=== PATIENT | male | born 1980 | race Caucasian/White ===

== ENCOUNTER → 2020-01-19 07:01 | Outpatient (CLI) | payer OTHER, SELFPAY ==
--- NOTE | 2020-01-19 | DI.MRI.S_ITS ---
PROCEDURE: MR HEAD/BRAIN WO CON INDICATIONS: Headache, unspecified TECHNIQUE: Noncontrast axial T1 spin echo, axial T2 fast spin echo, sagittal and axial FLAIR, coronal T2 fast spin echo, axial gradient echo, axial diffusion and ADC through the brain. COMPARISON: None. FINDINGS: Image quality: Excellent. CSF Spaces: Basal cisterns are patent. No extra-axial fluid collections. Ventricles are normal in size and shape. Brain: No intracranial masses or hemorrhage. Nazario/white matter interface is normal. Brainstem appears normal. Diffusion-weighted images demonstrate no acute ischemic insult. No chronic ischemic insults. Normal intravascular flow voids are present. Skull and face: Calvarium has normal marrow signal. Orbits appear normal. Sinuses: Sinuses and mastoids are clear. IMPRESSION: Normal for age, source of current persistent headaches symptoms is not seen. Dictated by: Robson Huynh M.D. on 01/19/2020 at 8:12 Approved by: Robson Huynh M.D. on 01/19/2020 at 8:13
== END ==
PROVIDERS: PCP Family Medicine; Referring Provider Family Medicine; Visit Provider Family Medicine
DX: R51.9 Headache, unspecified (principal)
CPT/HCPCS: 70551

== ENCOUNTER → 2020-03-08 14:59 | Outpatient (CLI) | payer OTHER, SELFPAY | PROVIDERS: PCP Family Medicine; Referring Provider Specialist; Visit Provider Specialist | DX: N39.0 Urinary tract infection, site not specified (principal) | CPT/HCPCS: 51728; 51741; 51797; 87086 ==

== ENCOUNTER 2020-07-14 13:00 | Outpatient (RCR) | payer OTHER, SELFPAY ==
--- NOTE | 2019-02-04 13:43 | PT.OIE ---
Current Diagnoses Cervicalgia (02/04/19) Headache (02/04/19) Personal history of traumatic brain injury (02/04/19) Visit Care Team Role Provider Type Elisha Mello DO Attending Provider Non-Staff Primary Care Provider Specialty: Medical Address: [address] [place] [address], [id number] Email: Physical Therapy Initial Evaluation PT-OP-A Visit Information Start: 02/04/19 07:28 Freq: Status: Active Protocol: Document 02/04/19 09:01 MB (Rec: 02/04/19 09:50 MB [id number]) Out-Patient Physical Therapy Visit Information Visit Information Visit Type Initial Evaluation Visit Note Miranda, active duty Visit Start Time 09:01 Visit Stop Time 09:41 Total Visit Minutes 40 Visit Number 1 PT-OP-B Current Condition Start: 02/04/19 07:28 Freq: Status: Active Protocol: Document 02/04/19 09:01 MB (Rec: 02/04/19 09:50 MB [id number]) Current Condition History of Current Condition Onset Date 1.5 years History of Current Condition Pt reports TBI 4 years ago when tripping and hitting head on counter. He had a severe concussion and he was out at least 30 minutes. He went to the hospital and was checked out. He had had post- concussion syndrome for 6 weeks. He would fall out unconsious when sitting at random times. He would not have memory of it. He went from having headaches 1-2 times a year to 4-6 a year. Seizures started 1.5 years ago . They are termed psychogenic seizures. There is no epilectic activity. He screens high for PTSD. Pt states that PTSD may be related to past relationships. They happen out of sleep. He wakes up shaking . He does not think he has headaches. , Joy, describes rocking side to side or pelvic thrusting, head back and eyes rolled upward. He occ has horizontal nystagmus and then his head drops down. Events last 30 sec . He is taking Topamax in the a.m. to help with mood and headaches. He has not gone more than 18 days without a seizure. He has been on Topamax for a week and has not had a seizure. 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 He had trigger point injections. He has to go through series of taking medications including corticosteroids. 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 He and are trying out supportive neck pillows. He sleeps on a wedge. 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 He drinks caffeine and water . occ reports of pt with anger and memory loss connected. These were unlike his normal personality. Pt reports headaches up to a 7 /10 and he has to talk Percicet. Headaches are over the right eye and down into his right face and back of head and feeling right eyeball being squeezed. He sees colors and has horizontal nystagmus. Overall discomfort left upper trap area, 3/10. He has 3-7/10 pain down left arm . Right hernia surgery and pain after right testicle removed. Multiple neural surgeries in the area and he now has a small left inguinal hernia. Pt reports occ tingling 4th and 5th left digit and burning down back of left arm through elbow. Prior Treatments and Tests PT in the past for left shoulder. It went okay. He had it for his right wrist as well. Right TMJ injections PT-OP-C Subjective Start: 02/04/19 07:28 Freq: Status: Active Protocol: Document 02/04/19 09:01 MB (Rec: 02/04/19 13:25 MB [id number]) OP-PT Subjective Patient Comments Patient Comments Pt would like to feel better. Patient Questionnaires Neck Disability Index Neck Disability Index Impairment 40 to 59% Impaired (Score 20- 29) Quick Dash- Upper Extremity Quick Dash UE Impairment 40 to 59% Impaired (Score 40- 59) PT-OP-J Posture/Palpation/Skin Start: 02/04/19 07:28 Freq: Status: Active Protocol: Document 02/04/19 09:01 MB (Rec: 02/04/19 13:33 MB [id number]) Posture Evaluation Comments Posture Comments Standing posture: forward head , rounded shoulders, Dowager's hump, decreased thoracic kyphosis, increased lumbar lordosis, changes around T6 vertebra that could be stiffness PT-OP-K Range of Motion Start: 02/04/19 07:28 Freq: Status: Active Protocol: Document 02/04/19 09:01 MB (Rec: 02/04/19 13:33 MB [id number]) Cervical Spine Range of Motion Cervical Spine Active Testing Position Standing Flexion 35 Extension 40 Rotation Left 40 Rotation Right 50 Comments Pt reports stretch in right jaw with cervical extension and left upper traps area discomfort 3/10 with flexion PT-OP-M Strength Start: 02/04/19 07:28 Freq: Status: Active Protocol: Document 02/04/19 09:01 MB (Rec: 02/04/19 13:33 MB [id number]) Shoulder Strength Shoulder Manual Muscle Testing Left Flexion 4 Good Abduction (C5) 4 Good External Rotation 5 Normal Internal Rotation 5 Normal Right Flexion 5 Normal Abduction (C5) 5 Normal External Rotation 4 Good Internal Rotation 4 Good Elbow/Forearm Strength Elbow and Forearm Manual Muscle Testing Left Flexion (C6) 5 Normal Extension (C7) 5 Normal Pronation 4 Good Supination 4 Good Right Flexion (C6) 5 Normal Extension (C7) 5 Normal Pronation 4 Good Supination 4 Good Wrist Strength Wrist Manual Muscle Testing Left Flexion (C7) 5 Normal Extension (C6) 5 Normal Right Flexion (C7) 5 Normal Extension (C6) 5 Normal PT-OP-T Assessment and Plan Start: 02/04/19 07:28 Freq: Status: Active Protocol: Document 02/04/19 09:01 MB (Rec: 02/04/19 13:33 MB [id number]) Physical Therapy Assessment Rehab Potential Rehabilitation Potential Fair Evaluation Complexity Number of Personal Factors/Comorbidities 3 or More Number of Body Systems Impaired 3 Clinical Presentation at Evaluation Evolving Impairments Other Impairments Pt presents with moderate complexity d/t personal factors of job requirements and psychosocial changes. Body systems affected include musculoskeletal, neurological and psychosocial. Other factors include polypharmacy and questionable sleep d/t awakening with seizures. His clinical presentation is evolving. Goals 5 Group Home Goal (LTG) Pt will present with B shoulder flexion, abduction, ER and IR to 5/5 with MMT by . LTG Duration 8 weeks 4 Group Home Goal (LTG) Pt will report a 25% improvement in headache and shoulder pain by 04/07/19. LTG Duration 8 weeks 3 Group Home Goal (LTG) Pt will perform progressive HEP with I including postural alignment, flexibility, strengthening and relaxation exercises by 04/07/19. LTG Duration 8 weeks 2 Group Home Goal (LTG) Pt will present with a QuickDASH score to reflect no more than 10% impairment by . LTG Duration 8 weeks 1 Group Home Goal (LTG) Pt will present with a NDI score to reflect no more than 20% impairment by 04/07/19. LTG Duration 8 weeks Assessment Summary Assessment Pt is a 38 y/o male presenting with long history of headaches that have worsened over the last year and a half when he started having seizures of psychological nature. He is awakening at night with seizures and does not remember having nightmares . He has memory lapses in the evenings and during seizure times and PT is concerned about this. He is followed by specialists and is receiving medications to address headaches and psychological components to presentation. He has a history of what sounds to be a brachial plexus injury to his left upper extremity when he caught his body weight when falling off a ladder. He has ongoing upper shoulder pain and arm paresthesias and burning. He also reports jaw clinching and use of mouth guard at night. He has had right TMJ injections. His headaches are right temporal to right sided and right eye pressure. He presents with B shoulder weakness, decreased cervical ROM and postural abnormalities on evaluation date. He will benefit from PT to address fascial, postural, strength, ROM changes. Barriers include multifactorial components to his presentation per report and medical history. Physical Therapy Plan Frequency and Duration Frequency of Treatment 2x/Week Duration of Treatment 8 weeks Plan of Care Start Date 02/04/19 Plan of Care End Date 04/07/19 Therapeutic Interventions Therapeutic Interventions Balance Training,Canalithic Repositioning,Home Exercise Program,Manual Therapy, Neuromuscular Re-education, Patient/Caregiver Education, Self-Care/Home Management,Soft Tissue Mobilization,Taping, Therapeutic Exercises, Vestibular Rehabilitation Modalities Cold Pack/Ice Massage,Electric Stimulation,Hot Packs, Ultrasound Next Visit Focus/Plan Next Note Type Treatment Note Next Visit Plan Initiate HEP and/or Counterstrain
--- NOTE | 2019-02-06 09:01 | PT.OTN ---
Current Diagnoses Cervicalgia (02/06/19) Headache (02/06/19) Personal history of traumatic brain injury (02/06/19) Physical Therapy Treatment Note PT-OP-A Visit Information Start: 02/04/19 07:28 Freq: Status: Active Protocol: Document 02/06/19 08:15 MB (Rec: 02/06/19 09:01 MB [id number]) Out-Patient Physical Therapy Visit Information Visit Information Visit Type Initial Evaluation Visit Note Miranda, active duty Visit Start Time 08:15 Visit Stop Time 08:55 Total Visit Minutes 40 Visit Number 2 PT-OP-B Current Condition Start: 02/04/19 07:28 Freq: Status: Active Protocol: Document 02/04/19 09:01 MB (Rec: 02/04/19 09:50 MB [id number]) Current Condition History of Current Condition Onset Date 1.5 years History of Current Condition Pt reports TBI 4 years ago when tripping and hitting head on counter. He had a severe concussion and he was out at least 30 minutes. He went to the hospital and was checked out. He had had post- concussion syndrome for 6 weeks. He would fall out unconsious when sitting at random times. He would not have memory of it. He went from having headaches 1-2 times a year to 4-6 a year. Seizures started 1.5 years ago . They are termed psychogenic seizures. There is no epilectic activity. He screens high for PTSD. Pt states that PTSD may be related to past relationships. They happen out of sleep. He wakes up shaking . He does not think he has headaches. , Joy, describes rocking side to side or pelvic thrusting, head back and eyes rolled upward. He occ has horizontal nystagmus and then his head drops down. Events last 30 sec . He is taking Topamax in the a.m. to help with mood and headaches. He has not gone more than 18 days without a seizure. He has been on Topamax for a week and has not had a seizure. 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 He had trigger point injections. He has to go through series of taking medications including corticosteroids. 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 He and are trying out supportive neck pillows. He sleeps on a wedge. 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 He drinks caffeine and water . occ reports of pt with anger and memory loss connected. These were unlike his normal personality. Pt reports headaches up to a 7 /10 and he has to talk Percicet. Headaches are over the right eye and down into his right face and back of head and feeling right eyeball being squeezed. He sees colors and has horizontal nystagmus. Overall discomfort left upper trap area, 3/10. He has 3-7/10 pain down left arm . Right hernia surgery and pain after right testicle removed. Multiple neural surgeries in the area and he now has a small left inguinal hernia. Pt reports occ tingling 4th and 5th left digit and burning down back of left arm through elbow. Prior Treatments and Tests PT in the past for left shoulder. It went okay. He had it for his right wrist as well. Right TMJ injections PT-OP-C Subjective Start: 02/04/19 07:28 Freq: Status: Active Protocol: Document 02/06/19 08:15 MB (Rec: 02/06/19 09:01 MB [id number]) OP-PT Subjective Patient Comments Patient Comments Pt had a seizure this morning per at 0330. He had writhing-type full body movement and then awoke with soreness and light-headedness and nausea. He has blood sugar checked by in the past and it was never low. He does not have DM. He does not lose his bladder. He had a sleep study in the past and every thing turned out fine. PT-OP-J Posture/Palpation/Skin Start: 02/04/19 07:28 Freq: Status: Active Protocol: Document 02/04/19 09:01 MB (Rec: 02/04/19 13:33 MB [id number]) Posture Evaluation Comments Posture Comments Standing posture: forward head , rounded shoulders, Dowager's hump, decreased thoracic kyphosis, increased lumbar lordosis, changes around T6 vertebra that could be stiffness PT-OP-K Range of Motion Start: 02/04/19 07:28 Freq: Status: Active Protocol: Document 02/04/19 09:01 MB (Rec: 02/04/19 13:33 MB [id number]) Cervical Spine Range of Motion Cervical Spine Active Testing Position Standing Flexion 35 Extension 40 Rotation Left 40 Rotation Right 50 Comments Pt reports stretch in right jaw with cervical extension and left upper traps area discomfort 3/10 with flexion PT-OP-M Strength Start: 02/04/19 07:28 Freq: Status: Active Protocol: Document 02/04/19 09:01 MB (Rec: 02/04/19 13:33 MB [id number]) Shoulder Strength Shoulder Manual Muscle Testing Left Flexion 4 Good Abduction (C5) 4 Good External Rotation 5 Normal Internal Rotation 5 Normal Right Flexion 5 Normal Abduction (C5) 5 Normal External Rotation 4 Good Internal Rotation 4 Good Elbow/Forearm Strength Elbow and Forearm Manual Muscle Testing Left Flexion (C6) 5 Normal Extension (C7) 5 Normal Pronation 4 Good Supination 4 Good Right Flexion (C6) 5 Normal Extension (C7) 5 Normal Pronation 4 Good Supination 4 Good Wrist Strength Wrist Manual Muscle Testing Left Flexion (C7) 5 Normal Extension (C6) 5 Normal Right Flexion (C7) 5 Normal Extension (C6) 5 Normal PT-OP-Q Treatments Start: 02/04/19 07:28 Freq: Status: Active Protocol: Document 02/06/19 08:15 MB (Rec: 02/06/19 09:01 MB [id number]) Therapeutic Exercises Supine Exercises Diaphragmatic breathing Comments Performed this date and added to HEP Manual Therapy Treatment Manual Techniques Counterstrain Comments Pt agrees to Counterstrain to assess and treat fascial tension: vagus, left sinuvetebral, left posterior inferior somatics, B spinomedullary. PT treats stacks facial and cervical standard lymphatic fascial and anterior LE somatics near pelvis. PT-OP-T Assessment and Plan Start: 02/04/19 07:28 Freq: Status: Active Protocol: Document 02/06/19 08:15 MB (Rec: 02/06/19 09:01 MB [id number]) Physical Therapy Assessment Rehab Potential Rehabilitation Potential Fair Evaluation Complexity Number of Personal Factors/Comorbidities 3 or More Number of Body Systems Impaired 3 Clinical Presentation at Evaluation Evolving Impairments Other Impairments Pt presents with moderate complexity d/t personal factors of job requirements and psychosocial changes. Body systems affected include musculoskeletal, neurological and psychosocial. Other factors include polypharmacy and questionable sleep d/t awakening with seizures. His clinical presentation is evolving. Goals 5 Detention Goal (LTG) Pt will present with B shoulder flexion, abduction, ER and IR to 5/5 with MMT by . LTG Duration 8 weeks 4 Detention Goal (LTG) Pt will report a 25% improvement in headache and shoulder pain by 04/07/19. LTG Duration 8 weeks 3 Detention Goal (LTG) Pt will perform progressive HEP with I including postural alignment, flexibility, strengthening and relaxation exercises by 04/07/19. LTG Duration 8 weeks 2 Detention Goal (LTG) Pt will present with a QuickDASH score to reflect no more than 10% impairment by . LTG Duration 8 weeks 1 Detention Goal (LTG) Pt will present with a NDI score to reflect no more than 20% impairment by 04/07/19. LTG Duration 8 weeks Assessment Summary Assessment Initiated Counterstrain and pt presents with globalized fascial tightness, greatest in neural and lymphatic systems. Consider assessing SCM. Pt tends not to breathe and he improves tension with diaphragmatic breathing. Physical Therapy Plan Frequency and Duration Frequency of Treatment 2x/Week Duration of Treatment 8 weeks Plan of Care Start Date 02/04/19 Plan of Care End Date 04/07/19 Therapeutic Interventions Therapeutic Interventions Balance Training,Canalithic Repositioning,Home Exercise Program,Manual Therapy, Neuromuscular Re-education, Patient/Caregiver Education, Self-Care/Home Management,Soft Tissue Mobilization,Taping, Therapeutic Exercises, Vestibular Rehabilitation Modalities Cold Pack/Ice Massage,Electric Stimulation,Hot Packs, Ultrasound Next Visit Focus/Plan Next Note Type Treatment Note Next Visit Plan Progress HEP and/or Counterstrain
--- NOTE | 2019-02-09 08:17 | PT.OTN ---
Current Diagnoses Cervicalgia (02/09/19) Headache (02/09/19) Personal history of traumatic brain injury (02/09/19) Physical Therapy Treatment Note PT-OP-A Visit Information Start: 02/04/19 07:28 Freq: Status: Active Protocol: Document 02/09/19 07:29 MB (Rec: 02/09/19 08:17 MB [id number]) Out-Patient Physical Therapy Visit Information Visit Information Visit Type Treatment Note Visit Note Miranda, active duty Visit Start Time 07:29 Visit Stop Time 08:09 Total Visit Minutes 40 Visit Number 3 PT-OP-B Current Condition Start: 02/04/19 07:28 Freq: Status: Active Protocol: Document 02/04/19 09:01 MB (Rec: 02/04/19 09:50 MB [id number]) Current Condition History of Current Condition Onset Date 1.5 years History of Current Condition Pt reports TBI 4 years ago when tripping and hitting head on counter. He had a severe concussion and he was out at least 30 minutes. He went to the hospital and was checked out. He had had post- concussion syndrome for 6 weeks. He would fall out unconsious when sitting at random times. He would not have memory of it. He went from having headaches 1-2 times a year to 4-6 a year. Seizures started 1.5 years ago . They are termed psychogenic seizures. There is no epilectic activity. He screens high for PTSD. Pt states that PTSD may be related to past relationships. They happen out of sleep. He wakes up shaking . He does not think he has headaches. , Joy, describes rocking side to side or pelvic thrusting, head back and eyes rolled upward. He occ has horizontal nystagmus and then his head drops down. Events last 30 sec . He is taking Topamax in the a.m. to help with mood and headaches. He has not gone more than 18 days without a seizure. He has been on Topamax for a week and has not had a seizure. 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 He had trigger point injections. He has to go through series of taking medications including corticosteroids. 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 He and are trying out supportive neck pillows. He sleeps on a wedge. 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 He drinks caffeine and water . occ reports of pt with anger and memory loss connected. These were unlike his normal personality. Pt reports headaches up to a 7 /10 and he has to talk Percicet. Headaches are over the right eye and down into his right face and back of head and feeling right eyeball being squeezed. He sees colors and has horizontal nystagmus. Overall discomfort left upper trap area, 3/10. He has 3-7/10 pain down left arm . Right hernia surgery and pain after right testicle removed. Multiple neural surgeries in the area and he now has a small left inguinal hernia. Pt reports occ tingling 4th and 5th left digit and burning down back of left arm through elbow. Prior Treatments and Tests PT in the past for left shoulder. It went okay. He had it for his right wrist as well. Right TMJ injections PT-OP-C Subjective Start: 02/04/19 07:28 Freq: Status: Active Protocol: Document 02/09/19 07:29 MB (Rec: 02/09/19 08:17 MB [id number]) OP-PT Subjective Patient Comments Patient Comments Pt is still having daily headaches. He has had no seizures since first PT treatment. Counterstrain was a little helpful. PT-OP-J Posture/Palpation/Skin Start: 02/04/19 07:28 Freq: Status: Active Protocol: Document 02/04/19 09:01 MB (Rec: 02/04/19 13:33 MB [id number]) Posture Evaluation Comments Posture Comments Standing posture: forward head , rounded shoulders, Dowager's hump, decreased thoracic kyphosis, increased lumbar lordosis, changes around T6 vertebra that could be stiffness PT-OP-K Range of Motion Start: 02/04/19 07:28 Freq: Status: Active Protocol: Document 02/04/19 09:01 MB (Rec: 02/04/19 13:33 MB [id number]) Cervical Spine Range of Motion Cervical Spine Active Testing Position Standing Flexion 35 Extension 40 Rotation Left 40 Rotation Right 50 Comments Pt reports stretch in right jaw with cervical extension and left upper traps area discomfort 3/10 with flexion PT-OP-M Strength Start: 02/04/19 07:28 Freq: Status: Active Protocol: Document 02/04/19 09:01 MB (Rec: 02/04/19 13:33 MB [id number]) Shoulder Strength Shoulder Manual Muscle Testing Left Flexion 4 Good Abduction (C5) 4 Good External Rotation 5 Normal Internal Rotation 5 Normal Right Flexion 5 Normal Abduction (C5) 5 Normal External Rotation 4 Good Internal Rotation 4 Good Elbow/Forearm Strength Elbow and Forearm Manual Muscle Testing Left Flexion (C6) 5 Normal Extension (C7) 5 Normal Pronation 4 Good Supination 4 Good Right Flexion (C6) 5 Normal Extension (C7) 5 Normal Pronation 4 Good Supination 4 Good Wrist Strength Wrist Manual Muscle Testing Left Flexion (C7) 5 Normal Extension (C6) 5 Normal Right Flexion (C7) 5 Normal Extension (C6) 5 Normal PT-OP-Q Treatments Start: 02/04/19 07:28 Freq: Status: Active Protocol: Document 02/09/19 07:29 MB (Rec: 02/09/19 08:17 MB [id number]) Manual Therapy Treatment Manual Techniques Counterstrain Comments Pt agrees to Counterstrain to assess and treat fascial tension: Left AINT, left arterial UE, left PINT. PT-OP-T Assessment and Plan Start: 02/04/19 07:28 Freq: Status: Active Protocol: Document 02/09/19 07:29 MB (Rec: 02/09/19 08:17 MB [id number]) Physical Therapy Assessment Rehab Potential Rehabilitation Potential Fair Evaluation Complexity Number of Personal Factors/Comorbidities 3 or More Number of Body Systems Impaired 3 Clinical Presentation at Evaluation Evolving Impairments Other Impairments Pt presents with moderate complexity d/t personal factors of job requirements and psychosocial changes. Body systems affected include musculoskeletal, neurological and psychosocial. Other factors include polypharmacy and questionable sleep d/t awakening with seizures. His clinical presentation is evolving. Goals 5 Maintenance Repairman Goal (LTG) Pt will present with B shoulder flexion, abduction, ER and IR to 5/5 with MMT by . LTG Duration 8 weeks 4 Custodial Goal (LTG) Pt will report a 25% improvement in headache and shoulder pain by 04/07/19. LTG Duration 8 weeks 3 Maintenance Repairman Goal (LTG) Pt will perform progressive HEP with I including postural alignment, flexibility, strengthening and relaxation exercises by 04/07/19. LTG Duration 8 weeks 2 Maintenance Repairman Goal (LTG) Pt will present with a QuickDASH score to reflect no more than 10% impairment by . LTG Duration 8 weeks 1 Maintenance Repairman Goal (LTG) Pt will present with a NDI score to reflect no more than 20% impairment by 04/07/19. LTG Duration 8 weeks Assessment Summary Assessment Con't with Counterstrain today . Pt scans heavy arterial fascia and brachial plexus neural fascia. Consider assessing SCM. Pt tends not to breathe and he requires cues and he improves tension with diaphragmatic breathing. Physical Therapy Plan Frequency and Duration Frequency of Treatment 2x/Week Duration of Treatment 8 weeks Plan of Care Start Date 02/04/19 Plan of Care End Date 04/07/19 Therapeutic Interventions Therapeutic Interventions Balance Training,Canalithic Repositioning,Home Exercise Program,Manual Therapy, Neuromuscular Re-education, Patient/Caregiver Education, Self-Care/Home Management,Soft Tissue Mobilization,Taping, Therapeutic Exercises, Vestibular Rehabilitation Modalities Cold Pack/Ice Massage,Electric Stimulation,Hot Packs, Ultrasound Next Visit Focus/Plan Next Note Type Treatment Note Next Visit Plan Progress HEP and/or Counterstrain
--- NOTE | 2019-02-19 16:47 | PT.OTN ---
Current Diagnoses Cervicalgia (02/19/19) Headache (02/19/19) Personal history of traumatic brain injury (02/19/19) Physical Therapy Treatment Note PT-OP-A Visit Information Start: 02/04/19 07:28 Freq: Status: Active Protocol: Document 02/19/19 16:05 MB (Rec: 02/19/19 16:47 MB [id number]) Out-Patient Physical Therapy Visit Information Visit Information Visit Type Treatment Note Visit Note Miranda, active duty Visit Start Time 16:05 Visit Stop Time 16:45 Total Visit Minutes 40 Visit Number 4 PT-OP-B Current Condition Start: 02/04/19 07:28 Freq: Status: Active Protocol: Document 02/04/19 09:01 MB (Rec: 02/04/19 09:50 MB [id number]) Current Condition History of Current Condition Onset Date 1.5 years History of Current Condition Pt reports TBI 4 years ago when tripping and hitting head on counter. He had a severe concussion and he was out at least 30 minutes. He went to the hospital and was checked out. He had had post- concussion syndrome for 6 weeks. He would fall out unconsious when sitting at random times. He would not have memory of it. He went from having headaches 1-2 times a year to 4-6 a year. Seizures started 1.5 years ago . They are termed psychogenic seizures. There is no epilectic activity. He screens high for PTSD. Pt states that PTSD may be related to past relationships. They happen out of sleep. He wakes up shaking . He does not think he has headaches. , Joy, describes rocking side to side or pelvic thrusting, head back and eyes rolled upward. He occ has horizontal nystagmus and then his head drops down. Events last 30 sec . He is taking Topamax in the a.m. to help with mood and headaches. He has not gone more than 18 days without a seizure. He has been on Topamax for a week and has not had a seizure. 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 He had trigger point injections. He has to go through series of taking medications including corticosteroids. 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 He and are trying out supportive neck pillows. He sleeps on a wedge. 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 He drinks caffeine and water . occ reports of pt with anger and memory loss connected. These were unlike his normal personality. Pt reports headaches up to a 7 /10 and he has to talk Percicet. Headaches are over the right eye and down into his right face and back of head and feeling right eyeball being squeezed. He sees colors and has horizontal nystagmus. Overall discomfort left upper trap area, 3/10. He has 3-7/10 pain down left arm . Right hernia surgery and pain after right testicle removed. Multiple neural surgeries in the area and he now has a small left inguinal hernia. Pt reports occ tingling 4th and 5th left digit and burning down back of left arm through elbow. Prior Treatments and Tests PT in the past for left shoulder. It went okay. He had it for his right wrist as well. Right TMJ injections PT-OP-C Subjective Start: 02/04/19 07:28 Freq: Status: Active Protocol: Document 02/19/19 16:05 MB (Rec: 02/19/19 16:47 MB [id number]) OP-PT Subjective Patient Comments Patient Comments Pt states that he is doing a little better. He has headaches every three days and seizures once a week. PT-OP-J Posture/Palpation/Skin Start: 02/04/19 07:28 Freq: Status: Active Protocol: Document 02/04/19 09:01 MB (Rec: 02/04/19 13:33 MB [id number]) Posture Evaluation Comments Posture Comments Standing posture: forward head , rounded shoulders, Dowager's hump, decreased thoracic kyphosis, increased lumbar lordosis, changes around T6 vertebra that could be stiffness PT-OP-K Range of Motion Start: 02/04/19 07:28 Freq: Status: Active Protocol: Document 02/04/19 09:01 MB (Rec: 02/04/19 13:33 MB [id number]) Cervical Spine Range of Motion Cervical Spine Active Testing Position Standing Flexion 35 Extension 40 Rotation Left 40 Rotation Right 50 Comments Pt reports stretch in right jaw with cervical extension and left upper traps area discomfort 3/10 with flexion PT-OP-M Strength Start: 02/04/19 07:28 Freq: Status: Active Protocol: Document 02/04/19 09:01 MB (Rec: 02/04/19 13:33 MB [id number]) Shoulder Strength Shoulder Manual Muscle Testing Left Flexion 4 Good Abduction (C5) 4 Good External Rotation 5 Normal Internal Rotation 5 Normal Right Flexion 5 Normal Abduction (C5) 5 Normal External Rotation 4 Good Internal Rotation 4 Good Elbow/Forearm Strength Elbow and Forearm Manual Muscle Testing Left Flexion (C6) 5 Normal Extension (C7) 5 Normal Pronation 4 Good Supination 4 Good Right Flexion (C6) 5 Normal Extension (C7) 5 Normal Pronation 4 Good Supination 4 Good Wrist Strength Wrist Manual Muscle Testing Left Flexion (C7) 5 Normal Extension (C6) 5 Normal Right Flexion (C7) 5 Normal Extension (C6) 5 Normal PT-OP-Q Treatments Start: 02/04/19 07:28 Freq: Status: Active Protocol: Document 02/19/19 16:05 MB (Rec: 02/19/19 16:47 MB [id number]) Manual Therapy Treatment Manual Techniques Suboccipital release Comments Performed this date and pt presents with decreased tension in cervical paraspinals MWM SCM Comments MWM SCM and upper traps with pt performing active rotation and PT providing trigger point pressure--B Counterstrain Comments Pt agrees to Counterstrain to assess and treat fascial tension. PT treats left trochlear nerve fascial tension Other Other Manual Treatments KT to inhibit left upper traps PT-OP-T Assessment and Plan Start: 02/04/19 07:28 Freq: Status: Active Protocol: Document 02/19/19 16:05 MB (Rec: 02/19/19 16:47 MB [id number]) Physical Therapy Assessment Rehab Potential Rehabilitation Potential Fair Evaluation Complexity Number of Personal Factors/Comorbidities 3 or More Number of Body Systems Impaired 3 Clinical Presentation at Evaluation Evolving Impairments Other Impairments Pt presents with moderate complexity d/t personal factors of job requirements and psychosocial changes. Body systems affected include musculoskeletal, neurological and psychosocial. Other factors include polypharmacy and questionable sleep d/t awakening with seizures. His clinical presentation is evolving. Goals 5 Newsagent Goal (LTG) Pt will present with B shoulder flexion, abduction, ER and IR to 5/5 with MMT by . LTG Duration 8 weeks 4 Skilled Nursing Goal (LTG) Pt will report a 25% improvement in headache and shoulder pain by 04/07/19. LTG Duration 8 weeks 3 Skilled Nursing Goal (LTG) Pt will perform progressive HEP with I including postural alignment, flexibility, strengthening and relaxation exercises by 04/07/19. LTG Duration 8 weeks 2 Newsagent Goal (LTG) Pt will present with a QuickDASH score to reflect no more than 10% impairment by . LTG Duration 8 weeks 1 Skilled Nursing Goal (LTG) Pt will present with a NDI score to reflect no more than 20% impairment by 04/07/19. LTG Duration 8 weeks Assessment Summary Assessment Con't Counterstrain and progress breathing and relaxation exercises. L upper traps spasms with MWM, may have been guarding left brachial plexus after injury. Pt responds well to MWM, consider self-treatment with hands, racquet ball, stretches . Physical Therapy Plan Frequency and Duration Frequency of Treatment 2x/Week Duration of Treatment 8 weeks Plan of Care Start Date 02/04/19 Plan of Care End Date 04/07/19 Therapeutic Interventions Therapeutic Interventions Balance Training,Canalithic Repositioning,Home Exercise Program,Manual Therapy, Neuromuscular Re-education, Patient/Caregiver Education, Self-Care/Home Management,Soft Tissue Mobilization,Taping, Therapeutic Exercises, Vestibular Rehabilitation Modalities Cold Pack/Ice Massage,Electric Stimulation,Hot Packs, Ultrasound Next Visit Focus/Plan Next Note Type Treatment Note Next Visit Plan Progress HEP and/or Counterstrain. Progress scapular strengthening/support of neck and upper traps
--- NOTE | 2019-02-23 08:17 | PT.OTN ---
Current Diagnoses Cervicalgia (02/23/19) Headache (02/23/19) Personal history of traumatic brain injury (02/23/19) Physical Therapy Treatment Note PT-OP-A Visit Information Start: 02/04/19 07:28 Freq: Status: Active Protocol: Document 02/23/19 07:45 MB (Rec: 02/23/19 08:17 MB [id number]) Out-Patient Physical Therapy Visit Information Visit Information Visit Type Treatment Note Visit Note Miranda, active duty. Pt running late today. Visit Start Time 07:45 Visit Stop Time 08:15 Total Visit Minutes 30 Visit Number 5 PT-OP-B Current Condition Start: 02/04/19 07:28 Freq: Status: Active Protocol: Document 02/04/19 09:01 MB (Rec: 02/04/19 09:50 MB [id number]) Current Condition History of Current Condition Onset Date 1.5 years History of Current Condition Pt reports TBI 4 years ago when tripping and hitting head on counter. He had a severe concussion and he was out at least 30 minutes. He went to the hospital and was checked out. He had had post- concussion syndrome for 6 weeks. He would fall out unconsious when sitting at random times. He would not have memory of it. He went from having headaches 1-2 times a year to 4-6 a year. Seizures started 1.5 years ago . They are termed psychogenic seizures. There is no epilectic activity. He screens high for PTSD. Pt states that PTSD may be related to past relationships. They happen out of sleep. He wakes up shaking . He does not think he has headaches. , Joy, describes rocking side to side or pelvic thrusting, head back and eyes rolled upward. He occ has horizontal nystagmus and then his head drops down. Events last 30 sec . He is taking Topamax in the a.m. to help with mood and headaches. He has not gone more than 18 days without a seizure. He has been on Topamax for a week and has not had a seizure. 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 He had trigger point injections. He has to go through series of taking medications including corticosteroids. 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 He and are trying out supportive neck pillows. He sleeps on a wedge. 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 He drinks caffeine and water . occ reports of pt with anger and memory loss connected. These were unlike his normal personality. Pt reports headaches up to a 7 /10 and he has to talk Percicet. Headaches are over the right eye and down into his right face and back of head and feeling right eyeball being squeezed. He sees colors and has horizontal nystagmus. Overall discomfort left upper trap area, 3/10. He has 3-7/10 pain down left arm . Right hernia surgery and pain after right testicle removed. Multiple neural surgeries in the area and he now has a small left inguinal hernia. Pt reports occ tingling 4th and 5th left digit and burning down back of left arm through elbow. Prior Treatments and Tests PT in the past for left shoulder. It went okay. He had it for his right wrist as well. Right TMJ injections PT-OP-C Subjective Start: 02/04/19 07:28 Freq: Status: Active Protocol: Document 02/23/19 07:45 MB (Rec: 02/23/19 08:17 MB [id number]) OP-PT Subjective Patient Comments Patient Comments Pt is late because he had trouble getting daughter off to school. Upper traps taping stayed on well and treatment was helpful. SCM treatment was helpful. PT-OP-J Posture/Palpation/Skin Start: 02/04/19 07:28 Freq: Status: Active Protocol: Document 02/04/19 09:01 MB (Rec: 02/04/19 13:33 MB [id number]) Posture Evaluation Comments Posture Comments Standing posture: forward head , rounded shoulders, Dowager's hump, decreased thoracic kyphosis, increased lumbar lordosis, changes around T6 vertebra that could be stiffness PT-OP-K Range of Motion Start: 02/04/19 07:28 Freq: Status: Active Protocol: Document 02/04/19 09:01 MB (Rec: 02/04/19 13:33 MB [id number]) Cervical Spine Range of Motion Cervical Spine Active Testing Position Standing Flexion 35 Extension 40 Rotation Left 40 Rotation Right 50 Comments Pt reports stretch in right jaw with cervical extension and left upper traps area discomfort 3/10 with flexion PT-OP-M Strength Start: 02/04/19 07:28 Freq: Status: Active Protocol: Document 02/04/19 09:01 MB (Rec: 02/04/19 13:33 MB [id number]) Shoulder Strength Shoulder Manual Muscle Testing Left Flexion 4 Good Abduction (C5) 4 Good External Rotation 5 Normal Internal Rotation 5 Normal Right Flexion 5 Normal Abduction (C5) 5 Normal External Rotation 4 Good Internal Rotation 4 Good Elbow/Forearm Strength Elbow and Forearm Manual Muscle Testing Left Flexion (C6) 5 Normal Extension (C7) 5 Normal Pronation 4 Good Supination 4 Good Right Flexion (C6) 5 Normal Extension (C7) 5 Normal Pronation 4 Good Supination 4 Good Wrist Strength Wrist Manual Muscle Testing Left Flexion (C7) 5 Normal Extension (C6) 5 Normal Right Flexion (C7) 5 Normal Extension (C6) 5 Normal PT-OP-Q Treatments Start: 02/04/19 07:28 Freq: Status: Active Protocol: Document 02/23/19 07:45 MB (Rec: 02/23/19 08:17 MB [id number]) Therapeutic Exercises Sitting Exercises Upper traps MWM with racquet ball Comments Added today, performed and to perform with HEP Standing Exercises Racquet ball massage, MWM with infraspinatus Comments Performed this date and added to HEP PT-OP-T Assessment and Plan Start: 02/04/19 07:28 Freq: Status: Active Protocol: Document 02/23/19 07:45 MB (Rec: 02/23/19 08:17 MB [id number]) Physical Therapy Assessment Rehab Potential Rehabilitation Potential Fair Evaluation Complexity Number of Personal Factors/Comorbidities 3 or More Number of Body Systems Impaired 3 Clinical Presentation at Evaluation Evolving Impairments Other Impairments Pt presents with moderate complexity d/t personal factors of job requirements and psychosocial changes. Body systems affected include musculoskeletal, neurological and psychosocial. Other factors include polypharmacy and questionable sleep d/t awakening with seizures. His clinical presentation is evolving. Goals 5 Fdc Goal (LTG) Pt will present with B shoulder flexion, abduction, ER and IR to 5/5 with MMT by . LTG Duration 8 weeks 4 Fdc Goal (LTG) Pt will report a 25% improvement in headache and shoulder pain by 04/07/19. LTG Duration 8 weeks 3 Fdc Goal (LTG) Pt will perform progressive HEP with I including postural alignment, flexibility, strengthening and relaxation exercises by 04/07/19. LTG Duration 8 weeks 2 Product Promoter Retail Pet Goal (LTG) Pt will present with a QuickDASH score to reflect no more than 10% impairment by . LTG Duration 8 weeks 1 Fdc Goal (LTG) Pt will present with a NDI score to reflect no more than 20% impairment by 04/07/19. LTG Duration 8 weeks Assessment Summary Assessment Initated self-massage and MWM this date. Consider teaching self-work on SCM in future treatment dates d/t good response to that. He does present with decreased left shoulder range in setting of old brachial plexus injury. Consider ongoing traps taping for inhibition. Physical Therapy Plan Frequency and Duration Frequency of Treatment 2x/Week Duration of Treatment 8 weeks Plan of Care Start Date 02/04/19 Plan of Care End Date 04/07/19 Therapeutic Interventions Therapeutic Interventions Balance Training,Canalithic Repositioning,Home Exercise Program,Manual Therapy, Neuromuscular Re-education, Patient/Caregiver Education, Self-Care/Home Management,Soft Tissue Mobilization,Taping, Therapeutic Exercises, Vestibular Rehabilitation Modalities Cold Pack/Ice Massage,Electric Stimulation,Hot Packs, Ultrasound Next Visit Focus/Plan Next Note Type Treatment Note Next Visit Plan Progress HEP and/or Counterstrain. Progress scapular strengthening/support of neck and upper traps, consider pect stretch and thoracic mobility
--- NOTE | 2019-02-26 16:00 | PT.OTN ---
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 Pt running late today. Visit Start Time 14:30 Visit Stop Time 15:30 Total Visit Minutes 60 Visit Number 6 PT-OP-B Current Condition Start: 02/04/19 07:28 Freq: Status: Active Protocol: Document 02/04/19 09:01 MB (Rec: 02/04/19 09:50 MB [id number]) Current Condition History of Current Condition Onset Date 1.5 years History of Current Condition Pt reports TBI 4 years ago when tripping and hitting head on counter. He had a severe concussion and he was out at least 30 minutes. He went to the hospital and was checked out. He had had post- concussion syndrome for 6 weeks. He would fall out unconsious when sitting at random times. He would not have memory of it. He went from having headaches 1-2 times a year to 4-6 a year. Seizures started 1.5 years ago . They are termed psychogenic seizures. There is no epilectic activity. He screens high for PTSD. Pt states that PTSD may be related to past relationships. They happen out of sleep. He wakes up shaking . He does not think he has headaches. , Joy, describes rocking side to side or pelvic thrusting, head back and eyes rolled upward. He occ has horizontal nystagmus and then his head drops down. Events last 30 sec . He is taking Topamax in the a.m. to help with mood and headaches. He has not gone more than 18 days without a seizure. He has been on Topamax for a week and has not had a seizure. 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 He had trigger point injections. He has to go through series of taking medications including corticosteroids. 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 He and are trying out supportive neck pillows. He sleeps on a wedge. 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 He drinks caffeine and water . occ reports of pt with anger and memory loss connected. These were unlike his normal personality. Pt reports headaches up to a 7 /10 and he has to talk Percicet. Headaches are over the right eye and down into his right face and back of head and feeling right eyeball being squeezed. He sees colors and has horizontal nystagmus. Overall discomfort left upper trap area, 3/10. He has 3-7/10 pain down left arm . Right hernia surgery and pain after right testicle removed. Multiple neural surgeries in the area and he now has a small left inguinal hernia. Pt reports occ tingling 4th and 5th left digit and burning down back of left arm through elbow. Prior Treatments and Tests PT in the past for left shoulder. It went okay. He had it for his right wrist as well. Right TMJ injections PT-OP-C Subjective Start: 02/04/19 07:28 Freq: Status: Active Protocol: Document 02/26/19 14:30 MB (Rec: 02/26/19 15:52 MB [id number]) OP-PT Subjective Patient Comments Patient Comments Pt states that he has has upper traps pain. He did a lot removing of [place] decorations yesterday. PT-OP-J Posture/Palpation/Skin Start: 02/04/19 07:28 Freq: Status: Active Protocol: Document 02/04/19 09:01 MB (Rec: 02/04/19 13:33 MB [id number]) Posture Evaluation Comments Posture Comments Standing posture: forward head , rounded shoulders, Dowager's hump, decreased thoracic kyphosis, increased lumbar lordosis, changes around T6 vertebra that could be stiffness PT-OP-K Range of Motion Start: 02/04/19 07:28 Freq: Status: Active Protocol: Document 02/04/19 09:01 MB (Rec: 02/04/19 13:33 MB [id number]) Cervical Spine Range of Motion Cervical Spine Active Testing Position Standing Flexion 35 Extension 40 Rotation Left 40 Rotation Right 50 Comments Pt reports stretch in right jaw with cervical extension and left upper traps area discomfort 3/10 with flexion PT-OP-M Strength Start: 02/04/19 07:28 Freq: Status: Active Protocol: Document 02/04/19 09:01 MB (Rec: 02/04/19 13:33 MB [id number]) Shoulder Strength Shoulder Manual Muscle Testing Left Flexion 4 Good Abduction (C5) 4 Good External Rotation 5 Normal Internal Rotation 5 Normal Right Flexion 5 Normal Abduction (C5) 5 Normal External Rotation 4 Good Internal Rotation 4 Good Elbow/Forearm Strength Elbow and Forearm Manual Muscle Testing Left Flexion (C6) 5 Normal Extension (C7) 5 Normal Pronation 4 Good Supination 4 Good Right Flexion (C6) 5 Normal Extension (C7) 5 Normal Pronation 4 Good Supination 4 Good Wrist Strength Wrist Manual Muscle Testing Left Flexion (C7) 5 Normal Extension (C6) 5 Normal Right Flexion (C7) 5 Normal Extension (C6) 5 Normal PT-OP-Q Treatments Start: 02/04/19 07:28 Freq: Status: Active Protocol: Document 02/26/19 14:30 MB (Rec: 02/26/19 15:52 MB [id number]) Manual Therapy Treatment Manual Techniques Counterstrain Comments Pt agrees to Counterstrain to assess and treat fascial tension. PT treats stacks B: right arterial cervical, left anterior cervical, left ligamentum flavum, left posterior LE somatic. Pt presents with spasming in UE muscles near the brachial plexus, greatest in subsapularis. Other Other Manual Treatments KT to inhibit left upper traps PT-OP-T Assessment and Plan Start: 02/04/19 07:28 Freq: Status: Active Protocol: Document 02/26/19 14:30 MB (Rec: 02/26/19 16:00 MB [id number]) Physical Therapy Assessment Rehab Potential Rehabilitation Potential Fair Evaluation Complexity Number of Personal Factors/Comorbidities 3 or More Number of Body Systems Impaired 3 Clinical Presentation at Evaluation Evolving Impairments Other Impairments Pt presents with moderate complexity d/t personal factors of job requirements and psychosocial changes. Body systems affected include musculoskeletal, neurological and psychosocial. Other factors include polypharmacy and questionable sleep d/t awakening with seizures. His clinical presentation is evolving. Goals 5 Log Handler Goal (LTG) Pt will present with B shoulder flexion, abduction, ER and IR to 5/5 with MMT by . LTG Duration 8 weeks 4 Log Handler Goal (LTG) Pt will report a 25% improvement in headache and shoulder pain by 04/07/19. LTG Duration 8 weeks 3 Care Home Goal (LTG) Pt will perform progressive HEP with I including postural alignment, flexibility, strengthening and relaxation exercises by 04/07/19. LTG Duration 8 weeks 2 Log Handler Goal (LTG) Pt will present with a QuickDASH score to reflect no more than 10% impairment by . LTG Duration 8 weeks 1 Log Handler Goal (LTG) Pt will present with a NDI score to reflect no more than 20% impairment by 04/07/19. LTG Duration 8 weeks Assessment Summary Assessment Counterstrain this date initiated brachial plexus nerve spasming (subscapularis) with treatment today and improved after. Consider teaching self-work on SCM in future treatment dates d/t good response to that. He does present with decreased left shoulder range in setting of old brachial plexus injury. Consider ongoing traps taping for inhibition. Physical Therapy Plan Frequency and Duration Frequency of Treatment 2x/Week Duration of Treatment 8 weeks Plan of Care Start Date 02/04/19 Plan of Care End Date 04/07/19 Therapeutic Interventions Therapeutic Interventions Balance Training,Canalithic Repositioning,Home Exercise Program,Manual Therapy, Neuromuscular Re-education, Patient/Caregiver Education, Self-Care/Home Management,Soft Tissue Mobilization,Taping, Therapeutic Exercises, Vestibular Rehabilitation Modalities Cold Pack/Ice Massage,Electric Stimulation,Hot Packs, Ultrasound Next Visit Focus/Plan Next Note Type Treatment Note Next Visit Plan Progress HEP and/or Counterstrain. Progress scapular strengthening/support of neck and upper traps, consider pect stretch and thoracic mobility
--- NOTE | 2019-03-03 09:45 | PT.OTN ---
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 Pt running late today. Visit Start Time 09:06 Visit Stop Time 09:46 Total Visit Minutes 40 Visit Number 7 PT-OP-B Current Condition Start: 02/04/19 07:28 Freq: Status: Active Protocol: Document 02/04/19 09:01 MB (Rec: 02/04/19 09:50 MB [id number]) Current Condition History of Current Condition Onset Date 1.5 years History of Current Condition Pt reports TBI 4 years ago when tripping and hitting head on counter. He had a severe concussion and he was out at least 30 minutes. He went to the hospital and was checked out. He had had post- concussion syndrome for 6 weeks. He would fall out unconsious when sitting at random times. He would not have memory of it. He went from having headaches 1-2 times a year to 4-6 a year. Seizures started 1.5 years ago . They are termed psychogenic seizures. There is no epilectic activity. He screens high for PTSD. Pt states that PTSD may be related to past relationships. They happen out of sleep. He wakes up shaking . He does not think he has headaches. , Joy, describes rocking side to side or pelvic thrusting, head back and eyes rolled upward. He occ has horizontal nystagmus and then his head drops down. Events last 30 sec . He is taking Topamax in the a.m. to help with mood and headaches. He has not gone more than 18 days without a seizure. He has been on Topamax for a week and has not had a seizure. 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 He had trigger point injections. He has to go through series of taking medications including corticosteroids. 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 He and are trying out supportive neck pillows. He sleeps on a wedge. 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 He drinks caffeine and water . occ reports of pt with anger and memory loss connected. These were unlike his normal personality. Pt reports headaches up to a 7 /10 and he has to talk Percicet. Headaches are over the right eye and down into his right face and back of head and feeling right eyeball being squeezed. He sees colors and has horizontal nystagmus. Overall discomfort left upper trap area, 3/10. He has 3-7/10 pain down left arm . Right hernia surgery and pain after right testicle removed. Multiple neural surgeries in the area and he now has a small left inguinal hernia. Pt reports occ tingling 4th and 5th left digit and burning down back of left arm through elbow. Prior Treatments and Tests PT in the past for left shoulder. It went okay. He had it for his right wrist as well. Right TMJ injections PT-OP-C Subjective Start: 02/04/19 07:28 Freq: Status: Active Protocol: Document 03/03/19 09:06 MB (Rec: 03/03/19 09:45 MB [id number]) OP-PT Subjective Patient Comments Patient Comments Pt's left upper traps area is still red from KT. Pt states that he had a seizure early Paulo morning. His neck has been cracking more. PT-OP-J Posture/Palpation/Skin Start: 02/04/19 07:28 Freq: Status: Active Protocol: Document 02/04/19 09:01 MB (Rec: 02/04/19 13:33 MB [id number]) Posture Evaluation Comments Posture Comments Standing posture: forward head , rounded shoulders, Dowager's hump, decreased thoracic kyphosis, increased lumbar lordosis, changes around T6 vertebra that could be stiffness PT-OP-K Range of Motion Start: 02/04/19 07:28 Freq: Status: Active Protocol: Document 02/04/19 09:01 MB (Rec: 02/04/19 13:33 MB [id number]) Cervical Spine Range of Motion Cervical Spine Active Testing Position Standing Flexion 35 Extension 40 Rotation Left 40 Rotation Right 50 Comments Pt reports stretch in right jaw with cervical extension and left upper traps area discomfort 3/10 with flexion PT-OP-M Strength Start: 02/04/19 07:28 Freq: Status: Active Protocol: Document 02/04/19 09:01 MB (Rec: 02/04/19 13:33 MB [id number]) Shoulder Strength Shoulder Manual Muscle Testing Left Flexion 4 Good Abduction (C5) 4 Good External Rotation 5 Normal Internal Rotation 5 Normal Right Flexion 5 Normal Abduction (C5) 5 Normal External Rotation 4 Good Internal Rotation 4 Good Elbow/Forearm Strength Elbow and Forearm Manual Muscle Testing Left Flexion (C6) 5 Normal Extension (C7) 5 Normal Pronation 4 Good Supination 4 Good Right Flexion (C6) 5 Normal Extension (C7) 5 Normal Pronation 4 Good Supination 4 Good Wrist Strength Wrist Manual Muscle Testing Left Flexion (C7) 5 Normal Extension (C6) 5 Normal Right Flexion (C7) 5 Normal Extension (C6) 5 Normal PT-OP-Q Treatments Start: 02/04/19 07:28 Freq: Status: Active Protocol: Document 03/03/19 09:06 MB (Rec: 03/03/19 09:45 MB [id number]) Therapeutic Exercises Supine Exercises Buteyko breathing Supine Exercise Name O2 and HR before ex: 98%, 66 BPM Reps/Minutes 5 reps after training Comments Ex 1: 1st rep 29 sec 99%, 63 BPM after; 2nd rep: 35 sec then HR 61. Diaphragmatic breathing Comments Performed today between Buteyko reps Manual Therapy Treatment Manual Techniques MWM with breathing Comments Pt supine: left 1st rib isometric mobilization, recoil left AC and SC joints with pt performing coordinated breaths PT-OP-T Assessment and Plan Start: 02/04/19 07:28 Freq: Status: Active Protocol: Document 03/03/19 09:06 MB (Rec: 03/03/19 09:45 MB [id number]) Physical Therapy Assessment Rehab Potential Rehabilitation Potential Fair Evaluation Complexity Number of Personal Factors/Comorbidities 3 or More Number of Body Systems Impaired 3 Clinical Presentation at Evaluation Evolving Impairments Other Impairments Pt presents with moderate complexity d/t personal factors of job requirements and psychosocial changes. Body systems affected include musculoskeletal, neurological and psychosocial. Other factors include polypharmacy and questionable sleep d/t awakening with seizures. His clinical presentation is evolving. Goals 5 Dietetic Assistant Goal (LTG) Pt will present with B shoulder flexion, abduction, ER and IR to 5/5 with MMT by . LTG Duration 8 weeks 4 Senior Living Goal (LTG) Pt will report a 25% improvement in headache and shoulder pain by 04/07/19. LTG Duration 8 weeks 3 Senior Living Goal (LTG) Pt will perform progressive HEP with I including postural alignment, flexibility, strengthening and relaxation exercises by 04/07/19. LTG Duration 8 weeks 2 Dietetic Assistant Goal (LTG) Pt will present with a QuickDASH score to reflect no more than 10% impairment by . LTG Duration 8 weeks 1 Dietetic Assistant Goal (LTG) Pt will present with a NDI score to reflect no more than 20% impairment by 04/07/19. LTG Duration 8 weeks Assessment Summary Assessment Initiated breathing exercises this date for relaxation. Will encourage to perform before sleeping to help engage parasympathetic system. Pt is able to hold controlled pause up to 63 sec and decrease HR 5 BPM with exercise repetition. First three recordings listed under exercise. Pt with tension in left brachial plexus, clavicle and first rib area. Consider teaching anterior neck stretch with breathing. Consider ongoing assessment from somatic neural scan left shoulder and cervical. Physical Therapy Plan Frequency and Duration Frequency of Treatment 2x/Week Duration of Treatment 8 weeks Plan of Care Start Date 02/04/19 Plan of Care End Date 04/07/19 Therapeutic Interventions Therapeutic Interventions Balance Training,Canalithic Repositioning,Home Exercise Program,Manual Therapy, Neuromuscular Re-education, Patient/Caregiver Education, Self-Care/Home Management,Soft Tissue Mobilization,Taping, Therapeutic Exercises, Vestibular Rehabilitation Modalities Cold Pack/Ice Massage,Electric Stimulation,Hot Packs, Ultrasound Next Visit Focus/Plan Next Note Type Treatment Note Next Visit Plan Consider teaching anterior neck stretch with breathing. Progress HEP and/or Counterstrain. Progress scapular strengthening/support of neck and upper traps, consider pect stretch and thoracic mobility
--- NOTE | 2019-03-06 10:32 | PT.OTN ---
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 Pt running late today. Visit Start Time 09:49 Visit Stop Time 09:29 Total Visit Minutes 40 Visit Number 8 PT-OP-B Current Condition Start: 02/04/19 07:28 Freq: Status: Active Protocol: Document 02/04/19 09:01 MB (Rec: 02/04/19 09:50 MB [id number]) Current Condition History of Current Condition Onset Date 1.5 years History of Current Condition Pt reports TBI 4 years ago when tripping and hitting head on counter. He had a severe concussion and he was out at least 30 minutes. He went to the hospital and was checked out. He had had post- concussion syndrome for 6 weeks. He would fall out unconsious when sitting at random times. He would not have memory of it. He went from having headaches 1-2 times a year to 4-6 a year. Seizures started 1.5 years ago . They are termed psychogenic seizures. There is no epilectic activity. He screens high for PTSD. Pt states that PTSD may be related to past relationships. They happen out of sleep. He wakes up shaking . He does not think he has headaches. , Joy, describes rocking side to side or pelvic thrusting, head back and eyes rolled upward. He occ has horizontal nystagmus and then his head drops down. Events last 30 sec . He is taking Topamax in the a.m. to help with mood and headaches. He has not gone more than 18 days without a seizure. He has been on Topamax for a week and has not had a seizure. 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 He had trigger point injections. He has to go through series of taking medications including corticosteroids. 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 He and are trying out supportive neck pillows. He sleeps on a wedge. 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 He drinks caffeine and water . occ reports of pt with anger and memory loss connected. These were unlike his normal personality. Pt reports headaches up to a 7 /10 and he has to talk Percicet. Headaches are over the right eye and down into his right face and back of head and feeling right eyeball being squeezed. He sees colors and has horizontal nystagmus. Overall discomfort left upper trap area, 3/10. He has 3-7/10 pain down left arm . Right hernia surgery and pain after right testicle removed. Multiple neural surgeries in the area and he now has a small left inguinal hernia. Pt reports occ tingling 4th and 5th left digit and burning down back of left arm through elbow. Prior Treatments and Tests PT in the past for left shoulder. It went okay. He had it for his right wrist as well. Right TMJ injections PT-OP-C Subjective Start: 02/04/19 07:28 Freq: Status: Active Protocol: Document 03/06/19 09:49 MB (Rec: 03/06/19 10:31 MB [id number]) OP-PT Subjective Patient Comments Patient Comments Pt states that he has not had a seizure this week and he thinks that the Buteyko breathing is helpful. He has done it in bed and when he is icing and heating. His headaches are much better. The one day he did not heat and ice, he had a migraine. PT-OP-J Posture/Palpation/Skin Start: 02/04/19 07:28 Freq: Status: Active Protocol: Document 02/04/19 09:01 MB (Rec: 02/04/19 13:33 MB [id number]) Posture Evaluation Comments Posture Comments Standing posture: forward head , rounded shoulders, Dowager's hump, decreased thoracic kyphosis, increased lumbar lordosis, changes around T6 vertebra that could be stiffness PT-OP-K Range of Motion Start: 02/04/19 07:28 Freq: Status: Active Protocol: Document 02/04/19 09:01 MB (Rec: 02/04/19 13:33 MB [id number]) Cervical Spine Range of Motion Cervical Spine Active Testing Position Standing Flexion 35 Extension 40 Rotation Left 40 Rotation Right 50 Comments Pt reports stretch in right jaw with cervical extension and left upper traps area discomfort 3/10 with flexion PT-OP-M Strength Start: 02/04/19 07:28 Freq: Status: Active Protocol: Document 02/04/19 09:01 MB (Rec: 02/04/19 13:33 MB [id number]) Shoulder Strength Shoulder Manual Muscle Testing Left Flexion 4 Good Abduction (C5) 4 Good External Rotation 5 Normal Internal Rotation 5 Normal Right Flexion 5 Normal Abduction (C5) 5 Normal External Rotation 4 Good Internal Rotation 4 Good Elbow/Forearm Strength Elbow and Forearm Manual Muscle Testing Left Flexion (C6) 5 Normal Extension (C7) 5 Normal Pronation 4 Good Supination 4 Good Right Flexion (C6) 5 Normal Extension (C7) 5 Normal Pronation 4 Good Supination 4 Good Wrist Strength Wrist Manual Muscle Testing Left Flexion (C7) 5 Normal Extension (C6) 5 Normal Right Flexion (C7) 5 Normal Extension (C6) 5 Normal PT-OP-Q Treatments Start: 02/04/19 07:28 Freq: Status: Active Protocol: Document 03/06/19 09:49 MB (Rec: 03/06/19 10:31 MB [id number]) Therapeutic Exercises Supine Exercises EFT tapping Comments Initiated today and added to HEP Manual Therapy Treatment Manual Techniques Counterstrain Comments Pt agrees to Counterstrain to assess and treat fascial tension. PT treats stacks B: viscera (abdominal area), periosteal cervical spine PT-OP-T Assessment and Plan Start: 02/04/19 07:28 Freq: Status: Active Protocol: Document 03/06/19 09:49 MB (Rec: 03/06/19 10:31 MB [id number]) Physical Therapy Assessment Rehab Potential Rehabilitation Potential Fair Evaluation Complexity Number of Personal Factors/Comorbidities 3 or More Number of Body Systems Impaired 3 Clinical Presentation at Evaluation Evolving Impairments Other Impairments Pt presents with moderate complexity d/t personal factors of job requirements and psychosocial changes. Body systems affected include musculoskeletal, neurological and psychosocial. Other factors include polypharmacy and questionable sleep d/t awakening with seizures. His clinical presentation is evolving. Goals 5 [facility] Goal (LTG) Pt will present with B shoulder flexion, abduction, ER and IR to 5/5 with MMT by . LTG Duration 8 weeks 4 [facility] Goal (LTG) Pt will report a 25% improvement in headache and shoulder pain by 04/07/19. LTG Duration 8 weeks 3 [facility] Goal (LTG) Pt will perform progressive HEP with I including postural alignment, flexibility, strengthening and relaxation exercises by 04/07/19. LTG Duration 8 weeks 2 [facility] Goal (LTG) Pt will present with a QuickDASH score to reflect no more than 10% impairment by . LTG Duration 8 weeks 1 [facility] Goal (LTG) Pt will present with a NDI score to reflect no more than 20% impairment by 04/07/19. LTG Duration 8 weeks Assessment Summary Assessment Counterstrain this date and pt presents with visceral and periosteal fascia tension today. Consider teaching anterior neck stretch with breathing. Physical Therapy Plan Frequency and Duration Frequency of Treatment 2x/Week Duration of Treatment 8 weeks Plan of Care Start Date 02/04/19 Plan of Care End Date 04/07/19 Therapeutic Interventions Therapeutic Interventions Balance Training,Canalithic Repositioning,Home Exercise Program,Manual Therapy, Neuromuscular Re-education, Patient/Caregiver Education, Self-Care/Home Management,Soft Tissue Mobilization,Taping, Therapeutic Exercises, Vestibular Rehabilitation Modalities Cold Pack/Ice Massage,Electric Stimulation,Hot Packs, Ultrasound Next Visit Focus/Plan Next Note Type Treatment Note Next Visit Plan Consider teaching anterior neck stretch with breathing. Progress HEP and/or Counterstrain. Progress scapular strengthening/support of neck and upper traps, consider pect stretch and thoracic mobility
--- NOTE | 2019-03-09 08:57 | PT.OTN ---
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 He had a severe concussion and he was out at least 30 minutes. He went to the hospital and was checked out. He had had post- concussion syndrome for 6 weeks. He would fall out unconsious when sitting at random times. He would not have memory of it. He went from having headaches 1-2 times a year to 4-6 a year. Seizures started 1.5 years ago . They are termed psychogenic seizures. There is no epilectic activity. He screens high for PTSD. Pt states that PTSD may be related to past relationships. They happen out of sleep. He wakes up shaking . He does not think he has headaches. , Joy, describes rocking side to side or pelvic thrusting, head back and eyes rolled upward. He occ has horizontal nystagmus and then his head drops down. Events last 30 sec . He is taking Topamax in the a.m. to help with mood and headaches. He has not gone more than 18 days without a seizure. He has been on Topamax for a week and has not had a seizure. 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 He had trigger point injections. He has to go through series of taking medications including corticosteroids. 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 He and are trying out supportive neck pillows. He sleeps on a wedge. 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 He drinks caffeine and water . occ reports of pt with anger and memory loss connected. These were unlike his normal personality. Pt reports headaches up to a 7 /10 and he has to talk Percicet. Headaches are over the right eye and down into his right face and back of head and feeling right eyeball being squeezed. He sees colors and has horizontal nystagmus. Overall discomfort left upper trap area, 3/10. He has 3-7/10 pain down left arm . Right hernia surgery and pain after right testicle removed. Multiple neural surgeries in the area and he now has a small left inguinal hernia. Pt reports occ tingling 4th and 5th left digit and burning down back of left arm through elbow. Prior Treatments and Tests PT in the past for left shoulder. It went okay. He had it for his right wrist as well. Right TMJ injections PT-OP-C Subjective Start: 02/04/19 07:28 Freq: Status: Active Protocol: Document 03/09/19 08:17 MB (Rec: 03/09/19 08:57 MB [id number]) OP-PT Subjective Patient Comments Patient Comments Pt had a little bit of a headache yesterday. No seizures for 10 days. Pt states that he is performing Buteyko and has not yet gotten the tapping memorized. He thinks that Buteyko and Counterstrain are helpful. He thinks that when he gets the muscles looser, he does better . PT-OP-J Posture/Palpation/Skin Start: 02/04/19 07:28 Freq: Status: Active Protocol: Document 02/04/19 09:01 MB (Rec: 02/04/19 13:33 MB [id number]) Posture Evaluation Comments Posture Comments Standing posture: forward head , rounded shoulders, Dowager's hump, decreased thoracic kyphosis, increased lumbar lordosis, changes around T6 vertebra that could be stiffness PT-OP-K Range of Motion Start: 02/04/19 07:28 Freq: Status: Active Protocol: Document 02/04/19 09:01 MB (Rec: 02/04/19 13:33 MB [id number]) Cervical Spine Range of Motion Cervical Spine Active Testing Position Standing Flexion 35 Extension 40 Rotation Left 40 Rotation Right 50 Comments Pt reports stretch in right jaw with cervical extension and left upper traps area discomfort 3/10 with flexion PT-OP-M Strength Start: 02/04/19 07:28 Freq: Status: Active Protocol: Document 02/04/19 09:01 MB (Rec: 02/04/19 13:33 MB [id number]) Shoulder Strength Shoulder Manual Muscle Testing Left Flexion 4 Good Abduction (C5) 4 Good External Rotation 5 Normal Internal Rotation 5 Normal Right Flexion 5 Normal Abduction (C5) 5 Normal External Rotation 4 Good Internal Rotation 4 Good Elbow/Forearm Strength Elbow and Forearm Manual Muscle Testing Left Flexion (C6) 5 Normal Extension (C7) 5 Normal Pronation 4 Good Supination 4 Good Right Flexion (C6) 5 Normal Extension (C7) 5 Normal Pronation 4 Good Supination 4 Good Wrist Strength Wrist Manual Muscle Testing Left Flexion (C7) 5 Normal Extension (C6) 5 Normal Right Flexion (C7) 5 Normal Extension (C6) 5 Normal PT-OP-Q Treatments Start: 02/04/19 07:28 Freq: Status: Active Protocol: Document 03/09/19 08:17 MB (Rec: 03/09/19 08:57 MB [id number]) Therapeutic Exercises Supine Exercises Pelvic realignment exercises Comments Performed this date and added to HEP Self-massage with MWM B SCM Comments Performed this date and added to HEP Manual Therapy Treatment Manual Techniques Prone PA and thoracic mobs with recoil Comments Performed this date and also scapular mobs in prone and gentle STM cervical paraspinals. MWM SCM Comments Performed today--pt supine with head and neck support and performing active cervical rotation as PT provides pressure to trigger point PT-OP-T Assessment and Plan Start: 02/04/19 07:28 Freq: Status: Active Protocol: Document 03/09/19 08:17 MB (Rec: 03/09/19 08:57 MB [id number]) Physical Therapy Assessment Rehab Potential Rehabilitation Potential Fair Evaluation Complexity Number of Personal Factors/Comorbidities 3 or More Number of Body Systems Impaired 3 Clinical Presentation at Evaluation Evolving Impairments Other Impairments Pt presents with moderate complexity d/t personal factors of job requirements and psychosocial changes. Body systems affected include musculoskeletal, neurological and psychosocial. Other factors include polypharmacy and questionable sleep d/t awakening with seizures. His clinical presentation is evolving. Goals 5 [facility] Goal (LTG) Pt will present with B shoulder flexion, abduction, ER and IR to 5/5 with MMT by . LTG Duration 8 weeks 4 [facility] Goal (LTG) Pt will report a 25% improvement in headache and shoulder pain by 04/07/19. LTG Duration 8 weeks 3 [facility] Goal (LTG) Pt will perform progressive HEP with I including postural alignment, flexibility, strengthening and relaxation exercises by 04/07/19. LTG Duration 8 weeks 2 [facility] Goal (LTG) Pt will present with a QuickDASH score to reflect no more than 10% impairment by . LTG Duration 8 weeks 1 [facility] Goal (LTG) Pt will present with a NDI score to reflect no more than 20% impairment by 04/07/19. LTG Duration 8 weeks Assessment Summary Assessment Pt is doing an excellent and consistent job in breathingt with all exercises. Initated self-massage and pelvic realignment exercises today. Consider teaching anterior neck stretch with breathing. Physical Therapy Plan Frequency and Duration Frequency of Treatment 2x/Week Duration of Treatment 8 weeks Plan of Care Start Date 02/04/19 Plan of Care End Date 04/07/19 Therapeutic Interventions Therapeutic Interventions Balance Training,Canalithic Repositioning,Home Exercise Program,Manual Therapy, Neuromuscular Re-education, Patient/Caregiver Education, Self-Care/Home Management,Soft Tissue Mobilization,Taping, Therapeutic Exercises, Vestibular Rehabilitation Modalities Cold Pack/Ice Massage,Electric Stimulation,Hot Packs, Ultrasound Next Visit Focus/Plan Next Note Type Treatment Note Next Visit Plan Consider teaching anterior neck stretch with breathing. Progress HEP and/or Counterstrain. Progress scapular strengthening/support of neck and upper traps, consider pect stretch and thoracic mobility
--- NOTE | 2019-03-11 09:42 | PT.OTN ---
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 He had a severe concussion and he was out at least 30 minutes. He went to the hospital and was checked out. He had had post- concussion syndrome for 6 weeks. He would fall out unconsious when sitting at random times. He would not have memory of it. He went from having headaches 1-2 times a year to 4-6 a year. Seizures started 1.5 years ago . They are termed psychogenic seizures. There is no epilectic activity. He screens high for PTSD. Pt states that PTSD may be related to past relationships. They happen out of sleep. He wakes up shaking . He does not think he has headaches. , Joy, describes rocking side to side or pelvic thrusting, head back and eyes rolled upward. He occ has horizontal nystagmus and then his head drops down. Events last 30 sec . He is taking Topamax in the a.m. to help with mood and headaches. He has not gone more than 18 days without a seizure. He has been on Topamax for a week and has not had a seizure. 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 He had trigger point injections. He has to go through series of taking medications including corticosteroids. 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 He and are trying out supportive neck pillows. He sleeps on a wedge. 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 He drinks caffeine and water . occ reports of pt with anger and memory loss connected. These were unlike his normal personality. Pt reports headaches up to a 7 /10 and he has to talk Percicet. Headaches are over the right eye and down into his right face and back of head and feeling right eyeball being squeezed. He sees colors and has horizontal nystagmus. Overall discomfort left upper trap area, 3/10. He has 3-7/10 pain down left arm . Right hernia surgery and pain after right testicle removed. Multiple neural surgeries in the area and he now has a small left inguinal hernia. Pt reports occ tingling 4th and 5th left digit and burning down back of left arm through elbow. Prior Treatments and Tests PT in the past for left shoulder. It went okay. He had it for his right wrist as well. Right TMJ injections PT-OP-C Subjective Start: 02/04/19 07:28 Freq: Status: Active Protocol: Document 03/11/19 09:01 MB (Rec: 03/11/19 09:42 MB [id number]) OP-PT Subjective Patient Comments Patient Comments Pt had a seizure yesterday morning. This was an 11 day gap compared to previous 7 day gap or 2x/wk frequency. He is doing better. His neck feels tight, especially on the left. His right sided pain is not there right now. His left shoulder range seems better. PT-OP-J Posture/Palpation/Skin Start: 02/04/19 07:28 Freq: Status: Active Protocol: Document 02/04/19 09:01 MB (Rec: 02/04/19 13:33 MB [id number]) Posture Evaluation Comments Posture Comments Standing posture: forward head , rounded shoulders, Dowager's hump, decreased thoracic kyphosis, increased lumbar lordosis, changes around T6 vertebra that could be stiffness PT-OP-K Range of Motion Start: 02/04/19 07:28 Freq: Status: Active Protocol: Document 02/04/19 09:01 MB (Rec: 02/04/19 13:33 MB [id number]) Cervical Spine Range of Motion Cervical Spine Active Testing Position Standing Flexion 35 Extension 40 Rotation Left 40 Rotation Right 50 Comments Pt reports stretch in right jaw with cervical extension and left upper traps area discomfort 3/10 with flexion PT-OP-M Strength Start: 02/04/19 07:28 Freq: Status: Active Protocol: Document 02/04/19 09:01 MB (Rec: 02/04/19 13:33 MB [id number]) Shoulder Strength Shoulder Manual Muscle Testing Left Flexion 4 Good Abduction (C5) 4 Good External Rotation 5 Normal Internal Rotation 5 Normal Right Flexion 5 Normal Abduction (C5) 5 Normal External Rotation 4 Good Internal Rotation 4 Good Elbow/Forearm Strength Elbow and Forearm Manual Muscle Testing Left Flexion (C6) 5 Normal Extension (C7) 5 Normal Pronation 4 Good Supination 4 Good Right Flexion (C6) 5 Normal Extension (C7) 5 Normal Pronation 4 Good Supination 4 Good Wrist Strength Wrist Manual Muscle Testing Left Flexion (C7) 5 Normal Extension (C6) 5 Normal Right Flexion (C7) 5 Normal Extension (C6) 5 Normal PT-OP-Q Treatments Start: 02/04/19 07:28 Freq: Status: Active Protocol: Document 03/11/19 09:01 MB (Rec: 03/11/19 09:42 MB [id number]) Therapeutic Exercises Supine Exercises Pelvic realignment exercises Comments Performed this date and added to HEP Diaphragmatic breathing Comments Performed this date with exercises Standing Exercises Racquet ball massage, MWM with infraspinatus Comments Performed this date for intrascapular, upper traps and infraspinatus today PT-OP-T Assessment and Plan Start: 02/04/19 07:28 Freq: Status: Active Protocol: Document 03/11/19 09:01 MB (Rec: 03/11/19 09:42 MB [id number]) Physical Therapy Assessment Rehab Potential Rehabilitation Potential Fair Evaluation Complexity Number of Personal Factors/Comorbidities 3 or More Number of Body Systems Impaired 3 Clinical Presentation at Evaluation Evolving Impairments Other Impairments Pt presents with moderate complexity d/t personal factors of job requirements and psychosocial changes. Body systems affected include musculoskeletal, neurological and psychosocial. Other factors include polypharmacy and questionable sleep d/t awakening with seizures. His clinical presentation is evolving. Goals 8 Half-Way Goal (LTG) Pt will present with equal active left shoulder abduction and flexion compared to the right to allow overhead work by 05/11/2019. 7 Network Mgr Goal (LTG) Pt will perform WiGolf for 15 minutes to prepare for return to golf by 05/11/2019. LTG Duration 8 weeks 6 Half-Way Goal (LTG) Pt will report no more than 1 seizure per month by 05/11/2019 . LTG Duration 8 weeks 5 Half-Way Goal (LTG) Pt will present with B shoulder flexion to 5/5 to help with overhead lifting by 05/11/2019. 03/11/2019: B shoulder ER/IR 5/ 5 (much improved), B shoulder flexion 4/5. LTG Duration 8 weeks 4 Half-Way Goal (LTG) Pt will report a 50% improvement in headache and shoulder pain by 05/11/2019. 03/11/2019: Pt reports 30% improvement in headaches since starting PT. He was having daily headaches and it was taking 5-6 hours to recover. He is recovering now within 2 hours. LTG Duration 8 weeks 3 Half-Way Goal (LTG) Pt will perform progressive HEP with I including postural alignment, flexibility, strengthening and relaxation exercises by 05/11/2019. 03/11/2019: Pt has been performing progressive HEP LTG Duration 8 weeks 2 Half-Way Goal (LTG) Pt will present with a QuickDASH score to reflect no more than 20% impairment by . 03/11/2019: QuickDASH score reflects 61.36% impairment. Scoring on initial assessment was scored incorrectly. LTG Duration 8 weeks 1 Half-Way Goal (LTG) Pt will present with a NDI score to reflect no more than 20% impairment by 05/11/2019. 03/11/2019: Score is 48% this date but pt reports better understanding and separation of shoulder and neck pain and states he is better overall functionally d/t neck pain improvements LTG Duration 8 weeks Progress Towards Goals Progress Towards Goals Progressing Toward Goals Assessment Summary Assessment Pt has met the following PT goals since starting PT: 25% improvement in headaches, B shoulder ER/IR strength to 5/5 . He has progressed towards all other goals including QuickDASH score, NDI score and performance of progressive HEP. PT updated and added goals this date. Consider teaching anterior neck stretch with breathing. Pt will benefit from ongoing PT for postural, strengthening and manual work to improve function, UE use with holding objects and doing tasks overhead. Pt s/p left brachial plexus injury as well as history of TBI, LEA, neck pain and seizure. Physical Therapy Plan Frequency and Duration Frequency of Treatment 2x/Week Duration of Treatment 8 weeks Plan of Care Start Date 03/11/19 Plan of Care End Date 05/11/19 Therapeutic Interventions Therapeutic Interventions Balance Training,Canalithic Repositioning,Home Exercise Program,Manual Therapy, Neuromuscular Re-education, Patient/Caregiver Education, Self-Care/Home Management,Soft Tissue Mobilization,Taping, Therapeutic Exercises, Vestibular Rehabilitation Modalities Cold Pack/Ice Massage,Electric Stimulation,Hot Packs, Ultrasound Next Visit Focus/Plan Next Note Type Treatment Note Next Visit Plan Consider teaching anterior neck stretch with breathing. Progress HEP and/or Counterstrain. Progress scapular strengthening/support of neck and upper traps, consider pect stretch and thoracic mobility
--- NOTE | 2019-03-11 09:43 | PT.OPPOC ---
Physical, Occupational & Speech Therapy At [facility] Current Diagnoses Cervicalgia (03/11/19) Headache (03/11/19) Personal history of traumatic brain injury (03/11/19) Visit Care Team Role Provider Type Elisha Mello DO Attending Provider Non-Staff Primary Care Provider Specialty: Medical Address: [address] [place] [address], [facility] Email: Plan Of Care PT-OP-T Assessment and Plan Start: 02/04/19 07:28 Freq: Status: Active Protocol: Document 03/11/19 09:01 MB (Rec: 03/11/19 09:42 MB [id number]) Physical Therapy Assessment Rehab Potential Rehabilitation Potential Fair Evaluation Complexity Number of Personal Factors/Comorbidities 3 or More Number of Body Systems Impaired 3 Clinical Presentation at Evaluation Evolving Impairments Other Impairments Pt presents with moderate complexity d/t personal factors of job requirements and psychosocial changes. Body systems affected include musculoskeletal, neurological and psychosocial. Other factors include polypharmacy and questionable sleep d/t awakening with seizures. His clinical presentation is evolving. Goals 8 Pc Tech Goal (LTG) Pt will present with equal active left shoulder abduction and flexion compared to the right to allow overhead work by 05/11/2019. 7 Pc Tech Goal (LTG) Pt will perform WiGolf for 15 minutes to prepare for return to golf by 05/11/2019. LTG Duration 8 weeks 6 Pc Tech Goal (LTG) Pt will report no more than 1 seizure per month by 05/11/2019 . LTG Duration 8 weeks 5 Pc Tech Goal (LTG) Pt will present with B shoulder flexion to 5/5 to help with overhead lifting by 05/11/2019. 03/11/2019: B shoulder ER/IR 5/ 5 (much improved), B shoulder flexion 4/5. LTG Duration 8 weeks 4 Long-Term Goal (LTG) Pt will report a 50% improvement in headache and shoulder pain by 05/11/2019. 03/11/2019: Pt reports 30% improvement in headaches since starting PT. He was having daily headaches and it was taking 5-6 hours to recover. He is recovering now within 2 hours. LTG Duration 8 weeks 3 Pc Tech Goal (LTG) Pt will perform progressive HEP with I including postural alignment, flexibility, strengthening and relaxation exercises by 05/11/2019. 03/11/2019: Pt has been performing progressive HEP LTG Duration 8 weeks 2 Long-Term Goal (LTG) Pt will present with a QuickDASH score to reflect no more than 20% impairment by . 03/11/2019: QuickDASH score reflects 61.36% impairment. Scoring on initial assessment was scored incorrectly. LTG Duration 8 weeks 1 Pc Tech Goal (LTG) Pt will present with a NDI score to reflect no more than 20% impairment by 05/11/2019. 03/11/2019: Score is 48% this date but pt reports better understanding and separation of shoulder and neck pain and states he is better overall functionally d/t neck pain improvements LTG Duration 8 weeks Progress Towards Goals Progress Towards Goals Progressing Toward Goals Assessment Summary Assessment Pt has met the following PT goals since starting PT: 25% improvement in headaches, B shoulder ER/IR strength to 5/5 . He has progressed towards all other goals including QuickDASH score, NDI score and performance of progressive HEP. PT updated and added goals this date. Consider teaching anterior neck stretch with breathing. Pt will benefit from ongoing PT for postural, strengthening and manual work to improve function, UE use with holding objects and doing tasks overhead. Pt s/p left brachial plexus injury as well as history of TBI, LEA, neck pain and seizure. Physical Therapy Plan Frequency and Duration Frequency of Treatment 2x/Week Duration of Treatment 8 weeks Plan of Care Start Date 03/11/19 Plan of Care End Date 05/11/19 Therapeutic Interventions Therapeutic Interventions Balance Training,Canalithic Repositioning,Home Exercise Program,Manual Therapy, Neuromuscular Re-education, Patient/Caregiver Education, Self-Care/Home Management,Soft Tissue Mobilization,Taping, Therapeutic Exercises, Vestibular Rehabilitation Modalities Cold Pack/Ice Massage,Electric Stimulation,Hot Packs, Ultrasound Next Visit Focus/Plan Next Note Type Treatment Note Next Visit Plan Consider teaching anterior neck stretch with breathing. Progress HEP and/or Counterstrain. Progress scapular strengthening/support of neck and upper traps, consider pect stretch and thoracic mobility Plan of Care Dates Plan of Care Start Date 03/11/19 Plan of Care End Date 05/11/19 Electronically Signed by: Lisandra Little, PT 03/11/19 0943 Please Sign and Return: I have reviewed this Plan of Care and certify that the skilled therapy services above are required to meet the patient?s needs. Physician Signature Date Printed Name and Credentials Clinical Instructor Signature Printed Name and Credentials
--- NOTE | 2019-03-18 08:18 | PT.OTN ---
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 He had a severe concussion and he was out at least 30 minutes. He went to the hospital and was checked out. He had had post- concussion syndrome for 6 weeks. He would fall out unconsious when sitting at random times. He would not have memory of it. He went from having headaches 1-2 times a year to 4-6 a year. Seizures started 1.5 years ago . They are termed psychogenic seizures. There is no epilectic activity. He screens high for PTSD. Pt states that PTSD may be related to past relationships. They happen out of sleep. He wakes up shaking . He does not think he has headaches. , Joy, describes rocking side to side or pelvic thrusting, head back and eyes rolled upward. He occ has horizontal nystagmus and then his head drops down. Events last 30 sec . He is taking Topamax in the a.m. to help with mood and headaches. He has not gone more than 18 days without a seizure. He has been on Topamax for a week and has not had a seizure. 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 He had trigger point injections. He has to go through series of taking medications including corticosteroids. 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 He and are trying out supportive neck pillows. He sleeps on a wedge. 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 He drinks caffeine and water . occ reports of pt with anger and memory loss connected. These were unlike his normal personality. Pt reports headaches up to a 7 /10 and he has to talk Percicet. Headaches are over the right eye and down into his right face and back of head and feeling right eyeball being squeezed. He sees colors and has horizontal nystagmus. Overall discomfort left upper trap area, 3/10. He has 3-7/10 pain down left arm . Right hernia surgery and pain after right testicle removed. Multiple neural surgeries in the area and he now has a small left inguinal hernia. Pt reports occ tingling 4th and 5th left digit and burning down back of left arm through elbow. Prior Treatments and Tests PT in the past for left shoulder. It went okay. He had it for his right wrist as well. Right TMJ injections PT-OP-C Subjective Start: 02/04/19 07:28 Freq: Status: Active Protocol: Document 03/18/19 07:33 MB (Rec: 03/18/19 08:18 MB [id number]) OP-PT Subjective Patient Comments Patient Comments Pt has been seizure-free for at least 9 days. He suffered an emotional crisis and will be receiving daily intensive rehab for mental health. He does not know when the program will start yet and will find out tomorrow. He anticipates 3 -5 weeks of treatment. Pt will start a muscle relaxer at night. PT-OP-J Posture/Palpation/Skin Start: 02/04/19 07:28 Freq: Status: Active Protocol: Document 02/04/19 09:01 MB (Rec: 02/04/19 13:33 MB [id number]) Posture Evaluation Comments Posture Comments Standing posture: forward head , rounded shoulders, Dowager's hump, decreased thoracic kyphosis, increased lumbar lordosis, changes around T6 vertebra that could be stiffness PT-OP-K Range of Motion Start: 02/04/19 07:28 Freq: Status: Active Protocol: Document 02/04/19 09:01 MB (Rec: 02/04/19 13:33 MB [id number]) Cervical Spine Range of Motion Cervical Spine Active Testing Position Standing Flexion 35 Extension 40 Rotation Left 40 Rotation Right 50 Comments Pt reports stretch in right jaw with cervical extension and left upper traps area discomfort 3/10 with flexion PT-OP-M Strength Start: 02/04/19 07:28 Freq: Status: Active Protocol: Document 02/04/19 09:01 MB (Rec: 02/04/19 13:33 MB [id number]) Shoulder Strength Shoulder Manual Muscle Testing Left Flexion 4 Good Abduction (C5) 4 Good External Rotation 5 Normal Internal Rotation 5 Normal Right Flexion 5 Normal Abduction (C5) 5 Normal External Rotation 4 Good Internal Rotation 4 Good Elbow/Forearm Strength Elbow and Forearm Manual Muscle Testing Left Flexion (C6) 5 Normal Extension (C7) 5 Normal Pronation 4 Good Supination 4 Good Right Flexion (C6) 5 Normal Extension (C7) 5 Normal Pronation 4 Good Supination 4 Good Wrist Strength Wrist Manual Muscle Testing Left Flexion (C7) 5 Normal Extension (C6) 5 Normal Right Flexion (C7) 5 Normal Extension (C6) 5 Normal PT-OP-Q Treatments Start: 02/04/19 07:28 Freq: Status: Active Protocol: Document 03/18/19 07:33 MB (Rec: 03/18/19 08:18 MB [id number]) Manual Therapy Treatment Manual Techniques Counterstrain Comments Pt agrees to Counterstrain to assess and treat fascial tension and PT treats stacks: standard lymphatics head, spinal flexion arterial cervical PT-OP-T Assessment and Plan Start: 02/04/19 07:28 Freq: Status: Active Protocol: Document 03/18/19 07:33 MB (Rec: 03/18/19 08:18 MB [id number]) Physical Therapy Assessment Rehab Potential Rehabilitation Potential Fair Evaluation Complexity Number of Personal Factors/Comorbidities 3 or More Number of Body Systems Impaired 3 Clinical Presentation at Evaluation Evolving Impairments Other Impairments Pt presents with moderate complexity d/t personal factors of job requirements and psychosocial changes. Body systems affected include musculoskeletal, neurological and psychosocial. Other factors include polypharmacy and questionable sleep d/t awakening with seizures. His clinical presentation is evolving. 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 7 Veneer Production Machine Operator Goal (LTG) Pt will perform WiGolf for 15 minutes to prepare for return to golf by 05/11/2019. LTG Duration 8 weeks 6 Veneer Production Machine Operator Goal (LTG) Pt will report no more than 1 seizure per month by 05/11/2019 . LTG Duration 8 weeks 5 Intermediate Goal (LTG) Pt will present with B shoulder flexion to 5/5 to help with overhead lifting by 05/11/2019. 03/11/2019: B shoulder ER/IR 5/ 5 (much improved), B shoulder flexion 4/5. LTG Duration 8 weeks 4 Veneer Production Machine Operator Goal (LTG) Pt will report a 50% improvement in headache and shoulder pain by 05/11/2019. 03/11/2019: Pt reports 30% improvement in headaches since starting PT. He was having daily headaches and it was taking 5-6 hours to recover. He is recovering now within 2 hours. LTG Duration 8 weeks 3 Intermediate Goal (LTG) Pt will perform progressive HEP with I including postural alignment, flexibility, strengthening and relaxation exercises by 05/11/2019. 03/11/2019: Pt has been performing progressive HEP LTG Duration 8 weeks 2 Intermediate Goal (LTG) Pt will present with a QuickDASH score to reflect no more than 20% impairment by . 03/11/2019: QuickDASH score reflects 61.36% impairment. Scoring on initial assessment was scored incorrectly. LTG Duration 8 weeks 1 Veneer Production Machine Operator Goal (LTG) Pt will present with a NDI score to reflect no more than 20% impairment by 05/11/2019. 03/11/2019: Score is 48% this date but pt reports better understanding and separation of shoulder and neck pain and states he is better overall functionally d/t neck pain improvements LTG Duration 8 weeks Progress Towards Goals Progress Towards Goals Progressing Toward Goals Assessment Summary Assessment Pt with improved cervical mobility after Counterstrain today. PT course may be disrupted by unavailability for several weeks. Consider teaching anterior neck stretch with breathing. Pt will benefit from ongoing PT for postural, strengthening and manual work to improve function, UE use with holding objects and doing tasks overhead. Pt s/p left brachial plexus injury as well as history of TBI, LEA, neck pain and seizure. Physical Therapy Plan Frequency and Duration Frequency of Treatment 2x/Week Duration of Treatment 8 weeks Plan of Care Start Date 03/11/19 Plan of Care End Date 05/11/19 Therapeutic Interventions Therapeutic Interventions Balance Training,Canalithic Repositioning,Home Exercise Program,Manual Therapy, Neuromuscular Re-education, Patient/Caregiver Education, Self-Care/Home Management,Soft Tissue Mobilization,Taping, Therapeutic Exercises, Vestibular Rehabilitation Modalities Cold Pack/Ice Massage,Electric Stimulation,Hot Packs, Ultrasound Next Visit Focus/Plan Next Note Type Treatment Note Next Visit Plan Consider teaching anterior neck stretch with breathing. Progress HEP and/or Counterstrain. Progress scapular strengthening/support of neck and upper traps, consider pect stretch and thoracic mobility
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
--- NOTE | 2019-05-06 11:24 | PT.OTN ---
Current Diagnoses Cervicalgia (05/06/19) Headache (05/06/19) Personal history of traumatic brain injury (05/06/19) Physical Therapy Treatment Note PT-OP-A Visit Information Start: 02/04/19 07:28 Freq: Status: Active Protocol: Document 05/06/19 10:34 MB (Rec: 05/06/19 11:23 MB [id number]) Out-Patient Physical Therapy Visit Information Visit Information Visit Type Treatment Note Visit Note Pt is retired from [employer] Visit Start Time 10:34 Visit Stop Time 11:23 Total Visit Minutes 49 Visit Number 15 PT-OP-B Current Condition Start: 02/04/19 07:28 Freq: Status: Active Protocol: Document 02/04/19 09:01 MB (Rec: 02/04/19 09:50 MB [id number]) Current Condition History of Current Condition Onset Date 1.5 years History of Current Condition Pt reports TBI 4 years ago when tripping and hitting head on counter. He had a severe concussion and he was out at least 30 minutes. He went to the hospital and was checked out. He had had post- concussion syndrome for 6 weeks. He would fall out unconsious when sitting at random times. He would not have memory of it. He went from having headaches 1-2 times a year to 4-6 a year. Seizures started 1.5 years ago . They are termed psychogenic seizures. There is no epilectic activity. He screens high for PTSD. Pt states that PTSD may be related to past relationships. They happen out of sleep. He wakes up shaking . He does not think he has headaches. , Joy, describes rocking side to side or pelvic thrusting, head back and eyes rolled upward. He occ has horizontal nystagmus and then his head drops down. Events last 30 sec . He is taking Topamax in the a.m. to help with mood and headaches. He has not gone more than 18 days without a seizure. He has been on Topamax for a week and has not had a seizure. 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 He had trigger point injections. He has to go through series of taking medications including corticosteroids. 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 He and are trying out supportive neck pillows. He sleeps on a wedge. 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 He drinks caffeine and water . occ reports of pt with anger and memory loss connected. These were unlike his normal personality. Pt reports headaches up to a 7 /10 and he has to talk Percicet. Headaches are over the right eye and down into his right face and back of head and feeling right eyeball being squeezed. He sees colors and has horizontal nystagmus. Overall discomfort left upper trap area, 3/10. He has 3-7/10 pain down left arm . Right hernia surgery and pain after right testicle removed. Multiple neural surgeries in the area and he now has a small left inguinal hernia. Pt reports occ tingling 4th and 5th left digit and burning down back of left arm through elbow. Prior Treatments and Tests PT in the past for left shoulder. It went okay. He had it for his right wrist as well. Right TMJ injections PT-OP-C Subjective Start: 02/04/19 07:28 Freq: Status: Active Protocol: Document 05/06/19 10:34 MB (Rec: 05/06/19 11:23 MB [id number]) OP-PT Subjective Patient Comments Patient Comments Pt states that he would like to con't with PT given recent break, needing to get back to where he was before the break, improvements in pain and seizures with PT treatment that includes a lot of manual work. He did have a seizure yesterday morning at 0400. This was a 17 day break from seizure. PT-OP-J Posture/Palpation/Skin Start: 02/04/19 07:28 Freq: Status: Active Protocol: Document 02/04/19 09:01 MB (Rec: 02/04/19 13:33 MB [id number]) Posture Evaluation Comments Posture Comments Standing posture: forward head , rounded shoulders, Dowager's hump, decreased thoracic kyphosis, increased lumbar lordosis, changes around T6 vertebra that could be stiffness PT-OP-K Range of Motion Start: 02/04/19 07:28 Freq: Status: Active Protocol: Document 02/04/19 09:01 MB (Rec: 02/04/19 13:33 MB [id number]) Cervical Spine Range of Motion Cervical Spine Active Testing Position Standing Flexion 35 Extension 40 Rotation Left 40 Rotation Right 50 Comments Pt reports stretch in right jaw with cervical extension and left upper traps area discomfort 3/10 with flexion PT-OP-M Strength Start: 02/04/19 07:28 Freq: Status: Active Protocol: Document 02/04/19 09:01 MB (Rec: 02/04/19 13:33 MB [id number]) Shoulder Strength Shoulder Manual Muscle Testing Left Flexion 4 Good Abduction (C5) 4 Good External Rotation 5 Normal Internal Rotation 5 Normal Right Flexion 5 Normal Abduction (C5) 5 Normal External Rotation 4 Good Internal Rotation 4 Good Elbow/Forearm Strength Elbow and Forearm Manual Muscle Testing Left Flexion (C6) 5 Normal Extension (C7) 5 Normal Pronation 4 Good Supination 4 Good Right Flexion (C6) 5 Normal Extension (C7) 5 Normal Pronation 4 Good Supination 4 Good Wrist Strength Wrist Manual Muscle Testing Left Flexion (C7) 5 Normal Extension (C6) 5 Normal Right Flexion (C7) 5 Normal Extension (C6) 5 Normal PT-OP-Q Treatments Start: 02/04/19 07:28 Freq: Status: Active Protocol: Document 05/06/19 10:34 MB (Rec: 05/06/19 11:23 MB [id number]) Manual Therapy Treatment Manual Techniques Counterstrain Comments Pt agrees to Counterstrain to assess and treat fascial tension and PT treats stacks: right facial and trigeminal nerve fascia, left anterior LE somatic, left thoracic ligamentum flavum. Berfore eye treatments, PT asks pt if he has eye pressure trouble and he denies. No adverse response to treatment. Other Other Manual Treatments MWM with pt performing active cervical rotation right and left and PT performing trigger point pressure left upper traps and B SCM, suboccipital release PT-OP-T Assessment and Plan Start: 02/04/19 07:28 Freq: Status: Active Protocol: Document 05/06/19 10:34 MB (Rec: 05/06/19 11:23 MB [id number]) Physical Therapy Assessment Rehab Potential Rehabilitation Potential Fair Evaluation Complexity Number of Personal Factors/Comorbidities 3 or More Number of Body Systems Impaired 3 Clinical Presentation at Evaluation Evolving Impairments Other Impairments Pt presents with moderate complexity d/t personal factors of job requirements and psychosocial changes. Body systems affected include musculoskeletal, neurological and psychosocial. Other factors include polypharmacy and questionable sleep d/t awakening with seizures. His clinical presentation is evolving. Goals 10 Residential Goal (LTG) Pt will present with improved left hospice team lead strength averaging 80 lbs over three trials to allow improved guitar playing by 06/30/2019. 9 Residential Goal (LTG) Pt will be able to hang up 5 pieces of clothing by 2019. LTG Duration 8 weeks 8 Residential Goal (LTG) Pt will present with equal active left shoulder abduction and flexion compared to the right to allow overhead work by 06/30/2019. 04/30/2019: Pt presents with right shoulder abduction and flexion to 160 deg and left shoulder abduction and flexion to 100 deg. 7 Tipple Repairer Goal (LTG) Pt will perform WiGolf for 15 minutes to prepare for return to golf by 06/30/2019. 04/30/2019: Pt has not yet had time to play but thinks he will have time LTG Duration 8 weeks 6 Tipple Repairer Goal (LTG) Pt will report no more than 1 seizure per month by 06/30/2019 . 04/30/2019: Pt is having seizures about every two weeks , this is an improvement since eval LTG Duration 8 weeks 5 Residential Goal (LTG) Pt will present with B shoulder flexion to 5/5 to help with overhead lifting by 06/30/2019. 06/30/2019: Shoulder flexion right 5/5 and left 4/5 LTG Duration 8 weeks 4 Residential Goal (LTG) Pt will report no more than 1- 2 headaches per month by 2019. 04/30/2019: Pt has an improvement in headaches and they do tend to come on with stress when his posture gets tense. He is currently having headaches 2-3/month, which is a big improvement. LTG Duration 8 weeks 3 Tipple Repairer Goal (LTG) Pt will perform progressive HEP with I including postural alignment, flexibility, strengthening and relaxation exercises by 06/30/2019. 04/30/2019: Pt is performing exercises as able LTG Duration 8 weeks 2 Residential Goal (LTG) Pt will present with a QuickDASH score to reflect no more than 20% impairment to allow return to guitar and improvement of ADLs by 2019. 04/30/2019: QuickDASH score reflects 34.09% dysfunction, improvement since last reassessment. Of note, last reassessment score was incorrect--should have been recorded as 36.36% LTG Duration 8 weeks 1 Residential Goal (LTG) Pt will present with a NDI score to reflect no more than 20% impairment by 06/30/2019. 06/30/2019: NDI score reflects 34% improvement LTG Duration 8 weeks Progress Towards Goals Progress Towards Goals Progressing Toward Goals Assessment Summary Assessment Pt has had less seizures, headaches and pain with therapy. There was a break in therapy and his symptoms did increase and he would like to con't with PT in order to con' t to progress. Pt treated in private treatment room with therapist and hospital entrance check performed and so plan to con't PT at this time. Pt with improved cervical rotation after treatment, especially to the right. Physical Therapy Plan Frequency and Duration Frequency of Treatment 2x/Week Duration of Treatment 8 weeks Plan of Care Start Date 04/30/19 Plan of Care End Date 06/30/19 Therapeutic Interventions Therapeutic Interventions Balance Training,Canalithic Repositioning,Home Exercise Program,Manual Therapy, Neuromuscular Re-education, Patient/Caregiver Education, Self-Care/Home Management,Soft Tissue Mobilization,Taping, Therapeutic Exercises, Vestibular Rehabilitation Modalities Cold Pack/Ice Massage,Electric Stimulation,Hot Packs, Ultrasound Next Visit Focus/Plan Next Note Type Treatment Note Next Visit Plan Progress HEP and/or Counterstrain. Progress scapular strengthening/support of neck and upper traps, consider pect stretch and thoracic mobility
--- NOTE | 2019-05-12 11:18 | PT.OTN ---
Current Diagnoses Cervicalgia (05/12/19) Headache (05/12/19) Personal history of traumatic brain injury (05/12/19) Physical Therapy Treatment Note PT-OP-A Visit Information Start: 02/04/19 07:28 Freq: Status: Active Protocol: Document 05/12/19 10:31 MB (Rec: 05/12/19 11:18 MB [id number]) Out-Patient Physical Therapy Visit Information Visit Information Visit Type Treatment Note Visit Note Pt is retired from [employer] Visit Start Time 10:31 Visit Stop Time 11:15 Total Visit Minutes 44 Visit Number 16 PT-OP-B Current Condition Start: 02/04/19 07:28 Freq: Status: Active Protocol: Document 02/04/19 09:01 MB (Rec: 02/04/19 09:50 MB [id number]) Current Condition History of Current Condition Onset Date 1.5 years History of Current Condition Pt reports TBI 4 years ago when tripping and hitting head on counter. He had a severe concussion and he was out at least 30 minutes. He went to the hospital and was checked out. He had had post- concussion syndrome for 6 weeks. He would fall out unconsious when sitting at random times. He would not have memory of it. He went from having headaches 1-2 times a year to 4-6 a year. Seizures started 1.5 years ago . They are termed psychogenic seizures. There is no epilectic activity. He screens high for PTSD. Pt states that PTSD may be related to past relationships. They happen out of sleep. He wakes up shaking . He does not think he has headaches. , Joy, describes rocking side to side or pelvic thrusting, head back and eyes rolled upward. He occ has horizontal nystagmus and then his head drops down. Events last 30 sec . He is taking Topamax in the a.m. to help with mood and headaches. He has not gone more than 18 days without a seizure. He has been on Topamax for a week and has not had a seizure. 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 He had trigger point injections. He has to go through series of taking medications including corticosteroids. 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 He and are trying out supportive neck pillows. He sleeps on a wedge. 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 He drinks caffeine and water . occ reports of pt with anger and memory loss connected. These were unlike his normal personality. Pt reports headaches up to a 7 /10 and he has to talk Percicet. Headaches are over the right eye and down into his right face and back of head and feeling right eyeball being squeezed. He sees colors and has horizontal nystagmus. Overall discomfort left upper trap area, 3/10. He has 3-7/10 pain down left arm . Right hernia surgery and pain after right testicle removed. Multiple neural surgeries in the area and he now has a small left inguinal hernia. Pt reports occ tingling 4th and 5th left digit and burning down back of left arm through elbow. Prior Treatments and Tests PT in the past for left shoulder. It went okay. He had it for his right wrist as well. Right TMJ injections PT-OP-C Subjective Start: 02/04/19 07:28 Freq: Status: Active Protocol: Document 05/12/19 10:31 MB (Rec: 05/12/19 11:18 MB [id number]) OP-PT Subjective Patient Comments Patient Comments Pt would like to con't with treatment today. PT explained that PT is wearing mask d/t found out today PT had patient exposure to COVID-19 12 days ago and PT has been symptom and fever free. PT has been cleared by [facility]. Pt states he would like to con't with PT. He is doing therapy exercises. He felt well after Counterstrain last treatment date. PT-OP-J Posture/Palpation/Skin Start: 02/04/19 07:28 Freq: Status: Active Protocol: Document 02/04/19 09:01 MB (Rec: 02/04/19 13:33 MB [id number]) Posture Evaluation Comments Posture Comments Standing posture: forward head , rounded shoulders, Dowager's hump, decreased thoracic kyphosis, increased lumbar lordosis, changes around T6 vertebra that could be stiffness PT-OP-K Range of Motion Start: 02/04/19 07:28 Freq: Status: Active Protocol: Document 02/04/19 09:01 MB (Rec: 02/04/19 13:33 MB [id number]) Cervical Spine Range of Motion Cervical Spine Active Testing Position Standing Flexion 35 Extension 40 Rotation Left 40 Rotation Right 50 Comments Pt reports stretch in right jaw with cervical extension and left upper traps area discomfort 3/10 with flexion PT-OP-M Strength Start: 02/04/19 07:28 Freq: Status: Active Protocol: Document 02/04/19 09:01 MB (Rec: 02/04/19 13:33 MB [id number]) Shoulder Strength Shoulder Manual Muscle Testing Left Flexion 4 Good Abduction (C5) 4 Good External Rotation 5 Normal Internal Rotation 5 Normal Right Flexion 5 Normal Abduction (C5) 5 Normal External Rotation 4 Good Internal Rotation 4 Good Elbow/Forearm Strength Elbow and Forearm Manual Muscle Testing Left Flexion (C6) 5 Normal Extension (C7) 5 Normal Pronation 4 Good Supination 4 Good Right Flexion (C6) 5 Normal Extension (C7) 5 Normal Pronation 4 Good Supination 4 Good Wrist Strength Wrist Manual Muscle Testing Left Flexion (C7) 5 Normal Extension (C6) 5 Normal Right Flexion (C7) 5 Normal Extension (C6) 5 Normal PT-OP-Q Treatments Start: 02/04/19 07:28 Freq: Status: Active Protocol: Document 05/12/19 10:31 MB (Rec: 05/12/19 11:18 MB [id number]) Manual Therapy Treatment Manual Techniques Counterstrain Comments Pt agrees to Counterstrain to assess and treat fascial tension and PT treats stacks: standard lymphatic row cervical and thoracic and thoracic spinal veins. Also performed suboccipital release after treatment. No adverse reaction to treatment PT-OP-T Assessment and Plan Start: 02/04/19 07:28 Freq: Status: Active Protocol: Document 05/12/19 10:31 MB (Rec: 05/12/19 11:18 MB [id number]) Physical Therapy Assessment Rehab Potential Rehabilitation Potential Fair Evaluation Complexity Number of Personal Factors/Comorbidities 3 or More Number of Body Systems Impaired 3 Clinical Presentation at Evaluation Evolving Impairments Other Impairments Pt presents with moderate complexity d/t personal factors of job requirements and psychosocial changes. Body systems affected include musculoskeletal, neurological and psychosocial. Other factors include polypharmacy and questionable sleep d/t awakening with seizures. His clinical presentation is evolving. Goals 10 Mud Cleaner Operator Goal (LTG) Pt will present with improved left boatswain's mate strength averaging 80 lbs over three trials to allow improved guitar playing by 06/30/2019. 9 Alf Goal (LTG) Pt will be able to hang up 5 pieces of clothing by 2019. LTG Duration 8 weeks 8 Mud Cleaner Operator Goal (LTG) Pt will present with equal active left shoulder abduction and flexion compared to the right to allow overhead work by 06/30/2019. 04/30/2019: Pt presents with right shoulder abduction and flexion to 160 deg and left shoulder abduction and flexion to 100 deg. 7 Mud Cleaner Operator Goal (LTG) Pt will perform WiGolf for 15 minutes to prepare for return to golf by 06/30/2019. 04/30/2019: Pt has not yet had time to play but thinks he will have time LTG Duration 8 weeks 6 Mud Cleaner Operator Goal (LTG) Pt will report no more than 1 seizure per month by 06/30/2019 . 04/30/2019: Pt is having seizures about every two weeks , this is an improvement since eval LTG Duration 8 weeks 5 Alf Goal (LTG) Pt will present with B shoulder flexion to 5/5 to help with overhead lifting by 06/30/2019. 06/30/2019: Shoulder flexion right 5/5 and left 4/5 LTG Duration 8 weeks 4 Alf Goal (LTG) Pt will report no more than 1- 2 headaches per month by 2019. 04/30/2019: Pt has an improvement in headaches and they do tend to come on with stress when his posture gets tense. He is currently having headaches 2-3/month, which is a big improvement. LTG Duration 8 weeks 3 Alf Goal (LTG) Pt will perform progressive HEP with I including postural alignment, flexibility, strengthening and relaxation exercises by 06/30/2019. 04/30/2019: Pt is performing exercises as able LTG Duration 8 weeks 2 Mud Cleaner Operator Goal (LTG) Pt will present with a QuickDASH score to reflect no more than 20% impairment to allow return to guitar and improvement of ADLs by 2019. 04/30/2019: QuickDASH score reflects 34.09% dysfunction, improvement since last reassessment. Of note, last reassessment score was incorrect--should have been recorded as 36.36% LTG Duration 8 weeks 1 Mud Cleaner Operator Goal (LTG) Pt will present with a NDI score to reflect no more than 20% impairment by 06/30/2019. 06/30/2019: NDI score reflects 34% improvement LTG Duration 8 weeks Progress Towards Goals Progress Towards Goals Progressing Toward Goals Assessment Summary Assessment Pt responds well to treatment and will con't with HEP until therapy starts again. Physical Therapy Plan Frequency and Duration Frequency of Treatment 2x/Week Duration of Treatment 8 weeks Plan of Care Start Date 04/30/19 Plan of Care End Date 06/30/19 Therapeutic Interventions Therapeutic Interventions Balance Training,Canalithic Repositioning,Home Exercise Program,Manual Therapy, Neuromuscular Re-education, Patient/Caregiver Education, Self-Care/Home Management,Soft Tissue Mobilization,Taping, Therapeutic Exercises, Vestibular Rehabilitation Modalities Cold Pack/Ice Massage,Electric Stimulation,Hot Packs, Ultrasound Next Visit Focus/Plan Next Note Type Treatment Note Next Visit Plan Progress HEP and/or Counterstrain. Progress scapular strengthening/support of neck and upper traps, consider pect stretch and thoracic mobility
--- NOTE | 2019-05-30 13:00 | PT-OP ANOTE ---
Pt states that he is doing pretty good. He has a little bit of tightness. He has only had three migraines in 3 weeks and 1 seizure over 19 days. This is much better. He will schedule appointments when clinic opens back up.
--- NOTE | 2019-06-13 15:39 | PT-OP ANOTE ---
PT calls pt. PT communicates that we do not know yet when clinic will reopen, that clinic hours will be limited to begin with, that therapists and patients will wear masks and that the gym situation will allow for 6 feet between patients. PT does communicate that PT has been providing manual care to patient and so pt and PT will be in nearer proximity. He would like to con't with care to con't to decrease migraine and seizures. His seizures have been much better with Counterstrain, with a 20 day lapse between.
--- NOTE | 2019-07-28 15:13 | PT.OTN ---
Current Diagnoses Cervicalgia (07/28/19) Headache (07/28/19) Personal history of traumatic brain injury (07/28/19) Physical Therapy Treatment Note PT-OP-A Visit Information Start: 02/04/19 07:28 Freq: Status: Active Protocol: Document 07/28/19 14:32 MB (Rec: 07/28/19 15:03 MB [id number]) Out-Patient Physical Therapy Visit Information Visit Information Visit Type Treatment Note Visit Note Pt is waiting for [employer] paperwork for doctor Visit Start Time 14:32 Visit Stop Time 15:13 Total Visit Minutes 41 Visit Number 06/29 PT-OP-B Current Condition Start: 02/04/19 07:28 Freq: Status: Active Protocol: Document 02/04/19 09:01 MB (Rec: 02/04/19 09:50 MB [id number]) Current Condition History of Current Condition Onset Date 1.5 years History of Current Condition Pt reports TBI 4 years ago when tripping and hitting head on counter. He had a severe concussion and he was out at least 30 minutes. He went to the hospital and was checked out. He had had post- concussion syndrome for 6 weeks. He would fall out unconsious when sitting at random times. He would not have memory of it. He went from having headaches 1-2 times a year to 4-6 a year. Seizures started 1.5 years ago . They are termed psychogenic seizures. There is no epilectic activity. He screens high for PTSD. Pt states that PTSD may be related to past relationships. They happen out of sleep. He wakes up shaking . He does not think he has headaches. , Joy, describes rocking side to side or pelvic thrusting, head back and eyes rolled upward. He occ has horizontal nystagmus and then his head drops down. Events last 30 sec . He is taking Topamax in the a.m. to help with mood and headaches. He has not gone more than 18 days without a seizure. He has been on Topamax for a week and has not had a seizure. 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 He had trigger point injections. He has to go through series of taking medications including corticosteroids. 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 He and are trying out supportive neck pillows. He sleeps on a wedge. 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 He drinks caffeine and water . occ reports of pt with anger and memory loss connected. These were unlike his normal personality. Pt reports headaches up to a 7 /10 and he has to talk Percicet. Headaches are over the right eye and down into his right face and back of head and feeling right eyeball being squeezed. He sees colors and has horizontal nystagmus. Overall discomfort left upper trap area, 3/10. He has 3-7/10 pain down left arm . Right hernia surgery and pain after right testicle removed. Multiple neural surgeries in the area and he now has a small left inguinal hernia. Pt reports occ tingling 4th and 5th left digit and burning down back of left arm through elbow. Prior Treatments and Tests PT in the past for left shoulder. It went okay. He had it for his right wrist as well. Right TMJ injections PT-OP-C Subjective Start: 02/04/19 07:28 Freq: Status: Active Protocol: Document 07/28/19 14:32 MB (Rec: 07/28/19 15:03 MB [id number]) OP-PT Subjective Patient Comments Patient Comments Pt states that overall, he is doing pretty good. He hasn't slipped backward that much. He is having headaches around every 2-3 weeks, seizures are every three weeks. His medication is being altered and this might affect things. PT-OP-J Posture/Palpation/Skin Start: 02/04/19 07:28 Freq: Status: Active Protocol: Document 02/04/19 09:01 MB (Rec: 02/04/19 13:33 MB [id number]) Posture Evaluation Comments Posture Comments Standing posture: forward head , rounded shoulders, Dowager's hump, decreased thoracic kyphosis, increased lumbar lordosis, changes around T6 vertebra that could be stiffness PT-OP-K Range of Motion Start: 02/04/19 07:28 Freq: Status: Active Protocol: Document 02/04/19 09:01 MB (Rec: 02/04/19 13:33 MB [id number]) Cervical Spine Range of Motion Cervical Spine Active Testing Position Standing Flexion 35 Extension 40 Rotation Left 40 Rotation Right 50 Comments Pt reports stretch in right jaw with cervical extension and left upper traps area discomfort 3/10 with flexion PT-OP-M Strength Start: 02/04/19 07:28 Freq: Status: Active Protocol: Document 02/04/19 09:01 MB (Rec: 02/04/19 13:33 MB [id number]) Shoulder Strength Shoulder Manual Muscle Testing Left Flexion 4 Good Abduction (C5) 4 Good External Rotation 5 Normal Internal Rotation 5 Normal Right Flexion 5 Normal Abduction (C5) 5 Normal External Rotation 4 Good Internal Rotation 4 Good Elbow/Forearm Strength Elbow and Forearm Manual Muscle Testing Left Flexion (C6) 5 Normal Extension (C7) 5 Normal Pronation 4 Good Supination 4 Good Right Flexion (C6) 5 Normal Extension (C7) 5 Normal Pronation 4 Good Supination 4 Good Wrist Strength Wrist Manual Muscle Testing Left Flexion (C7) 5 Normal Extension (C6) 5 Normal Right Flexion (C7) 5 Normal Extension (C6) 5 Normal PT-OP-Q Treatments Start: 02/04/19 07:28 Freq: Status: Active Protocol: Document 07/28/19 14:32 MB (Rec: 07/28/19 15:03 MB [id number]) Therapeutic Exercises Sitting Exercises Anterior neck stretch Comments 30 sec hold Upper traps and levator stretch Comments 30 sec hold, B Upper traps MWM with racquet ball Comments Performed today Standing Exercises Racquet ball massage, MWM with infraspinatus Comments Performed today Other Exercises Reviewed the following HEP exercises today Other Exercise Name Verbally reviewed and used handouts to discuss these today Comments Scap retraction/ER with band; SCM, pelvic realignment ex (I) , d/c EFT PT-OP-T Assessment and Plan Start: 02/04/19 07:28 Freq: Status: Active Protocol: Document 07/28/19 14:32 MB (Rec: 07/28/19 15:03 MB [id number]) Physical Therapy Assessment Rehab Potential Rehabilitation Potential Fair Evaluation Complexity Number of Personal Factors/Comorbidities 3 or More Number of Body Systems Impaired 3 Clinical Presentation at Evaluation Evolving Impairments Other Impairments Pt presents with moderate complexity d/t personal factors of job requirements and psychosocial changes. Body systems affected include musculoskeletal, neurological and psychosocial. Other factors include polypharmacy and questionable sleep d/t awakening with seizures. His clinical presentation is evolving. 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 07/28/2019: 82 lb, 82 lb, 75 lb left internet and e business project manager strength trials 9 Group Home Goal (LTG) Pt will be able to hang up 5 pieces of clothing by 09/27/2019 . 07/28/2019: Pt can hang up 3 pieces of clothing. LTG Duration 8 weeks 8 Director Of Analytics Goal (LTG) Pt will present with equal active left shoulder abduction and flexion compared to the right to allow overhead work by 09/27/2019. 07/28/2019: Pt presents with right shoulder abduction and flexion to 160 deg and left shoulder abduction 120 deg and flexion to 100 deg. 7 Director Of Analytics Goal (LTG) Pt will perform WiGolf for 15 minutes to prepare for return to golf by 09/27/2019. 07/28/2019: Pt can perform 5-8 minutes of WiGolf LTG Duration 8 weeks 6 Group Home Goal (LTG) Pt will report no more than 1 seizure per month by 09/27/2019. 07/28/2019: Pt is having 1 seizure every three weeks LTG Duration 8 weeks 5 Director Of Analytics Goal (LTG) Pt will present with B shoulder flexion to 5/5 to help with overhead lifting by 09/27/2019. 07/28/2019: deferred d/t left UE symptoms today LTG Duration 8 weeks 4 Group Home Goal (LTG) Pt will report no more than 1 headaches per month by 2019. 07/28/2019: Pt reports 2 headaches per month LTG Duration 8 weeks 3 Group Home Goal (LTG) Pt will perform progressive HEP with I including postural alignment, flexibility, strengthening and relaxation exercises by 09/27/2019. 07/28/2019: Pt has been performing some tapping and relaxation exercises LTG Duration 8 weeks 2 Group Home Goal (LTG) Pt will present with a QuickDASH score to reflect no more than 20% impairment to allow return to guitar and improvement of ADLs by 2019. 07/28/2019: QuickDASH score reflects 50% impairment, which is worse LTG Duration 8 weeks 1 Director Of Analytics Goal (LTG) Pt will present with a NDI score to reflect no more than 20% impairment by 09/27/2019. 07/28/2019: NDI score reflects 34% improvement LTG Duration 8 weeks Progress Towards Goals Progress Towards Goals Progressing Toward Goals Assessment Summary Assessment Pt has not been consistent with exercises over the COVID break. Pt's left shoulder abduction range is better. His left internet and e business project manager strength is better. His headaches and seizures are still improvement. His left arm pain and symptoms are worse. He has returned tingling in his left 4th and 5th digits that previously occurred with brachial plexus injury in 2003. His NDI score is the same. Pt will benefit from ongoing PT to progress strengthening, flexibility and posture. He will benefit from manual work to address ongoing myofascial changes. Physical Therapy Plan Frequency and Duration Frequency of Treatment 2x/Week Duration of Treatment 8 weeks Plan of Care Start Date 07/28/19 Plan of Care End Date 09/28/19 Therapeutic Interventions Therapeutic Interventions Balance Training,Canalithic Repositioning,Home Exercise Program,Manual Therapy, Neuromuscular Re-education, Patient/Caregiver Education, Self-Care/Home Management,Soft Tissue Mobilization,Taping, Therapeutic Exercises, Vestibular Rehabilitation Modalities Cold Pack/Ice Massage,Electric Stimulation,Hot Packs, Ultrasound Next Visit Focus/Plan Next Note Type Treatment Note Next Visit Plan Progress HEP and/or Counterstrain. Progress scapular strengthening/support of neck and upper traps, consider pect stretch and thoracic mobility over pool noodle. Progress Butekyo breathing
--- NOTE | 2019-07-30 08:58 | PT.OTN ---
Current Diagnoses Cervicalgia (07/30/19) Headache (07/30/19) Personal history of traumatic brain injury (07/30/19) Physical Therapy Treatment Note PT-OP-A Visit Information Start: 02/04/19 07:28 Freq: Status: Active Protocol: Document 07/30/19 08:12 MB (Rec: 07/30/19 08:32 MB [id number]) Out-Patient Physical Therapy Visit Information Visit Information Visit Type Treatment Note Visit Start Time 08:12 Visit Stop Time 08:57 Total Visit Minutes 45 Visit Number 07/30 PT-OP-B Current Condition Start: 02/04/19 07:28 Freq: Status: Active Protocol: Document 02/04/19 09:01 MB (Rec: 02/04/19 09:50 MB [id number]) Current Condition History of Current Condition Onset Date 1.5 years History of Current Condition Pt reports TBI 4 years ago when tripping and hitting head on counter. He had a severe concussion and he was out at least 30 minutes. He went to the hospital and was checked out. He had had post- concussion syndrome for 6 weeks. He would fall out unconsious when sitting at random times. He would not have memory of it. He went from having headaches 1-2 times a year to 4-6 a year. Seizures started 1.5 years ago . They are termed psychogenic seizures. There is no epilectic activity. He screens high for PTSD. Pt states that PTSD may be related to past relationships. They happen out of sleep. He wakes up shaking . He does not think he has headaches. , Joy, describes rocking side to side or pelvic thrusting, head back and eyes rolled upward. He occ has horizontal nystagmus and then his head drops down. Events last 30 sec . He is taking Topamax in the a.m. to help with mood and headaches. He has not gone more than 18 days without a seizure. He has been on Topamax for a week and has not had a seizure. 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 He had trigger point injections. He has to go through series of taking medications including corticosteroids. 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 He and are trying out supportive neck pillows. He sleeps on a wedge. 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 He drinks caffeine and water . occ reports of pt with anger and memory loss connected. These were unlike his normal personality. Pt reports headaches up to a 7 /10 and he has to talk Percicet. Headaches are over the right eye and down into his right face and back of head and feeling right eyeball being squeezed. He sees colors and has horizontal nystagmus. Overall discomfort left upper trap area, 3/10. He has 3-7/10 pain down left arm . Right hernia surgery and pain after right testicle removed. Multiple neural surgeries in the area and he now has a small left inguinal hernia. Pt reports occ tingling 4th and 5th left digit and burning down back of left arm through elbow. Prior Treatments and Tests PT in the past for left shoulder. It went okay. He had it for his right wrist as well. Right TMJ injections PT-OP-C Subjective Start: 02/04/19 07:28 Freq: Status: Active Protocol: Document 07/30/19 08:12 MB (Rec: 07/30/19 08:32 MB [id number]) OP-PT Subjective Patient Comments Patient Comments No changes over two days. PT-OP-J Posture/Palpation/Skin Start: 02/04/19 07:28 Freq: Status: Active Protocol: Document 02/04/19 09:01 MB (Rec: 02/04/19 13:33 MB [id number]) Posture Evaluation Comments Posture Comments Standing posture: forward head , rounded shoulders, Dowager's hump, decreased thoracic kyphosis, increased lumbar lordosis, changes around T6 vertebra that could be stiffness PT-OP-K Range of Motion Start: 02/04/19 07:28 Freq: Status: Active Protocol: Document 02/04/19 09:01 MB (Rec: 02/04/19 13:33 MB [id number]) Cervical Spine Range of Motion Cervical Spine Active Testing Position Standing Flexion 35 Extension 40 Rotation Left 40 Rotation Right 50 Comments Pt reports stretch in right jaw with cervical extension and left upper traps area discomfort 3/10 with flexion PT-OP-M Strength Start: 02/04/19 07:28 Freq: Status: Active Protocol: Document 02/04/19 09:01 MB (Rec: 02/04/19 13:33 MB [id number]) Shoulder Strength Shoulder Manual Muscle Testing Left Flexion 4 Good Abduction (C5) 4 Good External Rotation 5 Normal Internal Rotation 5 Normal Right Flexion 5 Normal Abduction (C5) 5 Normal External Rotation 4 Good Internal Rotation 4 Good Elbow/Forearm Strength Elbow and Forearm Manual Muscle Testing Left Flexion (C6) 5 Normal Extension (C7) 5 Normal Pronation 4 Good Supination 4 Good Right Flexion (C6) 5 Normal Extension (C7) 5 Normal Pronation 4 Good Supination 4 Good Wrist Strength Wrist Manual Muscle Testing Left Flexion (C7) 5 Normal Extension (C6) 5 Normal Right Flexion (C7) 5 Normal Extension (C6) 5 Normal PT-OP-Q Treatments Start: 02/04/19 07:28 Freq: Status: Active Protocol: Document 07/30/19 08:12 MB (Rec: 07/30/19 08:32 MB [id number]) Manual Therapy Treatment Manual Techniques Counterstrain Comments Pt agrees to Counterstrain to assess and treat fascial tension and PT treats stacks B standard lymphatic row: head to UEs PT-OP-T Assessment and Plan Start: 02/04/19 07:28 Freq: Status: Active Protocol: Document 07/30/19 08:12 MB (Rec: 07/30/19 08:32 MB [id number]) Physical Therapy Assessment Rehab Potential Rehabilitation Potential Fair Evaluation Complexity Number of Personal Factors/Comorbidities 3 or More Number of Body Systems Impaired 3 Clinical Presentation at Evaluation Evolving Impairments Other Impairments Pt presents with moderate complexity d/t personal factors of job requirements and psychosocial changes. Body systems affected include musculoskeletal, neurological and psychosocial. Other factors include polypharmacy and questionable sleep d/t awakening with seizures. His clinical presentation is evolving. Goals 10 Plater Hot Dip Goal (LTG) Pt will present with improved left vp marketing strength averaging 80 lbs over three trials to allow improved guitar playing by 09/27/2019. 07/28/2019: 82 lb, 82 lb, 75 lb left vp marketing strength trials 9 Halfway Goal (LTG) Pt will be able to hang up 5 pieces of clothing by 09/27/2019 . 07/28/2019: Pt can hang up 3 pieces of clothing. LTG Duration 8 weeks 8 Halfway Goal (LTG) Pt will present with equal active left shoulder abduction and flexion compared to the right to allow overhead work by 09/27/2019. 07/28/2019: Pt presents with right shoulder abduction and flexion to 160 deg and left shoulder abduction 120 deg and flexion to 100 deg. 7 Plater Hot Dip Goal (LTG) Pt will perform WiGolf for 15 minutes to prepare for return to golf by 09/27/2019. 07/28/2019: Pt can perform 5-8 minutes of WiGolf LTG Duration 8 weeks 6 Plater Hot Dip Goal (LTG) Pt will report no more than 1 seizure per month by 09/27/2019. 07/28/2019: Pt is having 1 seizure every three weeks LTG Duration 8 weeks 5 Halfway Goal (LTG) Pt will present with B shoulder flexion to 5/5 to help with overhead lifting by 09/27/2019. 07/28/2019: deferred d/t left UE symptoms today LTG Duration 8 weeks 4 Plater Hot Dip Goal (LTG) Pt will report no more than 1 headaches per month by 2019. 07/28/2019: Pt reports 2 headaches per month LTG Duration 8 weeks 3 Plater Hot Dip Goal (LTG) Pt will perform progressive HEP with I including postural alignment, flexibility, strengthening and relaxation exercises by 09/27/2019. 07/28/2019: Pt has been performing some tapping and relaxation exercises LTG Duration 8 weeks 2 Halfway Goal (LTG) Pt will present with a QuickDASH score to reflect no more than 20% impairment to allow return to itar and improvement of ADLs by 2019. 07/28/2019: QuickDASH score reflects 50% impairment, which is worse LTG Duration 8 weeks 1 Halfway Goal (LTG) Pt will present with a NDI score to reflect no more than 20% impairment by 09/27/2019. 07/28/2019: NDI score reflects 34% improvement LTG Duration 8 weeks Progress Towards Goals Progress Towards Goals Progressing Toward Goals Assessment Summary Assessment Counterstrain today to address global lymphatic fascial tension. Pt has increased fascial tension on the left. Con't manual and progressive exercises. Physical Therapy Plan Frequency and Duration Frequency of Treatment 2x/Week Duration of Treatment 8 weeks Plan of Care Start Date 07/28/19 Plan of Care End Date 09/28/19 Therapeutic Interventions Therapeutic Interventions Balance Training,Canalithic Repositioning,Home Exercise Program,Manual Therapy, Neuromuscular Re-education, Patient/Caregiver Education, Self-Care/Home Management,Soft Tissue Mobilization,Taping, Therapeutic Exercises, Vestibular Rehabilitation Modalities Cold Pack/Ice Massage,Electric Stimulation,Hot Packs, Ultrasound Next Visit Focus/Plan Next Note Type Treatment Note Next Visit Plan Progress HEP and/or Counterstrain. Progress scapular strengthening/support of neck and upper traps, consider pect stretch and thoracic mobility over pool noodle. Progress Butekyo breathing
--- NOTE | 2019-08-03 09:44 | PT.OTN ---
Current Diagnoses Cervicalgia (08/03/19) Headache (08/03/19) Personal history of traumatic brain injury (08/03/19) Physical Therapy Treatment Note PT-OP-A Visit Information Start: 02/04/19 07:28 Freq: Status: Active Protocol: Document 08/03/19 08:59 MB (Rec: 08/03/19 09:43 MB [id number]) Out-Patient Physical Therapy Visit Information Visit Information Visit Type Treatment Note Visit Start Time 08:59 Visit Stop Time 09:43 Total Visit Minutes 44 Visit Number 08/29 PT-OP-B Current Condition Start: 02/04/19 07:28 Freq: Status: Active Protocol: Document 02/04/19 09:01 MB (Rec: 02/04/19 09:50 MB [id number]) Current Condition History of Current Condition Onset Date 1.5 years History of Current Condition Pt reports TBI 4 years ago when tripping and hitting head on counter. He had a severe concussion and he was out at least 30 minutes. He went to the hospital and was checked out. He had had post- concussion syndrome for 6 weeks. He would fall out unconsious when sitting at random times. He would not have memory of it. He went from having headaches 1-2 times a year to 4-6 a year. Seizures started 1.5 years ago . They are termed psychogenic seizures. There is no epilectic activity. He screens high for PTSD. Pt states that PTSD may be related to past relationships. They happen out of sleep. He wakes up shaking . He does not think he has headaches. , Joy, describes rocking side to side or pelvic thrusting, head back and eyes rolled upward. He occ has horizontal nystagmus and then his head drops down. Events last 30 sec . He is taking Topamax in the a.m. to help with mood and headaches. He has not gone more than 18 days without a seizure. He has been on Topamax for a week and has not had a seizure. 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 He had trigger point injections. He has to go through series of taking medications including corticosteroids. He has a night filler. 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 He and are trying out supportive neck pillows. He sleeps on a wedge. 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 He drinks caffeine and water . occ reports of pt with anger and memory loss connected. These were unlike his normal personality. Pt reports headaches up to a 7 /10 and he has to talk Percicet. Headaches are over the right eye and down into his right face and back of head and feeling right eyeball being squeezed. He sees colors and has horizontal nystagmus. Overall discomfort left upper trap area, 3/10. He has 3-7/10 pain down left arm . Right hernia surgery and pain after right testicle removed. Multiple neural surgeries in the area and he now has a small left inguinal hernia. Pt reports occ tingling 4th and 5th left digit and burning down back of left arm through elbow. Prior Treatments and Tests PT in the past for left shoulder. It went okay. He had it for his right wrist as well. Right TMJ injections PT-OP-C Subjective Start: 02/04/19 07:28 Freq: Status: Active Protocol: Document 08/03/19 08:59 MB (Rec: 08/03/19 09:43 MB [id number]) OP-PT Subjective Patient Comments Patient Comments Pt states that he felt better after last appointment but feels like he could tell about other underlying residual issues, especially in his brachial plexus. PT-OP-J Posture/Palpation/Skin Start: 02/04/19 07:28 Freq: Status: Active Protocol: Document 02/04/19 09:01 MB (Rec: 02/04/19 13:33 MB [id number]) Posture Evaluation Comments Posture Comments Standing posture: forward head , rounded shoulders, Dowager's hump, decreased thoracic kyphosis, increased lumbar lordosis, changes around T6 vertebra that could be stiffness PT-OP-K Range of Motion Start: 02/04/19 07:28 Freq: Status: Active Protocol: Document 02/04/19 09:01 MB (Rec: 02/04/19 13:33 MB [id number]) Cervical Spine Range of Motion Cervical Spine Active Testing Position Standing Flexion 35 Extension 40 Rotation Left 40 Rotation Right 50 Comments Pt reports stretch in right jaw with cervical extension and left upper traps area discomfort 3/10 with flexion PT-OP-M Strength Start: 02/04/19 07:28 Freq: Status: Active Protocol: Document 02/04/19 09:01 MB (Rec: 02/04/19 13:33 MB [id number]) Shoulder Strength Shoulder Manual Muscle Testing Left Flexion 4 Good Abduction (C5) 4 Good External Rotation 5 Normal Internal Rotation 5 Normal Right Flexion 5 Normal Abduction (C5) 5 Normal External Rotation 4 Good Internal Rotation 4 Good Elbow/Forearm Strength Elbow and Forearm Manual Muscle Testing Left Flexion (C6) 5 Normal Extension (C7) 5 Normal Pronation 4 Good Supination 4 Good Right Flexion (C6) 5 Normal Extension (C7) 5 Normal Pronation 4 Good Supination 4 Good Wrist Strength Wrist Manual Muscle Testing Left Flexion (C7) 5 Normal Extension (C6) 5 Normal Right Flexion (C7) 5 Normal Extension (C6) 5 Normal PT-OP-Q Treatments Start: 02/04/19 07:28 Freq: Status: Active Protocol: Document 08/03/19 08:59 MB (Rec: 08/03/19 09:43 MB [id number]) Manual Therapy Treatment Manual Techniques Counterstrain Comments Pt agrees to Counterstrain to assess and treat fascial tension and PT treats stacks: cervical DPR, vagus nerve cervical and thoracic branches , sinuvertebral cervical and ribs, UE somatic nerves PT-OP-T Assessment and Plan Start: 02/04/19 07:28 Freq: Status: Active Protocol: Document 08/03/19 08:59 MB (Rec: 08/03/19 09:43 MB [id number]) Physical Therapy Assessment Rehab Potential Rehabilitation Potential Fair Evaluation Complexity Number of Personal Factors/Comorbidities 3 or More Number of Body Systems Impaired 3 Clinical Presentation at Evaluation Evolving Impairments Other Impairments Pt presents with moderate complexity d/t personal factors of job requirements and psychosocial changes. Body systems affected include musculoskeletal, neurological and psychosocial. Other factors include polypharmacy and questionable sleep d/t awakening with seizures. His clinical presentation is evolving. Goals 10 Half-Way Goal (LTG) Pt will present with improved left guide domestic tour strength averaging 80 lbs over three trials to allow improved guitar playing by 09/27/2019. 07/28/2019: 82 lb, 82 lb, 75 lb left guide domestic tour strength trials 9 Half-Way Goal (LTG) Pt will be able to hang up 5 pieces of clothing by 09/27/2019 . 07/28/2019: Pt can hang up 3 pieces of clothing. LTG Duration 8 weeks 8 Half-Way Goal (LTG) Pt will present with equal active left shoulder abduction and flexion compared to the right to allow overhead work by 09/27/2019. 07/28/2019: Pt presents with right shoulder abduction and flexion to 160 deg and left shoulder abduction 120 deg and flexion to 100 deg. 7 Half-Way Goal (LTG) Pt will perform WiGolf for 15 minutes to prepare for return to golf by 09/27/2019. 07/28/2019: Pt can perform 5-8 minutes of WiGolf LTG Duration 8 weeks 6 Mold Runner Goal (LTG) Pt will report no more than 1 seizure per month by 09/27/2019. 07/28/2019: Pt is having 1 seizure every three weeks LTG Duration 8 weeks 5 Half-Way Goal (LTG) Pt will present with B shoulder flexion to 5/5 to help with overhead lifting by 09/27/2019. 07/28/2019: deferred d/t left UE symptoms today LTG Duration 8 weeks 4 Mold Runner Goal (LTG) Pt will report no more than 1 headaches per month by 2019. 07/28/2019: Pt reports 2 headaches per month LTG Duration 8 weeks 3 Half-Way Goal (LTG) Pt will perform progressive HEP with I including postural alignment, flexibility, strengthening and relaxation exercises by 09/27/2019. 07/28/2019: Pt has been performing some tapping and relaxation exercises LTG Duration 8 weeks 2 Mold Runner Goal (LTG) Pt will present with a QuickDASH score to reflect no more than 20% impairment to allow return to [facility] and improvement of ADLs by 2019. 07/28/2019: QuickDASH score reflects 50% impairment, which is worse LTG Duration 8 weeks 1 Half-Way Goal (LTG) Pt will present with a NDI score to reflect no more than 20% impairment by 09/27/2019. 07/28/2019: NDI score reflects 34% improvement LTG Duration 8 weeks Progress Towards Goals Progress Towards Goals Progressing Toward Goals Assessment Summary Assessment Pt con't with some left brachial plexus symptoms, tightness to palpation in the upper ribs and sternocostal area. Improved mobility of sternocostal area after treatment. Con't manual and progressive exercises. Physical Therapy Plan Frequency and Duration Frequency of Treatment 2x/Week Duration of Treatment 8 weeks Plan of Care Start Date 07/28/19 Plan of Care End Date 09/28/19 Therapeutic Interventions Therapeutic Interventions Balance Training,Canalithic Repositioning,Home Exercise Program,Manual Therapy, Neuromuscular Re-education, Patient/Caregiver Education, Self-Care/Home Management,Soft Tissue Mobilization,Taping, Therapeutic Exercises, Vestibular Rehabilitation Modalities Cold Pack/Ice Massage,Electric Stimulation,Hot Packs, Ultrasound Next Visit Focus/Plan Next Note Type Treatment Note Next Visit Plan Progress HEP and/or Counterstrain. Progress scapular strengthening/support of neck and upper traps, consider pect stretch and thoracic mobility over pool noodle. Progress Butekyo breathing
--- NOTE | 2019-08-06 08:55 | PT.OTN ---
Current Diagnoses Cervicalgia (08/06/19) Headache (08/06/19) Personal history of traumatic brain injury (08/06/19) Physical Therapy Treatment Note PT-OP-A Visit Information Start: 02/04/19 07:28 Freq: Status: Active Protocol: Document 08/06/19 08:16 MB (Rec: 08/06/19 08:54 MB [id number]) Out-Patient Physical Therapy Visit Information Visit Information Visit Type Treatment Note Visit Start Time 08:16 Visit Stop Time 08:54 Total Visit Minutes 38 Visit Number 09/29 PT-OP-B Current Condition Start: 02/04/19 07:28 Freq: Status: Active Protocol: Document 02/04/19 09:01 MB (Rec: 02/04/19 09:50 MB [id number]) Current Condition History of Current Condition Onset Date 1.5 years History of Current Condition Pt reports TBI 4 years ago when tripping and hitting head on counter. He had a severe concussion and he was out at least 30 minutes. He went to the hospital and was checked out. He had had post- concussion syndrome for 6 weeks. He would fall out unconsious when sitting at random times. He would not have memory of it. He went from having headaches 1-2 times a year to 4-6 a year. Seizures started 1.5 years ago . They are termed psychogenic seizures. There is no epilectic activity. He screens high for PTSD. Pt states that PTSD may be related to past relationships. They happen out of sleep. He wakes up shaking . He does not think he has headaches. , Joy, describes rocking side to side or pelvic thrusting, head back and eyes rolled upward. He occ has horizontal nystagmus and then his head drops down. Events last 30 sec . He is taking Topamax in the a.m. to help with mood and headaches. He has not gone more than 18 days without a seizure. He has been on Topamax for a week and has not had a seizure. 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 He had trigger point injections. He has to go through series of taking medications including corticosteroids. 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 He and are trying out supportive neck pillows. He sleeps on a wedge. 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 He drinks caffeine and water . occ reports of pt with anger and memory loss connected. These were unlike his normal personality. Pt reports headaches up to a 7 /10 and he has to talk Percicet. Headaches are over the right eye and down into his right face and back of head and feeling right eyeball being squeezed. He sees colors and has horizontal nystagmus. Overall discomfort left upper trap area, 3/10. He has 3-7/10 pain down left arm . Right hernia surgery and pain after right testicle removed. Multiple neural surgeries in the area and he now has a small left inguinal hernia. Pt reports occ tingling 4th and 5th left digit and burning down back of left arm through elbow. Prior Treatments and Tests PT in the past for left shoulder. It went okay. He had it for his right wrist as well. Right TMJ injections PT-OP-C Subjective Start: 02/04/19 07:28 Freq: Status: Active Protocol: Document 08/06/19 08:16 MB (Rec: 08/06/19 08:54 MB [id number]) OP-PT Subjective Patient Comments Patient Comments Pt is feeling well. He had one episode of sharp pain in his left levator/middle scalene/ upper traps area. PT-OP-J Posture/Palpation/Skin Start: 02/04/19 07:28 Freq: Status: Active Protocol: Document 02/04/19 09:01 MB (Rec: 02/04/19 13:33 MB [id number]) Posture Evaluation Comments Posture Comments Standing posture: forward head , rounded shoulders, Dowager's hump, decreased thoracic kyphosis, increased lumbar lordosis, changes around T6 vertebra that could be stiffness PT-OP-K Range of Motion Start: 02/04/19 07:28 Freq: Status: Active Protocol: Document 02/04/19 09:01 MB (Rec: 02/04/19 13:33 MB [id number]) Cervical Spine Range of Motion Cervical Spine Active Testing Position Standing Flexion 35 Extension 40 Rotation Left 40 Rotation Right 50 Comments Pt reports stretch in right jaw with cervical extension and left upper traps area discomfort 3/10 with flexion PT-OP-M Strength Start: 02/04/19 07:28 Freq: Status: Active Protocol: Document 02/04/19 09:01 MB (Rec: 02/04/19 13:33 MB [id number]) Shoulder Strength Shoulder Manual Muscle Testing Left Flexion 4 Good Abduction (C5) 4 Good External Rotation 5 Normal Internal Rotation 5 Normal Right Flexion 5 Normal Abduction (C5) 5 Normal External Rotation 4 Good Internal Rotation 4 Good Elbow/Forearm Strength Elbow and Forearm Manual Muscle Testing Left Flexion (C6) 5 Normal Extension (C7) 5 Normal Pronation 4 Good Supination 4 Good Right Flexion (C6) 5 Normal Extension (C7) 5 Normal Pronation 4 Good Supination 4 Good Wrist Strength Wrist Manual Muscle Testing Left Flexion (C7) 5 Normal Extension (C6) 5 Normal Right Flexion (C7) 5 Normal Extension (C6) 5 Normal PT-OP-Q Treatments Start: 02/04/19 07:28 Freq: Status: Active Protocol: Document 08/06/19 08:16 MB (Rec: 08/06/19 08:54 MB [id number]) Therapeutic Exercises Sitting Exercises Upper traps MWM with racquet ball Comments Reviewed today to improve placement to ge middle traps Standing Exercises Pect stretch doorway Comments Pect stretch with scapular retraction Manual Therapy Treatment Other Other Manual Treatments Supine MWM left greater than right middle scalene, B upper traps and SCM to improve cervical mobility and decrease pain. Left first rib isometric mob PT-OP-T Assessment and Plan Start: 02/04/19 07:28 Freq: Status: Active Protocol: Document 08/06/19 08:16 MB (Rec: 08/06/19 08:54 MB [id number]) Physical Therapy Assessment Rehab Potential Rehabilitation Potential Fair Evaluation Complexity Number of Personal Factors/Comorbidities 3 or More Number of Body Systems Impaired 3 Clinical Presentation at Evaluation Evolving Impairments Other Impairments Pt presents with moderate complexity d/t personal factors of job requirements and psychosocial changes. Body systems affected include musculoskeletal, neurological and psychosocial. Other factors include polypharmacy and questionable sleep d/t awakening with seizures. His clinical presentation is evolving. Goals 10 Tire Recapping Machine Operator Goal (LTG) Pt will present with improved left tissue specialist strength averaging 80 lbs over three trials to allow improved guitar playing by 09/27/2019. 07/28/2019: 82 lb, 82 lb, 75 lb left tissue specialist strength trials 9 Tire Recapping Machine Operator Goal (LTG) Pt will be able to hang up 5 pieces of clothing by 09/27/2019 . 07/28/2019: Pt can hang up 3 pieces of clothing. LTG Duration 8 weeks 8 Tire Recapping Machine Operator Goal (LTG) Pt will present with equal active left shoulder abduction and flexion compared to the right to allow overhead work by 09/27/2019. 07/28/2019: Pt presents with right shoulder abduction and flexion to 160 deg and left shoulder abduction 120 deg and flexion to 100 deg. 7 Prison Goal (LTG) Pt will perform WiGolf for 15 minutes to prepare for return to golf by 09/27/2019. 07/28/2019: Pt can perform 5-8 minutes of WiGolf LTG Duration 8 weeks 6 Prison Goal (LTG) Pt will report no more than 1 seizure per month by 09/27/2019. 07/28/2019: Pt is having 1 seizure every three weeks LTG Duration 8 weeks 5 Tire Recapping Machine Operator Goal (LTG) Pt will present with B shoulder flexion to 5/5 to help with overhead lifting by 09/27/2019. 07/28/2019: deferred d/t left UE symptoms today LTG Duration 8 weeks 4 Prison Goal (LTG) Pt will report no more than 1 headaches per month by 2019. 07/28/2019: Pt reports 2 headaches per month LTG Duration 8 weeks 3 Tire Recapping Machine Operator Goal (LTG) Pt will perform progressive HEP with I including postural alignment, flexibility, strengthening and relaxation exercises by 09/27/2019. 07/28/2019: Pt has been performing some tapping and relaxation exercises LTG Duration 8 weeks 2 Prison Goal (LTG) Pt will present with a QuickDASH score to reflect no more than 20% impairment to [facility] and improvement of ADLs by 2019. 07/28/2019: QuickDASH score reflects 50% impairment, which is worse LTG Duration 8 weeks 1 Tire Recapping Machine Operator Goal (LTG) Pt will present with a NDI score to reflect no more than 20% impairment by 09/27/2019. 07/28/2019: NDI score reflects 34% improvement LTG Duration 8 weeks Progress Towards Goals Progress Towards Goals Progressing Toward Goals Assessment Summary Assessment Pt con't with left cervical tension, great in the left middle scalene today and treated with MWM. Con't progression of flexibility and strengthening exercises. Physical Therapy Plan Frequency and Duration Frequency of Treatment 2x/Week Duration of Treatment 8 weeks Plan of Care Start Date 07/28/19 Plan of Care End Date 09/28/19 Therapeutic Interventions Therapeutic Interventions Balance Training,Canalithic Repositioning,Home Exercise Program,Manual Therapy, Neuromuscular Re-education, Patient/Caregiver Education, Self-Care/Home Management,Soft Tissue Mobilization,Taping, Therapeutic Exercises, Vestibular Rehabilitation Modalities Cold Pack/Ice Massage,Electric Stimulation,Hot Packs, Ultrasound Next Visit Focus/Plan Next Note Type Treatment Note Next Visit Plan Progress HEP and/or Counterstrain. Progress scapular strengthening/support of neck and upper traps, consider pect stretch and thoracic mobility over pool noodle. Progress Butekyo breathing
--- NOTE | 2019-08-10 09:38 | PT.OTN ---
Current Diagnoses Cervicalgia (08/10/19) Headache (08/10/19) Personal history of traumatic brain injury (08/10/19) Physical Therapy Treatment Note PT-OP-A Visit Information Start: 02/04/19 07:28 Freq: Status: Active Protocol: Document 08/10/19 09:00 MB (Rec: 08/10/19 09:38 MB [id number]) Out-Patient Physical Therapy Visit Information Visit Information Visit Type Treatment Note Visit Start Time 08:58 Visit Stop Time 09:36 Total Visit Minutes 38 Visit Number 10/30 PT-OP-B Current Condition Start: 02/04/19 07:28 Freq: Status: Active Protocol: Document 02/04/19 09:01 MB (Rec: 02/04/19 09:50 MB [id number]) Current Condition History of Current Condition Onset Date 1.5 years History of Current Condition Pt reports TBI 4 years ago when tripping and hitting head on counter. He had a severe concussion and he was out at least 30 minutes. He went to the hospital and was checked out. He had had post- concussion syndrome for 6 weeks. He would fall out unconsious when sitting at random times. He would not have memory of it. He went from having headaches 1-2 times a year to 4-6 a year. Seizures started 1.5 years ago . They are termed psychogenic seizures. There is no epilectic activity. He screens high for PTSD. Pt states that PTSD may be related to past relationships. They happen out of sleep. He wakes up shaking . He does not think he has headaches. , Joy, describes rocking side to side or pelvic thrusting, head back and eyes rolled upward. He occ has horizontal nystagmus and then his head drops down. Events last 30 sec . He is taking Topamax in the a.m. to help with mood and headaches. He has not gone more than 18 days without a seizure. He has been on Topamax for a week and has not had a seizure. 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 He had trigger point injections. He has to go through series of taking medications including corticosteroids. 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 He and are trying out supportive neck pillows. He sleeps on a wedge. 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 He drinks caffeine and water . occ reports of pt with anger and memory loss connected. These were unlike his normal personality. Pt reports headaches up to a 7 /10 and he has to talk Percicet. Headaches are over the right eye and down into his right face and back of head and feeling right eyeball being squeezed. He sees colors and has horizontal nystagmus. Overall discomfort left upper trap area, 3/10. He has 3-7/10 pain down left arm . Right hernia surgery and pain after right testicle removed. Multiple neural surgeries in the area and he now has a small left inguinal hernia. Pt reports occ tingling 4th and 5th left digit and burning down back of left arm through elbow. Prior Treatments and Tests PT in the past for left shoulder. It went okay. He had it for his right wrist as well. Right TMJ injections PT-OP-C Subjective Start: 02/04/19 07:28 Freq: Status: Active Protocol: Document 08/10/19 09:00 MB (Rec: 08/10/19 09:38 MB [id number]) OP-PT Subjective Patient Comments Patient Comments Pt states that he is feeling pretty good. He has some neck tension but less symptoms in his arms. He is doing pelvic realignment exercises, racquet ball massage, band exercises and pect stretch. PT-OP-J Posture/Palpation/Skin Start: 02/04/19 07:28 Freq: Status: Active Protocol: Document 02/04/19 09:01 MB (Rec: 02/04/19 13:33 MB [id number]) Posture Evaluation Comments Posture Comments Standing posture: forward head , rounded shoulders, Dowager's hump, decreased thoracic kyphosis, increased lumbar lordosis, changes around T6 vertebra that could be stiffness PT-OP-K Range of Motion Start: 02/04/19 07:28 Freq: Status: Active Protocol: Document 02/04/19 09:01 MB (Rec: 02/04/19 13:33 MB [id number]) Cervical Spine Range of Motion Cervical Spine Active Testing Position Standing Flexion 35 Extension 40 Rotation Left 40 Rotation Right 50 Comments Pt reports stretch in right jaw with cervical extension and left upper traps area discomfort 3/10 with flexion PT-OP-M Strength Start: 02/04/19 07:28 Freq: Status: Active Protocol: Document 02/04/19 09:01 MB (Rec: 02/04/19 13:33 MB [id number]) Shoulder Strength Shoulder Manual Muscle Testing Left Flexion 4 Good Abduction (C5) 4 Good External Rotation 5 Normal Internal Rotation 5 Normal Right Flexion 5 Normal Abduction (C5) 5 Normal External Rotation 4 Good Internal Rotation 4 Good Elbow/Forearm Strength Elbow and Forearm Manual Muscle Testing Left Flexion (C6) 5 Normal Extension (C7) 5 Normal Pronation 4 Good Supination 4 Good Right Flexion (C6) 5 Normal Extension (C7) 5 Normal Pronation 4 Good Supination 4 Good Wrist Strength Wrist Manual Muscle Testing Left Flexion (C7) 5 Normal Extension (C6) 5 Normal Right Flexion (C7) 5 Normal Extension (C6) 5 Normal PT-OP-Q Treatments Start: 02/04/19 07:28 Freq: Status: Active Protocol: Document 08/10/19 09:00 MB (Rec: 08/10/19 09:38 MB [id number]) Therapeutic Exercises Supine Exercises Abdominal drawing in Comments Performed on floor today. Will progress over pool noodle Buteyko breathing Supine Exercise Name 23 sec hold; 34 sec; 41 sec Comments Progressed block nostril, R 26 sec; 33 sec; Sinus decongestion Diaphragmatic breathing Comments Performed with abdominal drawing in today PT-OP-T Assessment and Plan Start: 02/04/19 07:28 Freq: Status: Active Protocol: Document 08/10/19 09:00 MB (Rec: 08/10/19 09:38 MB [id number]) Physical Therapy Assessment Rehab Potential Rehabilitation Potential Fair Evaluation Complexity Number of Personal Factors/Comorbidities 3 or More Number of Body Systems Impaired 3 Clinical Presentation at Evaluation Evolving Impairments Other Impairments Pt presents with moderate complexity d/t personal factors of job requirements and psychosocial changes. Body systems affected include musculoskeletal, neurological and psychosocial. Other factors include polypharmacy and questionable sleep d/t awakening with seizures. His clinical presentation is evolving. 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 07/28/2019: 82 lb, 82 lb, 75 lb left keg inspector strength trials 9 Cost Estimating Manager Goal (LTG) Pt will be able to hang up 5 pieces of clothing by 09/27/2019 . 07/28/2019: Pt can hang up 3 pieces of clothing. LTG Duration 8 weeks 8 Longterm Goal (LTG) Pt will present with equal active left shoulder abduction and flexion compared to the right to allow overhead work by 09/27/2019. 07/28/2019: Pt presents with right shoulder abduction and flexion to 160 deg and left shoulder abduction 120 deg and flexion to 100 deg. 7 Longterm Goal (LTG) Pt will perform WiGolf for 15 minutes to prepare for return to golf by 09/27/2019. 07/28/2019: Pt can perform 5-8 minutes of WiGolf LTG Duration 8 weeks 6 Cost Estimating Manager Goal (LTG) Pt will report no more than 1 seizure per month by 09/27/2019. 07/28/2019: Pt is having 1 seizure every three weeks LTG Duration 8 weeks 5 Cost Estimating Manager Goal (LTG) Pt will present with B shoulder flexion to 5/5 to help with overhead lifting by 09/27/2019. 07/28/2019: deferred d/t left UE symptoms today LTG Duration 8 weeks 4 Longterm Goal (LTG) Pt will report no more than 1 headaches per month by 2019. 07/28/2019: Pt reports 2 headaches per month LTG Duration 8 weeks 3 Longterm Goal (LTG) Pt will perform progressive HEP with I including postural alignment, flexibility, strengthening and relaxation exercises by 09/27/2019. 07/28/2019: Pt has been performing some tapping and relaxation exercises LTG Duration 8 weeks 2 Cost Estimating Manager Goal (LTG) Pt will present with a QuickDASH score to reflect no more than 20% impairment to allow return to itar and improvement of ADLs by 2019. 07/28/2019: QuickDASH score reflects 50% impairment, which is worse LTG Duration 8 weeks 1 Cost Estimating Manager Goal (LTG) Pt will present with a NDI score to reflect no more than 20% impairment by 09/27/2019. 07/28/2019: NDI score reflects 34% improvement LTG Duration 8 weeks Progress Towards Goals Progress Towards Goals Progressing Toward Goals Assessment Summary Assessment Progressed Buteyko Breathing exercises today for ongoing parasympathetic control to help with HAs and seizures. 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 They require rest breaks. Con't progression of flexibility and strengthening exercises. Physical Therapy Plan Frequency and Duration Frequency of Treatment 2x/Week Duration of Treatment 8 weeks Plan of Care Start Date 07/28/19 Plan of Care End Date 09/28/19 Therapeutic Interventions Therapeutic Interventions Balance Training,Canalithic Repositioning,Home Exercise Program,Manual Therapy, Neuromuscular Re-education, Patient/Caregiver Education, Self-Care/Home Management,Soft Tissue Mobilization,Taping, Therapeutic Exercises, Vestibular Rehabilitation Modalities Cold Pack/Ice Massage,Electric Stimulation,Hot Packs, Ultrasound Next Visit Focus/Plan Next Note Type Treatment Note Next Visit Plan Progress HEP and/or Counterstrain. Consider pect stretch and thoracic mobility over pool noodle, strengthening.
--- NOTE | 2019-08-13 08:56 | PT.OTN ---
Current Diagnoses Cervicalgia (08/13/19) Headache (08/13/19) Personal history of traumatic brain injury (08/13/19) Physical Therapy Treatment Note PT-OP-A Visit Information Start: 02/04/19 07:28 Freq: Status: Active Protocol: Document 08/13/19 08:16 MB (Rec: 08/13/19 08:56 MB [id number]) Out-Patient Physical Therapy Visit Information Visit Information Visit Type Treatment Note Visit Start Time 08:16 Visit Stop Time 08:56 Total Visit Minutes 40 Visit Number 11/29 PT-OP-B Current Condition Start: 02/04/19 07:28 Freq: Status: Active Protocol: Document 02/04/19 09:01 MB (Rec: 02/04/19 09:50 MB [id number]) Current Condition History of Current Condition Onset Date 1.5 years History of Current Condition Pt reports TBI 4 years ago when tripping and hitting head on counter. He had a severe concussion and he was out at least 30 minutes. He went to the hospital and was checked out. He had had post- concussion syndrome for 6 weeks. He would fall out unconsious when sitting at random times. He would not have memory of it. He went from having headaches 1-2 times a year to 4-6 a year. Seizures started 1.5 years ago . They are termed psychogenic seizures. There is no epilectic activity. He screens high for PTSD. Pt states that PTSD may be related to past relationships. They happen out of sleep. He wakes up shaking . He does not think he has headaches. , Joy, describes rocking side to side or pelvic thrusting, head back and eyes rolled upward. He occ has horizontal nystagmus and then his head drops down. Events last 30 sec . He is taking Topamax in the a.m. to help with mood and headaches. He has not gone more than 18 days without a seizure. He has been on Topamax for a week and has not had a seizure. 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 He had trigger point injections. He has to go through series of taking medications including corticosteroids. 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 He and are trying out supportive neck pillows. He sleeps on a wedge. 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 He drinks caffeine and water . occ reports of pt with anger and memory loss connected. These were unlike his normal personality. Pt reports headaches up to a 7 /10 and he has to talk Percicet. Headaches are over the right eye and down into his right face and back of head and feeling right eyeball being squeezed. He sees colors and has horizontal nystagmus. Overall discomfort left upper trap area, 3/10. He has 3-7/10 pain down left arm . Right hernia surgery and pain after right testicle removed. Multiple neural surgeries in the area and he now has a small left inguinal hernia. Pt reports occ tingling 4th and 5th left digit and burning down back of left arm through elbow. Prior Treatments and Tests PT in the past for left shoulder. It went okay. He had it for his right wrist as well. Right TMJ injections PT-OP-C Subjective Start: 02/04/19 07:28 Freq: Status: Active Protocol: Document 08/13/19 08:16 MB (Rec: 08/13/19 08:56 MB [id number]) OP-PT Subjective Patient Comments Patient Comments Pt has not had a seizure for 2 .5 weeks. He has had a medication change. Breathing exercises are going well. PT-OP-J Posture/Palpation/Skin Start: 02/04/19 07:28 Freq: Status: Active Protocol: Document 02/04/19 09:01 MB (Rec: 02/04/19 13:33 MB [id number]) Posture Evaluation Comments Posture Comments Standing posture: forward head , rounded shoulders, Dowager's hump, decreased thoracic kyphosis, increased lumbar lordosis, changes around T6 vertebra that could be stiffness PT-OP-K Range of Motion Start: 02/04/19 07:28 Freq: Status: Active Protocol: Document 02/04/19 09:01 MB (Rec: 02/04/19 13:33 MB [id number]) Cervical Spine Range of Motion Cervical Spine Active Testing Position Standing Flexion 35 Extension 40 Rotation Left 40 Rotation Right 50 Comments Pt reports stretch in right jaw with cervical extension and left upper traps area discomfort 3/10 with flexion PT-OP-M Strength Start: 02/04/19 07:28 Freq: Status: Active Protocol: Document 02/04/19 09:01 MB (Rec: 02/04/19 13:33 MB [id number]) Shoulder Strength Shoulder Manual Muscle Testing Left Flexion 4 Good Abduction (C5) 4 Good External Rotation 5 Normal Internal Rotation 5 Normal Right Flexion 5 Normal Abduction (C5) 5 Normal External Rotation 4 Good Internal Rotation 4 Good Elbow/Forearm Strength Elbow and Forearm Manual Muscle Testing Left Flexion (C6) 5 Normal Extension (C7) 5 Normal Pronation 4 Good Supination 4 Good Right Flexion (C6) 5 Normal Extension (C7) 5 Normal Pronation 4 Good Supination 4 Good Wrist Strength Wrist Manual Muscle Testing Left Flexion (C7) 5 Normal Extension (C6) 5 Normal Right Flexion (C7) 5 Normal Extension (C6) 5 Normal PT-OP-Q Treatments Start: 02/04/19 07:28 Freq: Status: Active Protocol: Document 08/13/19 08:16 MB (Rec: 08/13/19 08:56 MB [id number]) Manual Therapy Treatment Manual Techniques Counterstrain Comments Pt agrees to Counterstrain to assess and treat fascial tension. PT assesses and treats stacks: left anterior thoracic arterial, right trigeminal, left cervical periosteal, left visceral, left sinuvertebral: treated thoracic arterial stacks, left somatic LE Other Other Manual Treatments Left first rib isometric mob, pubic symphysis isometric PT-OP-T Assessment and Plan Start: 02/04/19 07:28 Freq: Status: Active Protocol: Document 08/13/19 08:16 MB (Rec: 08/13/19 08:56 MB [id number]) Physical Therapy Assessment Rehab Potential Rehabilitation Potential Fair Evaluation Complexity Number of Personal Factors/Comorbidities 3 or More Number of Body Systems Impaired 3 Clinical Presentation at Evaluation Evolving Impairments Other Impairments Pt presents with moderate complexity d/t personal factors of job requirements and psychosocial changes. Body systems affected include musculoskeletal, neurological and psychosocial. Other factors include polypharmacy and questionable sleep d/t awakening with seizures. His clinical presentation is evolving. 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 07/28/2019: 82 lb, 82 lb, 75 lb left electronic coils supervisor strength trials 9 Residential Goal (LTG) Pt will be able to hang up 5 pieces of clothing by 09/27/2019 . 07/28/2019: Pt can hang up 3 pieces of clothing. LTG Duration 8 weeks 8 Residential Goal (LTG) Pt will present with equal active left shoulder abduction and flexion compared to the right to allow overhead work by 09/27/2019. 07/28/2019: Pt presents with right shoulder abduction and flexion to 160 deg and left shoulder abduction 120 deg and flexion to 100 deg. 7 Technical Program Manager Goal (LTG) Pt will perform WiGolf for 15 minutes to prepare for return to golf by 09/27/2019. 07/28/2019: Pt can perform 5-8 minutes of WiGolf LTG Duration 8 weeks 6 Residential Goal (LTG) Pt will report no more than 1 seizure per month by 09/27/2019. 07/28/2019: Pt is having 1 seizure every three weeks LTG Duration 8 weeks 5 Residential Goal (LTG) Pt will present with B shoulder flexion to 5/5 to help with overhead lifting by 09/27/2019. 07/28/2019: deferred d/t left UE symptoms today LTG Duration 8 weeks 4 Residential Goal (LTG) Pt will report no more than 1 headaches per month by 2019. 07/28/2019: Pt reports 2 headaches per month LTG Duration 8 weeks 3 Technical Program Manager Goal (LTG) Pt will perform progressive HEP with I including postural alignment, flexibility, strengthening and relaxation exercises by 09/27/2019. 07/28/2019: Pt has been performing some tapping and relaxation exercises LTG Duration 8 weeks 2 Residential Goal (LTG) Pt will present with a QuickDASH score to reflect no more than 20% impairment to allow return to itar and improvement of ADLs by 2019. 07/28/2019: QuickDASH score reflects 50% impairment, which is worse LTG Duration 8 weeks 1 Technical Program Manager Goal (LTG) Pt will present with a NDI score to reflect no more than 20% impairment by 09/27/2019. 07/28/2019: NDI score reflects 34% improvement LTG Duration 8 weeks Progress Towards Goals Progress Towards Goals Progressing Toward Goals Assessment Summary Assessment Con't Counterstrain today to improve cervical fascial changes. Con't progression of flexibility and strengthening exercises. Physical Therapy Plan Frequency and Duration Frequency of Treatment 2x/Week Duration of Treatment 8 weeks Plan of Care Start Date 07/28/19 Plan of Care End Date 09/28/19 Therapeutic Interventions Therapeutic Interventions Balance Training,Canalithic Repositioning,Home Exercise Program,Manual Therapy, Neuromuscular Re-education, Patient/Caregiver Education, Self-Care/Home Management,Soft Tissue Mobilization,Taping, Therapeutic Exercises, Vestibular Rehabilitation Modalities Cold Pack/Ice Massage,Electric Stimulation,Hot Packs, Ultrasound Next Visit Focus/Plan Next Note Type Treatment Note Next Visit Plan Progress HEP and/or Counterstrain. Consider pect stretch and thoracic mobility over pool noodle, strengthening.
--- NOTE | 2019-08-17 09:44 | PT.OTN ---
Current Diagnoses Cervicalgia (08/17/19) Headache (08/17/19) Personal history of traumatic brain injury (08/17/19) Physical Therapy Treatment Note PT-OP-A Visit Information Start: 02/04/19 07:28 Freq: Status: Active Protocol: Document 08/17/19 09:00 MB (Rec: 08/17/19 09:44 MB [id number]) Out-Patient Physical Therapy Visit Information Visit Information Visit Type Treatment Note Visit Start Time 09:00 Visit Stop Time 09:43 Total Visit Minutes 43 Visit Number 12/30 PT-OP-B Current Condition Start: 02/04/19 07:28 Freq: Status: Active Protocol: Document 02/04/19 09:01 MB (Rec: 02/04/19 09:50 MB [id number]) Current Condition History of Current Condition Onset Date 1.5 years History of Current Condition Pt reports TBI 4 years ago when tripping and hitting head on counter. He had a severe concussion and he was out at least 30 minutes. He went to the hospital and was checked out. He had had post- concussion syndrome for 6 weeks. He would fall out unconsious when sitting at random times. He would not have memory of it. He went from having headaches 1-2 times a year to 4-6 a year. Seizures started 1.5 years ago . They are termed psychogenic seizures. There is no epilectic activity. He screens high for PTSD. Pt states that PTSD may be related to past relationships. They happen out of sleep. He wakes up shaking . He does not think he has headaches. , Joy, describes rocking side to side or pelvic thrusting, head back and eyes rolled upward. He occ has horizontal nystagmus and then his head drops down. Events last 30 sec . He is taking Topamax in the a.m. to help with mood and headaches. He has not gone more than 18 days without a seizure. He has been on Topamax for a week and has not had a seizure. 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 He had trigger point injections. He has to go through series of taking medications including corticosteroids. He has a watchguard. 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 He and are trying out supportive neck pillows. He sleeps on a wedge. 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 He drinks caffeine and water . occ reports of pt with anger and memory loss connected. These were unlike his normal personality. Pt reports headaches up to a 7 /10 and he has to talk Percicet. Headaches are over the right eye and down into his right face and back of head and feeling right eyeball being squeezed. He sees colors and has horizontal nystagmus. Overall discomfort left upper trap area, 3/10. He has 3-7/10 pain down left arm . Right hernia surgery and pain after right testicle removed. Multiple neural surgeries in the area and he now has a small left inguinal hernia. Pt reports occ tingling 4th and 5th left digit and burning down back of left arm through elbow. Prior Treatments and Tests PT in the past for left shoulder. It went okay. He had it for his right wrist as well. Right TMJ injections PT-OP-C Subjective Start: 02/04/19 07:28 Freq: Status: Active Protocol: Document 08/17/19 09:00 MB (Rec: 08/17/19 09:44 MB [id number]) OP-PT Subjective Patient Comments Patient Comments Pt states that he is a little sore. They have been doing a lot of work around the house. He states that he is checking on authorization to con't PT. PT-OP-J Posture/Palpation/Skin Start: 02/04/19 07:28 Freq: Status: Active Protocol: Document 02/04/19 09:01 MB (Rec: 02/04/19 13:33 MB [id number]) Posture Evaluation Comments Posture Comments Standing posture: forward head , rounded shoulders, Dowager's hump, decreased thoracic kyphosis, increased lumbar lordosis, changes around T6 vertebra that could be stiffness PT-OP-K Range of Motion Start: 02/04/19 07:28 Freq: Status: Active Protocol: Document 02/04/19 09:01 MB (Rec: 02/04/19 13:33 MB [id number]) Cervical Spine Range of Motion Cervical Spine Active Testing Position Standing Flexion 35 Extension 40 Rotation Left 40 Rotation Right 50 Comments Pt reports stretch in right jaw with cervical extension and left upper traps area discomfort 3/10 with flexion PT-OP-M Strength Start: 02/04/19 07:28 Freq: Status: Active Protocol: Document 02/04/19 09:01 MB (Rec: 02/04/19 13:33 MB [id number]) Shoulder Strength Shoulder Manual Muscle Testing Left Flexion 4 Good Abduction (C5) 4 Good External Rotation 5 Normal Internal Rotation 5 Normal Right Flexion 5 Normal Abduction (C5) 5 Normal External Rotation 4 Good Internal Rotation 4 Good Elbow/Forearm Strength Elbow and Forearm Manual Muscle Testing Left Flexion (C6) 5 Normal Extension (C7) 5 Normal Pronation 4 Good Supination 4 Good Right Flexion (C6) 5 Normal Extension (C7) 5 Normal Pronation 4 Good Supination 4 Good Wrist Strength Wrist Manual Muscle Testing Left Flexion (C7) 5 Normal Extension (C6) 5 Normal Right Flexion (C7) 5 Normal Extension (C6) 5 Normal PT-OP-Q Treatments Start: 02/04/19 07:28 Freq: Status: Active Protocol: Document 08/17/19 09:00 MB (Rec: 08/17/19 09:44 MB [id number]) Therapeutic Exercises Supine Exercises Core progression on mat and then on pool noodle Comments Abd drawing in, lumbar rotation, HS, knee fall out, march Pool exercises for thoracic spine and shoulders Comments 10 reps all AROM ex and 2 reps stretch hold 20-30 sec Manual Therapy Treatment Other Other Manual Treatments KT black B I strips for scapular retraction promotion PT-OP-T Assessment and Plan Start: 02/04/19 07:28 Freq: Status: Active Protocol: Document 08/17/19 09:00 MB (Rec: 08/17/19 09:44 MB [id number]) Physical Therapy Assessment Rehab Potential Rehabilitation Potential Fair Evaluation Complexity Number of Personal Factors/Comorbidities 3 or More Number of Body Systems Impaired 3 Clinical Presentation at Evaluation Evolving Impairments Other Impairments Pt presents with moderate complexity d/t personal factors of job requirements and psychosocial changes. Body systems affected include musculoskeletal, neurological and psychosocial. Other factors include polypharmacy and questionable sleep d/t awakening with seizures. His clinical presentation is evolving. 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 07/28/2019: 82 lb, 82 lb, 75 lb left primary health organisation manager strength trials 9 Residential Goal (LTG) Pt will be able to hang up 5 pieces of clothing by 09/27/2019 . 07/28/2019: Pt can hang up 3 pieces of clothing. LTG Duration 8 weeks 8 Hog Cooler Goal (LTG) Pt will present with equal active left shoulder abduction and flexion compared to the right to allow overhead work by 09/27/2019. 07/28/2019: Pt presents with right shoulder abduction and flexion to 160 deg and left shoulder abduction 120 deg and flexion to 100 deg. 7 Residential Goal (LTG) Pt will perform WiGolf for 15 minutes to prepare for return to golf by 09/27/2019. 07/28/2019: Pt can perform 5-8 minutes of WiGolf LTG Duration 8 weeks 6 Hog Cooler Goal (LTG) Pt will report no more than 1 seizure per month by 09/27/2019. 07/28/2019: Pt is having 1 seizure every three weeks LTG Duration 8 weeks 5 Residential Goal (LTG) Pt will present with B shoulder flexion to 5/5 to help with overhead lifting by 09/27/2019. 07/28/2019: deferred d/t left UE symptoms today LTG Duration 8 weeks 4 Hog Cooler Goal (LTG) Pt will report no more than 1 headaches per month by 2019. 07/28/2019: Pt reports 2 headaches per month LTG Duration 8 weeks 3 Hog Cooler Goal (LTG) Pt will perform progressive HEP with I including postural alignment, flexibility, strengthening and relaxation exercises by 09/27/2019. 07/28/2019: Pt has been performing some tapping and relaxation exercises LTG Duration 8 weeks 2 Residential Goal (LTG) Pt will present with a QuickDASH score to reflect no more than 20% impairment to allow return to guitar and improvement of ADLs by 2019. 07/28/2019: QuickDASH score reflects 50% impairment, which is worse LTG Duration 8 weeks 1 Hog Cooler Goal (LTG) Pt will present with a NDI score to reflect no more than 20% impairment by 09/27/2019. 07/28/2019: NDI score reflects 34% improvement LTG Duration 8 weeks Progress Towards Goals Progress Towards Goals Progressing Toward Goals Assessment Summary Assessment Initiated shoulder and thoracic mobility over pool noodle today. Core exercises on mat and will progress over pool noodle. Con't progression of flexibility and strengthening exercises. Physical Therapy Plan Frequency and Duration Frequency of Treatment 2x/Week Duration of Treatment 8 weeks Plan of Care Start Date 07/28/19 Plan of Care End Date 09/28/19 Therapeutic Interventions Therapeutic Interventions Balance Training,Canalithic Repositioning,Home Exercise Program,Manual Therapy, Neuromuscular Re-education, Patient/Caregiver Education, Self-Care/Home Management,Soft Tissue Mobilization,Taping, Therapeutic Exercises, Vestibular Rehabilitation Modalities Cold Pack/Ice Massage,Electric Stimulation,Hot Packs, Ultrasound Next Visit Focus/Plan Next Note Type Treatment Note Next Visit Plan Progress HEP and/or Counterstrain.
--- NOTE | 2019-08-24 09:46 | PT.OTN ---
Current Diagnoses Cervicalgia (08/24/19) Headache (08/24/19) Personal history of traumatic brain injury (08/24/19) Physical Therapy Treatment Note PT-OP-A Visit Information Start: 02/04/19 07:28 Freq: Status: Active Protocol: Document 08/24/19 09:01 MB (Rec: 08/24/19 09:46 MB [id number]) Out-Patient Physical Therapy Visit Information Visit Information Visit Type Treatment Note Visit Note Pt recieved 12 more visits, will be next visit Visit Start Time 09:01 Visit Stop Time 09:45 Total Visit Minutes 44 Visit Number 09/27 before reassess PT-OP-B Current Condition Start: 02/04/19 07:28 Freq: Status: Active Protocol: Document 02/04/19 09:01 MB (Rec: 02/04/19 09:50 MB [id number]) Current Condition History of Current Condition Onset Date 1.5 years History of Current Condition Pt reports TBI 4 years ago when tripping and hitting head on counter. He had a severe concussion and he was out at least 30 minutes. He went to the hospital and was checked out. He had had post- concussion syndrome for 6 weeks. He would fall out unconsious when sitting at random times. He would not have memory of it. He went from having headaches 1-2 times a year to 4-6 a year. Seizures started 1.5 years ago . They are termed psychogenic seizures. There is no epilectic activity. He screens high for PTSD. Pt states that PTSD may be related to past relationships. They happen out of sleep. He wakes up shaking . He does not think he has headaches. , Joy, describes rocking side to side or pelvic thrusting, head back and eyes rolled upward. He occ has horizontal nystagmus and then his head drops down. Events last 30 sec . He is taking Topamax in the a.m. to help with mood and headaches. He has not gone more than 18 days without a seizure. He has been on Topamax for a week and has not had a seizure. 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 He had trigger point injections. He has to go through series of taking medications including corticosteroids. 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 He and are trying out supportive neck pillows. He sleeps on a wedge. 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 He drinks caffeine and water . occ reports of pt with anger and memory loss connected. These were unlike his normal personality. Pt reports headaches up to a 7 /10 and he has to talk Percicet. Headaches are over the right eye and down into his right face and back of head and feeling right eyeball being squeezed. He sees colors and has horizontal nystagmus. Overall discomfort left upper trap area, 3/10. He has 3-7/10 pain down left arm . Right hernia surgery and pain after right testicle removed. Multiple neural surgeries in the area and he now has a small left inguinal hernia. Pt reports occ tingling 4th and 5th left digit and burning down back of left arm through elbow. Prior Treatments and Tests PT in the past for left shoulder. It went okay. He had it for his right wrist as well. Right TMJ injections PT-OP-C Subjective Start: 02/04/19 07:28 Freq: Status: Active Protocol: Document 08/24/19 09:01 MB (Rec: 08/24/19 09:46 MB [id number]) OP-PT Subjective Patient Comments Patient Comments Pt had seizure on Saturday morning. This was 22 days since the last one. PT-OP-J Posture/Palpation/Skin Start: 02/04/19 07:28 Freq: Status: Active Protocol: Document 02/04/19 09:01 MB (Rec: 02/04/19 13:33 MB [id number]) Posture Evaluation Comments Posture Comments Standing posture: forward head , rounded shoulders, Dowager's hump, decreased thoracic kyphosis, increased lumbar lordosis, changes around T6 vertebra that could be stiffness PT-OP-K Range of Motion Start: 02/04/19 07:28 Freq: Status: Active Protocol: Document 02/04/19 09:01 MB (Rec: 02/04/19 13:33 MB [id number]) Cervical Spine Range of Motion Cervical Spine Active Testing Position Standing Flexion 35 Extension 40 Rotation Left 40 Rotation Right 50 Comments Pt reports stretch in right jaw with cervical extension and left upper traps area discomfort 3/10 with flexion PT-OP-M Strength Start: 02/04/19 07:28 Freq: Status: Active Protocol: Document 02/04/19 09:01 MB (Rec: 02/04/19 13:33 MB [id number]) Shoulder Strength Shoulder Manual Muscle Testing Left Flexion 4 Good Abduction (C5) 4 Good External Rotation 5 Normal Internal Rotation 5 Normal Right Flexion 5 Normal Abduction (C5) 5 Normal External Rotation 4 Good Internal Rotation 4 Good Elbow/Forearm Strength Elbow and Forearm Manual Muscle Testing Left Flexion (C6) 5 Normal Extension (C7) 5 Normal Pronation 4 Good Supination 4 Good Right Flexion (C6) 5 Normal Extension (C7) 5 Normal Pronation 4 Good Supination 4 Good Wrist Strength Wrist Manual Muscle Testing Left Flexion (C7) 5 Normal Extension (C6) 5 Normal Right Flexion (C7) 5 Normal Extension (C6) 5 Normal PT-OP-Q Treatments Start: 02/04/19 07:28 Freq: Status: Active Protocol: Document 08/24/19 09:01 MB (Rec: 08/24/19 09:46 MB [id number]) Therapeutic Exercises Supine Exercises Core progression on mat and then on pool noodle Comments Performed 2-5 reps all on pool noodle today, for HEP Pool exercises for thoracic spine and shoulders Comments Performed w,x,t and flexion over pool noodle Buteyko breathing Reps/Minutes 2, 30 sec hold Comments Progressed diaphragmatic breathing with Buteyko Standing Exercises Racquet ball massage, MWM with infraspinatus Comments Performed today Manual Therapy Treatment Manual Techniques MWM SCM Comments MWM L anterior and middle scalenes, pt performing active rotation and PT performing trigger point pressure Other Other Manual Treatments Deferred today d/t some residual redness from taping last week. PT-OP-T Assessment and Plan Start: 02/04/19 07:28 Freq: Status: Active Protocol: Document 08/24/19 09:01 MB (Rec: 08/24/19 09:46 MB [id number]) Physical Therapy Assessment Rehab Potential Rehabilitation Potential Fair Evaluation Complexity Number of Personal Factors/Comorbidities 3 or More Number of Body Systems Impaired 3 Clinical Presentation at Evaluation Evolving Impairments Other Impairments Pt presents with moderate complexity d/t personal factors of job requirements and psychosocial changes. Body systems affected include musculoskeletal, neurological and psychosocial. Other factors include polypharmacy and questionable sleep d/t awakening with seizures. His clinical presentation is evolving. Goals 10 Carpenter Prototype Goal (LTG) Pt will present with improved left manager drug strength averaging 80 lbs over three trials to allow improved guitar playing by 09/27/2019. 07/28/2019: 82 lb, 82 lb, 75 lb left manager drug strength trials 9 Group Home Goal (LTG) Pt will be able to hang up 5 pieces of clothing by 09/27/2019 . 07/28/2019: Pt can hang up 3 pieces of clothing. LTG Duration 8 weeks 8 Group Home Goal (LTG) Pt will present with equal active left shoulder abduction and flexion compared to the right to allow overhead work by 09/27/2019. 07/28/2019: Pt presents with right shoulder abduction and flexion to 160 deg and left shoulder abduction 120 deg and flexion to 100 deg. 7 Carpenter Prototype Goal (LTG) Pt will perform WiGolf for 15 minutes to prepare for return to golf by 09/27/2019. 07/28/2019: Pt can perform 5-8 minutes of WiGolf LTG Duration 8 weeks 6 Carpenter Prototype Goal (LTG) Pt will report no more than 1 seizure per month by 09/27/2019. 07/28/2019: Pt is having 1 seizure every three weeks LTG Duration 8 weeks 5 Carpenter Prototype Goal (LTG) Pt will present with B shoulder flexion to 5/5 to help with overhead lifting by 09/27/2019. 07/28/2019: deferred d/t left UE symptoms today LTG Duration 8 weeks 4 Carpenter Prototype Goal (LTG) Pt will report no more than 1 headaches per month by 2019. 07/28/2019: Pt reports 2 headaches per month LTG Duration 8 weeks 3 Group Home Goal (LTG) Pt will perform progressive HEP with I including postural alignment, flexibility, strengthening and relaxation exercises by 09/27/2019. 07/28/2019: Pt has been performing some tapping and relaxation exercises LTG Duration 8 weeks 2 Group Home Goal (LTG) Pt will present with a QuickDASH score to reflect no more than 20% impairment to allow return to guitar and improvement of ADLs by 2019. 07/28/2019: QuickDASH score reflects 50% impairment, which is worse LTG Duration 8 weeks 1 Group Home Goal (LTG) Pt will present with a NDI score to reflect no more than 20% impairment by 09/27/2019. 07/28/2019: NDI score reflects 34% improvement LTG Duration 8 weeks Progress Towards Goals Progress Towards Goals Progressing Toward Goals Assessment Summary Assessment Progressed core exercises on the pool noodle today and Buteyko breathing. Physical Therapy Plan Frequency and Duration Frequency of Treatment 2x/Week Duration of Treatment 8 weeks Plan of Care Start Date 07/28/19 Plan of Care End Date 09/28/19 Therapeutic Interventions Therapeutic Interventions Balance Training,Canalithic Repositioning,Home Exercise Program,Manual Therapy, Neuromuscular Re-education, Patient/Caregiver Education, Self-Care/Home Management,Soft Tissue Mobilization,Taping, Therapeutic Exercises, Vestibular Rehabilitation Modalities Cold Pack/Ice Massage,Electric Stimulation,Hot Packs, Ultrasound Next Visit Focus/Plan Next Note Type Treatment Note Next Visit Plan Progress HEP and/or Counterstrain.
--- NOTE | 2019-08-27 08:55 | PT.OTN ---
Current Diagnoses Cervicalgia (08/27/19) Headache (08/27/19) Personal history of traumatic brain injury (08/27/19) Physical Therapy Treatment Note PT-OP-A Visit Information Start: 02/04/19 07:28 Freq: Status: Active Protocol: Document 08/27/19 08:15 MB (Rec: 08/27/19 08:23 MB [id number]) Out-Patient Physical Therapy Visit Information Visit Information Visit Type Treatment Note Visit Note 03/01 today Visit Start Time 08:15 Visit Stop Time 08:53 Total Visit Minutes 38 Visit Number 10/28 before reassess PT-OP-B Current Condition Start: 02/04/19 07:28 Freq: Status: Active Protocol: Document 02/04/19 09:01 MB (Rec: 02/04/19 09:50 MB [id number]) Current Condition History of Current Condition Onset Date 1.5 years History of Current Condition Pt reports TBI 4 years ago when tripping and hitting head on counter. He had a severe concussion and he was out at least 30 minutes. He went to the hospital and was checked out. He had had post- concussion syndrome for 6 weeks. He would fall out unconsious when sitting at random times. He would not have memory of it. He went from having headaches 1-2 times a year to 4-6 a year. Seizures started 1.5 years ago . They are termed psychogenic seizures. There is no epilectic activity. He screens high for PTSD. Pt states that PTSD may be related to past relationships. They happen out of sleep. He wakes up shaking . He does not think he has headaches. , Joy, describes rocking side to side or pelvic thrusting, head back and eyes rolled upward. He occ has horizontal nystagmus and then his head drops down. Events last 30 sec . He is taking Topamax in the a.m. to help with mood and headaches. He has not gone more than 18 days without a seizure. He has been on Topamax for a week and has not had a seizure. 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 He had trigger point injections. He has to go through series of taking medications including corticosteroids. 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 He and are trying out supportive neck pillows. He sleeps on a wedge. 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 He drinks caffeine and water . occ reports of pt with anger and memory loss connected. These were unlike his normal personality. Pt reports headaches up to a 7 /10 and he has to talk Percicet. Headaches are over the right eye and down into his right face and back of head and feeling right eyeball being squeezed. He sees colors and has horizontal nystagmus. Overall discomfort left upper trap area, 3/10. He has 3-7/10 pain down left arm . Right hernia surgery and pain after right testicle removed. Multiple neural surgeries in the area and he now has a small left inguinal hernia. Pt reports occ tingling 4th and 5th left digit and burning down back of left arm through elbow. Prior Treatments and Tests PT in the past for left shoulder. It went okay. He had it for his right wrist as well. Right TMJ injections PT-OP-C Subjective Start: 02/04/19 07:28 Freq: Status: Active Protocol: Document 08/27/19 08:15 MB (Rec: 08/27/19 08:23 MB [id number]) OP-PT Subjective Patient Comments Patient Comments Pt got a small and large pool noodle is is doing well. He is ready to work on diaphragm. PT-OP-J Posture/Palpation/Skin Start: 02/04/19 07:28 Freq: Status: Active Protocol: Document 02/04/19 09:01 MB (Rec: 02/04/19 13:33 MB [id number]) Posture Evaluation Comments Posture Comments Standing posture: forward head , rounded shoulders, Dowager's hump, decreased thoracic kyphosis, increased lumbar lordosis, changes around T6 vertebra that could be stiffness PT-OP-K Range of Motion Start: 02/04/19 07:28 Freq: Status: Active Protocol: Document 02/04/19 09:01 MB (Rec: 02/04/19 13:33 MB [id number]) Cervical Spine Range of Motion Cervical Spine Active Testing Position Standing Flexion 35 Extension 40 Rotation Left 40 Rotation Right 50 Comments Pt reports stretch in right jaw with cervical extension and left upper traps area discomfort 3/10 with flexion PT-OP-M Strength Start: 02/04/19 07:28 Freq: Status: Active Protocol: Document 02/04/19 09:01 MB (Rec: 02/04/19 13:33 MB [id number]) Shoulder Strength Shoulder Manual Muscle Testing Left Flexion 4 Good Abduction (C5) 4 Good External Rotation 5 Normal Internal Rotation 5 Normal Right Flexion 5 Normal Abduction (C5) 5 Normal External Rotation 4 Good Internal Rotation 4 Good Elbow/Forearm Strength Elbow and Forearm Manual Muscle Testing Left Flexion (C6) 5 Normal Extension (C7) 5 Normal Pronation 4 Good Supination 4 Good Right Flexion (C6) 5 Normal Extension (C7) 5 Normal Pronation 4 Good Supination 4 Good Wrist Strength Wrist Manual Muscle Testing Left Flexion (C7) 5 Normal Extension (C6) 5 Normal Right Flexion (C7) 5 Normal Extension (C6) 5 Normal PT-OP-Q Treatments Start: 02/04/19 07:28 Freq: Status: Active Protocol: Document 08/27/19 08:15 MB (Rec: 08/27/19 08:23 MB [id number]) Therapeutic Exercises Supine Exercises Jose stretch Side bilateral Comments B, abdominal drawing and breathing Diaphragmatic breathing Comments Throughout positional release of diaphragm Manual Therapy Treatment Manual Techniques MWM with breathing Body Position Hooklying Comments MWM B hip flexors this date with PT providing pressure on B iliacus and pt performing heel slide Grade II B rib recoil with pt performing diaphragmatic breathing Counterstrain Body Position Hooklying Comments Release of diaphragm, rectus abdominus and hip flexors B with pt performing breathing, left rib tightness greatest distally and contributing to QL tightness PT-OP-T Assessment and Plan Start: 02/04/19 07:28 Freq: Status: Active Protocol: Document 08/27/19 08:15 MB (Rec: 08/27/19 08:23 MB [id number]) Physical Therapy Assessment Rehab Potential Rehabilitation Potential Fair Evaluation Complexity Number of Personal Factors/Comorbidities 3 or More Number of Body Systems Impaired 3 Clinical Presentation at Evaluation Evolving Impairments Other Impairments Pt presents with moderate complexity d/t personal factors of job requirements and psychosocial changes. Body systems affected include musculoskeletal, neurological and psychosocial. Other factors include polypharmacy and questionable sleep d/t awakening with seizures. His clinical presentation is evolving. Goals 10 Acidizer Water Well Goal (LTG) Pt will present with improved left economics instructor strength averaging 80 lbs over three trials to allow improved guitar playing by 09/27/2019. 07/28/2019: 82 lb, 82 lb, 75 lb left economics instructor strength trials 9 Senior Care Goal (LTG) Pt will be able to hang up 5 pieces of clothing by 09/27/2019 . 07/28/2019: Pt can hang up 3 pieces of clothing. LTG Duration 8 weeks 8 Senior Care Goal (LTG) Pt will present with equal active left shoulder abduction and flexion compared to the right to allow overhead work by 09/27/2019. 07/28/2019: Pt presents with right shoulder abduction and flexion to 160 deg and left shoulder abduction 120 deg and flexion to 100 deg. 7 Senior Care Goal (LTG) Pt will perform WiGolf for 15 minutes to prepare for return to golf by 09/27/2019. 07/28/2019: Pt can perform 5-8 minutes of WiGolf LTG Duration 8 weeks 6 Senior Care Goal (LTG) Pt will report no more than 1 seizure per month by 09/27/2019. 07/28/2019: Pt is having 1 seizure every three weeks LTG Duration 8 weeks 5 Senior Care Goal (LTG) Pt will present with B shoulder flexion to 5/5 to help with overhead lifting by 09/27/2019. 07/28/2019: deferred d/t left UE symptoms today LTG Duration 8 weeks 4 Senior Care Goal (LTG) Pt will report no more than 1 headaches per month by 2019. 07/28/2019: Pt reports 2 headaches per month LTG Duration 8 weeks 3 Acidizer Water Well Goal (LTG) Pt will perform progressive HEP with I including postural alignment, flexibility, strengthening and relaxation exercises by 09/27/2019. 07/28/2019: Pt has been performing some tapping and relaxation exercises LTG Duration 8 weeks 2 Senior Care Goal (LTG) Pt will present with a QuickDASH score to reflect no more than 20% impairment to allow return to guitar and improvement of ADLs by 2019. 07/28/2019: QuickDASH score reflects 50% impairment, which is worse LTG Duration 8 weeks 1 Acidizer Water Well Goal (LTG) Pt will present with a NDI score to reflect no more than 20% impairment by 09/27/2019. 07/28/2019: NDI score reflects 34% improvement LTG Duration 8 weeks Progress Towards Goals Progress Towards Goals Progressing Toward Goals Assessment Summary Assessment Manual work today to help diaphragm. Progress note next treatment date. Progress strengthening with band over pool noodle. Physical Therapy Plan Frequency and Duration Frequency of Treatment 2x/Week Duration of Treatment 8 weeks Plan of Care Start Date 07/28/19 Plan of Care End Date 09/28/19 Therapeutic Interventions Therapeutic Interventions Balance Training,Canalithic Repositioning,Home Exercise Program,Manual Therapy, Neuromuscular Re-education, Patient/Caregiver Education, Self-Care/Home Management,Soft Tissue Mobilization,Taping, Therapeutic Exercises, Vestibular Rehabilitation Modalities Cold Pack/Ice Massage,Electric Stimulation,Hot Packs, Ultrasound Next Visit Focus/Plan Next Note Type Progress Note Next Visit Plan Progress strengthening with theraband over pool noodle, side lying, standing QL stretch with rib mobility and/ or QL massage with stretch position against the wall, Counterstrain and other manual work as needed.
--- NOTE | 2019-08-31 10:27 | PT.OTN ---
Current Diagnoses Cervicalgia (08/31/19) Headache (08/31/19) Personal history of traumatic brain injury (08/31/19) Physical Therapy Treatment Note PT-OP-A Visit Information Start: 02/04/19 07:28 Freq: Status: Active Protocol: Document 08/31/19 09:46 MB (Rec: 08/31/19 10:17 MB [id number]) Out-Patient Physical Therapy Visit Information Visit Information Visit Type Progress Note Visit Note 04/01 Visit Start Time 09:46 Visit Stop Time 10:26 Total Visit Minutes 40 Visit Number 11/27 progress note today PT-OP-B Current Condition Start: 02/04/19 07:28 Freq: Status: Active Protocol: Document 02/04/19 09:01 MB (Rec: 02/04/19 09:50 MB [id number]) Current Condition History of Current Condition Onset Date 1.5 years History of Current Condition Pt reports TBI 4 years ago when tripping and hitting head on counter. He had a severe concussion and he was out at least 30 minutes. He went to the hospital and was checked out. He had had post- concussion syndrome for 6 weeks. He would fall out unconsious when sitting at random times. He would not have memory of it. He went from having headaches 1-2 times a year to 4-6 a year. Seizures started 1.5 years ago . They are termed psychogenic seizures. There is no epilectic activity. He screens high for PTSD. Pt states that PTSD may be related to past relationships. They happen out of sleep. He wakes up shaking . He does not think he has headaches. , Joy, describes rocking side to side or pelvic thrusting, head back and eyes rolled upward. He occ has horizontal nystagmus and then his head drops down. Events last 30 sec . He is taking Topamax in the a.m. to help with mood and headaches. He has not gone more than 18 days without a seizure. He has been on Topamax for a week and has not had a seizure. 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 He had trigger point injections. He has to go through series of taking medications including corticosteroids. 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 He and are trying out supportive neck pillows. He sleeps on a wedge. 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 He drinks caffeine and water . occ reports of pt with anger and memory loss connected. These were unlike his normal personality. Pt reports headaches up to a 7 /10 and he has to talk Percicet. Headaches are over the right eye and down into his right face and back of head and feeling right eyeball being squeezed. He sees colors and has horizontal nystagmus. Overall discomfort left upper trap area, 3/10. He has 3-7/10 pain down left arm . Right hernia surgery and pain after right testicle removed. Multiple neural surgeries in the area and he now has a small left inguinal hernia. Pt reports occ tingling 4th and 5th left digit and burning down back of left arm through elbow. Prior Treatments and Tests PT in the past for left shoulder. It went okay. He had it for his right wrist as well. Right TMJ injections PT-OP-C Subjective Start: 02/04/19 07:28 Freq: Status: Active Protocol: Document 08/31/19 09:46 MB (Rec: 08/31/19 10:17 MB [id number]) OP-PT Subjective Patient Comments Patient Comments Pt staes that overall, he is doing well. His shoulder is doing better pain-gonzalez. It gets tired easily. 22 days since last seizure. The core exercises are hard. PT-OP-J Posture/Palpation/Skin Start: 02/04/19 07:28 Freq: Status: Active Protocol: Document 02/04/19 09:01 MB (Rec: 02/04/19 13:33 MB [id number]) Posture Evaluation Comments Posture Comments Standing posture: forward head , rounded shoulders, Dowager's hump, decreased thoracic kyphosis, increased lumbar lordosis, changes around T6 vertebra that could be stiffness PT-OP-K Range of Motion Start: 02/04/19 07:28 Freq: Status: Active Protocol: Document 02/04/19 09:01 MB (Rec: 02/04/19 13:33 MB [id number]) Cervical Spine Range of Motion Cervical Spine Active Testing Position Standing Flexion 35 Extension 40 Rotation Left 40 Rotation Right 50 Comments Pt reports stretch in right jaw with cervical extension and left upper traps area discomfort 3/10 with flexion PT-OP-M Strength Start: 02/04/19 07:28 Freq: Status: Active Protocol: Document 02/04/19 09:01 MB (Rec: 02/04/19 13:33 MB [id number]) Shoulder Strength Shoulder Manual Muscle Testing Left Flexion 4 Good Abduction (C5) 4 Good External Rotation 5 Normal Internal Rotation 5 Normal Right Flexion 5 Normal Abduction (C5) 5 Normal External Rotation 4 Good Internal Rotation 4 Good Elbow/Forearm Strength Elbow and Forearm Manual Muscle Testing Left Flexion (C6) 5 Normal Extension (C7) 5 Normal Pronation 4 Good Supination 4 Good Right Flexion (C6) 5 Normal Extension (C7) 5 Normal Pronation 4 Good Supination 4 Good Wrist Strength Wrist Manual Muscle Testing Left Flexion (C7) 5 Normal Extension (C6) 5 Normal Right Flexion (C7) 5 Normal Extension (C6) 5 Normal PT-OP-Q Treatments Start: 02/04/19 07:28 Freq: Status: Active Protocol: Document 08/31/19 09:46 MB (Rec: 08/31/19 10:17 MB [id number]) Therapeutic Exercises Sitting Exercises Upper traps MWM with racquet ball Comments Performed during progress note questioning Standing Exercises Pillow case slide Side bilateral Comments Arms in pillow case, AAROM using right arm, scapular retraction Racquet ball massage, MWM with infraspinatus Comments I performed during progress questions Other Exercises Finger crawls for flexion and abduction Comments 6 reps into flexion and abduction PT-OP-T Assessment and Plan Start: 02/04/19 07:28 Freq: Status: Active Protocol: Document 08/31/19 09:46 MB (Rec: 08/31/19 10:17 MB [id number]) Physical Therapy Assessment Rehab Potential Rehabilitation Potential Fair Evaluation Complexity Number of Personal Factors/Comorbidities 3 or More Number of Body Systems Impaired 3 Clinical Presentation at Evaluation Evolving Goals 10 [facility] Goal (LTG) Pt will present with improved left mounter flutes and piccolos strength averaging 80 lbs over three trials to allow improved guitar playing by 09/27/2019. 08/31/2019: Left mounter flutes and piccolos strength 88 lb, 81 lb, 89 lb. Goal met. 9 Roller Inspector Goal (LTG) Pt will be able to hang up 5 pieces of clothing by 2019. 08/31/2019: Pt can hang up 3 pieces of clothing. LTG Duration 8 weeks 8 Roller Inspector Goal (LTG) Pt will present with equal active left shoulder abduction and flexion compared to the right to allow overhead work by 10/19/2019. 08/31/2019: Pt presents with right shoulder abduction and flexion to 180 deg and left shoulder abduction 120 deg and flexion to 100 deg. 6 [facility] Goal (LTG) Pt will report no more than 1 seizure per month by 10/19/2019 . 08/31/2019: Pt had 1 seizure in 22 days LTG Duration 8 weeks 5 Roller Inspector Goal (LTG) Pt will present with B shoulder flexion to 5/5 to help with overhead lifting by 10/19/2019. 08/31/2019: Right shoulder flexion 5/5; left shoulder flexion 4/5 in available range LTG Duration 8 weeks 4 [facility] Goal (LTG) Pt will report no more than 1 headache per month by 2019. 08/31/2019: Pt reports 1 headache every 2.5 weeks, slightly better than progress note that was 2 per month LTG Duration 8 weeks 3 Roller Inspector Goal (LTG) Pt will perform progressive HEP with I including postural alignment, flexibility, strengthening and relaxation exercises by 10/19/2019. 08/31/2019: Pt has been performing progressive HEP LTG Duration 8 weeks 2 Roller Inspector Goal (LTG) Pt will present with a QuickDASH score to reflect no more than 20% impairment to allow return to itar and improvement of ADLs by 2019. 08/31/2019: QuickDASH score reflects 25% impairment, 25% improvement from last progress note LTG Duration 8 weeks 1 Roller Inspector Goal (LTG) Pt will present with a NDI score to reflect no more than 20% impairment by 10/19/2019. 08/31/2019: NDI score reflects 24% improvement LTG Duration 8 weeks Progress Towards Goals Progress Towards Goals Progressing Toward Goals Assessment Summary Assessment Pt has progressed towards the following goals since last progress note: NDI, QuickDASH score, slight improvement in headaches and seizures, HEP. Hanging up clothes is still troublesome and will provide some exercises for this. Pt is not really performing WiGolf and so d/c this goal. His left shoulder flexion strength with shoulder in 90 deg is 4/5 . Right shoulder flexion strength is 5/5. Left shoulder AROM abduction and flexion are similar to last progress note. He has met left mounter flutes and piccolos strength goal. Pt will benefit from ongoing PT to improve thoracic mobility, strength, posture, left shoulder range and strength. Physical Therapy Plan Frequency and Duration Frequency of Treatment 2x/Week Duration of Treatment 6 weeks Plan of Care Start Date 08/31/19 Plan of Care End Date 10/19/19 Therapeutic Interventions Therapeutic Interventions Balance Training,Canalithic Repositioning,Home Exercise Program,Manual Therapy, Neuromuscular Re-education, Patient/Caregiver Education, Self-Care/Home Management,Soft Tissue Mobilization,Taping, Therapeutic Exercises, Vestibular Rehabilitation Modalities Cold Pack/Ice Massage,Electric Stimulation,Hot Packs, Ultrasound Next Visit Focus/Plan Next Note Type Treatment Note Next Visit Plan QL stretch, body mechanics, lifting training, consider mini wall slide, consider Body Blade, progressive shoulder strengthening, consider over pool noodle
--- NOTE | 2019-08-31 10:27 | PT.OPPOC ---
Physical, Occupational & Speech Therapy At [facility] Current Diagnoses Cervicalgia (08/31/19) Headache (08/31/19) Personal history of traumatic brain injury (08/31/19) Visit Care Team Role Provider Type Elisha Mello DO Attending Provider Non-Staff Primary Care Provider Specialty: Medical Address: [address] [place] [address], [id number] Email: Plan Of Care PT-OP-T Assessment and Plan Start: 02/04/19 07:28 Freq: Status: Active Protocol: Document 08/31/19 09:46 MB (Rec: 08/31/19 10:17 MB [id number]) Physical Therapy Assessment Rehab Potential Rehabilitation Potential Fair Evaluation Complexity Number of Personal Factors/Comorbidities 3 or More Number of Body Systems Impaired 3 Clinical Presentation at Evaluation Evolving Goals 10 Jail Goal (LTG) Pt will present with improved left filters assembler strength averaging 80 lbs over three trials to allow improved guitar playing by 09/27/2019. 08/31/2019: Left filters assembler strength 88 lb, 81 lb, 89 lb. Goal met. 9 Jail Goal (LTG) Pt will be able to hang up 5 pieces of clothing by 2019. 08/31/2019: Pt can hang up 3 pieces of clothing. LTG Duration 8 weeks 8 Softball Umpire Goal (LTG) Pt will present with equal active left shoulder abduction and flexion compared to the right to allow overhead work by 10/19/2019. 08/31/2019: Pt presents with right shoulder abduction and flexion to 180 deg and left shoulder abduction 120 deg and flexion to 100 deg. 6 Jail Goal (LTG) Pt will report no more than 1 seizure per month by 10/19/2019 . 08/31/2019: Pt had 1 seizure in 22 days LTG Duration 8 weeks 5 Jail Goal (LTG) Pt will present with B shoulder flexion to 5/5 to help with overhead lifting by 10/19/2019. 08/31/2019: Right shoulder flexion 5/5; left shoulder flexion 4/5 in available range LTG Duration 8 weeks 4 Jail Goal (LTG) Pt will report no more than 1 headache per month by 2019. 08/31/2019: Pt reports 1 headache every 2.5 weeks, slightly better than progress note that was 2 per month LTG Duration 8 weeks 3 Jail Goal (LTG) Pt will perform progressive HEP with I including postural alignment, flexibility, strengthening and relaxation exercises by 10/19/2019. 08/31/2019: Pt has been performing progressive HEP LTG Duration 8 weeks 2 Softball Umpire Goal (LTG) Pt will present with a QuickDASH score to reflect no more than 20% impairment to allow return to itar and improvement of ADLs by 2019. 08/31/2019: QuickDASH score reflects 25% impairment, 25% improvement from last progress note LTG Duration 8 weeks 1 Softball Umpire Goal (LTG) Pt will present with a NDI score to reflect no more than 20% impairment by 10/19/2019. 08/31/2019: NDI score reflects 24% improvement LTG Duration 8 weeks Progress Towards Goals Progress Towards Goals Progressing Toward Goals Assessment Summary Assessment Pt has progressed towards the following goals since last progress note: NDI, QuickDASH score, slight improvement in headaches and seizures, HEP. Hanging up clothes is still troublesome and will provide some exercises for this. Pt is not really performing WiGolf and so d/c this goal. His left shoulder flexion strength with shoulder in 90 deg is 4/5 . Right shoulder flexion strength is 5/5. Left shoulder AROM abduction and flexion are similar to last progress note. He has met left filters assembler strength goal. Pt will benefit from ongoing PT to improve thoracic mobility, strength, posture, left shoulder range and strength. Physical Therapy Plan Frequency and Duration Frequency of Treatment 2x/Week Duration of Treatment 6 weeks Plan of Care Start Date 08/31/19 Plan of Care End Date 10/19/19 Therapeutic Interventions Therapeutic Interventions Balance Training,Canalithic Repositioning,Home Exercise Program,Manual Therapy, Neuromuscular Re-education, Patient/Caregiver Education, Self-Care/Home Management,Soft Tissue Mobilization,Taping, Therapeutic Exercises, Vestibular Rehabilitation Modalities Cold Pack/Ice Massage,Electric Stimulation,Hot Packs, Ultrasound Next Visit Focus/Plan Next Note Type Treatment Note Next Visit Plan QL stretch, body mechanics, lifting training, consider mini wall slide, consider Body Blade, progressive shoulder strengthening, consider over pool noodle Plan of Care Dates Plan of Care Start Date 08/31/19 Plan of Care End Date 10/19/19 Electronically Signed by: Lisandra Little, PT 08/31/19 1027 Please Sign and Return: I have reviewed this Plan of Care and certify that the skilled therapy services above are required to meet the patient?s needs. Physician Signature Date Printed Name and Credentials Clinical Instructor Signature Printed Name and Credentials
--- NOTE | 2019-09-03 08:55 | PT.OTN ---
Current Diagnoses Cervicalgia (09/03/19) Headache (09/03/19) Personal history of traumatic brain injury (09/03/19) Physical Therapy Treatment Note PT-OP-A Visit Information Start: 02/04/19 07:28 Freq: Status: Active Protocol: Document 09/03/19 08:11 MB (Rec: 09/03/19 08:25 MB [id number]) Out-Patient Physical Therapy Visit Information Visit Information Visit Type Treatment Note Visit Note 04/29 Visit Start Time 08:11 Visit Stop Time 08:56 Total Visit Minutes 45 Visit Number 02/27 before reassess PT-OP-B Current Condition Start: 02/04/19 07:28 Freq: Status: Active Protocol: Document 02/04/19 09:01 MB (Rec: 02/04/19 09:50 MB [id number]) Current Condition History of Current Condition Onset Date 1.5 years History of Current Condition Pt reports TBI 4 years ago when tripping and hitting head on counter. He had a severe concussion and he was out at least 30 minutes. He went to the hospital and was checked out. He had had post- concussion syndrome for 6 weeks. He would fall out unconsious when sitting at random times. He would not have memory of it. He went from having headaches 1-2 times a year to 4-6 a year. Seizures started 1.5 years ago . They are termed psychogenic seizures. There is no epilectic activity. He screens high for PTSD. Pt states that PTSD may be related to past relationships. They happen out of sleep. He wakes up shaking . He does not think he has headaches. , Joy, describes rocking side to side or pelvic thrusting, head back and eyes rolled upward. He occ has horizontal nystagmus and then his head drops down. Events last 30 sec . He is taking Topamax in the a.m. to help with mood and headaches. He has not gone more than 18 days without a seizure. He has been on Topamax for a week and has not had a seizure. 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 He had trigger point injections. He has to go through series of taking medications including corticosteroids. 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 He and are trying out supportive neck pillows. He sleeps on a wedge. 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 He drinks caffeine and water . occ reports of pt with anger and memory loss connected. These were unlike his normal personality. Pt reports headaches up to a 7 /10 and he has to talk Percicet. Headaches are over the right eye and down into his right face and back of head and feeling right eyeball being squeezed. He sees colors and has horizontal nystagmus. Overall discomfort left upper trap area, 3/10. He has 3-7/10 pain down left arm . Right hernia surgery and pain after right testicle removed. Multiple neural surgeries in the area and he now has a small left inguinal hernia. Pt reports occ tingling 4th and 5th left digit and burning down back of left arm through elbow. Prior Treatments and Tests PT in the past for left shoulder. It went okay. He had it for his right wrist as well. Right TMJ injections PT-OP-C Subjective Start: 02/04/19 07:28 Freq: Status: Active Protocol: Document 09/03/19 08:11 MB (Rec: 09/03/19 08:25 MB [id number]) OP-PT Subjective Patient Comments Patient Comments Pt states that he has a little bit of a pill in his left lateral ribs. He is tight in his upper traps. PT-OP-J Posture/Palpation/Skin Start: 02/04/19 07:28 Freq: Status: Active Protocol: Document 02/04/19 09:01 MB (Rec: 02/04/19 13:33 MB [id number]) Posture Evaluation Comments Posture Comments Standing posture: forward head , rounded shoulders, Dowager's hump, decreased thoracic kyphosis, increased lumbar lordosis, changes around T6 vertebra that could be stiffness PT-OP-K Range of Motion Start: 02/04/19 07:28 Freq: Status: Active Protocol: Document 02/04/19 09:01 MB (Rec: 02/04/19 13:33 MB [id number]) Cervical Spine Range of Motion Cervical Spine Active Testing Position Standing Flexion 35 Extension 40 Rotation Left 40 Rotation Right 50 Comments Pt reports stretch in right jaw with cervical extension and left upper traps area discomfort 3/10 with flexion PT-OP-M Strength Start: 02/04/19 07:28 Freq: Status: Active Protocol: Document 02/04/19 09:01 MB (Rec: 02/04/19 13:33 MB [id number]) Shoulder Strength Shoulder Manual Muscle Testing Left Flexion 4 Good Abduction (C5) 4 Good External Rotation 5 Normal Internal Rotation 5 Normal Right Flexion 5 Normal Abduction (C5) 5 Normal External Rotation 4 Good Internal Rotation 4 Good Elbow/Forearm Strength Elbow and Forearm Manual Muscle Testing Left Flexion (C6) 5 Normal Extension (C7) 5 Normal Pronation 4 Good Supination 4 Good Right Flexion (C6) 5 Normal Extension (C7) 5 Normal Pronation 4 Good Supination 4 Good Wrist Strength Wrist Manual Muscle Testing Left Flexion (C7) 5 Normal Extension (C6) 5 Normal Right Flexion (C7) 5 Normal Extension (C6) 5 Normal PT-OP-Q Treatments Start: 02/04/19 07:28 Freq: Status: Active Protocol: Document 09/03/19 08:11 MB (Rec: 09/03/19 08:25 MB [id number]) Therapeutic Exercises Sidelying Exercises Side lying lat, ribs and QL stretch Side bilateral Comments Added this to HEP, ed in coughing, d/c standing QL stretch Manual Therapy Treatment Manual Techniques Counterstrain Comments B rib recoil to improve intercostal and QL mobility, prone rib recoil to improve thoracic mobility Supine: MWM B SCM with PT providing trigger point pressure and pt performing active cervical rotation Other Other Manual Treatments KT black tape I strips: 1 to inhibit left upper traps and 2 to promote scapular retraction B PT-OP-T Assessment and Plan Start: 02/04/19 07:28 Freq: Status: Active Protocol: Document 09/03/19 08:11 MB (Rec: 09/03/19 08:25 MB [id number]) Physical Therapy Assessment Rehab Potential Rehabilitation Potential Fair Evaluation Complexity Number of Personal Factors/Comorbidities 3 or More Number of Body Systems Impaired 3 Clinical Presentation at Evaluation Evolving Goals 9 Shelter Goal (LTG) Pt will be able to hang up 5 pieces of clothing by 2019. 08/31/2019: Pt can hang up 3 pieces of clothing. LTG Duration 8 weeks 8 Shelter Goal (LTG) Pt will present with equal active left shoulder abduction and flexion compared to the right to allow overhead work by 10/19/2019. 08/31/2019: Pt presents with right shoulder abduction and flexion to 180 deg and left shoulder abduction 120 deg and flexion to 100 deg. 6 Shelter Goal (LTG) Pt will report no more than 1 seizure per month by 10/19/2019 . 08/31/2019: Pt had 1 seizure in 22 days LTG Duration 8 weeks 5 Shelter Goal (LTG) Pt will present with B shoulder flexion to 5/5 to help with overhead lifting by 10/19/2019. 08/31/2019: Right shoulder flexion 5/5; left shoulder flexion 4/5 in available range LTG Duration 8 weeks 4 Shelter Goal (LTG) Pt will report no more than 1 headache per month by 2019. 08/31/2019: Pt reports 1 headache every 2.5 weeks, slightly better than progress note that was 2 per month LTG Duration 8 weeks 3 Nursery Attendant Goal (LTG) Pt will perform progressive HEP with I including postural alignment, flexibility, strengthening and relaxation exercises by 10/19/2019. 08/31/2019: Pt has been performing progressive HEP LTG Duration 8 weeks 2 Shelter Goal (LTG) Pt will present with a QuickDASH score to reflect no more than 20% impairment to allow return to guitar and improvement of ADLs by 2019. 08/31/2019: QuickDASH score reflects 25% impairment, 25% improvement from last progress note LTG Duration 8 weeks 1 Nursery Attendant Goal (LTG) Pt will present with a NDI score to reflect no more than 20% impairment by 10/19/2019. 08/31/2019: NDI score reflects 24% improvement LTG Duration 8 weeks Progress Towards Goals Progress Towards Goals Progressing Toward Goals Assessment Summary Assessment Manual work today. Pt presents with right rib tension. Pt will benefit from ongoing PT to improve thoracic mobility, strength, posture, left shoulder range and strength. Physical Therapy Plan Frequency and Duration Frequency of Treatment 2x/Week Duration of Treatment 6 weeks Plan of Care Start Date 08/31/19 Plan of Care End Date 10/19/19 Therapeutic Interventions Therapeutic Interventions Balance Training,Canalithic Repositioning,Home Exercise Program,Manual Therapy, Neuromuscular Re-education, Patient/Caregiver Education, Self-Care/Home Management,Soft Tissue Mobilization,Taping, Therapeutic Exercises, Vestibular Rehabilitation Modalities Cold Pack/Ice Massage,Electric Stimulation,Hot Packs, Ultrasound Next Visit Focus/Plan Next Note Type Treatment Note Next Visit Plan QL stretch, body mechanics, lifting training, consider mini wall slide, consider Body Blade, progressive shoulder strengthening, consider over pool noodle
--- NOTE | 2019-09-07 09:46 | PT.OTN ---
Current Diagnoses Cervicalgia (09/07/19) Headache (09/07/19) Personal history of traumatic brain injury (09/07/19) Physical Therapy Treatment Note PT-OP-A Visit Information Start: 02/04/19 07:28 Freq: Status: Active Protocol: Document 09/07/19 08:58 MB (Rec: 09/07/19 09:08 MB [id number]) Out-Patient Physical Therapy Visit Information Visit Information Visit Type Treatment Note Visit Note 05/30 Visit Start Time 08:58 Visit Stop Time 09:43 Total Visit Minutes 45 Visit Number 03/30 before reassess PT-OP-B Current Condition Start: 02/04/19 07:28 Freq: Status: Active Protocol: Document 02/04/19 09:01 MB (Rec: 02/04/19 09:50 MB [id number]) Current Condition History of Current Condition Onset Date 1.5 years History of Current Condition Pt reports TBI 4 years ago when tripping and hitting head on counter. He had a severe concussion and he was out at least 30 minutes. He went to the hospital and was checked out. He had had post- concussion syndrome for 6 weeks. He would fall out unconsious when sitting at random times. He would not have memory of it. He went from having headaches 1-2 times a year to 4-6 a year. Seizures started 1.5 years ago . They are termed psychogenic seizures. There is no epilectic activity. He screens high for PTSD. Pt states that PTSD may be related to past relationships. They happen out of sleep. He wakes up shaking . He does not think he has headaches. , Joy, describes rocking side to side or pelvic thrusting, head back and eyes rolled upward. He occ has horizontal nystagmus and then his head drops down. Events last 30 sec . He is taking Topamax in the a.m. to help with mood and headaches. He has not gone more than 18 days without a seizure. He has been on Topamax for a week and has not had a seizure. 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 He had trigger point injections. He has to go through series of taking medications including corticosteroids. 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 He and are trying out supportive neck pillows. He sleeps on a wedge. 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 He drinks caffeine and water . occ reports of pt with anger and memory loss connected. These were unlike his normal personality. Pt reports headaches up to a 7 /10 and he has to talk Percicet. Headaches are over the right eye and down into his right face and back of head and feeling right eyeball being squeezed. He sees colors and has horizontal nystagmus. Overall discomfort left upper trap area, 3/10. He has 3-7/10 pain down left arm . Right hernia surgery and pain after right testicle removed. Multiple neural surgeries in the area and he now has a small left inguinal hernia. Pt reports occ tingling 4th and 5th left digit and burning down back of left arm through elbow. Prior Treatments and Tests PT in the past for left shoulder. It went okay. He had it for his right wrist as well. Right TMJ injections PT-OP-C Subjective Start: 02/04/19 07:28 Freq: Status: Active Protocol: Document 09/07/19 08:58 MB (Rec: 09/07/19 09:08 MB [id number]) OP-PT Subjective Patient Comments Patient Comments Pt states that he is doing good. His left shoulder is tight. The treatment last time was helpful. Pt reports that he took the KT off two days after treatment and has redness on left side. PT-OP-J Posture/Palpation/Skin Start: 02/04/19 07:28 Freq: Status: Active Protocol: Document 02/04/19 09:01 MB (Rec: 02/04/19 13:33 MB [id number]) Posture Evaluation Comments Posture Comments Standing posture: forward head , rounded shoulders, Dowager's hump, decreased thoracic kyphosis, increased lumbar lordosis, changes around T6 vertebra that could be stiffness PT-OP-K Range of Motion Start: 02/04/19 07:28 Freq: Status: Active Protocol: Document 02/04/19 09:01 MB (Rec: 02/04/19 13:33 MB [id number]) Cervical Spine Range of Motion Cervical Spine Active Testing Position Standing Flexion 35 Extension 40 Rotation Left 40 Rotation Right 50 Comments Pt reports stretch in right jaw with cervical extension and left upper traps area discomfort 3/10 with flexion PT-OP-M Strength Start: 02/04/19 07:28 Freq: Status: Active Protocol: Document 02/04/19 09:01 MB (Rec: 02/04/19 13:33 MB [id number]) Shoulder Strength Shoulder Manual Muscle Testing Left Flexion 4 Good Abduction (C5) 4 Good External Rotation 5 Normal Internal Rotation 5 Normal Right Flexion 5 Normal Abduction (C5) 5 Normal External Rotation 4 Good Internal Rotation 4 Good Elbow/Forearm Strength Elbow and Forearm Manual Muscle Testing Left Flexion (C6) 5 Normal Extension (C7) 5 Normal Pronation 4 Good Supination 4 Good Right Flexion (C6) 5 Normal Extension (C7) 5 Normal Pronation 4 Good Supination 4 Good Wrist Strength Wrist Manual Muscle Testing Left Flexion (C7) 5 Normal Extension (C6) 5 Normal Right Flexion (C7) 5 Normal Extension (C6) 5 Normal PT-OP-Q Treatments Start: 02/04/19 07:28 Freq: Status: Active Protocol: Document 09/07/19 08:58 MB (Rec: 09/07/19 09:08 MB [id number]) Therapeutic Exercises Standing Exercises Racquet ball massage, MWM with infraspinatus Comments Performed racquet ball today Other Exercises 3 position doorways stetch B Other Exercise Name Pect, hip flexor, lats and ribs/ Manual Therapy Treatment Other Other Manual Treatments SC and sternocostal joint recoil B, improves rib mobility, left 1st rib isometric mob, positional release middle scalenes B and MWM with trigger point pressure B SCM and anterior scalenes distally with pt performing active cervical rotation Prone grade I-II PA mobs C3-5 PT-OP-T Assessment and Plan Start: 02/04/19 07:28 Freq: Status: Active Protocol: Document 09/07/19 08:58 MB (Rec: 09/07/19 09:08 MB [id number]) Physical Therapy Assessment Rehab Potential Rehabilitation Potential Fair Evaluation Complexity Number of Personal Factors/Comorbidities 3 or More Number of Body Systems Impaired 3 Clinical Presentation at Evaluation Evolving Goals 9 Synchronous Motor Assembler Goal (LTG) Pt will be able to hang up 5 pieces of clothing by 2019. 08/31/2019: Pt can hang up 3 pieces of clothing. LTG Duration 8 weeks 8 Fdc Goal (LTG) Pt will present with equal active left shoulder abduction and flexion compared to the right to allow overhead work by 10/19/2019. 08/31/2019: Pt presents with right shoulder abduction and flexion to 180 deg and left shoulder abduction 120 deg and flexion to 100 deg. 6 Synchronous Motor Assembler Goal (LTG) Pt will report no more than 1 seizure per month by 10/19/2019 . 08/31/2019: Pt had 1 seizure in 22 days LTG Duration 8 weeks 5 Synchronous Motor Assembler Goal (LTG) Pt will present with B shoulder flexion to 5/5 to help with overhead lifting by 10/19/2019. 08/31/2019: Right shoulder flexion 5/5; left shoulder flexion 4/5 in available range LTG Duration 8 weeks 4 Synchronous Motor Assembler Goal (LTG) Pt will report no more than 1 headache per month by 2019. 08/31/2019: Pt reports 1 headache every 2.5 weeks, slightly better than progress note that was 2 per month LTG Duration 8 weeks 3 Fdc Goal (LTG) Pt will perform progressive HEP with I including postural alignment, flexibility, strengthening and relaxation exercises by 10/19/2019. 08/31/2019: Pt has been performing progressive HEP LTG Duration 8 weeks 2 Synchronous Motor Assembler Goal (LTG) Pt will present with a QuickDASH score to reflect no more than 20% impairment to allow return to guitar and improvement of ADLs by 2019. 08/31/2019: QuickDASH score reflects 25% impairment, 25% improvement from last progress note LTG Duration 8 weeks 1 Synchronous Motor Assembler Goal (LTG) Pt will present with a NDI score to reflect no more than 20% impairment by 10/19/2019. 08/31/2019: NDI score reflects 24% improvement LTG Duration 8 weeks Progress Towards Goals Progress Towards Goals Progressing Toward Goals Assessment Summary Assessment Progressed thoracic mobility and overall trunk flexiblity today in the doorway. Pt with ongoing left sided tension left first rib, scalenes, upper traps, levator, c-spine. Physical Therapy Plan Frequency and Duration Frequency of Treatment 2x/Week Duration of Treatment 6 weeks Plan of Care Start Date 08/31/19 Plan of Care End Date 10/19/19 Therapeutic Interventions Therapeutic Interventions Balance Training,Canalithic Repositioning,Home Exercise Program,Manual Therapy, Neuromuscular Re-education, Patient/Caregiver Education, Self-Care/Home Management,Soft Tissue Mobilization,Taping, Therapeutic Exercises, Vestibular Rehabilitation Modalities Cold Pack/Ice Massage,Electric Stimulation,Hot Packs, Ultrasound Next Visit Focus/Plan Next Note Type Treatment Note Next Visit Plan Cervical extension and cervical isometric end-range, body mechanics, lifting training, consider mini wall slide, consider Body Blade, progressive shoulder strengthening, consider over pool noodle
--- NOTE | 2019-09-10 09:00 | PT.OTN ---
Current Diagnoses Cervicalgia (09/10/19) Headache (09/10/19) Personal history of traumatic brain injury (09/10/19) Physical Therapy Treatment Note PT-OP-A Visit Information Start: 02/04/19 07:28 Freq: Status: Active Protocol: Document 09/10/19 08:16 MB (Rec: 09/10/19 08:52 MB [id number]) Out-Patient Physical Therapy Visit Information Visit Information Visit Type Treatment Note Visit Note 06/29 Visit Start Time 08:16 Visit Stop Time 09:00 Total Visit Minutes 44 Visit Number 04/27 before reassessment PT-OP-B Current Condition Start: 02/04/19 07:28 Freq: Status: Active Protocol: Document 02/04/19 09:01 MB (Rec: 02/04/19 09:50 MB [id number]) Current Condition History of Current Condition Onset Date 1.5 years History of Current Condition Pt reports TBI 4 years ago when tripping and hitting head on counter. He had a severe concussion and he was out at least 30 minutes. He went to the hospital and was checked out. He had had post- concussion syndrome for 6 weeks. He would fall out unconsious when sitting at random times. He would not have memory of it. He went from having headaches 1-2 times a year to 4-6 a year. Seizures started 1.5 years ago . They are termed psychogenic seizures. There is no epilectic activity. He screens high for PTSD. Pt states that PTSD may be related to past relationships. They happen out of sleep. He wakes up shaking . He does not think he has headaches. , Joy, describes rocking side to side or pelvic thrusting, head back and eyes rolled upward. He occ has horizontal nystagmus and then his head drops down. Events last 30 sec . He is taking Topamax in the a.m. to help with mood and headaches. He has not gone more than 18 days without a seizure. He has been on Topamax for a week and has not had a seizure. 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 He had trigger point injections. He has to go through series of taking medications including corticosteroids. 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 He and are trying out supportive neck pillows. He sleeps on a wedge. 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 He drinks caffeine and water . occ reports of pt with anger and memory loss connected. These were unlike his normal personality. Pt reports headaches up to a 7 /10 and he has to talk Percicet. Headaches are over the right eye and down into his right face and back of head and feeling right eyeball being squeezed. He sees colors and has horizontal nystagmus. Overall discomfort left upper trap area, 3/10. He has 3-7/10 pain down left arm . Right hernia surgery and pain after right testicle removed. Multiple neural surgeries in the area and he now has a small left inguinal hernia. Pt reports occ tingling 4th and 5th left digit and burning down back of left arm through elbow. Prior Treatments and Tests PT in the past for left shoulder. It went okay. He had it for his right wrist as well. Right TMJ injections PT-OP-C Subjective Start: 02/04/19 07:28 Freq: Status: Active Protocol: Document 09/10/19 08:16 MB (Rec: 09/10/19 08:52 MB [id number]) OP-PT Subjective Patient Comments Patient Comments Pt is doing well. He still has tension in left upper traps and leavator area. PT-OP-J Posture/Palpation/Skin Start: 02/04/19 07:28 Freq: Status: Active Protocol: Document 02/04/19 09:01 MB (Rec: 02/04/19 13:33 MB [id number]) Posture Evaluation Comments Posture Comments Standing posture: forward head , rounded shoulders, Dowager's hump, decreased thoracic kyphosis, increased lumbar lordosis, changes around T6 vertebra that could be stiffness PT-OP-K Range of Motion Start: 02/04/19 07:28 Freq: Status: Active Protocol: Document 02/04/19 09:01 MB (Rec: 02/04/19 13:33 MB [id number]) Cervical Spine Range of Motion Cervical Spine Active Testing Position Standing Flexion 35 Extension 40 Rotation Left 40 Rotation Right 50 Comments Pt reports stretch in right jaw with cervical extension and left upper traps area discomfort 3/10 with flexion PT-OP-M Strength Start: 02/04/19 07:28 Freq: Status: Active Protocol: Document 02/04/19 09:01 MB (Rec: 02/04/19 13:33 MB [id number]) Shoulder Strength Shoulder Manual Muscle Testing Left Flexion 4 Good Abduction (C5) 4 Good External Rotation 5 Normal Internal Rotation 5 Normal Right Flexion 5 Normal Abduction (C5) 5 Normal External Rotation 4 Good Internal Rotation 4 Good Elbow/Forearm Strength Elbow and Forearm Manual Muscle Testing Left Flexion (C6) 5 Normal Extension (C7) 5 Normal Pronation 4 Good Supination 4 Good Right Flexion (C6) 5 Normal Extension (C7) 5 Normal Pronation 4 Good Supination 4 Good Wrist Strength Wrist Manual Muscle Testing Left Flexion (C7) 5 Normal Extension (C6) 5 Normal Right Flexion (C7) 5 Normal Extension (C6) 5 Normal PT-OP-Q Treatments Start: 02/04/19 07:28 Freq: Status: Active Protocol: Document 09/10/19 08:16 MB (Rec: 09/10/19 08:52 MB [id number]) Therapeutic Exercises Supine Exercises 1/2 foam roll shoulder ER Equipment Used Level 2 band Comments B 10 reps, increased from level 1 to level 2 band 1/2 foam roll PNF D2 and D1 Resistance Level 1 band Comments B 10 reps, slowly, both D2 and D1 Sitting Exercises Levator scap stretch Comments Left side sitting, hold 30 sec Upper traps MWM with racquet ball Comments Performed before new ex to improve cervical range, levator Manual Therapy Treatment Other Other Manual Treatments Supine gentle rib recoil B and diaphragm STM, rectus abdominus STM and positional release with pt performing diaphragmatic breathing PT-OP-T Assessment and Plan Start: 02/04/19 07:28 Freq: Status: Active Protocol: Document 09/10/19 08:16 MB (Rec: 09/10/19 08:52 MB [id number]) Physical Therapy Assessment Rehab Potential Rehabilitation Potential Fair Evaluation Complexity Number of Personal Factors/Comorbidities 3 or More Number of Body Systems Impaired 3 Clinical Presentation at Evaluation Evolving Goals 9 Utility Mechanic Supervisor Goal (LTG) Pt will be able to hang up 5 pieces of clothing by 2019. 08/31/2019: Pt can hang up 3 pieces of clothing. LTG Duration 8 weeks 8 Utility Mechanic Supervisor Goal (LTG) Pt will present with equal active left shoulder abduction and flexion compared to the right to allow overhead work by 10/19/2019. 08/31/2019: Pt presents with right shoulder abduction and flexion to 180 deg and left shoulder abduction 120 deg and flexion to 100 deg. 6 Assisted Goal (LTG) Pt will report no more than 1 seizure per month by 10/19/2019 . 08/31/2019: Pt had 1 seizure in 22 days LTG Duration 8 weeks 5 Assisted Goal (LTG) Pt will present with B shoulder flexion to 5/5 to help with overhead lifting by 10/19/2019. 08/31/2019: Right shoulder flexion 5/5; left shoulder flexion 4/5 in available range LTG Duration 8 weeks 4 Assisted Goal (LTG) Pt will report no more than 1 headache per month by 2019. 08/31/2019: Pt reports 1 headache every 2.5 weeks, slightly better than progress note that was 2 per month LTG Duration 8 weeks 3 Assisted Goal (LTG) Pt will perform progressive HEP with I including postural alignment, flexibility, strengthening and relaxation exercises by 10/19/2019. 08/31/2019: Pt has been performing progressive HEP LTG Duration 8 weeks 2 Assisted Goal (LTG) Pt will present with a QuickDASH score to reflect no more than 20% impairment to allow return to guitar and improvement of ADLs by 2019. 08/31/2019: QuickDASH score reflects 25% impairment, 25% improvement from last progress note LTG Duration 8 weeks 1 Utility Mechanic Supervisor Goal (LTG) Pt will present with a NDI score to reflect no more than 20% impairment by 10/19/2019. 08/31/2019: NDI score reflects 24% improvement LTG Duration 8 weeks Progress Towards Goals Progress Towards Goals Progressing Toward Goals Assessment Summary Assessment Progressed shoulder strengthening today. Consider body mechanics training soon. Physical Therapy Plan Frequency and Duration Frequency of Treatment 2x/Week Duration of Treatment 6 weeks Plan of Care Start Date 08/31/19 Plan of Care End Date 10/19/19 Therapeutic Interventions Therapeutic Interventions Balance Training,Canalithic Repositioning,Home Exercise Program,Manual Therapy, Neuromuscular Re-education, Patient/Caregiver Education, Self-Care/Home Management,Soft Tissue Mobilization,Taping, Therapeutic Exercises, Vestibular Rehabilitation Modalities Cold Pack/Ice Massage,Electric Stimulation,Hot Packs, Ultrasound Next Visit Focus/Plan Next Note Type Treatment Note Next Visit Plan Cervical extension and cervical isometric end-range, body mechanics, lifting training, consider mini wall slide, consider Body Blade
--- NOTE | 2019-09-14 09:42 | PT.OTN ---
Current Diagnoses Cervicalgia (09/14/19) Headache (09/14/19) Personal history of traumatic brain injury (09/14/19) Physical Therapy Treatment Note PT-OP-A Visit Information Start: 02/04/19 07:28 Freq: Status: Active Protocol: Document 09/14/19 09:00 MB (Rec: 09/14/19 09:11 MB [id number]) Out-Patient Physical Therapy Visit Information Visit Information Visit Type Treatment Note Visit Note 07/30 Visit Start Time 09:00 Visit Stop Time 09:41 Total Visit Minutes 41 Visit Number 05/28 before reassessment PT-OP-B Current Condition Start: 02/04/19 07:28 Freq: Status: Active Protocol: Document 02/04/19 09:01 MB (Rec: 02/04/19 09:50 MB [id number]) Current Condition History of Current Condition Onset Date 1.5 years History of Current Condition Pt reports TBI 4 years ago when tripping and hitting head on counter. He had a severe concussion and he was out at least 30 minutes. He went to the hospital and was checked out. He had had post- concussion syndrome for 6 weeks. He would fall out unconsious when sitting at random times. He would not have memory of it. He went from having headaches 1-2 times a year to 4-6 a year. Seizures started 1.5 years ago . They are termed psychogenic seizures. There is no epilectic activity. He screens high for PTSD. Pt states that PTSD may be related to past relationships. They happen out of sleep. He wakes up shaking . He does not think he has headaches. , Joy, describes rocking side to side or pelvic thrusting, head back and eyes rolled upward. He occ has horizontal nystagmus and then his head drops down. Events last 30 sec . He is taking Topamax in the a.m. to help with mood and headaches. He has not gone more than 18 days without a seizure. He has been on Topamax for a week and has not had a seizure. 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 He had trigger point injections. He has to go through series of taking medications including corticosteroids. 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 He and are trying out supportive neck pillows. He sleeps on a wedge. 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 He drinks caffeine and water . occ reports of pt with anger and memory loss connected. These were unlike his normal personality. Pt reports headaches up to a 7 /10 and he has to talk Percicet. Headaches are over the right eye and down into his right face and back of head and feeling right eyeball being squeezed. He sees colors and has horizontal nystagmus. Overall discomfort left upper trap area, 3/10. He has 3-7/10 pain down left arm . Right hernia surgery and pain after right testicle removed. Multiple neural surgeries in the area and he now has a small left inguinal hernia. Pt reports occ tingling 4th and 5th left digit and burning down back of left arm through elbow. Prior Treatments and Tests PT in the past for left shoulder. It went okay. He had it for his right wrist as well. Right TMJ injections PT-OP-C Subjective Start: 02/04/19 07:28 Freq: Status: Active Protocol: Document 09/14/19 09:00 MB (Rec: 09/14/19 09:11 MB [id number]) OP-PT Subjective Patient Comments Patient Comments Pt states that he is doing pretty well. He has some tingling on dorsal aspect of 4th and 5th fingers and sharpness in left elbow as well as pain in inferior left shoulder blade. PT-OP-J Posture/Palpation/Skin Start: 02/04/19 07:28 Freq: Status: Active Protocol: Document 02/04/19 09:01 MB (Rec: 02/04/19 13:33 MB [id number]) Posture Evaluation Comments Posture Comments Standing posture: forward head , rounded shoulders, Dowager's hump, decreased thoracic kyphosis, increased lumbar lordosis, changes around T6 vertebra that could be stiffness PT-OP-K Range of Motion Start: 02/04/19 07:28 Freq: Status: Active Protocol: Document 02/04/19 09:01 MB (Rec: 02/04/19 13:33 MB [id number]) Cervical Spine Range of Motion Cervical Spine Active Testing Position Standing Flexion 35 Extension 40 Rotation Left 40 Rotation Right 50 Comments Pt reports stretch in right jaw with cervical extension and left upper traps area discomfort 3/10 with flexion PT-OP-M Strength Start: 02/04/19 07:28 Freq: Status: Active Protocol: Document 02/04/19 09:01 MB (Rec: 02/04/19 13:33 MB [id number]) Shoulder Strength Shoulder Manual Muscle Testing Left Flexion 4 Good Abduction (C5) 4 Good External Rotation 5 Normal Internal Rotation 5 Normal Right Flexion 5 Normal Abduction (C5) 5 Normal External Rotation 4 Good Internal Rotation 4 Good Elbow/Forearm Strength Elbow and Forearm Manual Muscle Testing Left Flexion (C6) 5 Normal Extension (C7) 5 Normal Pronation 4 Good Supination 4 Good Right Flexion (C6) 5 Normal Extension (C7) 5 Normal Pronation 4 Good Supination 4 Good Wrist Strength Wrist Manual Muscle Testing Left Flexion (C7) 5 Normal Extension (C6) 5 Normal Right Flexion (C7) 5 Normal Extension (C6) 5 Normal PT-OP-Q Treatments Start: 02/04/19 07:28 Freq: Status: Active Protocol: Document 09/14/19 09:00 MB (Rec: 09/14/19 09:11 MB [id number]) Therapeutic Exercises Supine Exercises Foam roller thoracic mobility Comments Thoracic mobility on 6 foam roller both vertical (over noodle) and horizon Manual Therapy Treatment Other Other Manual Treatments Side lying MWM: rib recoil B to improve thoracic mobility and QL mobility, STM and MWM B latissimus dorsi and rhomboids, tighter on the left , left scapular mobility-- elevation with passive arm abudction with pt in right side lying Prone: thoracic mobility with rib recoil, PA thoracic mobs grade III-IV PT-OP-T Assessment and Plan Start: 02/04/19 07:28 Freq: Status: Active Protocol: Document 09/14/19 09:00 MB (Rec: 09/14/19 09:11 MB [id number]) Physical Therapy Assessment Rehab Potential Rehabilitation Potential Fair Evaluation Complexity Number of Personal Factors/Comorbidities 3 or More Number of Body Systems Impaired 3 Clinical Presentation at Evaluation Evolving Goals 9 Halfway Goal (LTG) Pt will be able to hang up 5 pieces of clothing by 2019. 08/31/2019: Pt can hang up 3 pieces of clothing. LTG Duration 8 weeks 8 Marine Cargo Inspector Goal (LTG) Pt will present with equal active left shoulder abduction and flexion compared to the right to allow overhead work by 10/19/2019. 08/31/2019: Pt presents with right shoulder abduction and flexion to 180 deg and left shoulder abduction 120 deg and flexion to 100 deg. 6 Marine Cargo Inspector Goal (LTG) Pt will report no more than 1 seizure per month by 10/19/2019 . 08/31/2019: Pt had 1 seizure in 22 days LTG Duration 8 weeks 5 Halfway Goal (LTG) Pt will present with B shoulder flexion to 5/5 to help with overhead lifting by 10/19/2019. 08/31/2019: Right shoulder flexion 5/5; left shoulder flexion 4/5 in available range LTG Duration 8 weeks 4 Marine Cargo Inspector Goal (LTG) Pt will report no more than 1 headache per month by 2019. 08/31/2019: Pt reports 1 headache every 2.5 weeks, slightly better than progress note that was 2 per month LTG Duration 8 weeks 3 Marine Cargo Inspector Goal (LTG) Pt will perform progressive HEP with I including postural alignment, flexibility, strengthening and relaxation exercises by 10/19/2019. 08/31/2019: Pt has been performing progressive HEP LTG Duration 8 weeks 2 Marine Cargo Inspector Goal (LTG) Pt will present with a QuickDASH score to reflect no more than 20% impairment to allow return to guitar and improvement of ADLs by 2019. 08/31/2019: QuickDASH score reflects 25% impairment, 25% improvement from last progress note LTG Duration 8 weeks 1 Halfway Goal (LTG) Pt will present with a NDI score to reflect no more than 20% impairment by 10/19/2019. 08/31/2019: NDI score reflects 24% improvement LTG Duration 8 weeks Progress Towards Goals Progress Towards Goals Progressing Toward Goals Assessment Summary Assessment Manual work today d/t referral pattern of symptoms down left arm directly related to tension found in left lattissimus and rhomboids. Thoracic mobility with manual work today as well. Consider body mechanics training soon. Physical Therapy Plan Frequency and Duration Frequency of Treatment 2x/Week Duration of Treatment 6 weeks Plan of Care Start Date 08/31/19 Plan of Care End Date 10/19/19 Therapeutic Interventions Therapeutic Interventions Balance Training,Canalithic Repositioning,Home Exercise Program,Manual Therapy, Neuromuscular Re-education, Patient/Caregiver Education, Self-Care/Home Management,Soft Tissue Mobilization,Taping, Therapeutic Exercises, Vestibular Rehabilitation Modalities Cold Pack/Ice Massage,Electric Stimulation,Hot Packs, Ultrasound Next Visit Focus/Plan Next Note Type Treatment Note Next Visit Plan Cervical extension and cervical isometric end-range, body mechanics, lifting training, consider mini wall slide, consider Body Blade
--- NOTE | 2019-09-17 08:54 | PT.OTN ---
Current Diagnoses Cervicalgia (09/17/19) Headache (09/17/19) Personal history of traumatic brain injury (09/17/19) Physical Therapy Treatment Note PT-OP-A Visit Information Start: 02/04/19 07:28 Freq: Status: Active Protocol: Document 09/17/19 08:13 MB (Rec: 09/17/19 08:39 MB [id number]) Out-Patient Physical Therapy Visit Information Visit Information Visit Type Treatment Note Visit Note 08/29 Visit Start Time 08:13 Visit Stop Time 08:53 Total Visit Minutes 40 Visit Number 06/27 before reassessment PT-OP-B Current Condition Start: 02/04/19 07:28 Freq: Status: Active Protocol: Document 02/04/19 09:01 MB (Rec: 02/04/19 09:50 MB [id number]) Current Condition History of Current Condition Onset Date 1.5 years History of Current Condition Pt reports TBI 4 years ago when tripping and hitting head on counter. He had a severe concussion and he was out at least 30 minutes. He went to the hospital and was checked out. He had had post- concussion syndrome for 6 weeks. He would fall out unconsious when sitting at random times. He would not have memory of it. He went from having headaches 1-2 times a year to 4-6 a year. Seizures started 1.5 years ago . They are termed psychogenic seizures. There is no epilectic activity. He screens high for PTSD. Pt states that PTSD may be related to past relationships. They happen out of sleep. He wakes up shaking . He does not think he has headaches. , Joy, describes rocking side to side or pelvic thrusting, head back and eyes rolled upward. He occ has horizontal nystagmus and then his head drops down. Events last 30 sec . He is taking Topamax in the a.m. to help with mood and headaches. He has not gone more than 18 days without a seizure. He has been on Topamax for a week and has not had a seizure. 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 He had trigger point injections. He has to go through series of taking medications including corticosteroids. 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 He and are trying out supportive neck pillows. He sleeps on a wedge. 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 He drinks caffeine and water . occ reports of pt with anger and memory loss connected. These were unlike his normal personality. Pt reports headaches up to a 7 /10 and he has to talk Percicet. Headaches are over the right eye and down into his right face and back of head and feeling right eyeball being squeezed. He sees colors and has horizontal nystagmus. Overall discomfort left upper trap area, 3/10. He has 3-7/10 pain down left arm . Right hernia surgery and pain after right testicle removed. Multiple neural surgeries in the area and he now has a small left inguinal hernia. Pt reports occ tingling 4th and 5th left digit and burning down back of left arm through elbow. Prior Treatments and Tests PT in the past for left shoulder. It went okay. He had it for his right wrist as well. Right TMJ injections PT-OP-C Subjective Start: 02/04/19 07:28 Freq: Status: Active Protocol: Document 09/17/19 08:13 MB (Rec: 09/17/19 08:39 MB [id number]) OP-PT Subjective Patient Comments Patient Comments Pt is feeling fine today. PT-OP-J Posture/Palpation/Skin Start: 02/04/19 07:28 Freq: Status: Active Protocol: Document 02/04/19 09:01 MB (Rec: 02/04/19 13:33 MB [id number]) Posture Evaluation Comments Posture Comments Standing posture: forward head , rounded shoulders, Dowager's hump, decreased thoracic kyphosis, increased lumbar lordosis, changes around T6 vertebra that could be stiffness PT-OP-K Range of Motion Start: 02/04/19 07:28 Freq: Status: Active Protocol: Document 02/04/19 09:01 MB (Rec: 02/04/19 13:33 MB [id number]) Cervical Spine Range of Motion Cervical Spine Active Testing Position Standing Flexion 35 Extension 40 Rotation Left 40 Rotation Right 50 Comments Pt reports stretch in right jaw with cervical extension and left upper traps area discomfort 3/10 with flexion PT-OP-M Strength Start: 02/04/19 07:28 Freq: Status: Active Protocol: Document 02/04/19 09:01 MB (Rec: 02/04/19 13:33 MB [id number]) Shoulder Strength Shoulder Manual Muscle Testing Left Flexion 4 Good Abduction (C5) 4 Good External Rotation 5 Normal Internal Rotation 5 Normal Right Flexion 5 Normal Abduction (C5) 5 Normal External Rotation 4 Good Internal Rotation 4 Good Elbow/Forearm Strength Elbow and Forearm Manual Muscle Testing Left Flexion (C6) 5 Normal Extension (C7) 5 Normal Pronation 4 Good Supination 4 Good Right Flexion (C6) 5 Normal Extension (C7) 5 Normal Pronation 4 Good Supination 4 Good Wrist Strength Wrist Manual Muscle Testing Left Flexion (C7) 5 Normal Extension (C6) 5 Normal Right Flexion (C7) 5 Normal Extension (C6) 5 Normal PT-OP-Q Treatments Start: 02/04/19 07:28 Freq: Status: Active Protocol: Document 09/17/19 08:13 MB (Rec: 09/17/19 08:39 MB [id number]) Therapeutic Exercises Supine Exercises Chicken pose stretch over 6 roller Side bilateral Comments For shoulder and thoracic ROM pect stretch, performs 10 reps slowly 1/2 foam roll PNF D2 and D1 Comments 3x/wk Jose stretch Comments As needed Core progression on mat and then on pool noodle Comments 3x/wk Abdominal drawing in Comments To be performed with all postural and core exercises Progressive muscle relaxation exercises Comments D/cd today Pelvic realignment exercises Comments 3x/wk Self-massage with MWM B SCM Comments Reviewed today, as needed EFT tapping Comments D/c today Buteyko breathing Comments Exercises number 1, diaphragm breathing and closed nostril everyday Sidelying Exercises Side lying lat, ribs and QL stretch Comments D/cd today Sitting Exercises Levator scap stretch Comments Pt performs today, to perform everyday with traps stretch Anterior neck stretch Comments Performs today, re-ed for HEP everyday Upper traps and levator stretch Comments Everyday Upper traps MWM with racquet ball Comments Performed today Standing Exercises Pillow case slide Comments 3x/wk Pect stretch doorway Comments D/cd in preference of the three stretches below Scapular and shoulder extension strengthening with level 2 band Comments As needed Racquet ball massage, MWM with infraspinatus Comments Performed today, 3x/wk Other Exercises 3 position doorways stetch B Comments Everyday and pt performs today during treatment Finger crawls for flexion and abduction Comments In shower everyday Reviewed all other exercises, reviewed handouts today Comments Revised entire program today PT-OP-T Assessment and Plan Start: 02/04/19 07:28 Freq: Status: Active Protocol: Document 09/17/19 08:13 MB (Rec: 09/17/19 08:52 MB [id number]) Physical Therapy Assessment Rehab Potential Rehabilitation Potential Fair Evaluation Complexity Number of Personal Factors/Comorbidities 3 or More Number of Body Systems Impaired 3 Clinical Presentation at Evaluation Evolving Goals 9 Partner Management Consultant Goal (LTG) Pt will be able to hang up 5 pieces of clothing by 2019. 08/31/2019: Pt can hang up 3 pieces of clothing. LTG Duration 8 weeks 8 Partner Management Consultant Goal (LTG) Pt will present with equal active left shoulder abduction and flexion compared to the right to allow overhead work by 10/19/2019. 08/31/2019: Pt presents with right shoulder abduction and flexion to 180 deg and left shoulder abduction 120 deg and flexion to 100 deg. 6 Group Home Goal (LTG) Pt will report no more than 1 seizure per month by 10/19/2019 . 08/31/2019: Pt had 1 seizure in 22 days LTG Duration 8 weeks 5 Group Home Goal (LTG) Pt will present with B shoulder flexion to 5/5 to help with overhead lifting by 10/19/2019. 08/31/2019: Right shoulder flexion 5/5; left shoulder flexion 4/5 in available range LTG Duration 8 weeks 4 Partner Management Consultant Goal (LTG) Pt will report no more than 1 headache per month by 2019. 08/31/2019: Pt reports 1 headache every 2.5 weeks, slightly better than progress note that was 2 per month LTG Duration 8 weeks 3 Partner Management Consultant Goal (LTG) Pt will perform progressive HEP with I including postural alignment, flexibility, strengthening and relaxation exercises by 10/19/2019. 08/31/2019: Pt has been performing progressive HEP LTG Duration 8 weeks 2 Group Home Goal (LTG) Pt will present with a QuickDASH score to reflect no more than 20% impairment to allow return to guitar and improvement of ADLs by 2019. 08/31/2019: QuickDASH score reflects 25% impairment, 25% improvement from last progress note LTG Duration 8 weeks 1 Partner Management Consultant Goal (LTG) Pt will present with a NDI score to reflect no more than 20% impairment by 10/19/2019. 08/31/2019: NDI score reflects 24% improvement LTG Duration 8 weeks Progress Towards Goals Progress Towards Goals Progressing Toward Goals Assessment Summary Assessment Revised HEP: Everyday: intrascapular massage, Buteyko breathing, anterior neck stretch, traps and levator stretches, pect, hip flexor and QL doorway stretches, finger crawl in shoulder. 3x/ wk: coco cat and upper traps massage, pillow case flexion, QL and latissimus massage, Jose stretch and pool noodle flexibility, shoulder and core strengtheing, as needed: pelvic realignment, SCM massage, shoulder ER and rows. Consider body mechanics training soon. Physical Therapy Plan Frequency and Duration Frequency of Treatment 2x/Week Duration of Treatment 6 weeks Plan of Care Start Date 08/31/19 Plan of Care End Date 10/19/19 Therapeutic Interventions Therapeutic Interventions Balance Training,Canalithic Repositioning,Home Exercise Program,Manual Therapy, Neuromuscular Re-education, Patient/Caregiver Education, Self-Care/Home Management,Soft Tissue Mobilization,Taping, Therapeutic Exercises, Vestibular Rehabilitation Modalities Cold Pack/Ice Massage,Electric Stimulation,Hot Packs, Ultrasound Next Visit Focus/Plan Next Note Type Treatment Note Next Visit Plan Cervical extension and cervical isometric end-range, body mechanics, lifting training, consider mini wall slide, consider Body Blade
--- NOTE | 2019-09-25 09:45 | PT.OTN ---
Current Diagnoses Cervicalgia (09/25/19) Headache (09/25/19) Personal history of traumatic brain injury (09/25/19) Physical Therapy Treatment Note PT-OP-A Visit Information Start: 02/04/19 07:28 Freq: Status: Active Protocol: Document 09/25/19 09:01 MB (Rec: 09/25/19 09:20 MB [id number]) Out-Patient Physical Therapy Visit Information Visit Information Visit Type Treatment Note Visit Note 09/29 Visit Start Time 09:01 Visit Stop Time 09:45 Total Visit Minutes 44 Visit Number 07/28 until progress note PT-OP-B Current Condition Start: 02/04/19 07:28 Freq: Status: Active Protocol: Document 02/04/19 09:01 MB (Rec: 02/04/19 09:50 MB [id number]) Current Condition History of Current Condition Onset Date 1.5 years History of Current Condition Pt reports TBI 4 years ago when tripping and hitting head on counter. He had a severe concussion and he was out at least 30 minutes. He went to the hospital and was checked out. He had had post- concussion syndrome for 6 weeks. He would fall out unconsious when sitting at random times. He would not have memory of it. He went from having headaches 1-2 times a year to 4-6 a year. Seizures started 1.5 years ago . They are termed psychogenic seizures. There is no epilectic activity. He screens high for PTSD. Pt states that PTSD may be related to past relationships. They happen out of sleep. He wakes up shaking . He does not think he has headaches. , Joy, describes rocking side to side or pelvic thrusting, head back and eyes rolled upward. He occ has horizontal nystagmus and then his head drops down. Events last 30 sec . He is taking Topamax in the a.m. to help with mood and headaches. He has not gone more than 18 days without a seizure. He has been on Topamax for a week and has not had a seizure. 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 He had trigger point injections. He has to go through series of taking medications including corticosteroids. 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 He and are trying out supportive neck pillows. He sleeps on a wedge. 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 He drinks caffeine and water . occ reports of pt with anger and memory loss connected. These were unlike his normal personality. Pt reports headaches up to a 7 /10 and he has to talk Percicet. Headaches are over the right eye and down into his right face and back of head and feeling right eyeball being squeezed. He sees colors and has horizontal nystagmus. Overall discomfort left upper trap area, 3/10. He has 3-7/10 pain down left arm . Right hernia surgery and pain after right testicle removed. Multiple neural surgeries in the area and he now has a small left inguinal hernia. Pt reports occ tingling 4th and 5th left digit and burning down back of left arm through elbow. Prior Treatments and Tests PT in the past for left shoulder. It went okay. He had it for his right wrist as well. Right TMJ injections PT-OP-C Subjective Start: 02/04/19 07:28 Freq: Status: Active Protocol: Document 09/25/19 09:01 MB (Rec: 09/25/19 09:20 MB [id number]) OP-PT Subjective Patient Comments Patient Comments at treatment today to discuss concerns about pt's posture and twitching muscles when sleeping. PT-OP-J Posture/Palpation/Skin Start: 02/04/19 07:28 Freq: Status: Active Protocol: Document 02/04/19 09:01 MB (Rec: 02/04/19 13:33 MB [id number]) Posture Evaluation Comments Posture Comments Standing posture: forward head , rounded shoulders, Dowager's hump, decreased thoracic kyphosis, increased lumbar lordosis, changes around T6 vertebra that could be stiffness PT-OP-K Range of Motion Start: 02/04/19 07:28 Freq: Status: Active Protocol: Document 02/04/19 09:01 MB (Rec: 02/04/19 13:33 MB [id number]) Cervical Spine Range of Motion Cervical Spine Active Testing Position Standing Flexion 35 Extension 40 Rotation Left 40 Rotation Right 50 Comments Pt reports stretch in right jaw with cervical extension and left upper traps area discomfort 3/10 with flexion PT-OP-M Strength Start: 02/04/19 07:28 Freq: Status: Active Protocol: Document 02/04/19 09:01 MB (Rec: 02/04/19 13:33 MB [id number]) Shoulder Strength Shoulder Manual Muscle Testing Left Flexion 4 Good Abduction (C5) 4 Good External Rotation 5 Normal Internal Rotation 5 Normal Right Flexion 5 Normal Abduction (C5) 5 Normal External Rotation 4 Good Internal Rotation 4 Good Elbow/Forearm Strength Elbow and Forearm Manual Muscle Testing Left Flexion (C6) 5 Normal Extension (C7) 5 Normal Pronation 4 Good Supination 4 Good Right Flexion (C6) 5 Normal Extension (C7) 5 Normal Pronation 4 Good Supination 4 Good Wrist Strength Wrist Manual Muscle Testing Left Flexion (C7) 5 Normal Extension (C6) 5 Normal Right Flexion (C7) 5 Normal Extension (C6) 5 Normal PT-OP-Q Treatments Start: 02/04/19 07:28 Freq: Status: Active Protocol: Document 09/25/19 09:01 MB (Rec: 09/25/19 09:20 MB [id number]) Manual Therapy Treatment Other Other Manual Treatments Pt is agreeable to Counterstrain to assess and treat fascial tension. PT assesses and treats the following systems: anterior neuro LEs and AINTs, standard lymphatic row with greatest tension in lymphatic row. PT-OP-T Assessment and Plan Start: 02/04/19 07:28 Freq: Status: Active Protocol: Document 09/25/19 09:01 MB (Rec: 09/25/19 09:20 MB [id number]) Physical Therapy Assessment Rehab Potential Rehabilitation Potential Fair Evaluation Complexity Number of Personal Factors/Comorbidities 3 or More Number of Body Systems Impaired 3 Clinical Presentation at Evaluation Evolving Goals 9 Snf Goal (LTG) Pt will be able to hang up 5 pieces of clothing by 2019. 08/31/2019: Pt can hang up 3 pieces of clothing. LTG Duration 8 weeks 8 Director Of Hemophilia Goal (LTG) Pt will present with equal active left shoulder abduction and flexion compared to the right to allow overhead work by 10/19/2019. 08/31/2019: Pt presents with right shoulder abduction and flexion to 180 deg and left shoulder abduction 120 deg and flexion to 100 deg. 6 Director Of Hemophilia Goal (LTG) Pt will report no more than 1 seizure per month by 10/19/2019 . 08/31/2019: Pt had 1 seizure in 22 days LTG Duration 8 weeks 5 Snf Goal (LTG) Pt will present with B shoulder flexion to 5/5 to help with overhead lifting by 10/19/2019. 08/31/2019: Right shoulder flexion 5/5; left shoulder flexion 4/5 in available range LTG Duration 8 weeks 4 Snf Goal (LTG) Pt will report no more than 1 headache per month by 2019. 08/31/2019: Pt reports 1 headache every 2.5 weeks, slightly better than progress note that was 2 per month LTG Duration 8 weeks 3 Snf Goal (LTG) Pt will perform progressive HEP with I including postural alignment, flexibility, strengthening and relaxation exercises by 10/19/2019. 08/31/2019: Pt has been performing progressive HEP LTG Duration 8 weeks 2 Snf Goal (LTG) Pt will present with a QuickDASH score to reflect no more than 20% impairment to allow return to itar and improvement of ADLs by 2019. 08/31/2019: QuickDASH score reflects 25% impairment, 25% improvement from last progress note LTG Duration 8 weeks 1 Snf Goal (LTG) Pt will present with a NDI score to reflect no more than 20% impairment by 10/19/2019. 08/31/2019: NDI score reflects 24% improvement LTG Duration 8 weeks Progress Towards Goals Progress Towards Goals Progressing Toward Goals Assessment Summary Assessment Ed pt and on ergonomics for computer use at home now that pt is taking classes at home. Con't postural ed and progression as needed. Physical Therapy Plan Frequency and Duration Frequency of Treatment 2x/Week Duration of Treatment 6 weeks Plan of Care Start Date 08/31/19 Plan of Care End Date 10/19/19 Therapeutic Interventions Therapeutic Interventions Balance Training,Canalithic Repositioning,Home Exercise Program,Manual Therapy, Neuromuscular Re-education, Patient/Caregiver Education, Self-Care/Home Management,Soft Tissue Mobilization,Taping, Therapeutic Exercises, Vestibular Rehabilitation Modalities Cold Pack/Ice Massage,Electric Stimulation,Hot Packs, Ultrasound Next Visit Focus/Plan Next Note Type Treatment Note Next Visit Plan Cervical extension and cervical isometric end-range, body mechanics, lifting training, consider mini wall slide, consider Body Blade
--- NOTE | 2019-10-02 09:47 | PT.OTN ---
Current Diagnoses Cervicalgia (10/02/19) Headache (10/02/19) Personal history of traumatic brain injury (10/02/19) Physical Therapy Treatment Note PT-OP-A Visit Information Start: 02/04/19 07:28 Freq: Status: Active Protocol: Document 10/02/19 09:01 MB (Rec: 10/02/19 09:46 MB [id number]) Out-Patient Physical Therapy Visit Information Visit Information Visit Type Treatment Note Visit Start Time 09:01 Visit Stop Time 09:45 Total Visit Minutes 44 Visit Number 08/27 until progress note PT-OP-B Current Condition Start: 02/04/19 07:28 Freq: Status: Active Protocol: Document 02/04/19 09:01 MB (Rec: 02/04/19 09:50 MB [id number]) Current Condition History of Current Condition Onset Date 1.5 years History of Current Condition Pt reports TBI 4 years ago when tripping and hitting head on counter. He had a severe concussion and he was out at least 30 minutes. He went to the hospital and was checked out. He had had post- concussion syndrome for 6 weeks. He would fall out unconsious when sitting at random times. He would not have memory of it. He went from having headaches 1-2 times a year to 4-6 a year. Seizures started 1.5 years ago . They are termed psychogenic seizures. There is no epilectic activity. He screens high for PTSD. Pt states that PTSD may be related to past relationships. They happen out of sleep. He wakes up shaking . He does not think he has headaches. , Joy, describes rocking side to side or pelvic thrusting, head back and eyes rolled upward. He occ has horizontal nystagmus and then his head drops down. Events last 30 sec . He is taking Topamax in the a.m. to help with mood and headaches. He has not gone more than 18 days without a seizure. He has been on Topamax for a week and has not had a seizure. 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 He had trigger point injections. He has to go through series of taking medications including corticosteroids. 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 He and are trying out supportive neck pillows. He sleeps on a wedge. 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 He drinks caffeine and water . occ reports of pt with anger and memory loss connected. These were unlike his normal personality. Pt reports headaches up to a 7 /10 and he has to talk Percicet. Headaches are over the right eye and down into his right face and back of head and feeling right eyeball being squeezed. He sees colors and has horizontal nystagmus. Overall discomfort left upper trap area, 3/10. He has 3-7/10 pain down left arm . Right hernia surgery and pain after right testicle removed. Multiple neural surgeries in the area and he now has a small left inguinal hernia. Pt reports occ tingling 4th and 5th left digit and burning down back of left arm through elbow. Prior Treatments and Tests PT in the past for left shoulder. It went okay. He had it for his right wrist as well. Right TMJ injections PT-OP-C Subjective Start: 02/04/19 07:28 Freq: Status: Active Protocol: Document 10/02/19 09:01 MB (Rec: 10/02/19 09:46 MB [id number]) OP-PT Subjective Patient Comments Patient Comments Pt states that his ribs feel better and he has his usual left upper traps and shoulder tension. PT-OP-J Posture/Palpation/Skin Start: 02/04/19 07:28 Freq: Status: Active Protocol: Document 02/04/19 09:01 MB (Rec: 02/04/19 13:33 MB [id number]) Posture Evaluation Comments Posture Comments Standing posture: forward head , rounded shoulders, Dowager's hump, decreased thoracic kyphosis, increased lumbar lordosis, changes around T6 vertebra that could be stiffness PT-OP-K Range of Motion Start: 02/04/19 07:28 Freq: Status: Active Protocol: Document 02/04/19 09:01 MB (Rec: 02/04/19 13:33 MB [id number]) Cervical Spine Range of Motion Cervical Spine Active Testing Position Standing Flexion 35 Extension 40 Rotation Left 40 Rotation Right 50 Comments Pt reports stretch in right jaw with cervical extension and left upper traps area discomfort 3/10 with flexion PT-OP-M Strength Start: 02/04/19 07:28 Freq: Status: Active Protocol: Document 02/04/19 09:01 MB (Rec: 02/04/19 13:33 MB [id number]) Shoulder Strength Shoulder Manual Muscle Testing Left Flexion 4 Good Abduction (C5) 4 Good External Rotation 5 Normal Internal Rotation 5 Normal Right Flexion 5 Normal Abduction (C5) 5 Normal External Rotation 4 Good Internal Rotation 4 Good Elbow/Forearm Strength Elbow and Forearm Manual Muscle Testing Left Flexion (C6) 5 Normal Extension (C7) 5 Normal Pronation 4 Good Supination 4 Good Right Flexion (C6) 5 Normal Extension (C7) 5 Normal Pronation 4 Good Supination 4 Good Wrist Strength Wrist Manual Muscle Testing Left Flexion (C7) 5 Normal Extension (C6) 5 Normal Right Flexion (C7) 5 Normal Extension (C6) 5 Normal PT-OP-Q Treatments Start: 02/04/19 07:28 Freq: Status: Active Protocol: Document 10/02/19 09:01 MB (Rec: 10/02/19 09:46 MB [id number]) Manual Therapy Treatment Other Other Manual Treatments Pt is agreeable to Counterstrain to assess and treat fascial tension. PT assesses and treats the following systems: Left DPR, left anterior neuro, right ligamentum flavum proximal and left periosteal proximal, musculoskeletal 1 thorax PT-OP-T Assessment and Plan Start: 02/04/19 07:28 Freq: Status: Active Protocol: Document 10/02/19 09:01 MB (Rec: 10/02/19 09:46 MB [id number]) Physical Therapy Assessment Rehab Potential Rehabilitation Potential Fair Evaluation Complexity Number of Personal Factors/Comorbidities 3 or More Number of Body Systems Impaired 3 Clinical Presentation at Evaluation Evolving Goals 9 Podiatric Medicine Doctor Goal (LTG) Pt will be able to hang up 5 pieces of clothing by 2019. 08/31/2019: Pt can hang up 3 pieces of clothing. LTG Duration 8 weeks 8 Snf Goal (LTG) Pt will present with equal active left shoulder abduction and flexion compared to the right to allow overhead work by 10/19/2019. 08/31/2019: Pt presents with right shoulder abduction and flexion to 180 deg and left shoulder abduction 120 deg and flexion to 100 deg. 6 Podiatric Medicine Doctor Goal (LTG) Pt will report no more than 1 seizure per month by 10/19/2019 . 08/31/2019: Pt had 1 seizure in 22 days LTG Duration 8 weeks 5 Snf Goal (LTG) Pt will present with B shoulder flexion to 5/5 to help with overhead lifting by 10/19/2019. 08/31/2019: Right shoulder flexion 5/5; left shoulder flexion 4/5 in available range LTG Duration 8 weeks 4 Podiatric Medicine Doctor Goal (LTG) Pt will report no more than 1 headache per month by 2019. 08/31/2019: Pt reports 1 headache every 2.5 weeks, slightly better than progress note that was 2 per month LTG Duration 8 weeks 3 Podiatric Medicine Doctor Goal (LTG) Pt will perform progressive HEP with I including postural alignment, flexibility, strengthening and relaxation exercises by 10/19/2019. 08/31/2019: Pt has been performing progressive HEP LTG Duration 8 weeks 2 Podiatric Medicine Doctor Goal (LTG) Pt will present with a QuickDASH score to reflect no more than 20% impairment to allow return to [facility] and improvement of ADLs by 2019. 08/31/2019: QuickDASH score reflects 25% impairment, 25% improvement from last progress note LTG Duration 8 weeks 1 Snf Goal (LTG) Pt will present with a NDI score to reflect no more than 20% impairment by 10/19/2019. 08/31/2019: NDI score reflects 24% improvement LTG Duration 8 weeks Progress Towards Goals Progress Towards Goals Progressing Toward Goals Assessment Summary Assessment Counterstrain to assess and treat thoracic and UE tension. Con't postural ed and progression as needed. Physical Therapy Plan Frequency and Duration Frequency of Treatment 2x/Week Duration of Treatment 6 weeks Plan of Care Start Date 08/31/19 Plan of Care End Date 10/19/19 Therapeutic Interventions Therapeutic Interventions Balance Training,Canalithic Repositioning,Home Exercise Program,Manual Therapy, Neuromuscular Re-education, Patient/Caregiver Education, Self-Care/Home Management,Soft Tissue Mobilization,Taping, Therapeutic Exercises, Vestibular Rehabilitation Modalities Cold Pack/Ice Massage,Electric Stimulation,Hot Packs, Ultrasound Next Visit Focus/Plan Next Note Type Treatment Note Next Visit Plan Cervical extension and cervical isometric end-range, body mechanics, lifting training, consider mini wall slide, consider Body Blade
--- NOTE | 2019-10-09 09:49 | PT.OTN ---
Current Diagnoses Cervicalgia (10/09/19) Headache (10/09/19) Personal history of traumatic brain injury (10/09/19) Physical Therapy Treatment Note PT-OP-A Visit Information Start: 02/04/19 07:28 Freq: Status: Active Protocol: Document 10/09/19 09:03 MB (Rec: 10/09/19 09:49 MB [id number]) Out-Patient Physical Therapy Visit Information Visit Information Visit Type Treatment Note Visit Start Time 09:03 Visit Stop Time 09:45 Total Visit Minutes 42 Visit Number 09/27 until progress note PT-OP-B Current Condition Start: 02/04/19 07:28 Freq: Status: Active Protocol: Document 02/04/19 09:01 MB (Rec: 02/04/19 09:50 MB [id number]) Current Condition History of Current Condition Onset Date 1.5 years History of Current Condition Pt reports TBI 4 years ago when tripping and hitting head on counter. He had a severe concussion and he was out at least 30 minutes. He went to the hospital and was checked out. He had had post- concussion syndrome for 6 weeks. He would fall out unconsious when sitting at random times. He would not have memory of it. He went from having headaches 1-2 times a year to 4-6 a year. Seizures started 1.5 years ago . They are termed psychogenic seizures. There is no epilectic activity. He screens high for PTSD. Pt states that PTSD may be related to past relationships. They happen out of sleep. He wakes up shaking . He does not think he has headaches. , Joy, describes rocking side to side or pelvic thrusting, head back and eyes rolled upward. He occ has horizontal nystagmus and then his head drops down. Events last 30 sec . He is taking Topamax in the a.m. to help with mood and headaches. He has not gone more than 18 days without a seizure. He has been on Topamax for a week and has not had a seizure. 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 He had trigger point injections. He has to go through series of taking medications including corticosteroids. He has a overnight caregiver. 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 He and are trying out supportive neck pillows. He sleeps on a wedge. 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 He drinks caffeine and water . occ reports of pt with anger and memory loss connected. These were unlike his normal personality. Pt reports headaches up to a 7 /10 and he has to talk Percicet. Headaches are over the right eye and down into his right face and back of head and feeling right eyeball being squeezed. He sees colors and has horizontal nystagmus. Overall discomfort left upper trap area, 3/10. He has 3-7/10 pain down left arm . Right hernia surgery and pain after right testicle removed. Multiple neural surgeries in the area and he now has a small left inguinal hernia. Pt reports occ tingling 4th and 5th left digit and burning down back of left arm through elbow. Prior Treatments and Tests PT in the past for left shoulder. It went okay. He had it for his right wrist as well. Right TMJ injections PT-OP-C Subjective Start: 02/04/19 07:28 Freq: Status: Active Protocol: Document 10/09/19 09:03 MB (Rec: 10/09/19 09:49 MB [id number]) OP-PT Subjective Patient Comments Patient Comments states that pt had a seizure after 20 minutes of sleeping during nap after last treatment. He has had these in the past. PT-OP-J Posture/Palpation/Skin Start: 02/04/19 07:28 Freq: Status: Active Protocol: Document 02/04/19 09:01 MB (Rec: 02/04/19 13:33 MB [id number]) Posture Evaluation Comments Posture Comments Standing posture: forward head , rounded shoulders, Dowager's hump, decreased thoracic kyphosis, increased lumbar lordosis, changes around T6 vertebra that could be stiffness PT-OP-K Range of Motion Start: 02/04/19 07:28 Freq: Status: Active Protocol: Document 02/04/19 09:01 MB (Rec: 02/04/19 13:33 MB [id number]) Cervical Spine Range of Motion Cervical Spine Active Testing Position Standing Flexion 35 Extension 40 Rotation Left 40 Rotation Right 50 Comments Pt reports stretch in right jaw with cervical extension and left upper traps area discomfort 3/10 with flexion PT-OP-M Strength Start: 02/04/19 07:28 Freq: Status: Active Protocol: Document 02/04/19 09:01 MB (Rec: 02/04/19 13:33 MB [id number]) Shoulder Strength Shoulder Manual Muscle Testing Left Flexion 4 Good Abduction (C5) 4 Good External Rotation 5 Normal Internal Rotation 5 Normal Right Flexion 5 Normal Abduction (C5) 5 Normal External Rotation 4 Good Internal Rotation 4 Good Elbow/Forearm Strength Elbow and Forearm Manual Muscle Testing Left Flexion (C6) 5 Normal Extension (C7) 5 Normal Pronation 4 Good Supination 4 Good Right Flexion (C6) 5 Normal Extension (C7) 5 Normal Pronation 4 Good Supination 4 Good Wrist Strength Wrist Manual Muscle Testing Left Flexion (C7) 5 Normal Extension (C6) 5 Normal Right Flexion (C7) 5 Normal Extension (C6) 5 Normal PT-OP-Q Treatments Start: 02/04/19 07:28 Freq: Status: Active Protocol: Document 10/09/19 09:03 MB (Rec: 10/09/19 09:49 MB [id number]) Manual Therapy Treatment Other Other Manual Treatments Pt is agreeable to Counterstrain to assess and treat fascial tension. PT assesses and treats the following systems: Left DPR, Left sinuvertebral, right dura , right sinuvertebral cervical and thoracic (similar to the left). Positional release right masseter. MWM left anterior scalene with PT providing trigger point pressure and pt performing active cervical rotation. PT-OP-T Assessment and Plan Start: 02/04/19 07:28 Freq: Status: Active Protocol: Document 10/09/19 09:03 MB (Rec: 10/09/19 09:49 MB [id number]) Physical Therapy Assessment Rehab Potential Rehabilitation Potential Fair Evaluation Complexity Number of Personal Factors/Comorbidities 3 or More Number of Body Systems Impaired 3 Clinical Presentation at Evaluation Evolving Goals 9 Long-Term Goal (LTG) Pt will be able to hang up 5 pieces of clothing by 2019. 08/31/2019: Pt can hang up 3 pieces of clothing. LTG Duration 8 weeks 8 Customer Support Associate Goal (LTG) Pt will present with equal active left shoulder abduction and flexion compared to the right to allow overhead work by 10/19/2019. 08/31/2019: Pt presents with right shoulder abduction and flexion to 180 deg and left shoulder abduction 120 deg and flexion to 100 deg. 6 Long-Term Goal (LTG) Pt will report no more than 1 seizure per month by 10/19/2019 . 08/31/2019: Pt had 1 seizure in 22 days LTG Duration 8 weeks 5 Long-Term Goal (LTG) Pt will present with B shoulder flexion to 5/5 to help with overhead lifting by 10/19/2019. 08/31/2019: Right shoulder flexion 5/5; left shoulder flexion 4/5 in available range LTG Duration 8 weeks 4 Long-Term Goal (LTG) Pt will report no more than 1 headache per month by 2019. 08/31/2019: Pt reports 1 headache every 2.5 weeks, slightly better than progress note that was 2 per month LTG Duration 8 weeks 3 Customer Support Associate Goal (LTG) Pt will perform progressive HEP with I including postural alignment, flexibility, strengthening and relaxation exercises by 10/19/2019. 08/31/2019: Pt has been performing progressive HEP LTG Duration 8 weeks 2 Long-Term Goal (LTG) Pt will present with a QuickDASH score to reflect no more than 20% impairment to allow return to [facility] and improvement of ADLs by 2019. 08/31/2019: QuickDASH score reflects 25% impairment, 25% improvement from last progress note LTG Duration 8 weeks 1 Long-Term Goal (LTG) Pt will present with a NDI score to reflect no more than 20% impairment by 10/19/2019. 08/31/2019: NDI score reflects 24% improvement LTG Duration 8 weeks Progress Towards Goals Progress Towards Goals Progressing Toward Goals Assessment Summary Assessment Manual work today d/t ongoing tension. Will con't exercise progression as pt tolerates. Physical Therapy Plan Frequency and Duration Frequency of Treatment 2x/Week Duration of Treatment 6 weeks Plan of Care Start Date 08/31/19 Plan of Care End Date 10/19/19 Therapeutic Interventions Therapeutic Interventions Balance Training,Canalithic Repositioning,Home Exercise Program,Manual Therapy, Neuromuscular Re-education, Patient/Caregiver Education, Self-Care/Home Management,Soft Tissue Mobilization,Taping, Therapeutic Exercises, Vestibular Rehabilitation Modalities Cold Pack/Ice Massage,Electric Stimulation,Hot Packs, Ultrasound Next Visit Focus/Plan Next Note Type Treatment Note Next Visit Plan Cervical extension and cervical isometric end-range, body mechanics, lifting training, consider mini wall slide, consider Body Blade
--- NOTE | 2019-10-12 12:56 | PT.OTN ---
Current Diagnoses Cervicalgia (10/12/19) Headache (10/12/19) Personal history of traumatic brain injury (10/12/19) Physical Therapy Treatment Note PT-OP-A Visit Information Start: 02/04/19 07:28 Freq: Status: Active Protocol: Document 10/12/19 12:14 MB (Rec: 10/12/19 12:55 MB [id number]) Out-Patient Physical Therapy Visit Information Visit Information Visit Type Progress Note Visit Start Time 12:14 Visit Stop Time 12:54 Total Visit Minutes 40 Visit Number 1 more on auth PT-OP-B Current Condition Start: 02/04/19 07:28 Freq: Status: Active Protocol: Document 02/04/19 09:01 MB (Rec: 02/04/19 09:50 MB [id number]) Current Condition History of Current Condition Onset Date 1.5 years History of Current Condition Pt reports TBI 4 years ago when tripping and hitting head on counter. He had a severe concussion and he was out at least 30 minutes. He went to the hospital and was checked out. He had had post- concussion syndrome for 6 weeks. He would fall out unconsious when sitting at random times. He would not have memory of it. He went from having headaches 1-2 times a year to 4-6 a year. Seizures started 1.5 years ago . They are termed psychogenic seizures. There is no epilectic activity. He screens high for PTSD. Pt states that PTSD may be related to past relationships. They happen out of sleep. He wakes up shaking . He does not think he has headaches. , Joy, describes rocking side to side or pelvic thrusting, head back and eyes rolled upward. He occ has horizontal nystagmus and then his head drops down. Events last 30 sec . He is taking Topamax in the a.m. to help with mood and headaches. He has not gone more than 18 days without a seizure. He has been on Topamax for a week and has not had a seizure. 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 He had trigger point injections. He has to go through series of taking medications including corticosteroids. 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 He and are trying out supportive neck pillows. He sleeps on a wedge. 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 He drinks caffeine and water . occ reports of pt with anger and memory loss connected. These were unlike his normal personality. Pt reports headaches up to a 7 /10 and he has to talk Percicet. Headaches are over the right eye and down into his right face and back of head and feeling right eyeball being squeezed. He sees colors and has horizontal nystagmus. Overall discomfort left upper trap area, 3/10. He has 3-7/10 pain down left arm . Right hernia surgery and pain after right testicle removed. Multiple neural surgeries in the area and he now has a small left inguinal hernia. Pt reports occ tingling 4th and 5th left digit and burning down back of left arm through elbow. Prior Treatments and Tests PT in the past for left shoulder. It went okay. He had it for his right wrist as well. 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 He thinks he is working through some things in REM sleep. Pt states that his left arm is doing a lot better. He thinks that he has more strength. It is not getting tired as fast. He is getting more control with it. PT-OP-J Posture/Palpation/Skin Start: 02/04/19 07:28 Freq: Status: Active Protocol: Document 02/04/19 09:01 MB (Rec: 02/04/19 13:33 MB [id number]) Posture Evaluation Comments Posture Comments Standing posture: forward head , rounded shoulders, Dowager's hump, decreased thoracic kyphosis, increased lumbar lordosis, changes around T6 vertebra that could be stiffness PT-OP-K Range of Motion Start: 02/04/19 07:28 Freq: Status: Active Protocol: Document 02/04/19 09:01 MB (Rec: 02/04/19 13:33 MB [id number]) Cervical Spine Range of Motion Cervical Spine Active Testing Position Standing Flexion 35 Extension 40 Rotation Left 40 Rotation Right 50 Comments Pt reports stretch in right jaw with cervical extension and left upper traps area discomfort 3/10 with flexion PT-OP-M Strength Start: 02/04/19 07:28 Freq: Status: Active Protocol: Document 02/04/19 09:01 MB (Rec: 02/04/19 13:33 MB [id number]) Shoulder Strength Shoulder Manual Muscle Testing Left Flexion 4 Good Abduction (C5) 4 Good External Rotation 5 Normal Internal Rotation 5 Normal Right Flexion 5 Normal Abduction (C5) 5 Normal External Rotation 4 Good Internal Rotation 4 Good Elbow/Forearm Strength Elbow and Forearm Manual Muscle Testing Left Flexion (C6) 5 Normal Extension (C7) 5 Normal Pronation 4 Good Supination 4 Good Right Flexion (C6) 5 Normal Extension (C7) 5 Normal Pronation 4 Good Supination 4 Good Wrist Strength Wrist Manual Muscle Testing Left Flexion (C7) 5 Normal Extension (C6) 5 Normal Right Flexion (C7) 5 Normal Extension (C6) 5 Normal PT-OP-Q Treatments Start: 02/04/19 07:28 Freq: Status: Active Protocol: Document 10/12/19 12:14 MB (Rec: 10/12/19 12:55 MB [id number]) Therapeutic Exercises Other Exercises 4 foam roller Comments Performed pelvic tilt, abd drawing in, PNF2, pect and chicken stretch Reviewed the following HEP exercises today Comments Performed this today during progress note, keep current ex PT-OP-T Assessment and Plan Start: 02/04/19 07:28 Freq: Status: Active Protocol: Document 10/12/19 12:14 MB (Rec: 10/12/19 12:55 MB [id number]) Physical Therapy Assessment Rehab Potential Rehabilitation Potential Fair Evaluation Complexity Number of Personal Factors/Comorbidities 3 or More Number of Body Systems Impaired 3 Clinical Presentation at Evaluation Evolving Goals 9 Jail Goal (LTG) Pt will be able to hang up 5 pieces of clothing by 2019. 10/12/2019: Pt reports he is able to hang up 5 pieces of clothing. He is tired after it but he can do it. LTG Duration 8 weeks 8 Jail Goal (LTG) Pt will present with equal active left shoulder abduction and flexion compared to the right to allow overhead work by 12/12/2019. 10/12/2019: Pt presents with right shoulder abduction and flexion to 180 deg and left shoulder abduction 120 deg and flexion to 126 deg. 6 Jail Goal (LTG) Pt will report no more than 1 seizure per month by 2019. 10/12/2019: Pt had 2 seizures in 8 days. LTG Duration 8 weeks 5 Jail Goal (LTG) Pt will present with B shoulder flexion to 5/5 to help with overhead lifting by 12/12/2019. 10/12/2019: Right shoulder flexion 5/5; left shoulder flexion 5/5 in available range LTG Duration 8 weeks 4 Resolution Rep Goal (LTG) Pt will report no more than 1 headache per month by 2019. 10/12/2019: Pt has only had 1 headache in the last month: goal met LTG Duration 8 weeks 3 Resolution Rep Goal (LTG) Pt will perform progressive HEP with I including postural alignment, flexibility, strengthening and relaxation exercises by 12/12/2019. 10/12/2019: Pt has been performing progressive HEP LTG Duration 8 weeks 2 Jail Goal (LTG) Pt will present with a QuickDASH score to reflect no more than 20% impairment to allow [facility] and improvement of ADLs by 2019. 10/12/2019: QuickDASH score reflects 25% impairment, similar to reassessment 2019 LTG Duration 8 weeks 1 Jail Goal (LTG) Pt will present with a NDI score to reflect no more than 15% impairment by 12/12/2019. 10/12/2019: NDI score reflects 20% impairment, a 4% improvement since 08/31/2019 LTG Duration 8 weeks Progress Towards Goals Progress Towards Goals Progressing Toward Goals Assessment Summary Assessment Pt has progressed towards the following goals since starting PT: NDI score, left shoulder ROM and strength, reports of less headches, ability to hang up clothes and performance of progressive HEP. He con't with seizures that are becoming more frequent recently and he and and therapist feel may be related related to working through things in REM sleep. His QuickDASH score is similar to Dolores but much better than at assessment. Pt's left shoulder in setting of old brachial plexus, AC joint separation and rotator cuff injury are his biggest issues. He is very compliant with PT recommendations and HEP. He will benefit from ongoing PT to make further improvement towards goals. Will decrease to 1x/wk next week. Consider [place] Protocol next treatment. Physical Therapy Plan Frequency and Duration Frequency of Treatment 2x/Week Duration of Treatment 8 weeks Plan of Care Start Date 10/12/19 Plan of Care End Date 12/14/19 Therapeutic Interventions Therapeutic Interventions Balance Training,Canalithic Repositioning,Home Exercise Program,Manual Therapy, Neuromuscular Re-education, Patient/Caregiver Education, Self-Care/Home Management,Soft Tissue Mobilization,Taping, Therapeutic Exercises, Vestibular Rehabilitation Modalities Cold Pack/Ice Massage,Electric Stimulation,Hot Packs, Ultrasound Other Therapeutic Interventions 2x/wk x1 week and then decrease to 1x/wk 7 weeks, may consider ending therapy duration sooner than 7 weeks if indicated Next Visit Focus/Plan Next Note Type Treatment Note Next Visit Plan Cervical extension and cervical isometric end-range, body mechanics, lifting training, consider mini wall slide, consider Body Blade
--- NOTE | 2019-10-12 12:57 | PT.OPPOC ---
Physical, Occupational & Speech Therapy At [facility] Current Diagnoses Cervicalgia (10/12/19) Headache (10/12/19) Personal history of traumatic brain injury (10/12/19) Visit Care Team Role Provider Type Elisha Mello DO Attending Provider Non-Staff Primary Care Provider Specialty: Medical Address: [address] [place] [address], [phone] Email: Plan Of Care PT-OP-T Assessment and Plan Start: 02/04/19 07:28 Freq: Status: Active Protocol: Document 10/12/19 12:14 MB (Rec: 10/12/19 12:55 MB [id number]) Physical Therapy Assessment Rehab Potential Rehabilitation Potential Fair Evaluation Complexity Number of Personal Factors/Comorbidities 3 or More Number of Body Systems Impaired 3 Clinical Presentation at Evaluation Evolving Goals 9 Polisher And Buffer Goal (LTG) Pt will be able to hang up 5 pieces of clothing by 2019. 10/12/2019: Pt reports he is able to hang up 5 pieces of clothing. He is tired after it but he can do it. LTG Duration 8 weeks 8 Skilled Nursing Goal (LTG) Pt will present with equal active left shoulder abduction and flexion compared to the right to allow overhead work by 12/12/2019. 10/12/2019: Pt presents with right shoulder abduction and flexion to 180 deg and left shoulder abduction 120 deg and flexion to 126 deg. 6 Polisher And Buffer Goal (LTG) Pt will report no more than 1 seizure per month by 2019. 10/12/2019: Pt had 2 seizures in 8 days. LTG Duration 8 weeks 5 Skilled Nursing Goal (LTG) Pt will present with B shoulder flexion to 5/5 to help with overhead lifting by 12/12/2019. 10/12/2019: Right shoulder flexion 5/5; left shoulder flexion 5/5 in available range LTG Duration 8 weeks 4 Skilled Nursing Goal (LTG) Pt will report no more than 1 headache per month by 2019. 10/12/2019: Pt has only had 1 headache in the last month: goal met LTG Duration 8 weeks 3 Skilled Nursing Goal (LTG) Pt will perform progressive HEP with I including postural alignment, flexibility, strengthening and relaxation exercises by 12/12/2019. 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 10/12/2019: QuickDASH score reflects 25% impairment, similar to reassessment 2019 LTG Duration 8 weeks 1 Skilled Nursing Goal (LTG) Pt will present with a NDI score to reflect no more than 15% impairment by 12/12/2019. 10/12/2019: NDI score reflects 20% impairment, a 4% improvement since 08/31/2019 LTG Duration 8 weeks Progress Towards Goals Progress Towards Goals Progressing Toward Goals Assessment Summary Assessment Pt has progressed towards the following goals since starting PT: NDI score, left shoulder ROM and strength, reports of less headches, ability to hang up clothes and performance of progressive HEP. He con't with seizures that are becoming more frequent recently and he and and therapist feel may be related related to working through things in REM sleep. His QuickDASH score is similar to Dolores but much better than at assessment. Pt's left shoulder in setting of old brachial plexus, AC joint separation and rotator cuff injury are his biggest issues. He is very compliant with PT recommendations and HEP. He will benefit from ongoing PT to make further improvement towards goals. Will decrease to 1x/wk next week. Consider [place] Protocol next treatment. Physical Therapy Plan Frequency and Duration Frequency of Treatment 2x/Week Duration of Treatment 8 weeks Plan of Care Start Date 10/12/19 Plan of Care End Date 12/14/19 Therapeutic Interventions Therapeutic Interventions Balance Training,Canalithic Repositioning,Home Exercise Program,Manual Therapy, Neuromuscular Re-education, Patient/Caregiver Education, Self-Care/Home Management,Soft Tissue Mobilization,Taping, Therapeutic Exercises, Vestibular Rehabilitation Modalities Cold Pack/Ice Massage,Electric Stimulation,Hot Packs, Ultrasound Other Therapeutic Interventions 2x/wk x1 week and then decrease to 1x/wk 7 weeks, may consider ending therapy duration sooner than 7 weeks if indicated Next Visit Focus/Plan Next Note Type Treatment Note Next Visit Plan Cervical extension and cervical isometric end-range, body mechanics, lifting training, consider mini wall slide, consider Body Blade Plan of Care Dates Plan of Care Start Date 10/12/19 Plan of Care End Date 12/14/19 Electronically Signed by: Lisandra Little PT 10/12/19 1257 Please Sign and Return: I have reviewed this Plan of Care and certify that the skilled therapy services above are required to meet the patient?s needs. Physician Signature Date Printed Name and Credentials Clinical Instructor Signature Printed Name and Credentials
--- NOTE | 2019-10-16 09:47 | PT.OTN ---
Current Diagnoses Cervicalgia (10/16/19) Headache (10/16/19) Personal history of traumatic brain injury (10/16/19) Physical Therapy Treatment Note PT-OP-A Visit Information Start: 02/04/19 07:28 Freq: Status: Active Protocol: Document 10/16/19 09:02 MB (Rec: 10/16/19 09:46 MB [id number]) Out-Patient Physical Therapy Visit Information Visit Information Visit Type Treatment Note Visit Start Time 09:02 Visit Stop Time 09:42 Total Visit Minutes 40 Visit Number Last on auth PT-OP-B Current Condition Start: 02/04/19 07:28 Freq: Status: Active Protocol: Document 02/04/19 09:01 MB (Rec: 02/04/19 09:50 MB [id number]) Current Condition History of Current Condition Onset Date 1.5 years History of Current Condition Pt reports TBI 4 years ago when tripping and hitting head on counter. He had a severe concussion and he was out at least 30 minutes. He went to the hospital and was checked out. He had had post- concussion syndrome for 6 weeks. He would fall out unconsious when sitting at random times. He would not have memory of it. He went from having headaches 1-2 times a year to 4-6 a year. Seizures started 1.5 years ago . They are termed psychogenic seizures. There is no epilectic activity. He screens high for PTSD. Pt states that PTSD may be related to past relationships. They happen out of sleep. He wakes up shaking . He does not think he has headaches. , Joy, describes rocking side to side or pelvic thrusting, head back and eyes rolled upward. He occ has horizontal nystagmus and then his head drops down. Events last 30 sec . He is taking Topamax in the a.m. to help with mood and headaches. He has not gone more than 18 days without a seizure. He has been on Topamax for a week and has not had a seizure. 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 He had trigger point injections. He has to go through series of taking medications including corticosteroids. 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 He and are trying out supportive neck pillows. He sleeps on a wedge. 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 He drinks caffeine and water . occ reports of pt with anger and memory loss connected. These were unlike his normal personality. Pt reports headaches up to a 7 /10 and he has to talk Percicet. Headaches are over the right eye and down into his right face and back of head and feeling right eyeball being squeezed. He sees colors and has horizontal nystagmus. Overall discomfort left upper trap area, 3/10. He has 3-7/10 pain down left arm . Right hernia surgery and pain after right testicle removed. Multiple neural surgeries in the area and he now has a small left inguinal hernia. Pt reports occ tingling 4th and 5th left digit and burning down back of left arm through elbow. Prior Treatments and Tests PT in the past for left shoulder. It went okay. He had it for his right wrist as well. Right TMJ injections PT-OP-C Subjective Start: 02/04/19 07:28 Freq: Status: Active Protocol: Document 10/16/19 09:02 MB (Rec: 10/16/19 09:46 MB [id number]) OP-PT Subjective Patient Comments Patient Comments Pt denies more seizures. I am feeling alright today. PT-OP-J Posture/Palpation/Skin Start: 02/04/19 07:28 Freq: Status: Active Protocol: Document 02/04/19 09:01 MB (Rec: 02/04/19 13:33 MB [id number]) Posture Evaluation Comments Posture Comments Standing posture: forward head , rounded shoulders, Dowager's hump, decreased thoracic kyphosis, increased lumbar lordosis, changes around T6 vertebra that could be stiffness PT-OP-K Range of Motion Start: 02/04/19 07:28 Freq: Status: Active Protocol: Document 02/04/19 09:01 MB (Rec: 02/04/19 13:33 MB [id number]) Cervical Spine Range of Motion Cervical Spine Active Testing Position Standing Flexion 35 Extension 40 Rotation Left 40 Rotation Right 50 Comments Pt reports stretch in right jaw with cervical extension and left upper traps area discomfort 3/10 with flexion PT-OP-M Strength Start: 02/04/19 07:28 Freq: Status: Active Protocol: Document 02/04/19 09:01 MB (Rec: 02/04/19 13:33 MB [id number]) Shoulder Strength Shoulder Manual Muscle Testing Left Flexion 4 Good Abduction (C5) 4 Good External Rotation 5 Normal Internal Rotation 5 Normal Right Flexion 5 Normal Abduction (C5) 5 Normal External Rotation 4 Good Internal Rotation 4 Good Elbow/Forearm Strength Elbow and Forearm Manual Muscle Testing Left Flexion (C6) 5 Normal Extension (C7) 5 Normal Pronation 4 Good Supination 4 Good Right Flexion (C6) 5 Normal Extension (C7) 5 Normal Pronation 4 Good Supination 4 Good Wrist Strength Wrist Manual Muscle Testing Left Flexion (C7) 5 Normal Extension (C6) 5 Normal Right Flexion (C7) 5 Normal Extension (C6) 5 Normal PT-OP-Q Treatments Start: 02/04/19 07:28 Freq: Status: Active Protocol: Document 10/16/19 09:02 MB (Rec: 10/16/19 09:46 MB [id number]) Manual Therapy Treatment Manual Techniques [place] Protocol Comments See active range before treatment. Left shoulder treatment with most tension with windmill and passive abduction. 1st rib isometric mob on the left and MWM with breathing recoil B SC and sternocostal joints, MWM left pect with PT putting pressure on trigger point and pt performing active left shoulder ER and IR PT-OP-T Assessment and Plan Start: 02/04/19 07:28 Freq: Status: Active Protocol: Document 10/16/19 09:02 MB (Rec: 10/16/19 09:46 MB [id number]) Physical Therapy Assessment Rehab Potential Rehabilitation Potential Fair Evaluation Complexity Number of Personal Factors/Comorbidities 3 or More Number of Body Systems Impaired 3 Clinical Presentation at Evaluation Evolving Goals 9 [facility] Goal (LTG) Pt will be able to hang up 5 pieces of clothing by 2019. 10/12/2019: Pt reports he is able to hang up 5 pieces of clothing. He is tired after it but he can do it. LTG Duration 8 weeks 8 [facility] Goal (LTG) Pt will present with equal active left shoulder abduction and flexion compared to the right to allow overhead work by 12/12/2019. 10/12/2019: Pt presents with right shoulder abduction and flexion to 180 deg and left shoulder abduction 120 deg and flexion to 126 deg. 6 [facility] Goal (LTG) Pt will report no more than 1 seizure per month by 2019. 10/12/2019: Pt had 2 seizures in 8 days. LTG Duration 8 weeks 5 [facility] Goal (LTG) Pt will present with B shoulder flexion to 5/5 to help with overhead lifting by 12/12/2019. 10/12/2019: Right shoulder flexion 5/5; left shoulder flexion 5/5 in available range LTG Duration 8 weeks 4 [facility] Goal (LTG) Pt will report no more than 1 headache per month by 2019. 10/12/2019: Pt has only had 1 headache in the last month: goal met LTG Duration 8 weeks 3 [facility] Goal (LTG) Pt will perform progressive HEP with I including postural alignment, flexibility, strengthening and relaxation exercises by 12/12/2019. 10/12/2019: Pt has been performing progressive HEP LTG Duration 8 weeks 2 Large Sheetfed Press Operator Goal (LTG) Pt will present with a QuickDASH score to reflect no more than 20% impairment to allow return to [facility] and improvement of ADLs by 2019. 10/12/2019: QuickDASH score reflects 25% impairment, similar to reassessment 2019 LTG Duration 8 weeks 1 Large Sheetfed Press Operator Goal (LTG) Pt will present with a NDI score to reflect no more than 15% impairment by 12/12/2019. 10/12/2019: NDI score reflects 20% impairment, a 4% improvement since 08/31/2019 LTG Duration 8 weeks Progress Towards Goals Progress Towards Goals Progressing Toward Goals Assessment Summary Assessment Before treatment: AROM left shoulder flexion 120 deg, abduction 100 deg, ER standing similar to the right, IR to T10. After treatment active shoulder abduction left 135 deg, flexion 137 deg and IR to T8. Pt presents with left pect minor tightness, supraspinatus tightness Physical Therapy Plan Frequency and Duration Frequency of Treatment 2x/Week Duration of Treatment 8 weeks Plan of Care Start Date 10/12/19 Plan of Care End Date 12/14/19 Therapeutic Interventions Therapeutic Interventions Balance Training,Canalithic Repositioning,Home Exercise Program,Manual Therapy, Neuromuscular Re-education, Patient/Caregiver Education, Self-Care/Home Management,Soft Tissue Mobilization,Taping, Therapeutic Exercises, Vestibular Rehabilitation Modalities Cold Pack/Ice Massage,Electric Stimulation,Hot Packs, Ultrasound Other Therapeutic Interventions 2x/wk x1 week and then decrease to 1x/wk 7 weeks, may consider ending therapy duration sooner than 7 weeks if indicated Next Visit Focus/Plan Next Note Type Treatment Note Next Visit Plan Cervical extension and cervical isometric end-range, body mechanics, lifting training, consider mini wall slide, consider Body Blade
--- NOTE | 2019-10-23 10:30 | PT.OTN ---
Current Diagnoses Cervicalgia (10/23/19) Headache (10/23/19) Personal history of traumatic brain injury (10/23/19) Physical Therapy Treatment Note PT-OP-A Visit Information Start: 02/04/19 07:28 Freq: Status: Active Protocol: Document 10/23/19 09:48 MB (Rec: 10/23/19 09:56 MB [id number]) Out-Patient Physical Therapy Visit Information Visit Information Visit Type Treatment Note Visit Start Time 09:48 Visit Stop Time 10:30 Total Visit Minutes 42 Visit Number 03/01 PT-OP-B Current Condition Start: 02/04/19 07:28 Freq: Status: Active Protocol: Document 02/04/19 09:01 MB (Rec: 02/04/19 09:50 MB [id number]) Current Condition History of Current Condition Onset Date 1.5 years History of Current Condition Pt reports TBI 4 years ago when tripping and hitting head on counter. He had a severe concussion and he was out at least 30 minutes. He went to the hospital and was checked out. He had had post- concussion syndrome for 6 weeks. He would fall out unconsious when sitting at random times. He would not have memory of it. He went from having headaches 1-2 times a year to 4-6 a year. Seizures started 1.5 years ago . They are termed psychogenic seizures. There is no epilectic activity. He screens high for PTSD. Pt states that PTSD may be related to past relationships. They happen out of sleep. He wakes up shaking . He does not think he has headaches. , Joy, describes rocking side to side or pelvic thrusting, head back and eyes rolled upward. He occ has horizontal nystagmus and then his head drops down. Events last 30 sec . He is taking Topamax in the a.m. to help with mood and headaches. He has not gone more than 18 days without a seizure. He has been on Topamax for a week and has not had a seizure. 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 He had trigger point injections. He has to go through series of taking medications including corticosteroids. 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 He and are trying out supportive neck pillows. He sleeps on a wedge. 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 He drinks caffeine and water . occ reports of pt with anger and memory loss connected. These were unlike his normal personality. Pt reports headaches up to a 7 /10 and he has to talk Percicet. Headaches are over the right eye and down into his right face and back of head and feeling right eyeball being squeezed. He sees colors and has horizontal nystagmus. Overall discomfort left upper trap area, 3/10. He has 3-7/10 pain down left arm . Right hernia surgery and pain after right testicle removed. Multiple neural surgeries in the area and he now has a small left inguinal hernia. Pt reports occ tingling 4th and 5th left digit and burning down back of left arm through elbow. Prior Treatments and Tests PT in the past for left shoulder. It went okay. He had it for his right wrist as well. Right TMJ injections PT-OP-C Subjective Start: 02/04/19 07:28 Freq: Status: Active Protocol: Document 10/23/19 09:48 MB (Rec: 10/23/19 09:56 MB [id number]) OP-PT Subjective Patient Comments Patient Comments My arm is moving a lot better . My upper traps and pect are still tight. PT-OP-J Posture/Palpation/Skin Start: 02/04/19 07:28 Freq: Status: Active Protocol: Document 02/04/19 09:01 MB (Rec: 02/04/19 13:33 MB [id number]) Posture Evaluation Comments Posture Comments Standing posture: forward head , rounded shoulders, Dowager's hump, decreased thoracic kyphosis, increased lumbar lordosis, changes around T6 vertebra that could be stiffness PT-OP-K Range of Motion Start: 02/04/19 07:28 Freq: Status: Active Protocol: Document 02/04/19 09:01 MB (Rec: 02/04/19 13:33 MB [id number]) Cervical Spine Range of Motion Cervical Spine Active Testing Position Standing Flexion 35 Extension 40 Rotation Left 40 Rotation Right 50 Comments Pt reports stretch in right jaw with cervical extension and left upper traps area discomfort 3/10 with flexion PT-OP-M Strength Start: 02/04/19 07:28 Freq: Status: Active Protocol: Document 02/04/19 09:01 MB (Rec: 02/04/19 13:33 MB [id number]) Shoulder Strength Shoulder Manual Muscle Testing Left Flexion 4 Good Abduction (C5) 4 Good External Rotation 5 Normal Internal Rotation 5 Normal Right Flexion 5 Normal Abduction (C5) 5 Normal External Rotation 4 Good Internal Rotation 4 Good Elbow/Forearm Strength Elbow and Forearm Manual Muscle Testing Left Flexion (C6) 5 Normal Extension (C7) 5 Normal Pronation 4 Good Supination 4 Good Right Flexion (C6) 5 Normal Extension (C7) 5 Normal Pronation 4 Good Supination 4 Good Wrist Strength Wrist Manual Muscle Testing Left Flexion (C7) 5 Normal Extension (C6) 5 Normal Right Flexion (C7) 5 Normal Extension (C6) 5 Normal PT-OP-Q Treatments Start: 02/04/19 07:28 Freq: Status: Active Protocol: Document 10/23/19 09:48 MB (Rec: 10/23/19 09:56 MB [id number]) Manual Therapy Treatment Manual Techniques [place] Protocol Comments [place] protocol left shoulder as well as MWM for left pect with pt in hook lying, resisted IR and ER for retraining as well as fascial mobility PT-OP-T Assessment and Plan Start: 02/04/19 07:28 Freq: Status: Active Protocol: Document 10/23/19 09:48 MB (Rec: 10/23/19 09:56 MB [id number]) Physical Therapy Assessment Rehab Potential Rehabilitation Potential Fair Evaluation Complexity Number of Personal Factors/Comorbidities 3 or More Number of Body Systems Impaired 3 Clinical Presentation at Evaluation Evolving Goals 9 Care Home Goal (LTG) Pt will be able to hang up 5 pieces of clothing by 2019. 10/12/2019: Pt reports he is able to hang up 5 pieces of clothing. He is tired after it but he can do it. LTG Duration 8 weeks 8 Coremaker Pipe Goal (LTG) Pt will present with equal active left shoulder abduction and flexion compared to the right to allow overhead work by 12/12/2019. 10/12/2019: Pt presents with right shoulder abduction and flexion to 180 deg and left shoulder abduction 120 deg and flexion to 126 deg. 6 Care Home Goal (LTG) Pt will report no more than 1 seizure per month by 2019. 10/12/2019: Pt had 2 seizures in 8 days. LTG Duration 8 weeks 5 Care Home Goal (LTG) Pt will present with B shoulder flexion to 5/5 to help with overhead lifting by 12/12/2019. 10/12/2019: Right shoulder flexion 5/5; left shoulder flexion 5/5 in available range LTG Duration 8 weeks 4 Care Home Goal (LTG) Pt will report no more than 1 headache per month by 2019. 10/12/2019: Pt has only had 1 headache in the last month: goal met LTG Duration 8 weeks 3 Coremaker Pipe Goal (LTG) Pt will perform progressive HEP with I including postural alignment, flexibility, strengthening and relaxation exercises by 12/12/2019. 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 10/12/2019: QuickDASH score reflects 25% impairment, similar to reassessment 2019 LTG Duration 8 weeks 1 Care Home Goal (LTG) Pt will present with a NDI score to reflect no more than 15% impairment by 12/12/2019. 10/12/2019: NDI score reflects 20% impairment, a 4% improvement since 08/31/2019 LTG Duration 8 weeks Progress Towards Goals Progress Towards Goals Progressing Toward Goals Assessment Summary Assessment Ongoing improved left shoulder range and fascial improvement with mobs and MWM. AROM left shoulder flexion to 130 deg after treatment and abduction 125 deg. Suprasinatus and pect tension slightly improved. Con't progression. Physical Therapy Plan Frequency and Duration Frequency of Treatment 2x/Week Duration of Treatment 8 weeks Plan of Care Start Date 10/12/19 Plan of Care End Date 12/14/19 Therapeutic Interventions Therapeutic Interventions Balance Training,Canalithic Repositioning,Home Exercise Program,Manual Therapy, Neuromuscular Re-education, Patient/Caregiver Education, Self-Care/Home Management,Soft Tissue Mobilization,Taping, Therapeutic Exercises, Vestibular Rehabilitation Modalities Cold Pack/Ice Massage,Electric Stimulation,Hot Packs, Ultrasound Other Therapeutic Interventions 2x/wk x1 week and then decrease to 1x/wk 7 weeks, may consider ending therapy duration sooner than 7 weeks if indicated Next Visit Focus/Plan Next Note Type Treatment Note Next Visit Plan Cervical extension and cervical isometric end-range, body mechanics, lifting training, consider mini wall slide, consider Body Blade
--- NOTE | 2019-10-28 15:22 | PT.OTN ---
Current Diagnoses Cervicalgia (10/28/19) Headache (10/28/19) Personal history of traumatic brain injury (10/28/19) Physical Therapy Treatment Note PT-OP-A Visit Information Start: 02/04/19 07:28 Freq: Status: Active Protocol: Document 10/28/19 14:35 MB (Rec: 10/28/19 15:22 MB [id number]) Out-Patient Physical Therapy Visit Information Visit Information Visit Type Treatment Note Visit Start Time 14:35 Visit Stop Time 15:20 Total Visit Minutes 45 Visit Number 04/01 PT-OP-B Current Condition Start: 02/04/19 07:28 Freq: Status: Active Protocol: Document 02/04/19 09:01 MB (Rec: 02/04/19 09:50 MB [id number]) Current Condition History of Current Condition Onset Date 1.5 years History of Current Condition Pt reports TBI 4 years ago when tripping and hitting head on counter. He had a severe concussion and he was out at least 30 minutes. He went to the hospital and was checked out. He had had post- concussion syndrome for 6 weeks. He would fall out unconsious when sitting at random times. He would not have memory of it. He went from having headaches 1-2 times a year to 4-6 a year. Seizures started 1.5 years ago . They are termed psychogenic seizures. There is no epilectic activity. He screens high for PTSD. Pt states that PTSD may be related to past relationships. They happen out of sleep. He wakes up shaking . He does not think he has headaches. , Joy, describes rocking side to side or pelvic thrusting, head back and eyes rolled upward. He occ has horizontal nystagmus and then his head drops down. Events last 30 sec . He is taking Topamax in the a.m. to help with mood and headaches. He has not gone more than 18 days without a seizure. He has been on Topamax for a week and has not had a seizure. 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 He had trigger point injections. He has to go through series of taking medications including corticosteroids. 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 He and are trying out supportive neck pillows. He sleeps on a wedge. 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 He drinks caffeine and water . occ reports of pt with anger and memory loss connected. These were unlike his normal personality. Pt reports headaches up to a 7 /10 and he has to talk Percicet. Headaches are over the right eye and down into his right face and back of head and feeling right eyeball being squeezed. He sees colors and has horizontal nystagmus. Overall discomfort left upper trap area, 3/10. He has 3-7/10 pain down left arm . Right hernia surgery and pain after right testicle removed. Multiple neural surgeries in the area and he now has a small left inguinal hernia. Pt reports occ tingling 4th and 5th left digit and burning down back of left arm through elbow. Prior Treatments and Tests PT in the past for left shoulder. It went okay. He had it for his right wrist as well. Right TMJ injections PT-OP-C Subjective Start: 02/04/19 07:28 Freq: Status: Active Protocol: Document 10/28/19 14:35 MB (Rec: 10/28/19 15:22 MB [id number]) OP-PT Subjective Patient Comments Patient Comments Pt reports that his left AC is a little sore. He is sleeping good and he has not had another seizure (10 days since last one). PT-OP-J Posture/Palpation/Skin Start: 02/04/19 07:28 Freq: Status: Active Protocol: Document 02/04/19 09:01 MB (Rec: 02/04/19 13:33 MB [id number]) Posture Evaluation Comments Posture Comments Standing posture: forward head , rounded shoulders, Dowager's hump, decreased thoracic kyphosis, increased lumbar lordosis, changes around T6 vertebra that could be stiffness PT-OP-K Range of Motion Start: 02/04/19 07:28 Freq: Status: Active Protocol: Document 02/04/19 09:01 MB (Rec: 02/04/19 13:33 MB [id number]) Cervical Spine Range of Motion Cervical Spine Active Testing Position Standing Flexion 35 Extension 40 Rotation Left 40 Rotation Right 50 Comments Pt reports stretch in right jaw with cervical extension and left upper traps area discomfort 3/10 with flexion PT-OP-M Strength Start: 02/04/19 07:28 Freq: Status: Active Protocol: Document 02/04/19 09:01 MB (Rec: 02/04/19 13:33 MB [id number]) Shoulder Strength Shoulder Manual Muscle Testing Left Flexion 4 Good Abduction (C5) 4 Good External Rotation 5 Normal Internal Rotation 5 Normal Right Flexion 5 Normal Abduction (C5) 5 Normal External Rotation 4 Good Internal Rotation 4 Good Elbow/Forearm Strength Elbow and Forearm Manual Muscle Testing Left Flexion (C6) 5 Normal Extension (C7) 5 Normal Pronation 4 Good Supination 4 Good Right Flexion (C6) 5 Normal Extension (C7) 5 Normal Pronation 4 Good Supination 4 Good Wrist Strength Wrist Manual Muscle Testing Left Flexion (C7) 5 Normal Extension (C6) 5 Normal Right Flexion (C7) 5 Normal Extension (C6) 5 Normal PT-OP-Q Treatments Start: 02/04/19 07:28 Freq: Status: Active Protocol: Document 10/28/19 14:35 MB (Rec: 10/28/19 15:22 MB [id number]) Therapeutic Exercises Supine Exercises 6 foam roller, shoulder flexion with level 1 band Reps/Minutes 5 Comments Pelvic tilt, abd drawing in, arms straight, band looped around wrists Foam roller triceps with level one loop band Reps/Minutes 5 Comments Pelvic tilt, abd drawing in, triceps with level 1 band Standing Exercises Scapular and shoulder extension strengthening with level 2 band Comments Level 3 band, 5 reps Manual Therapy Treatment Other Other Manual Treatments Pt agrees to Counterstrain to assess and treat fascial tension of the following systems: left visceral, left anterior neural UE, left cranial, B lymphatic spinal extension PT-OP-T Assessment and Plan Start: 02/04/19 07:28 Freq: Status: Active Protocol: Document 10/28/19 14:35 MB (Rec: 10/28/19 15:22 MB [id number]) Physical Therapy Assessment Rehab Potential Rehabilitation Potential Fair Evaluation Complexity Number of Personal Factors/Comorbidities 3 or More Number of Body Systems Impaired 3 Clinical Presentation at Evaluation Evolving Goals 9 Metallurgical Inspector Goal (LTG) Pt will be able to hang up 5 pieces of clothing by 2019. 10/12/2019: Pt reports he is able to hang up 5 pieces of clothing. He is tired after it but he can do it. LTG Duration 8 weeks 8 Metallurgical Inspector Goal (LTG) Pt will present with equal active left shoulder abduction and flexion compared to the right to allow overhead work by 12/12/2019. 10/12/2019: Pt presents with right shoulder abduction and flexion to 180 deg and left shoulder abduction 120 deg and flexion to 126 deg. 6 Fpc Goal (LTG) Pt will report no more than 1 seizure per month by 2019. 10/12/2019: Pt had 2 seizures in 8 days. LTG Duration 8 weeks 5 Metallurgical Inspector Goal (LTG) Pt will present with B shoulder flexion to 5/5 to help with overhead lifting by 12/12/2019. 10/12/2019: Right shoulder flexion 5/5; left shoulder flexion 5/5 in available range LTG Duration 8 weeks 4 Fpc Goal (LTG) Pt will report no more than 1 headache per month by 2019. 10/12/2019: Pt has only had 1 headache in the last month: goal met LTG Duration 8 weeks 3 Metallurgical Inspector Goal (LTG) Pt will perform progressive HEP with I including postural alignment, flexibility, strengthening and relaxation exercises by 12/12/2019. 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 10/12/2019: QuickDASH score reflects 25% impairment, similar to reassessment 2019 LTG Duration 8 weeks 1 Fpc Goal (LTG) Pt will present with a NDI score to reflect no more than 15% impairment by 12/12/2019. 10/12/2019: NDI score reflects 20% impairment, a 4% improvement since 08/31/2019 LTG Duration 8 weeks Progress Towards Goals Progress Towards Goals Progressing Toward Goals Assessment Summary Assessment Progressed strengthening today and pt responds well to Counterstrain to address left shoulder stiffness near traps and AC joint. Physical Therapy Plan Frequency and Duration Frequency of Treatment 2x/Week Duration of Treatment 8 weeks Plan of Care Start Date 10/12/19 Plan of Care End Date 12/14/19 Therapeutic Interventions Therapeutic Interventions Balance Training,Canalithic Repositioning,Home Exercise Program,Manual Therapy, Neuromuscular Re-education, Patient/Caregiver Education, Self-Care/Home Management,Soft Tissue Mobilization,Taping, Therapeutic Exercises, Vestibular Rehabilitation Modalities Cold Pack/Ice Massage,Electric Stimulation,Hot Packs, Ultrasound Other Therapeutic Interventions 2x/wk x1 week and then decrease to 1x/wk 7 weeks, may consider ending therapy duration sooner than 7 weeks if indicated Next Visit Focus/Plan Next Note Type Treatment Note Next Visit Plan Cervical extension and cervical isometric end-range, body mechanics, lifting training, consider mini wall slide, consider Body Blade
--- NOTE | 2019-11-13 09:47 | PT.OTN ---
Current Diagnoses Cervicalgia (11/13/19) Headache (11/13/19) Personal history of traumatic brain injury (11/13/19) Physical Therapy Treatment Note PT-OP-A Visit Information Start: 02/04/19 07:28 Freq: Status: Active Protocol: Document 11/13/19 09:04 MB (Rec: 11/13/19 09:43 MB [id number]) Out-Patient Physical Therapy Visit Information Visit Information Visit Type Treatment Note Visit Start Time 09:04 Visit Stop Time 09:45 Total Visit Minutes 41 Visit Number 04/29 PT-OP-B Current Condition Start: 02/04/19 07:28 Freq: Status: Active Protocol: Document 02/04/19 09:01 MB (Rec: 02/04/19 09:50 MB [id number]) Current Condition History of Current Condition Onset Date 1.5 years History of Current Condition Pt reports TBI 4 years ago when tripping and hitting head on counter. He had a severe concussion and he was out at least 30 minutes. He went to the hospital and was checked out. He had had post- concussion syndrome for 6 weeks. He would fall out unconsious when sitting at random times. He would not have memory of it. He went from having headaches 1-2 times a year to 4-6 a year. Seizures started 1.5 years ago . They are termed psychogenic seizures. There is no epilectic activity. He screens high for PTSD. Pt states that PTSD may be related to past relationships. They happen out of sleep. He wakes up shaking . He does not think he has headaches. , Joy, describes rocking side to side or pelvic thrusting, head back and eyes rolled upward. He occ has horizontal nystagmus and then his head drops down. Events last 30 sec . He is taking Topamax in the a.m. to help with mood and headaches. He has not gone more than 18 days without a seizure. He has been on Topamax for a week and has not had a seizure. 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 He had trigger point injections. He has to go through series of taking medications including corticosteroids. 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 He and are trying out supportive neck pillows. He sleeps on a wedge. 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 He drinks caffeine and water . occ reports of pt with anger and memory loss connected. These were unlike his normal personality. Pt reports headaches up to a 7 /10 and he has to talk Percicet. Headaches are over the right eye and down into his right face and back of head and feeling right eyeball being squeezed. He sees colors and has horizontal nystagmus. Overall discomfort left upper trap area, 3/10. He has 3-7/10 pain down left arm . Right hernia surgery and pain after right testicle removed. Multiple neural surgeries in the area and he now has a small left inguinal hernia. Pt reports occ tingling 4th and 5th left digit and burning down back of left arm through elbow. Prior Treatments and Tests PT in the past for left shoulder. It went okay. He had it for his right wrist as well. Right TMJ injections PT-OP-C Subjective Start: 02/04/19 07:28 Freq: Status: Active Protocol: Document 11/13/19 09:04 MB (Rec: 11/13/19 09:43 MB [id number]) OP-PT Subjective Patient Comments Patient Comments I'm still having a little trouble with weights overhead. I still have that impingement at about 90 deg. PT-OP-J Posture/Palpation/Skin Start: 02/04/19 07:28 Freq: Status: Active Protocol: Document 02/04/19 09:01 MB (Rec: 02/04/19 13:33 MB [id number]) Posture Evaluation Comments Posture Comments Standing posture: forward head , rounded shoulders, Dowager's hump, decreased thoracic kyphosis, increased lumbar lordosis, changes around T6 vertebra that could be stiffness PT-OP-K Range of Motion Start: 02/04/19 07:28 Freq: Status: Active Protocol: Document 02/04/19 09:01 MB (Rec: 02/04/19 13:33 MB [id number]) Cervical Spine Range of Motion Cervical Spine Active Testing Position Standing Flexion 35 Extension 40 Rotation Left 40 Rotation Right 50 Comments Pt reports stretch in right jaw with cervical extension and left upper traps area discomfort 3/10 with flexion PT-OP-M Strength Start: 02/04/19 07:28 Freq: Status: Active Protocol: Document 02/04/19 09:01 MB (Rec: 02/04/19 13:33 MB [id number]) Shoulder Strength Shoulder Manual Muscle Testing Left Flexion 4 Good Abduction (C5) 4 Good External Rotation 5 Normal Internal Rotation 5 Normal Right Flexion 5 Normal Abduction (C5) 5 Normal External Rotation 4 Good Internal Rotation 4 Good Elbow/Forearm Strength Elbow and Forearm Manual Muscle Testing Left Flexion (C6) 5 Normal Extension (C7) 5 Normal Pronation 4 Good Supination 4 Good Right Flexion (C6) 5 Normal Extension (C7) 5 Normal Pronation 4 Good Supination 4 Good Wrist Strength Wrist Manual Muscle Testing Left Flexion (C7) 5 Normal Extension (C6) 5 Normal Right Flexion (C7) 5 Normal Extension (C6) 5 Normal PT-OP-Q Treatments Start: 02/04/19 07:28 Freq: Status: Active Protocol: Document 11/13/19 09:04 MB (Rec: 11/13/19 09:43 MB [id number]) Manual Therapy Treatment Manual Techniques Ideal Protocol Comments Ist rib isometric on the left and middle scalene relaxes. Pt agrees to Counterstrain to assess and treat fascial tension. Pt presents with tension at fascial cartilage scan. Most tension in this order and treated as such: right proximal standard lymphatic venous, left pleural and abdominal visceral, left DPR thoracic area, right UE anterior neuro. Also fascial tension right temporalis. Pt responds well to treatment of head and neck lymphatic fascial tension. PT-OP-T Assessment and Plan Start: 02/04/19 07:28 Freq: Status: Active Protocol: Document 11/13/19 09:04 MB (Rec: 11/13/19 09:43 MB [id number]) Physical Therapy Assessment Rehab Potential Rehabilitation Potential Fair Evaluation Complexity Number of Personal Factors/Comorbidities 3 or More Number of Body Systems Impaired 3 Clinical Presentation at Evaluation Evolving Goals 9 [facility]ci Goal (LTG) Pt will be able to hang up 5 pieces of clothing by 2019. 10/12/2019: Pt reports he is able to hang up 5 pieces of clothing. He is tired after it but he can do it. LTG Duration 8 weeks 8 [facility] Goal (LTG) Pt will present with equal active left shoulder abduction and flexion compared to the right to allow overhead work by 12/12/2019. 10/12/2019: Pt presents with right shoulder abduction and flexion to 180 deg and left shoulder abduction 120 deg and flexion to 126 deg. 6 [facility] Goal (LTG) Pt will report no more than 1 seizure per month by 2019. 10/12/2019: Pt had 2 seizures in 8 days. LTG Duration 8 weeks 5 R D Manager Goal (LTG) Pt will present with B shoulder flexion to 5/5 to help with overhead lifting by 12/12/2019. 10/12/2019: Right shoulder flexion 5/5; left shoulder flexion 5/5 in available range LTG Duration 8 weeks 4 [facility] Goal (LTG) Pt will report no more than 1 headache per month by 2019. 10/12/2019: Pt has only had 1 headache in the last month: goal met LTG Duration 8 weeks 3 [facility] Goal (LTG) Pt will perform progressive HEP with I including postural alignment, flexibility, strengthening and relaxation exercises by 12/12/2019. 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 10/12/2019: QuickDASH score reflects 25% impairment, similar to reassessment 2019 LTG Duration 8 weeks 1 R D Manager Goal (LTG) Pt will present with a NDI score to reflect no more than 15% impairment by 12/12/2019. 10/12/2019: NDI score reflects 20% impairment, a 4% improvement since 08/31/2019 LTG Duration 8 weeks Progress Towards Goals Progress Towards Goals Progressing Toward Goals Assessment Summary Assessment Pt presents with better left first rib mobility and right temporalis tension after manual treatment and these may improve his left shoulder range. Con't per POC. Physical Therapy Plan Frequency and Duration Frequency of Treatment 2x/Week Duration of Treatment 8 weeks Plan of Care Start Date 10/12/19 Plan of Care End Date 12/14/19 Therapeutic Interventions Therapeutic Interventions Balance Training,Canalithic Repositioning,Home Exercise Program,Manual Therapy, Neuromuscular Re-education, Patient/Caregiver Education, Self-Care/Home Management,Soft Tissue Mobilization,Taping, Therapeutic Exercises, Vestibular Rehabilitation Modalities Cold Pack/Ice Massage,Electric Stimulation,Hot Packs, Ultrasound Other Therapeutic Interventions 2x/wk x1 week and then decrease to 1x/wk 7 weeks, may consider ending therapy duration sooner than 7 weeks if indicated Next Visit Focus/Plan Next Note Type Treatment Note Next Visit Plan Con't per POC including shoulder strengthening, cervical extension and cervical isometric end-range, body mechanics, lifting training, consider mini wall slide, consider Body Blade
--- NOTE | 2019-11-24 13:57 | PT.OTN ---
Current Diagnoses Cervicalgia (11/24/19) Headache (11/24/19) Personal history of traumatic brain injury (11/24/19) Physical Therapy Treatment Note PT-OP-A Visit Information Start: 02/04/19 07:28 Freq: Status: Active Protocol: Document 11/24/19 13:00 MB (Rec: 11/24/19 13:57 MB [id number]) Out-Patient Physical Therapy Visit Information Visit Information Visit Type Treatment Note Visit Start Time 13:00 Visit Stop Time 13:45 Total Visit Minutes 45 Visit Number 05/30 PT-OP-B Current Condition Start: 02/04/19 07:28 Freq: Status: Active Protocol: Document 02/04/19 09:01 MB (Rec: 02/04/19 09:50 MB [id number]) Current Condition History of Current Condition Onset Date 1.5 years History of Current Condition Pt reports TBI 4 years ago when tripping and hitting head on counter. He had a severe concussion and he was out at least 30 minutes. He went to the hospital and was checked out. He had had post- concussion syndrome for 6 weeks. He would fall out unconsious when sitting at random times. He would not have memory of it. He went from having headaches 1-2 times a year to 4-6 a year. Seizures started 1.5 years ago . They are termed psychogenic seizures. There is no epilectic activity. He screens high for PTSD. Pt states that PTSD may be related to past relationships. They happen out of sleep. He wakes up shaking . He does not think he has headaches. , Joy, describes rocking side to side or pelvic thrusting, head back and eyes rolled upward. He occ has horizontal nystagmus and then his head drops down. Events last 30 sec . He is taking Topamax in the a.m. to help with mood and headaches. He has not gone more than 18 days without a seizure. He has been on Topamax for a week and has not had a seizure. 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 He had trigger point injections. He has to go through series of taking medications including corticosteroids. 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 He and are trying out supportive neck pillows. He sleeps on a wedge. 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 He drinks caffeine and water . occ reports of pt with anger and memory loss connected. These were unlike his normal personality. Pt reports headaches up to a 7 /10 and he has to talk Percicet. Headaches are over the right eye and down into his right face and back of head and feeling right eyeball being squeezed. He sees colors and has horizontal nystagmus. Overall discomfort left upper trap area, 3/10. He has 3-7/10 pain down left arm . Right hernia surgery and pain after right testicle removed. Multiple neural surgeries in the area and he now has a small left inguinal hernia. Pt reports occ tingling 4th and 5th left digit and burning down back of left arm through elbow. Prior Treatments and Tests PT in the past for left shoulder. It went okay. He had it for his right wrist as well. Right TMJ injections PT-OP-C Subjective Start: 02/04/19 07:28 Freq: Status: Active Protocol: Document 11/24/19 13:00 MB (Rec: 11/24/19 13:57 MB [id number]) OP-PT Subjective Patient Comments Patient Comments I had a seizure last week and a migraine two days before that. I still get that impingement sensation in my left arm. PT-OP-J Posture/Palpation/Skin Start: 02/04/19 07:28 Freq: Status: Active Protocol: Document 02/04/19 09:01 MB (Rec: 02/04/19 13:33 MB [id number]) Posture Evaluation Comments Posture Comments Standing posture: forward head , rounded shoulders, Dowager's hump, decreased thoracic kyphosis, increased lumbar lordosis, changes around T6 vertebra that could be stiffness PT-OP-K Range of Motion Start: 02/04/19 07:28 Freq: Status: Active Protocol: Document 02/04/19 09:01 MB (Rec: 02/04/19 13:33 MB [id number]) Cervical Spine Range of Motion Cervical Spine Active Testing Position Standing Flexion 35 Extension 40 Rotation Left 40 Rotation Right 50 Comments Pt reports stretch in right jaw with cervical extension and left upper traps area discomfort 3/10 with flexion PT-OP-M Strength Start: 02/04/19 07:28 Freq: Status: Active Protocol: Document 02/04/19 09:01 MB (Rec: 02/04/19 13:33 MB [id number]) Shoulder Strength Shoulder Manual Muscle Testing Left Flexion 4 Good Abduction (C5) 4 Good External Rotation 5 Normal Internal Rotation 5 Normal Right Flexion 5 Normal Abduction (C5) 5 Normal External Rotation 4 Good Internal Rotation 4 Good Elbow/Forearm Strength Elbow and Forearm Manual Muscle Testing Left Flexion (C6) 5 Normal Extension (C7) 5 Normal Pronation 4 Good Supination 4 Good Right Flexion (C6) 5 Normal Extension (C7) 5 Normal Pronation 4 Good Supination 4 Good Wrist Strength Wrist Manual Muscle Testing Left Flexion (C7) 5 Normal Extension (C6) 5 Normal Right Flexion (C7) 5 Normal Extension (C6) 5 Normal PT-OP-Q Treatments Start: 02/04/19 07:28 Freq: Status: Active Protocol: Document 11/24/19 13:00 MB (Rec: 11/24/19 13:57 MB [id number]) Manual Therapy Treatment Other Other Manual Treatments [place] Protocol left shoulder with active flexion improvement from 105 deg to 140 deg and abduction from 135 deg to 160 deg after treatment; recoil left SC joint, left 1st rib isometric mob, MWM left upper traps. Counterstrain assessment and treated thoracic lymphatic. PT-OP-T Assessment and Plan Start: 02/04/19 07:28 Freq: Status: Active Protocol: Document 11/24/19 13:00 MB (Rec: 11/24/19 13:57 MB [id number]) Physical Therapy Assessment Rehab Potential Rehabilitation Potential Fair Evaluation Complexity Number of Personal Factors/Comorbidities 3 or More Number of Body Systems Impaired 3 Clinical Presentation at Evaluation Evolving Goals 9 Futures Trader Goal (LTG) Pt will be able to hang up 5 pieces of clothing by 2019. 10/12/2019: Pt reports he is able to hang up 5 pieces of clothing. He is tired after it but he can do it. LTG Duration 8 weeks 8 Longterm Goal (LTG) Pt will present with equal active left shoulder abduction and flexion compared to the right to allow overhead work by 12/12/2019. 10/12/2019: Pt presents with right shoulder abduction and flexion to 180 deg and left shoulder abduction 120 deg and flexion to 126 deg. 6 Longterm Goal (LTG) Pt will report no more than 1 seizure per month by 2019. 10/12/2019: Pt had 2 seizures in 8 days. LTG Duration 8 weeks 5 Futures Trader Goal (LTG) Pt will present with B shoulder flexion to 5/5 to help with overhead lifting by 12/12/2019. 10/12/2019: Right shoulder flexion 5/5; left shoulder flexion 5/5 in available range LTG Duration 8 weeks 4 Longterm Goal (LTG) Pt will report no more than 1 headache per month by 2019. 10/12/2019: Pt has only had 1 headache in the last month: goal met LTG Duration 8 weeks 3 Longterm Goal (LTG) Pt will perform progressive HEP with I including postural alignment, flexibility, strengthening and relaxation exercises by 12/12/2019. 10/12/2019: Pt has been performing progressive HEP LTG Duration 8 weeks 2 Longterm Goal (LTG) Pt will present with a QuickDASH score to reflect no more than 20% impairment to allow [facility] and improvement of ADLs by 2019. 10/12/2019: QuickDASH score reflects 25% impairment, similar to reassessment 2019 LTG Duration 8 weeks 1 Futures Trader Goal (LTG) Pt will present with a NDI score to reflect no more than 15% impairment by 12/12/2019. 10/12/2019: NDI score reflects 20% impairment, a 4% improvement since 08/31/2019 LTG Duration 8 weeks Progress Towards Goals Progress Towards Goals Progressing Toward Goals Assessment Summary Assessment Pt con't with improved left shoulder range with manual work. Old AC and brachial plexus injuries are causes of recurrent stiffness. Con't Countrestrain and manual work and progressive exercises as appropriate. Physical Therapy Plan Frequency and Duration Frequency of Treatment 2x/Week Duration of Treatment 8 weeks Plan of Care Start Date 10/12/19 Plan of Care End Date 12/14/19 Therapeutic Interventions Therapeutic Interventions Balance Training,Canalithic Repositioning,Home Exercise Program,Manual Therapy, Neuromuscular Re-education, Patient/Caregiver Education, Self-Care/Home Management,Soft Tissue Mobilization,Taping, Therapeutic Exercises, Vestibular Rehabilitation Modalities Cold Pack/Ice Massage,Electric Stimulation,Hot Packs, Ultrasound Other Therapeutic Interventions 2x/wk x1 week and then decrease to 1x/wk 7 weeks, may consider ending therapy duration sooner than 7 weeks if indicated Next Visit Focus/Plan Next Note Type Treatment Note Next Visit Plan Similar to before: Con't per POC including shoulder strengthening, cervical extension and cervical isometric end-range, body mechanics, lifting training, consider mini wall slide, consider Body Blade
--- NOTE | 2019-12-02 14:00 | PT.OTN ---
Current Diagnoses Cervicalgia (12/02/19) Headache (12/02/19) Personal history of traumatic brain injury (12/02/19) Physical Therapy Treatment Note PT-OP-A Visit Information Start: 02/04/19 07:28 Freq: Status: Active Protocol: Document 12/02/19 13:07 MB (Rec: 12/02/19 13:59 MB [id number]) Out-Patient Physical Therapy Visit Information Visit Information Visit Type Treatment Note Visit Start Time 13:07 Visit Stop Time 14:00 Total Visit Minutes 53 Visit Number 06/29 PT-OP-B Current Condition Start: 02/04/19 07:28 Freq: Status: Active Protocol: Document 02/04/19 09:01 MB (Rec: 02/04/19 09:50 MB [id number]) Current Condition History of Current Condition Onset Date 1.5 years History of Current Condition Pt reports TBI 4 years ago when tripping and hitting head on counter. He had a severe concussion and he was out at least 30 minutes. He went to the hospital and was checked out. He had had post- concussion syndrome for 6 weeks. He would fall out unconsious when sitting at random times. He would not have memory of it. He went from having headaches 1-2 times a year to 4-6 a year. Seizures started 1.5 years ago . They are termed psychogenic seizures. There is no epilectic activity. He screens high for PTSD. Pt states that PTSD may be related to past relationships. They happen out of sleep. He wakes up shaking . He does not think he has headaches. , Joy, describes rocking side to side or pelvic thrusting, head back and eyes rolled upward. He occ has horizontal nystagmus and then his head drops down. Events last 30 sec . He is taking Topamax in the a.m. to help with mood and headaches. He has not gone more than 18 days without a seizure. He has been on Topamax for a week and has not had a seizure. 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 He had trigger point injections. He has to go through series of taking medications including corticosteroids. 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 He and are trying out supportive neck pillows. He sleeps on a wedge. 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 He drinks caffeine and water . occ reports of pt with anger and memory loss connected. These were unlike his normal personality. Pt reports headaches up to a 7 /10 and he has to talk Percicet. Headaches are over the right eye and down into his right face and back of head and feeling right eyeball being squeezed. He sees colors and has horizontal nystagmus. Overall discomfort left upper trap area, 3/10. He has 3-7/10 pain down left arm . Right hernia surgery and pain after right testicle removed. Multiple neural surgeries in the area and he now has a small left inguinal hernia. Pt reports occ tingling 4th and 5th left digit and burning down back of left arm through elbow. Prior Treatments and Tests PT in the past for left shoulder. It went okay. He had it for his right wrist as well. Right TMJ injections PT-OP-C Subjective Start: 02/04/19 07:28 Freq: Status: Active Protocol: Document 12/02/19 13:07 MB (Rec: 12/02/19 13:59 MB [id number]) OP-PT Subjective Patient Comments Patient Comments I'm feeling pretty good. I have a little tightness through here (pt points to left lateral neck). I did have a seizure after my nap yesterday. Pt denies headache . PT-OP-J Posture/Palpation/Skin Start: 02/04/19 07:28 Freq: Status: Active Protocol: Document 02/04/19 09:01 MB (Rec: 02/04/19 13:33 MB [id number]) Posture Evaluation Comments Posture Comments Standing posture: forward head , rounded shoulders, Dowager's hump, decreased thoracic kyphosis, increased lumbar lordosis, changes around T6 vertebra that could be stiffness PT-OP-K Range of Motion Start: 02/04/19 07:28 Freq: Status: Active Protocol: Document 02/04/19 09:01 MB (Rec: 02/04/19 13:33 MB [id number]) Cervical Spine Range of Motion Cervical Spine Active Testing Position Standing Flexion 35 Extension 40 Rotation Left 40 Rotation Right 50 Comments Pt reports stretch in right jaw with cervical extension and left upper traps area discomfort 3/10 with flexion PT-OP-M Strength Start: 02/04/19 07:28 Freq: Status: Active Protocol: Document 02/04/19 09:01 MB (Rec: 02/04/19 13:33 MB [id number]) Shoulder Strength Shoulder Manual Muscle Testing Left Flexion 4 Good Abduction (C5) 4 Good External Rotation 5 Normal Internal Rotation 5 Normal Right Flexion 5 Normal Abduction (C5) 5 Normal External Rotation 4 Good Internal Rotation 4 Good Elbow/Forearm Strength Elbow and Forearm Manual Muscle Testing Left Flexion (C6) 5 Normal Extension (C7) 5 Normal Pronation 4 Good Supination 4 Good Right Flexion (C6) 5 Normal Extension (C7) 5 Normal Pronation 4 Good Supination 4 Good Wrist Strength Wrist Manual Muscle Testing Left Flexion (C7) 5 Normal Extension (C6) 5 Normal Right Flexion (C7) 5 Normal Extension (C6) 5 Normal PT-OP-Q Treatments Start: 02/04/19 07:28 Freq: Status: Active Protocol: Document 12/02/19 13:07 MB (Rec: 12/02/19 13:59 MB [id number]) Manual Therapy Treatment Other Other Manual Treatments Counterstrain to assess and treat fascial tension and pt presents with tension in the following areas: left spinal vein flexion, left sinuvertebral, left cervical discs, DPR, rib cartilage scan , left cartilage standard scan , right elbow SF. PT treats stacks: cervical disc, costocartilage, brochi, standard cartilage scan and LF TMJ. PT-OP-T Assessment and Plan Start: 02/04/19 07:28 Freq: Status: Active Protocol: Document 12/02/19 13:07 MB (Rec: 12/02/19 13:59 MB [id number]) Physical Therapy Assessment Rehab Potential Rehabilitation Potential Fair Evaluation Complexity Number of Personal Factors/Comorbidities 3 or More Number of Body Systems Impaired 3 Clinical Presentation at Evaluation Evolving Goals 9 Tribal Council Member Goal (LTG) Pt will be able to hang up 5 pieces of clothing by 2019. 10/12/2019: Pt reports he is able to hang up 5 pieces of clothing. He is tired after it but he can do it. LTG Duration 8 weeks 8 Tribal Council Member Goal (LTG) Pt will present with equal active left shoulder abduction and flexion compared to the right to allow overhead work by 12/12/2019. 10/12/2019: Pt presents with right shoulder abduction and flexion to 180 deg and left shoulder abduction 120 deg and flexion to 126 deg. 6 Tribal Council Member Goal (LTG) Pt will report no more than 1 seizure per month by 2019. 10/12/2019: Pt had 2 seizures in 8 days. LTG Duration 8 weeks 5 Mcfp Goal (LTG) Pt will present with B shoulder flexion to 5/5 to help with overhead lifting by 12/12/2019. 10/12/2019: Right shoulder flexion 5/5; left shoulder flexion 5/5 in available range LTG Duration 8 weeks 4 Mcfp Goal (LTG) Pt will report no more than 1 headache per month by 2019. 10/12/2019: Pt has only had 1 headache in the last month: goal met LTG Duration 8 weeks 3 Tribal Council Member Goal (LTG) Pt will perform progressive HEP with I including postural alignment, flexibility, strengthening and relaxation exercises by 12/12/2019. 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 10/12/2019: QuickDASH score reflects 25% impairment, similar to reassessment 2019 LTG Duration 8 weeks 1 Tribal Council Member Goal (LTG) Pt will present with a NDI score to reflect no more than 15% impairment by 12/12/2019. 10/12/2019: NDI score reflects 20% impairment, a 4% improvement since 08/31/2019 LTG Duration 8 weeks Progress Towards Goals Progress Towards Goals Progressing Toward Goals Assessment Summary Assessment Good response to new Counterstrain fascial treatments for discs, costocartilage and bronchi. Con't progression. Physical Therapy Plan Frequency and Duration Frequency of Treatment 2x/Week Duration of Treatment 8 weeks Plan of Care Start Date 10/12/19 Plan of Care End Date 12/14/19 Therapeutic Interventions Therapeutic Interventions Balance Training,Canalithic Repositioning,Home Exercise Program,Manual Therapy, Neuromuscular Re-education, Patient/Caregiver Education, Self-Care/Home Management,Soft Tissue Mobilization,Taping, Therapeutic Exercises, Vestibular Rehabilitation Modalities Cold Pack/Ice Massage,Electric Stimulation,Hot Packs, Ultrasound Other Therapeutic Interventions 2x/wk x1 week and then decrease to 1x/wk 7 weeks, may consider ending therapy duration sooner than 7 weeks if indicated Next Visit Focus/Plan Next Note Type Progress Note Next Visit Plan Similar to before: Con't per POC including shoulder strengthening, cervical extension and cervical isometric end-range, body mechanics, lifting training, consider mini wall slide, consider Body Blade
--- NOTE | 2019-12-08 14:04 | PT.OTN ---
Current Diagnoses Cervicalgia (12/08/19) Headache (12/08/19) Personal history of traumatic brain injury (12/08/19) Physical Therapy Treatment Note PT-OP-A Visit Information Start: 02/04/19 07:28 Freq: Status: Active Protocol: Document 12/08/19 13:01 MB (Rec: 12/08/19 14:03 MB [id number]) Out-Patient Physical Therapy Visit Information Visit Information Visit Type Progress Note Visit Start Time 13:01 Visit Stop Time 13:55 Total Visit Minutes 54 Visit Number 07/30 PT-OP-B Current Condition Start: 02/04/19 07:28 Freq: Status: Active Protocol: Document 02/04/19 09:01 MB (Rec: 02/04/19 09:50 MB [id number]) Current Condition History of Current Condition Onset Date 1.5 years History of Current Condition Pt reports TBI 4 years ago when tripping and hitting head on counter. He had a severe concussion and he was out at least 30 minutes. He went to the hospital and was checked out. He had had post- concussion syndrome for 6 weeks. He would fall out unconsious when sitting at random times. He would not have memory of it. He went from having headaches 1-2 times a year to 4-6 a year. Seizures started 1.5 years ago . They are termed psychogenic seizures. There is no epilectic activity. He screens high for PTSD. Pt states that PTSD may be related to past relationships. They happen out of sleep. He wakes up shaking . He does not think he has headaches. , Joy, describes rocking side to side or pelvic thrusting, head back and eyes rolled upward. He occ has horizontal nystagmus and then his head drops down. Events last 30 sec . He is taking Topamax in the a.m. to help with mood and headaches. He has not gone more than 18 days without a seizure. He has been on Topamax for a week and has not had a seizure. 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 He had trigger point injections. He has to go through series of taking medications including corticosteroids. 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 He and are trying out supportive neck pillows. He sleeps on a wedge. 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 He drinks caffeine and water . occ reports of pt with anger and memory loss connected. These were unlike his normal personality. Pt reports headaches up to a 7 /10 and he has to talk Percicet. Headaches are over the right eye and down into his right face and back of head and feeling right eyeball being squeezed. He sees colors and has horizontal nystagmus. Overall discomfort left upper trap area, 3/10. He has 3-7/10 pain down left arm . Right hernia surgery and pain after right testicle removed. Multiple neural surgeries in the area and he now has a small left inguinal hernia. Pt reports occ tingling 4th and 5th left digit and burning down back of left arm through elbow. Prior Treatments and Tests PT in the past for left shoulder. It went okay. He had it for his right wrist as well. Right TMJ injections PT-OP-C Subjective Start: 02/04/19 07:28 Freq: Status: Active Protocol: Document 12/08/19 13:01 MB (Rec: 12/08/19 14:03 MB [id number]) OP-PT Subjective Patient Comments Patient Comments I'm doing pretty good. Lately , when I move my neck, I am getting cracking. It doesn't hurt. The seizures are about one every two weeks right now. The headaches are also about two times a month. They occur around the seizure but not always right before or after. Pt started EMDR and it is unclear if this has had an effect on his sleeping and/or seizures. Pt states that he can do overhead tasks for short periods of time and his left arm gets tired and no pain. PT-OP-J Posture/Palpation/Skin Start: 02/04/19 07:28 Freq: Status: Active Protocol: Document 02/04/19 09:01 MB (Rec: 02/04/19 13:33 MB [id number]) Posture Evaluation Comments Posture Comments Standing posture: forward head , rounded shoulders, Dowager's hump, decreased thoracic kyphosis, increased lumbar lordosis, changes around T6 vertebra that could be stiffness PT-OP-K Range of Motion Start: 02/04/19 07:28 Freq: Status: Active Protocol: Document 02/04/19 09:01 MB (Rec: 02/04/19 13:33 MB [id number]) Cervical Spine Range of Motion Cervical Spine Active Testing Position Standing Flexion 35 Extension 40 Rotation Left 40 Rotation Right 50 Comments Pt reports stretch in right jaw with cervical extension and left upper traps area discomfort 3/10 with flexion PT-OP-M Strength Start: 02/04/19 07:28 Freq: Status: Active Protocol: Document 02/04/19 09:01 MB (Rec: 02/04/19 13:33 MB [id number]) Shoulder Strength Shoulder Manual Muscle Testing Left Flexion 4 Good Abduction (C5) 4 Good External Rotation 5 Normal Internal Rotation 5 Normal Right Flexion 5 Normal Abduction (C5) 5 Normal External Rotation 4 Good Internal Rotation 4 Good Elbow/Forearm Strength Elbow and Forearm Manual Muscle Testing Left Flexion (C6) 5 Normal Extension (C7) 5 Normal Pronation 4 Good Supination 4 Good Right Flexion (C6) 5 Normal Extension (C7) 5 Normal Pronation 4 Good Supination 4 Good Wrist Strength Wrist Manual Muscle Testing Left Flexion (C7) 5 Normal Extension (C6) 5 Normal Right Flexion (C7) 5 Normal Extension (C6) 5 Normal PT-OP-Q Treatments Start: 02/04/19 07:28 Freq: Status: Active Protocol: Document 12/08/19 13:01 MB (Rec: 12/08/19 14:03 MB [id number]) Therapeutic Exercises Standing Exercises AROM shoulder flexion, abduction, ER against wall Comments Performed today with decreased left arm control Racquet ball massage, MWM with infraspinatus Comments Performed today during progress note questioning Other Exercises Reviewed all other exercises, reviewed handouts today Comments Reviewed several exercises already given, need to reduce future treatments Manual Therapy Treatment Other Other Manual Treatments Pt prone: PA thoracic mobs up to grade III-IV, scapular mobs all directions B, rib recoil PA spine. Pt supine: MWM B, left greater than right, SCM and scalenes and tension much better after treatment and pt performing active cervical rotation better PT-OP-T Assessment and Plan Start: 02/04/19 07:28 Freq: Status: Active Protocol: Document 12/08/19 13:01 MB (Rec: 12/08/19 14:03 MB [id number]) Physical Therapy Assessment Rehab Potential Rehabilitation Potential Fair Evaluation Complexity Number of Personal Factors/Comorbidities 3 or More Number of Body Systems Impaired 3 Clinical Presentation at Evaluation Evolving Goals 8 Custodial Goal (LTG) Pt will present with equal active left shoulder abduction and flexion compared to the right to allow overhead work by 01/25/2020. 12/08/2019: Pt presents with right shoulder abduction and flexion to 180 deg and left shoulder abduction 140 deg and flexion to 135 deg. 6 Chip Mixing Machine Operator Goal (LTG) Pt will report no more than 1 seizure per month by 2019. 12/08/2019: Pt reports 2 seizures per month. He states that he feels he has maxed PT potential with seizures. LTG Duration Goal maximized for PT 4 Chip Mixing Machine Operator Goal (LTG) Pt will report no more than 1 headache per month by 2019. 12/08/2019: Pt is currently having headaches about twice a month LTG Duration 8 weeks 3 Chip Mixing Machine Operator Goal (LTG) Pt will perform progressive HEP with I including postural alignment, flexibility, strengthening and relaxation exercises by 01/25/2020. 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 12/08/2019: QuickDASH score reflects 18.18% impairment, which is greater than 6% improvement since last progress note LTG Duration 8 weeks 1 Custodial Goal (LTG) Pt will present with a NDI score to reflect no more than 15% impairment by 01/25/2020. 12/08/2019: NDI score reflects 18% impairment, a 2% improvement since last progress note LTG Duration 8 weeks Progress Towards Goals Progress Towards Goals Progressing Toward Goals Assessment Summary Assessment Pt has progressed towards the following PT goals since last progress note in September: QuickDASH and NDI scores, performance of HEP and left shoulder flexion and abduction range of motion. His headaches and seizures have plateaued at 2x/month and will con't to monitor any further improvements but they may stay at this frequency. He is doing other interventions such as EMDR which may affect these. He will benefit from ongoing PT to improve left shoulder ROM, functional strength and fascial mobility. Postural and left shoulder fatigue con't to limit UE function, especially with overhead tasks. Physical Therapy Plan Frequency and Duration Frequency of Treatment 1x/Week Duration of Treatment 6 weeks Plan of Care Start Date 12/08/19 Plan of Care End Date 01/25/20 Therapeutic Interventions Therapeutic Interventions Balance Training,Canalithic Repositioning,Home Exercise Program,Manual Therapy, Neuromuscular Re-education, Patient/Caregiver Education, Self-Care/Home Management,Soft Tissue Mobilization,Taping, Therapeutic Exercises, Vestibular Rehabilitation Modalities Cold Pack/Ice Massage,Electric Stimulation,Hot Packs, Ultrasound Next Visit Focus/Plan Next Note Type Treatment Note Next Visit Plan Shoulder strengthening against wall next treatment date to include active motion fatigue and band exercises around wrist for scapular stability. Consider cervical isometric end-range, shoudler strengthening, body mechanics, lifting training, consider mini wall slide.
--- NOTE | 2019-12-08 14:04 | PT.OPPOC ---
Physical, Occupational & Speech Therapy At [facility] Current Diagnoses Cervicalgia (12/08/19) Headache (12/08/19) Personal history of traumatic brain injury (12/08/19) Visit Care Team Role Provider Type Elisha Mello DO Attending Provider Non-Staff Primary Care Provider Specialty: Medical Address: [address] [place] [address], [facility] Email: Plan Of Care PT-OP-T Assessment and Plan Start: 02/04/19 07:28 Freq: Status: Active Protocol: Document 12/08/19 13:01 MB (Rec: 12/08/19 14:03 MB [id number]) Physical Therapy Assessment Rehab Potential Rehabilitation Potential Fair Evaluation Complexity Number of Personal Factors/Comorbidities 3 or More Number of Body Systems Impaired 3 Clinical Presentation at Evaluation Evolving Goals 8 Nursing Home Goal (LTG) Pt will present with equal active left shoulder abduction and flexion compared to the right to allow overhead work by 01/25/2020. 12/08/2019: Pt presents with right shoulder abduction and flexion to 180 deg and left shoulder abduction 140 deg and flexion to 135 deg. 6 Nursing Home Goal (LTG) Pt will report no more than 1 seizure per month by 2019. 12/08/2019: Pt reports 2 seizures per month. He states that he feels he has maxed PT potential with seizures. LTG Duration Goal maximized for PT 4 Forest Technician Goal (LTG) Pt will report no more than 1 headache per month by 2019. 12/08/2019: Pt is currently having headaches about twice a month LTG Duration 8 weeks 3 Nursing Home Goal (LTG) Pt will perform progressive HEP with I including postural alignment, flexibility, strengthening and relaxation exercises by 01/25/2020. 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 12/08/2019: QuickDASH score reflects 18.18% impairment, which is greater than 6% improvement since last progress note LTG Duration 8 weeks 1 Nursing Home Goal (LTG) Pt will present with a NDI score to reflect no more than 15% impairment by 01/25/2020. 12/08/2019: NDI score reflects 18% impairment, a 2% improvement since last progress note LTG Duration 8 weeks Progress Towards Goals Progress Towards Goals Progressing Toward Goals Assessment Summary Assessment Pt has progressed towards the following PT goals since last progress note in September: QuickDASH and NDI scores, performance of HEP and left shoulder flexion and abduction range of motion. His headaches and seizures have plateaued at 2x/month and will con't to monitor any further improvements but they may stay at this frequency. He is doing other interventions such as EMDR which may affect these. He will benefit from ongoing PT to improve left shoulder ROM, functional strength and fascial mobility. Postural and left shoulder fatigue con't to limit UE function, especially with overhead tasks. Physical Therapy Plan Frequency and Duration Frequency of Treatment 1x/Week Duration of Treatment 6 weeks Plan of Care Start Date 12/08/19 Plan of Care End Date 01/25/20 Therapeutic Interventions Therapeutic Interventions Balance Training,Canalithic Repositioning,Home Exercise Program,Manual Therapy, Neuromuscular Re-education, Patient/Caregiver Education, Self-Care/Home Management,Soft Tissue Mobilization,Taping, Therapeutic Exercises, Vestibular Rehabilitation Modalities Cold Pack/Ice Massage,Electric Stimulation,Hot Packs, Ultrasound Next Visit Focus/Plan Next Note Type Treatment Note Next Visit Plan Shoulder strengthening against wall next treatment date to include active motion fatigue and band exercises around wrist for scapular stability. Consider cervical isometric end-range, shoudler strengthening, body mechanics, lifting training, consider mini wall slide. Plan of Care Dates Plan of Care Start Date 12/08/19 Plan of Care End Date 01/25/20 Electronically Signed by: Lisandra Little, PT 12/08/19 1806 Please Sign and Return: I have reviewed this Plan of Care and certify that the skilled therapy services above are required to meet the patient?s needs. Physician Signature Date Printed Name and Credentials Clinical Instructor Signature Printed Name and Credentials
--- NOTE | 2019-12-17 14:00 | PT.OTN ---
Current Diagnoses Cervicalgia (12/17/19) Headache (12/17/19) Personal history of traumatic brain injury (12/17/19) Physical Therapy Treatment Note PT-OP-A Visit Information Start: 02/04/19 07:28 Freq: Status: Active Protocol: Document 12/17/19 13:02 MB (Rec: 12/17/19 13:57 MB [id number]) Out-Patient Physical Therapy Visit Information Visit Information Visit Type Treatment Note Visit Start Time 13:02 Visit Stop Time 13:55 Total Visit Minutes 53 Visit Number 08/29 PT-OP-B Current Condition Start: 02/04/19 07:28 Freq: Status: Active Protocol: Document 02/04/19 09:01 MB (Rec: 02/04/19 09:50 MB [id number]) Current Condition History of Current Condition Onset Date 1.5 years History of Current Condition Pt reports TBI 4 years ago when tripping and hitting head on counter. He had a severe concussion and he was out at least 30 minutes. He went to the hospital and was checked out. He had had post- concussion syndrome for 6 weeks. He would fall out unconsious when sitting at random times. He would not have memory of it. He went from having headaches 1-2 times a year to 4-6 a year. Seizures started 1.5 years ago . They are termed psychogenic seizures. There is no epilectic activity. He screens high for PTSD. Pt states that PTSD may be related to past relationships. They happen out of sleep. He wakes up shaking . He does not think he has headaches. , Joy, describes rocking side to side or pelvic thrusting, head back and eyes rolled upward. He occ has horizontal nystagmus and then his head drops down. Events last 30 sec . He is taking Topamax in the a.m. to help with mood and headaches. He has not gone more than 18 days without a seizure. He has been on Topamax for a week and has not had a seizure. 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 He had trigger point injections. He has to go through series of taking medications including corticosteroids. 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 He and are trying out supportive neck pillows. He sleeps on a wedge. 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 He drinks caffeine and water . occ reports of pt with anger and memory loss connected. These were unlike his normal personality. Pt reports headaches up to a 7 /10 and he has to talk Percicet. Headaches are over the right eye and down into his right face and back of head and feeling right eyeball being squeezed. He sees colors and has horizontal nystagmus. Overall discomfort left upper trap area, 3/10. He has 3-7/10 pain down left arm . Right hernia surgery and pain after right testicle removed. Multiple neural surgeries in the area and he now has a small left inguinal hernia. Pt reports occ tingling 4th and 5th left digit and burning down back of left arm through elbow. Prior Treatments and Tests PT in the past for left shoulder. It went okay. He had it for his right wrist as well. Right TMJ injections PT-OP-C Subjective Start: 02/04/19 07:28 Freq: Status: Active Protocol: Document 12/17/19 13:02 MB (Rec: 12/17/19 13:57 MB [id number]) OP-PT Subjective Patient Comments Patient Comments I don't feel like it today when PT asks him about reviewing his HEP today. I had a bad EMDR session this morning. Pt reports left upper traps tension. PT-OP-J Posture/Palpation/Skin Start: 02/04/19 07:28 Freq: Status: Active Protocol: Document 02/04/19 09:01 MB (Rec: 02/04/19 13:33 MB [id number]) Posture Evaluation Comments Posture Comments Standing posture: forward head , rounded shoulders, Dowager's hump, decreased thoracic kyphosis, increased lumbar lordosis, changes around T6 vertebra that could be stiffness PT-OP-K Range of Motion Start: 02/04/19 07:28 Freq: Status: Active Protocol: Document 02/04/19 09:01 MB (Rec: 02/04/19 13:33 MB [id number]) Cervical Spine Range of Motion Cervical Spine Active Testing Position Standing Flexion 35 Extension 40 Rotation Left 40 Rotation Right 50 Comments Pt reports stretch in right jaw with cervical extension and left upper traps area discomfort 3/10 with flexion PT-OP-M Strength Start: 02/04/19 07:28 Freq: Status: Active Protocol: Document 02/04/19 09:01 MB (Rec: 02/04/19 13:33 MB [id number]) Shoulder Strength Shoulder Manual Muscle Testing Left Flexion 4 Good Abduction (C5) 4 Good External Rotation 5 Normal Internal Rotation 5 Normal Right Flexion 5 Normal Abduction (C5) 5 Normal External Rotation 4 Good Internal Rotation 4 Good Elbow/Forearm Strength Elbow and Forearm Manual Muscle Testing Left Flexion (C6) 5 Normal Extension (C7) 5 Normal Pronation 4 Good Supination 4 Good Right Flexion (C6) 5 Normal Extension (C7) 5 Normal Pronation 4 Good Supination 4 Good Wrist Strength Wrist Manual Muscle Testing Left Flexion (C7) 5 Normal Extension (C6) 5 Normal Right Flexion (C7) 5 Normal Extension (C6) 5 Normal PT-OP-Q Treatments Start: 02/04/19 07:28 Freq: Status: Active Protocol: Document 12/17/19 13:02 MB (Rec: 12/17/19 13:57 MB [id number]) Manual Therapy Treatment Other Other Manual Treatments Pt agrees to Counterstrain to assess and treat fascial tension. Pt presents with fascial tension in the following systems: lumbar discs, proximal mesentery visceral, bronchi, right facial, B standard visceral, B standard row lymphatic venous . PT treats stacks of mesentary, proximal to distal cervical to thoracic, as well as cervical discs C7-T1 on the left, fascial scar. PT-OP-T Assessment and Plan Start: 02/04/19 07:28 Freq: Status: Active Protocol: Document 12/17/19 13:02 MB (Rec: 12/17/19 13:57 MB [id number]) Physical Therapy Assessment Rehab Potential Rehabilitation Potential Fair Evaluation Complexity Number of Personal Factors/Comorbidities 3 or More Number of Body Systems Impaired 3 Clinical Presentation at Evaluation Evolving Goals 8 Halfway Goal (LTG) Pt will present with equal active left shoulder abduction and flexion compared to the right to allow overhead work by 01/25/2020. 12/08/2019: Pt presents with right shoulder abduction and flexion to 180 deg and left shoulder abduction 140 deg and flexion to 135 deg. 6 Halfway Goal (LTG) Pt will report no more than 1 seizure per month by 2019. 12/08/2019: Pt reports 2 seizures per month. He states that he feels he has maxed PT potential with seizures. LTG Duration Goal maximized for PT 4 Halfway Goal (LTG) Pt will report no more than 1 headache per month by 2019. 12/08/2019: Pt is currently having headaches about twice a month LTG Duration 8 weeks 3 Halfway Goal (LTG) Pt will perform progressive HEP with I including postural alignment, flexibility, strengthening and relaxation exercises by 01/25/2020. 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 12/08/2019: QuickDASH score reflects 18.18% impairment, which is greater than 6% improvement since last progress note LTG Duration 8 weeks 1 Halfway Goal (LTG) Pt will present with a NDI score to reflect no more than 15% impairment by 01/25/2020. 12/08/2019: NDI score reflects 18% impairment, a 2% improvement since last progress note LTG Duration 8 weeks Progress Towards Goals Progress Towards Goals Progressing Toward Goals Assessment Summary Assessment Counterstrain improves pt's reports of traps tension today and his overall demeanor regarding parasympathic response is better: deep breathing and expresion. Con't manual work and exercise review and progression. Physical Therapy Plan Frequency and Duration Frequency of Treatment 1x/Week Duration of Treatment 6 weeks Plan of Care Start Date 12/08/19 Plan of Care End Date 01/25/20 Therapeutic Interventions Therapeutic Interventions Balance Training,Canalithic Repositioning,Home Exercise Program,Manual Therapy, Neuromuscular Re-education, Patient/Caregiver Education, Self-Care/Home Management,Soft Tissue Mobilization,Taping, Therapeutic Exercises, Vestibular Rehabilitation Modalities Cold Pack/Ice Massage,Electric Stimulation,Hot Packs, Ultrasound Next Visit Focus/Plan Next Note Type Treatment Note Next Visit Plan Shoulder strengthening against wall next treatment date to include active motion fatigue and band exercises around wrist for scapular stability. Consider cervical isometric end-range, shoudler strengthening, body mechanics, lifting training, consider mini wall slide.
--- NOTE | 2019-12-25 09:42 | PT.OTN ---
Current Diagnoses Cervicalgia (12/25/19) Headache (12/25/19) Personal history of traumatic brain injury (12/25/19) Physical Therapy Treatment Note PT-OP-A Visit Information Start: 02/04/19 07:28 Freq: Status: Active Protocol: Document 12/25/19 09:01 MB (Rec: 12/25/19 09:42 MB [id number]) Out-Patient Physical Therapy Visit Information Visit Information Visit Type Treatment Note Visit Start Time 09:01 Visit Stop Time 09:42 Total Visit Minutes 41 Visit Number 09/29 PT-OP-B Current Condition Start: 02/04/19 07:28 Freq: Status: Active Protocol: Document 02/04/19 09:01 MB (Rec: 02/04/19 09:50 MB [id number]) Current Condition History of Current Condition Onset Date 1.5 years History of Current Condition Pt reports TBI 4 years ago when tripping and hitting head on counter. He had a severe concussion and he was out at least 30 minutes. He went to the hospital and was checked out. He had had post- concussion syndrome for 6 weeks. He would fall out unconsious when sitting at random times. He would not have memory of it. He went from having headaches 1-2 times a year to 4-6 a year. Seizures started 1.5 years ago . They are termed psychogenic seizures. There is no epilectic activity. He screens high for PTSD. Pt states that PTSD may be related to past relationships. They happen out of sleep. He wakes up shaking . He does not think he has headaches. , Joy, describes rocking side to side or pelvic thrusting, head back and eyes rolled upward. He occ has horizontal nystagmus and then his head drops down. Events last 30 sec . He is taking Topamax in the a.m. to help with mood and headaches. He has not gone more than 18 days without a seizure. He has been on Topamax for a week and has not had a seizure. 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 He had trigger point injections. He has to go through series of taking medications including corticosteroids. 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 He and are trying out supportive neck pillows. He sleeps on a wedge. 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 He drinks caffeine and water . occ reports of pt with anger and memory loss connected. These were unlike his normal personality. Pt reports headaches up to a 7 /10 and he has to talk Percicet. Headaches are over the right eye and down into his right face and back of head and feeling right eyeball being squeezed. He sees colors and has horizontal nystagmus. Overall discomfort left upper trap area, 3/10. He has 3-7/10 pain down left arm . Right hernia surgery and pain after right testicle removed. Multiple neural surgeries in the area and he now has a small left inguinal hernia. Pt reports occ tingling 4th and 5th left digit and burning down back of left arm through elbow. Prior Treatments and Tests PT in the past for left shoulder. It went okay. He had it for his right wrist as well. Right TMJ injections PT-OP-C Subjective Start: 02/04/19 07:28 Freq: Status: Active Protocol: Document 12/25/19 09:01 MB (Rec: 12/25/19 09:42 MB [id number]) OP-PT Subjective Patient Comments Patient Comments I didn't have a seizure this week. Everything is seeming to do well. Just working on homework. Pt will have two weeks off EMDR. PT-OP-J Posture/Palpation/Skin Start: 02/04/19 07:28 Freq: Status: Active Protocol: Document 02/04/19 09:01 MB (Rec: 02/04/19 13:33 MB [id number]) Posture Evaluation Comments Posture Comments Standing posture: forward head , rounded shoulders, Dowager's hump, decreased thoracic kyphosis, increased lumbar lordosis, changes around T6 vertebra that could be stiffness PT-OP-K Range of Motion Start: 02/04/19 07:28 Freq: Status: Active Protocol: Document 02/04/19 09:01 MB (Rec: 02/04/19 13:33 MB [id number]) Cervical Spine Range of Motion Cervical Spine Active Testing Position Standing Flexion 35 Extension 40 Rotation Left 40 Rotation Right 50 Comments Pt reports stretch in right jaw with cervical extension and left upper traps area discomfort 3/10 with flexion PT-OP-M Strength Start: 02/04/19 07:28 Freq: Status: Active Protocol: Document 02/04/19 09:01 MB (Rec: 02/04/19 13:33 MB [id number]) Shoulder Strength Shoulder Manual Muscle Testing Left Flexion 4 Good Abduction (C5) 4 Good External Rotation 5 Normal Internal Rotation 5 Normal Right Flexion 5 Normal Abduction (C5) 5 Normal External Rotation 4 Good Internal Rotation 4 Good Elbow/Forearm Strength Elbow and Forearm Manual Muscle Testing Left Flexion (C6) 5 Normal Extension (C7) 5 Normal Pronation 4 Good Supination 4 Good Right Flexion (C6) 5 Normal Extension (C7) 5 Normal Pronation 4 Good Supination 4 Good Wrist Strength Wrist Manual Muscle Testing Left Flexion (C7) 5 Normal Extension (C6) 5 Normal Right Flexion (C7) 5 Normal Extension (C6) 5 Normal PT-OP-Q Treatments Start: 02/04/19 07:28 Freq: Status: Active Protocol: Document 12/25/19 09:01 MB (Rec: 12/25/19 09:42 MB [id number]) Therapeutic Exercises Sitting Exercises Upper traps MWM with racquet ball Comments Pt performs today Standing Exercises Thread the needle against the wall Side bilateral Comments 2 reps both sides STM intrascapular muscles Side bilateral Comments Pt perfoms greater on the right today, thoracic spine Racquet ball massage, MWM with infraspinatus Comments Pt performs today Other Exercises Shoulder flexion and triceps with band around wrists Side bilateral Equipment Used 4 foam roller Reps/Minutes 3 Comments Level 1 band, perform to fatigue 4 foam roller Comments Pect stretch, PNF 2 and horizontal abd and ER level 3 band 3 position doorways stetch B Comments Performed today PT-OP-T Assessment and Plan Start: 02/04/19 07:28 Freq: Status: Active Protocol: Document 12/25/19 09:01 MB (Rec: 12/25/19 09:42 MB [id number]) Physical Therapy Assessment Rehab Potential Rehabilitation Potential Fair Evaluation Complexity Number of Personal Factors/Comorbidities 3 or More Number of Body Systems Impaired 3 Clinical Presentation at Evaluation Evolving Goals 8 Lawn Mower Sharpener Goal (LTG) Pt will present with equal active left shoulder abduction and flexion compared to the right to allow overhead work by 01/25/2020. 12/08/2019: Pt presents with right shoulder abduction and flexion to 180 deg and left shoulder abduction 140 deg and flexion to 135 deg. 6 Senior Care Goal (LTG) Pt will report no more than 1 seizure per month by 2019. 12/08/2019: Pt reports 2 seizures per month. He states that he feels he has maxed PT potential with seizures. LTG Duration Goal maximized for PT 4 Senior Care Goal (LTG) Pt will report no more than 1 headache per month by 2019. 12/08/2019: Pt is currently having headaches about twice a month LTG Duration 8 weeks 3 Lawn Mower Sharpener Goal (LTG) Pt will perform progressive HEP with I including postural alignment, flexibility, strengthening and relaxation exercises by 01/25/2020. 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 12/08/2019: QuickDASH score reflects 18.18% impairment, which is greater than 6% improvement since last progress note LTG Duration 8 weeks 1 Senior Care Goal (LTG) Pt will present with a NDI score to reflect no more than 15% impairment by 01/25/2020. 12/08/2019: NDI score reflects 18% impairment, a 2% improvement since last progress note LTG Duration 8 weeks Progress Towards Goals Progress Towards Goals Progressing Toward Goals Assessment Summary Assessment Reviewed all previously revised HEP with pt today with pt performing shoulder abduction and flexion overhead against wall with 2lb weights at home. Added some shoulder strengthening exercises over foam roller today. Con't any exercise revisions and manual work. Physical Therapy Plan Frequency and Duration Frequency of Treatment 1x/Week Duration of Treatment 6 weeks Plan of Care Start Date 12/08/19 Plan of Care End Date 01/25/20 Therapeutic Interventions Therapeutic Interventions Balance Training,Canalithic Repositioning,Home Exercise Program,Manual Therapy, Neuromuscular Re-education, Patient/Caregiver Education, Self-Care/Home Management,Soft Tissue Mobilization,Taping, Therapeutic Exercises, Vestibular Rehabilitation Modalities Cold Pack/Ice Massage,Electric Stimulation,Hot Packs, Ultrasound Next Visit Focus/Plan Next Note Type Treatment Note Next Visit Plan Consider any exercise revisions and con't manual work
--- NOTE | 2020-01-01 09:01 | PT.OTN ---
Current Diagnoses Cervicalgia (01/01/20) Headache (01/01/20) Personal history of traumatic brain injury (01/01/20) Physical Therapy Treatment Note PT-OP-A Visit Information Start: 02/04/19 07:28 Freq: Status: Active Protocol: Document 01/01/20 08:15 MB (Rec: 01/01/20 09:00 MB [id number]) Out-Patient Physical Therapy Visit Information Visit Information Visit Type Treatment Note Visit Start Time 08:15 Visit Stop Time 09:00 Total Visit Minutes 45 Visit Number 10/30 PT-OP-B Current Condition Start: 02/04/19 07:28 Freq: Status: Active Protocol: Document 02/04/19 09:01 MB (Rec: 02/04/19 09:50 MB [id number]) Current Condition History of Current Condition Onset Date 1.5 years History of Current Condition Pt reports TBI 4 years ago when tripping and hitting head on counter. He had a severe concussion and he was out at least 30 minutes. He went to the hospital and was checked out. He had had post- concussion syndrome for 6 weeks. He would fall out unconsious when sitting at random times. He would not have memory of it. He went from having headaches 1-2 times a year to 4-6 a year. Seizures started 1.5 years ago . They are termed psychogenic seizures. There is no epilectic activity. He screens high for PTSD. Pt states that PTSD may be related to past relationships. They happen out of sleep. He wakes up shaking . He does not think he has headaches. , Joy, describes rocking side to side or pelvic thrusting, head back and eyes rolled upward. He occ has horizontal nystagmus and then his head drops down. Events last 30 sec . He is taking Topamax in the a.m. to help with mood and headaches. He has not gone more than 18 days without a seizure. He has been on Topamax for a week and has not had a seizure. 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 He had trigger point injections. He has to go through series of taking medications including corticosteroids. 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 He and are trying out supportive neck pillows. He sleeps on a wedge. 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 He drinks caffeine and water . occ reports of pt with anger and memory loss connected. These were unlike his normal personality. Pt reports headaches up to a 7 /10 and he has to talk Percicet. Headaches are over the right eye and down into his right face and back of head and feeling right eyeball being squeezed. He sees colors and has horizontal nystagmus. Overall discomfort left upper trap area, 3/10. He has 3-7/10 pain down left arm . Right hernia surgery and pain after right testicle removed. Multiple neural surgeries in the area and he now has a small left inguinal hernia. Pt reports occ tingling 4th and 5th left digit and burning down back of left arm through elbow. Prior Treatments and Tests PT in the past for left shoulder. It went okay. He had it for his right wrist as well. Right TMJ injections PT-OP-C Subjective Start: 02/04/19 07:28 Freq: Status: Active Protocol: Document 01/01/20 08:15 MB (Rec: 01/01/20 09:00 MB [id number]) OP-PT Subjective Patient Comments Patient Comments It's been a rough week. I had a cystoscopy and then I had a seizure after a nap Saturday and a migraine yesterday. PT-OP-J Posture/Palpation/Skin Start: 02/04/19 07:28 Freq: Status: Active Protocol: Document 02/04/19 09:01 MB (Rec: 02/04/19 13:33 MB [id number]) Posture Evaluation Comments Posture Comments Standing posture: forward head , rounded shoulders, Dowager's hump, decreased thoracic kyphosis, increased lumbar lordosis, changes around T6 vertebra that could be stiffness PT-OP-K Range of Motion Start: 02/04/19 07:28 Freq: Status: Active Protocol: Document 02/04/19 09:01 MB (Rec: 02/04/19 13:33 MB [id number]) Cervical Spine Range of Motion Cervical Spine Active Testing Position Standing Flexion 35 Extension 40 Rotation Left 40 Rotation Right 50 Comments Pt reports stretch in right jaw with cervical extension and left upper traps area discomfort 3/10 with flexion PT-OP-M Strength Start: 02/04/19 07:28 Freq: Status: Active Protocol: Document 02/04/19 09:01 MB (Rec: 02/04/19 13:33 MB [id number]) Shoulder Strength Shoulder Manual Muscle Testing Left Flexion 4 Good Abduction (C5) 4 Good External Rotation 5 Normal Internal Rotation 5 Normal Right Flexion 5 Normal Abduction (C5) 5 Normal External Rotation 4 Good Internal Rotation 4 Good Elbow/Forearm Strength Elbow and Forearm Manual Muscle Testing Left Flexion (C6) 5 Normal Extension (C7) 5 Normal Pronation 4 Good Supination 4 Good Right Flexion (C6) 5 Normal Extension (C7) 5 Normal Pronation 4 Good Supination 4 Good Wrist Strength Wrist Manual Muscle Testing Left Flexion (C7) 5 Normal Extension (C6) 5 Normal Right Flexion (C7) 5 Normal Extension (C6) 5 Normal PT-OP-Q Treatments Start: 02/04/19 07:28 Freq: Status: Active Protocol: Document 01/01/20 08:15 MB (Rec: 01/01/20 09:00 MB [id number]) Therapeutic Exercises Standing Exercises STM intrascapular muscles Side bilateral Comments Pt performs today Manual Therapy Treatment Other Other Manual Treatments Pt agrees to Counterstrain to assess and treat fascial tension. Pt presents with tension in the following fascial systems: costocartilage, arterial cervical and trigeminal, right cervical disc and right mesentery visceral. Treated stacks in the following systems: trigeminal and then vagus nerve that shows up after trigeminal treatment. Proximal vagus treatment to thorax. PT-OP-T Assessment and Plan Start: 02/04/19 07:28 Freq: Status: Active Protocol: Document 01/01/20 08:15 MB (Rec: 01/01/20 09:00 MB [id number]) Physical Therapy Assessment Rehab Potential Rehabilitation Potential Fair Evaluation Complexity Number of Personal Factors/Comorbidities 3 or More Number of Body Systems Impaired 3 Clinical Presentation at Evaluation Evolving Goals 8 Prison Goal (LTG) Pt will present with equal active left shoulder abduction and flexion compared to the right to allow overhead work by 01/25/2020. 12/08/2019: Pt presents with right shoulder abduction and flexion to 180 deg and left shoulder abduction 140 deg and flexion to 135 deg. 6 Compliance Mgr Goal (LTG) Pt will report no more than 1 seizure per month by 2019. 12/08/2019: Pt reports 2 seizures per month. He states that he feels he has maxed PT potential with seizures. LTG Duration Goal maximized for PT 4 Prison Goal (LTG) Pt will report no more than 1 headache per month by 2019. 12/08/2019: Pt is currently having headaches about twice a month LTG Duration 8 weeks 3 Compliance Mgr Goal (LTG) Pt will perform progressive HEP with I including postural alignment, flexibility, strengthening and relaxation exercises by 01/25/2020. 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 12/08/2019: QuickDASH score reflects 18.18% impairment, which is greater than 6% improvement since last progress note LTG Duration 8 weeks 1 Prison Goal (LTG) Pt will present with a NDI score to reflect no more than 15% impairment by 01/25/2020. 12/08/2019: NDI score reflects 18% impairment, a 2% improvement since last progress note LTG Duration 8 weeks Progress Towards Goals Progress Towards Goals Progressing Toward Goals Assessment Summary Assessment Counterstrain treatment today to treat fascial tension. Con' t any exercise revisions and manual work. Physical Therapy Plan Frequency and Duration Frequency of Treatment 1x/Week Duration of Treatment 6 weeks Plan of Care Start Date 12/08/19 Plan of Care End Date 01/25/20 Therapeutic Interventions Therapeutic Interventions Balance Training,Canalithic Repositioning,Home Exercise Program,Manual Therapy, Neuromuscular Re-education, Patient/Caregiver Education, Self-Care/Home Management,Soft Tissue Mobilization,Taping, Therapeutic Exercises, Vestibular Rehabilitation Modalities Cold Pack/Ice Massage,Electric Stimulation,Hot Packs, Ultrasound Next Visit Focus/Plan Next Note Type Treatment Note Next Visit Plan Consider any exercise revisions and con't manual work
--- NOTE | 2020-01-05 11:16 | PT.OTN ---
Current Diagnoses Cervicalgia (01/05/20) Headache (01/05/20) Personal history of traumatic brain injury (01/05/20) Physical Therapy Treatment Note PT-OP-A Visit Information Start: 02/04/19 07:28 Freq: Status: Active Protocol: Document 01/05/20 10:31 MB (Rec: 01/05/20 11:15 MB [id number]) Out-Patient Physical Therapy Visit Information Visit Information Visit Type Treatment Note Visit Start Time 10:31 Visit Stop Time 11:15 Total Visit Minutes 44 Visit Number 11/29 PT-OP-B Current Condition Start: 02/04/19 07:28 Freq: Status: Active Protocol: Document 02/04/19 09:01 MB (Rec: 02/04/19 09:50 MB [id number]) Current Condition History of Current Condition Onset Date 1.5 years History of Current Condition Pt reports TBI 4 years ago when tripping and hitting head on counter. He had a severe concussion and he was out at least 30 minutes. He went to the hospital and was checked out. He had had post- concussion syndrome for 6 weeks. He would fall out unconsious when sitting at random times. He would not have memory of it. He went from having headaches 1-2 times a year to 4-6 a year. Seizures started 1.5 years ago . They are termed psychogenic seizures. There is no epilectic activity. He screens high for PTSD. Pt states that PTSD may be related to past relationships. They happen out of sleep. He wakes up shaking . He does not think he has headaches. , Joy, describes rocking side to side or pelvic thrusting, head back and eyes rolled upward. He occ has horizontal nystagmus and then his head drops down. Events last 30 sec . He is taking Topamax in the a.m. to help with mood and headaches. He has not gone more than 18 days without a seizure. He has been on Topamax for a week and has not had a seizure. 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 He had trigger point injections. He has to go through series of taking medications including corticosteroids. 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 He and are trying out supportive neck pillows. He sleeps on a wedge. 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 He drinks caffeine and water . occ reports of pt with anger and memory loss connected. These were unlike his normal personality. Pt reports headaches up to a 7 /10 and he has to talk Percicet. Headaches are over the right eye and down into his right face and back of head and feeling right eyeball being squeezed. He sees colors and has horizontal nystagmus. Overall discomfort left upper trap area, 3/10. He has 3-7/10 pain down left arm . Right hernia surgery and pain after right testicle removed. Multiple neural surgeries in the area and he now has a small left inguinal hernia. Pt reports occ tingling 4th and 5th left digit and burning down back of left arm through elbow. Prior Treatments and Tests PT in the past for left shoulder. It went okay. He had it for his right wrist as well. Right TMJ injections PT-OP-C Subjective Start: 02/04/19 07:28 Freq: Status: Active Protocol: Document 01/05/20 10:31 MB (Rec: 01/05/20 11:15 MB [id number]) OP-PT Subjective Patient Comments Patient Comments I felt good after Counterstrain and I had a headache over the weekend. The stress is high. PT-OP-J Posture/Palpation/Skin Start: 02/04/19 07:28 Freq: Status: Active Protocol: Document 02/04/19 09:01 MB (Rec: 02/04/19 13:33 MB [id number]) Posture Evaluation Comments Posture Comments Standing posture: forward head , rounded shoulders, Dowager's hump, decreased thoracic kyphosis, increased lumbar lordosis, changes around T6 vertebra that could be stiffness PT-OP-K Range of Motion Start: 02/04/19 07:28 Freq: Status: Active Protocol: Document 02/04/19 09:01 MB (Rec: 02/04/19 13:33 MB [id number]) Cervical Spine Range of Motion Cervical Spine Active Testing Position Standing Flexion 35 Extension 40 Rotation Left 40 Rotation Right 50 Comments Pt reports stretch in right jaw with cervical extension and left upper traps area discomfort 3/10 with flexion PT-OP-M Strength Start: 02/04/19 07:28 Freq: Status: Active Protocol: Document 02/04/19 09:01 MB (Rec: 02/04/19 13:33 MB [id number]) Shoulder Strength Shoulder Manual Muscle Testing Left Flexion 4 Good Abduction (C5) 4 Good External Rotation 5 Normal Internal Rotation 5 Normal Right Flexion 5 Normal Abduction (C5) 5 Normal External Rotation 4 Good Internal Rotation 4 Good Elbow/Forearm Strength Elbow and Forearm Manual Muscle Testing Left Flexion (C6) 5 Normal Extension (C7) 5 Normal Pronation 4 Good Supination 4 Good Right Flexion (C6) 5 Normal Extension (C7) 5 Normal Pronation 4 Good Supination 4 Good Wrist Strength Wrist Manual Muscle Testing Left Flexion (C7) 5 Normal Extension (C6) 5 Normal Right Flexion (C7) 5 Normal Extension (C6) 5 Normal PT-OP-Q Treatments Start: 02/04/19 07:28 Freq: Status: Active Protocol: Document 01/05/20 10:31 MB (Rec: 01/05/20 11:15 MB [id number]) Manual Therapy Treatment Other Other Manual Treatments Pt agrees to Counterstrain to assess and treat fascial tension. Pt presents with tension in the following fascial systems: lymphatic venous, arterial, facial and trigeminal and PT treats stacks in the following systems: lymphatic venous spinal medullary cervical to lumbar spine and then costocartilage after re- scanned, rib 1 and then chain with SIB-V. PT-OP-T Assessment and Plan Start: 02/04/19 07:28 Freq: Status: Active Protocol: Document 01/05/20 10:31 MB (Rec: 01/05/20 11:15 MB [id number]) Physical Therapy Assessment Rehab Potential Rehabilitation Potential Fair Evaluation Complexity Number of Personal Factors/Comorbidities 3 or More Number of Body Systems Impaired 3 Clinical Presentation at Evaluation Evolving Goals 8 Senior Care Goal (LTG) Pt will present with equal active left shoulder abduction and flexion compared to the right to allow overhead work by 01/25/2020. 12/08/2019: Pt presents with right shoulder abduction and flexion to 180 deg and left shoulder abduction 140 deg and flexion to 135 deg. 6 Senior Care Goal (LTG) Pt will report no more than 1 seizure per month by 2019. 12/08/2019: Pt reports 2 seizures per month. He states that he feels he has maxed PT potential with seizures. LTG Duration Goal maximized for PT 4 Senior Care Goal (LTG) Pt will report no more than 1 headache per month by 2019. 12/08/2019: Pt is currently having headaches about twice a month LTG Duration 8 weeks 3 Shipbuilding Draftsperson Goal (LTG) Pt will perform progressive HEP with I including postural alignment, flexibility, strengthening and relaxation exercises by 01/25/2020. 12/08/2019: Pt has been performing progressive HEP LTG Duration 8 weeks 2 Shipbuilding Draftsperson Goal (LTG) Pt will present with a QuickDASH score to reflect no more than 15% impairment to allow return to itar and improvement of ADLs by 2019. 12/08/2019: QuickDASH score reflects 18.18% impairment, which is greater than 6% improvement since last progress note LTG Duration 8 weeks 1 Senior Care Goal (LTG) Pt will present with a NDI score to reflect no more than 15% impairment by 01/25/2020. 12/08/2019: NDI score reflects 18% impairment, a 2% improvement since last progress note LTG Duration 8 weeks Progress Towards Goals Progress Towards Goals Progressing Toward Goals Assessment Summary Assessment Pt con't to respond well with manual work. Counterstrain treatment today to treat fascial tension. Con't any exercise revisions and manual work. Physical Therapy Plan Frequency and Duration Frequency of Treatment 1x/Week Duration of Treatment 6 weeks Plan of Care Start Date 12/08/19 Plan of Care End Date 01/25/20 Therapeutic Interventions Therapeutic Interventions Balance Training,Canalithic Repositioning,Home Exercise Program,Manual Therapy, Neuromuscular Re-education, Patient/Caregiver Education, Self-Care/Home Management,Soft Tissue Mobilization,Taping, Therapeutic Exercises, Vestibular Rehabilitation Modalities Cold Pack/Ice Massage,Electric Stimulation,Hot Packs, Ultrasound Next Visit Focus/Plan Next Note Type Treatment Note Next Visit Plan Consider any exercise revisions and con't manual work
--- NOTE | 2020-01-12 10:32 | PT.OTN ---
Current Diagnoses Cervicalgia (01/12/20) Headache (01/12/20) Personal history of traumatic brain injury (01/12/20) Physical Therapy Treatment Note PT-OP-A Visit Information Start: 02/04/19 07:28 Freq: Status: Active Protocol: Document 01/12/20 09:46 MB (Rec: 01/12/20 10:32 MB [id number]) Out-Patient Physical Therapy Visit Information Visit Information Visit Type Treatment Note Visit Start Time 09:46 Visit Stop Time 10:30 Total Visit Minutes 44 Visit Number 12/30 PT-OP-B Current Condition Start: 02/04/19 07:28 Freq: Status: Active Protocol: Document 02/04/19 09:01 MB (Rec: 02/04/19 09:50 MB [id number]) Current Condition History of Current Condition Onset Date 1.5 years History of Current Condition Pt reports TBI 4 years ago when tripping and hitting head on counter. He had a severe concussion and he was out at least 30 minutes. He went to the hospital and was checked out. He had had post- concussion syndrome for 6 weeks. He would fall out unconsious when sitting at random times. He would not have memory of it. He went from having headaches 1-2 times a year to 4-6 a year. Seizures started 1.5 years ago . They are termed psychogenic seizures. There is no epilectic activity. He screens high for PTSD. Pt states that PTSD may be related to past relationships. They happen out of sleep. He wakes up shaking . He does not think he has headaches. , Joy, describes rocking side to side or pelvic thrusting, head back and eyes rolled upward. He occ has horizontal nystagmus and then his head drops down. Events last 30 sec . He is taking Topamax in the a.m. to help with mood and headaches. He has not gone more than 18 days without a seizure. He has been on Topamax for a week and has not had a seizure. 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 He had trigger point injections. He has to go through series of taking medications including corticosteroids. 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 He and are trying out supportive neck pillows. He sleeps on a wedge. 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 He drinks caffeine and water . occ reports of pt with anger and memory loss connected. These were unlike his normal personality. Pt reports headaches up to a 7 /10 and he has to talk Percicet. Headaches are over the right eye and down into his right face and back of head and feeling right eyeball being squeezed. He sees colors and has horizontal nystagmus. Overall discomfort left upper trap area, 3/10. He has 3-7/10 pain down left arm . Right hernia surgery and pain after right testicle removed. Multiple neural surgeries in the area and he now has a small left inguinal hernia. Pt reports occ tingling 4th and 5th left digit and burning down back of left arm through elbow. Prior Treatments and Tests PT in the past for left shoulder. It went okay. He had it for his right wrist as well. Right TMJ injections PT-OP-C Subjective Start: 02/04/19 07:28 Freq: Status: Active Protocol: Document 01/12/20 09:46 MB (Rec: 01/12/20 10:32 MB [id number]) OP-PT Subjective Patient Comments Patient Comments My shoulder is doing good but I have had an increase in the headaches and seizures that are more stress related. I've had two seizure in the last week and four migraines. PT-OP-J Posture/Palpation/Skin Start: 02/04/19 07:28 Freq: Status: Active Protocol: Document 02/04/19 09:01 MB (Rec: 02/04/19 13:33 MB [id number]) Posture Evaluation Comments Posture Comments Standing posture: forward head , rounded shoulders, Dowager's hump, decreased thoracic kyphosis, increased lumbar lordosis, changes around T6 vertebra that could be stiffness PT-OP-K Range of Motion Start: 02/04/19 07:28 Freq: Status: Active Protocol: Document 02/04/19 09:01 MB (Rec: 02/04/19 13:33 MB [id number]) Cervical Spine Range of Motion Cervical Spine Active Testing Position Standing Flexion 35 Extension 40 Rotation Left 40 Rotation Right 50 Comments Pt reports stretch in right jaw with cervical extension and left upper traps area discomfort 3/10 with flexion PT-OP-M Strength Start: 02/04/19 07:28 Freq: Status: Active Protocol: Document 02/04/19 09:01 MB (Rec: 02/04/19 13:33 MB [id number]) Shoulder Strength Shoulder Manual Muscle Testing Left Flexion 4 Good Abduction (C5) 4 Good External Rotation 5 Normal Internal Rotation 5 Normal Right Flexion 5 Normal Abduction (C5) 5 Normal External Rotation 4 Good Internal Rotation 4 Good Elbow/Forearm Strength Elbow and Forearm Manual Muscle Testing Left Flexion (C6) 5 Normal Extension (C7) 5 Normal Pronation 4 Good Supination 4 Good Right Flexion (C6) 5 Normal Extension (C7) 5 Normal Pronation 4 Good Supination 4 Good Wrist Strength Wrist Manual Muscle Testing Left Flexion (C7) 5 Normal Extension (C6) 5 Normal Right Flexion (C7) 5 Normal Extension (C6) 5 Normal PT-OP-Q Treatments Start: 02/04/19 07:28 Freq: Status: Active Protocol: Document 01/12/20 09:46 MB (Rec: 01/12/20 10:32 MB [id number]) Manual Therapy Treatment Other Other Manual Treatments Pt agrees to Counterstrain to assess and treat fascial tension. Pt presents with tension in the following fascial systems: TENT L, standard lymphatic row, DPR. PT treats stacks in the dura, and standard lymphatic venous cervical spine. PT-OP-T Assessment and Plan Start: 02/04/19 07:28 Freq: Status: Active Protocol: Document 01/12/20 09:46 MB (Rec: 01/12/20 10:32 MB [id number]) Physical Therapy Assessment Rehab Potential Rehabilitation Potential Fair Evaluation Complexity Number of Personal Factors/Comorbidities 3 or More Number of Body Systems Impaired 3 Clinical Presentation at Evaluation Evolving Goals 8 Retirement Goal (LTG) Pt will present with equal active left shoulder abduction and flexion compared to the right to allow overhead work by 01/25/2020. 12/08/2019: Pt presents with right shoulder abduction and flexion to 180 deg and left shoulder abduction 140 deg and flexion to 135 deg. 6 Retirement Goal (LTG) Pt will report no more than 1 seizure per month by 2019. 12/08/2019: Pt reports 2 seizures per month. He states that he feels he has maxed PT potential with seizures. LTG Duration Goal maximized for PT 4 Retirement Goal (LTG) Pt will report no more than 1 headache per month by 2019. 12/08/2019: Pt is currently having headaches about twice a month LTG Duration 8 weeks 3 Retirement Goal (LTG) Pt will perform progressive HEP with I including postural alignment, flexibility, strengthening and relaxation exercises by 01/25/2020. 12/08/2019: Pt has been performing progressive HEP LTG Duration 8 weeks 2 Sh[employer] Hand [employer]er Goal (LTG) Pt will present with a QuickDASH score to reflect no more than 15% impairment to allow return to itar and improvement of ADLs by 2019. 12/08/2019: QuickDASH score reflects 18.18% impairment, which is greater than 6% improvement since last progress note LTG Duration 8 weeks 1 Sh[employer] Hand [employer]er Goal (LTG) Pt will present with a NDI score to reflect no more than 15% impairment by 01/25/2020. 12/08/2019: NDI score reflects 18% impairment, a 2% improvement since last progress note LTG Duration 8 weeks Progress Towards Goals Progress Towards Goals Progressing Toward Goals Assessment Summary Assessment Counterstrain treatment today to address lingering fascial tension. Anticipate d/c next treatment date and try self- management with HEP at home. Physical Therapy Plan Frequency and Duration Frequency of Treatment 1x/Week Duration of Treatment 6 weeks Plan of Care Start Date 12/08/19 Plan of Care End Date 01/25/20 Therapeutic Interventions Therapeutic Interventions Balance Training,Canalithic Repositioning,Home Exercise Program,Manual Therapy, Neuromuscular Re-education, Patient/Caregiver Education, Self-Care/Home Management,Soft Tissue Mobilization,Taping, Therapeutic Exercises, Vestibular Rehabilitation Modalities Cold Pack/Ice Massage,Electric Stimulation,Hot Packs, Ultrasound Next Visit Focus/Plan Next Note Type Discharge Summary
--- NOTE | 2020-01-21 13:01 | PT-OP ANOTE ---
Pt's appointment was cancelled d/t he has a migraine and cannot drive. PT noted brain MRI results from 01/20/2020 were negative. He got MRI d/t persistent HAs. Pt calls pt and speaks with him and . They would like to con't with PT in setting of the headache exacerbation and PT is in agreement. Set appointment for tomorrow and will write a progress note then to update POC. New auth has been received.
--- NOTE | 2020-01-22 16:27 | PT.OIE ---
Current Diagnoses Cervicalgia (01/22/20) Headache (01/22/20) Personal history of traumatic brain injury (01/22/20) Past Medical History (Last Updated 12/29/19 @ 16:55 by Robyn Singh MD) BPH (benign prostatic hyperplasia) BPH w urinary obs/LUTS Depression GERD (gastroesophageal reflux disease) High blood pressure Lower urinary tract symptoms (LUTS) Lower urinary tract symptoms (LUTS) Migraine headache Seizure disorder Past Surgical History (Last Reviewed 11/24/19 @ 15:25 by Robyn Singh MD) H/O cystoscopy H/O hernia repair H/O vasectomy History of orchiectomy Visit Care Team Role Provider Type Elisha Mello DO Attending Provider Non-Staff Primary Care Provider Specialty: Medical Address: [address] [place] [address], [facility] Email: Physical Therapy Initial Evaluation PT-OP-A Visit Information Start: 02/04/19 07:28 Freq: Status: Active Protocol: Document 01/22/20 07:35 MB (Rec: 01/22/20 08:15 MB [id number]) Out-Patient Physical Therapy Visit Information Visit Information Visit Type Progress Note Visit Note Last appointment on current auth and has another 12 approved Visit Start Time 07:35 Visit Stop Time 08:42 Total Visit Minutes 67 Visit Number 01/29 PT-OP-B Current Condition Start: 02/04/19 07:28 Freq: Status: Active Protocol: Document 02/04/19 09:01 MB (Rec: 02/04/19 09:50 MB [id number]) Current Condition History of Current Condition Onset Date 1.5 years History of Current Condition Pt reports TBI 4 years ago when tripping and hitting head on counter. He had a severe concussion and he was out at least 30 minutes. He went to the hospital and was checked out. He had had post- concussion syndrome for 6 weeks. He would fall out unconsious when sitting at random times. He would not have memory of it. He went from having headaches 1-2 times a year to 4-6 a year. Seizures started 1.5 years ago . They are termed psychogenic seizures. There is no epilectic activity. He screens high for PTSD. Pt states that PTSD may be related to past relationships. They happen out of sleep. He wakes up shaking . He does not think he has headaches. , Joy, describes rocking side to side or pelvic thrusting, head back and eyes rolled upward. He occ has horizontal nystagmus and then his head drops down. Events last 30 sec . He is taking Topamax in the a.m. to help with mood and headaches. He has not gone more than 18 days without a seizure. He has been on Topamax for a week and has not had a seizure. 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 He had trigger point injections. He has to go through series of taking medications including corticosteroids. He has a guardian family member. 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 He and are trying out supportive neck pillows. He sleeps on a wedge. 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 He drinks caffeine and water . occ reports of pt with anger and memory loss connected. These were unlike his normal personality. Pt reports headaches up to a 7 /10 and he has to talk Percicet. Headaches are over the right eye and down into his right face and back of head and feeling right eyeball being squeezed. He sees colors and has horizontal nystagmus. Overall discomfort left upper trap area, 3/10. He has 3-7/10 pain down left arm . Right hernia surgery and pain after right testicle removed. Multiple neural surgeries in the area and he now has a small left inguinal hernia. Pt reports occ tingling 4th and 5th left digit and burning down back of left arm through elbow. Prior Treatments and Tests PT in the past for left shoulder. It went okay. He had it for his right wrist as well. Right TMJ injections PT-OP-C Subjective Start: 02/04/19 07:28 Freq: Status: Active Protocol: Document 01/22/20 07:35 MB (Rec: 01/22/20 08:15 MB [id number]) OP-PT Subjective Patient Comments Patient Comments Pt reports 12 days of headaches. They are occurring around 10 a.m. The headaches are localized right retrorbital and travel in a band-like manner over the temporal. Pain gets up to 8/10 and he gets nauseated and has sesnsitivity to light. The pain lasts 2 hours. He is not always at the computer when they happen. He is occ doing things around the house or having discussions with family . His stuttering has been a little worse. He is having seizures every 2-3 days. He is stopping the naps d/t seizures. He will have a neurology work-up. PT had new auth sent in right around when the headaches started and pt states that referring provider knows his current headache progression and ordered the MRI. Pt states that reaching and shoulder movement is okay. He stills get tired a lot working overhead. Pt states that his exercises are good and he is able to switch out and do what he needs. Patient Questionnaires Neck Disability Index Neck Disability Index Impairment 40 to 59% Impaired (Score 20- 29) Quick Dash- Upper Extremity Quick Dash UE Impairment 1 to 19% Impaired (Score 1-19) PT-OP-J Posture/Palpation/Skin Start: 02/04/19 07:28 Freq: Status: Active Protocol: Document 02/04/19 09:01 MB (Rec: 02/04/19 13:33 MB [id number]) Posture Evaluation Comments Posture Comments Standing posture: forward head , rounded shoulders, Dowager's hump, decreased thoracic kyphosis, increased lumbar lordosis, changes around T6 vertebra that could be stiffness PT-OP-K Range of Motion Start: 02/04/19 07:28 Freq: Status: Active Protocol: Document 02/04/19 09:01 MB (Rec: 02/04/19 13:33 MB [id number]) Cervical Spine Range of Motion Cervical Spine Active Testing Position Standing Flexion 35 Extension 40 Rotation Left 40 Rotation Right 50 Comments Pt reports stretch in right jaw with cervical extension and left upper traps area discomfort 3/10 with flexion PT-OP-M Strength Start: 02/04/19 07:28 Freq: Status: Active Protocol: Document 02/04/19 09:01 MB (Rec: 02/04/19 13:33 MB [id number]) Shoulder Strength Shoulder Manual Muscle Testing Left Flexion 4 Good Abduction (C5) 4 Good External Rotation 5 Normal Internal Rotation 5 Normal Right Flexion 5 Normal Abduction (C5) 5 Normal External Rotation 4 Good Internal Rotation 4 Good Elbow/Forearm Strength Elbow and Forearm Manual Muscle Testing Left Flexion (C6) 5 Normal Extension (C7) 5 Normal Pronation 4 Good Supination 4 Good Right Flexion (C6) 5 Normal Extension (C7) 5 Normal Pronation 4 Good Supination 4 Good Wrist Strength Wrist Manual Muscle Testing Left Flexion (C7) 5 Normal Extension (C6) 5 Normal Right Flexion (C7) 5 Normal Extension (C6) 5 Normal PT-OP-Q Treatments Start: 02/04/19 07:28 Freq: Status: Active Protocol: Document 01/22/20 07:35 MB (Rec: 01/22/20 08:58 MB [id number]) Therapeutic Exercises Standing Exercises STM intrascapular muscles Side bilateral Comments Performs today I Racquet ball massage, MWM with infraspinatus Side bilateral Comments Performs today I Other Exercises Reviewed all other exercises, reviewed handouts today Comments Performed this today as progress note goal, pt verbalizes understanding Manual Therapy Treatment Other Other Manual Treatments Logan Protocol left shoulder and his shoulder flexion and abduction greatly improve after treatment: see measurements under assessment; further SC mobs B Self-Care/Home Management Treatment Education Other Education PT plan going forward; neuro screen today and findings of dysdiadochokinesia with rapid pronation and supination, greater on the left hand--he does have history of brachial plexus and ulnar nerve injuries; benefits of ongoing overhead work to work on shoulder fatigue, multifactorial components to symptoms, encouragement that goal findings today are consistent with reports and current headache flare-up PT-OP-T Assessment and Plan Start: 02/04/19 07:28 Freq: Status: Active Protocol: Document 01/22/20 07:35 MB (Rec: 01/22/20 08:15 MB [id number]) Physical Therapy Assessment Rehab Potential Rehabilitation Potential Fair Evaluation Complexity Number of Personal Factors/Comorbidities 3 or More Number of Body Systems Impaired 3 Clinical Presentation at Evaluation Evolving Impairments Impairments Balance,Pain,Posture,ROM,Soft Tissue Mobility,Vestibular, Visual Motor Goals 8 Fci Goal (LTG) Pt will present with equal active left shoulder abduction and flexion compared to the right to allow overhead work by 03/24/2020. 01/22/2020: Pt presents with right shoulder abduction and flexion to 180 deg and left shoulder abduction 135 deg and flexion to 131 deg, close to last progress note ranges. 6 [employer] Police Goal (LTG) Pt will report no more than 2 seizures per month by 03/24/2020 . 01/22/2020: Added new seizure goal in setting of flare-up LTG Duration 8 weeks 4 Fci Goal (LTG) Pt will report no more than 2 headaches per month by 2020. 01/22/2020: Updated headache goal in setting of flare-up LTG Duration 8 weeks 3 Fci Goal (LTG) Pt will perform progressive HEP with I including postural alignment, VOR, visual motor, flexibility, strengthening and relaxation exercises by 2020. 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 01/22/2020: QuickDASH score reflects 18.18% impairment, which is the same since last progress note in setting of flare-up LTG Duration 8 weeks 1 Fci Goal (LTG) Pt will present with a NDI score to reflect no more than 20% impairment by 03/24/2020. 01/22/2020: NDI score reflects 40% impairment, reflecting current headache flare-up LTG Duration 8 weeks Progress Towards Goals Progress Towards Goals Slow Progress due to Medical Issues Assessment Summary Assessment Pt has had a long stretch of migraines. Pt reports that he had the 22 days of migraines this time last year and stress has been increased recently. His seizures are also more frequent. 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 He will have a neurological work- up. He denies recent injury. Pt's Neuro screen today: pupils equally reactive to light, normal oculomotor testing, pt presents with dysdiadochokinesia with rapid supination and pronation greater on the left hand, mild trouble with finger to nose, greater on the left, toe tap over opposite foot normal B, equal and normal B shoulder flexion and abduction, Romberg EC and EO normal, some trouble keeping balance with B tandem greater than 15 sec, tandem gait is not ataxic but he must hit front foot heel against back foot toes to get position. Pt's overall response to PT has been good as far as improving left shoulder range and function and performance of exercises. This flare-up of symptoms is reflected in QuickDASH and NDI scores today. PT and pt agree that he will benefit from ongoing PT to improve these scores, shoulder function and headaches. 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 May consider a Cedar Treadmill Test and VOMS to see if any blood supply, vestibular and/ or visual motor contributions to his ongoing headache symptoms. Physical Therapy Plan Frequency and Duration Frequency of Treatment 1x/Week Duration of Treatment 8 weeks Plan of Care Start Date 01/22/20 Plan of Care End Date 03/24/20 Therapeutic Interventions Therapeutic Interventions Balance Training,Canalithic Repositioning,Coordination Training,Home Exercise Program ,Joint Mobilizations,Manual Therapy,Neuromuscular Re- education,Patient/Caregiver Education,Self-Care/Home Management,Sensory Integration ,Soft Tissue Mobilization, Taping,Therapeutic Activities, Therapeutic Exercises, Vestibular Rehabilitation Modalities Cold Pack/Ice Massage,Electric Stimulation,Hot Packs, Ultrasound Next Visit Focus/Plan Next Note Type Treatment Note Next Visit Plan Consider Cedar Treadmill Test, VOMS
--- NOTE | 2020-01-27 09:10 | PT.OTN ---
Current Diagnoses Cervicalgia (01/27/20) Headache (01/27/20) Personal history of traumatic brain injury (01/27/20) Physical Therapy Treatment Note PT-OP-A Visit Information Start: 02/04/19 07:28 Freq: Status: Active Protocol: Document 01/27/20 08:15 MB (Rec: 01/27/20 09:10 MB [id number]) Out-Patient Physical Therapy Visit Information Visit Information Visit Type Treatment Note Visit Start Time 08:15 Visit Stop Time 09:08 Total Visit Minutes 53 Visit Number 03/01 PT-OP-B Current Condition Start: 02/04/19 07:28 Freq: Status: Active Protocol: Document 02/04/19 09:01 MB (Rec: 02/04/19 09:50 MB [id number]) Current Condition History of Current Condition Onset Date 1.5 years History of Current Condition Pt reports TBI 4 years ago when tripping and hitting head on counter. He had a severe concussion and he was out at least 30 minutes. He went to the hospital and was checked out. He had had post- concussion syndrome for 6 weeks. He would fall out unconsious when sitting at random times. He would not have memory of it. He went from having headaches 1-2 times a year to 4-6 a year. Seizures started 1.5 years ago . They are termed psychogenic seizures. There is no epilectic activity. He screens high for PTSD. Pt states that PTSD may be related to past relationships. They happen out of sleep. He wakes up shaking . He does not think he has headaches. , Joy, describes rocking side to side or pelvic thrusting, head back and eyes rolled upward. He occ has horizontal nystagmus and then his head drops down. Events last 30 sec . He is taking Topamax in the a.m. to help with mood and headaches. He has not gone more than 18 days without a seizure. He has been on Topamax for a week and has not had a seizure. 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 He had trigger point injections. He has to go through series of taking medications including corticosteroids. 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 He and are trying out supportive neck pillows. He sleeps on a wedge. 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 He drinks caffeine and water . occ reports of pt with anger and memory loss connected. These were unlike his normal personality. Pt reports headaches up to a 7 /10 and he has to talk Percicet. Headaches are over the right eye and down into his right face and back of head and feeling right eyeball being squeezed. He sees colors and has horizontal nystagmus. Overall discomfort left upper trap area, 3/10. He has 3-7/10 pain down left arm . Right hernia surgery and pain after right testicle removed. Multiple neural surgeries in the area and he now has a small left inguinal hernia. Pt reports occ tingling 4th and 5th left digit and burning down back of left arm through elbow. Prior Treatments and Tests PT in the past for left shoulder. It went okay. He had it for his right wrist as well. Right TMJ injections PT-OP-C Subjective Start: 02/04/19 07:28 Freq: Status: Active Protocol: Document 01/27/20 08:15 MB (Rec: 01/27/20 09:10 MB [id number]) OP-PT Subjective Patient Comments Patient Comments I'm still having the headaches. I felt better after last treatment. I still need to work on my posture. PT-OP-J Posture/Palpation/Skin Start: 02/04/19 07:28 Freq: Status: Active Protocol: Document 02/04/19 09:01 MB (Rec: 02/04/19 13:33 MB [id number]) Posture Evaluation Comments Posture Comments Standing posture: forward head , rounded shoulders, Dowager's hump, decreased thoracic kyphosis, increased lumbar lordosis, changes around T6 vertebra that could be stiffness PT-OP-K Range of Motion Start: 02/04/19 07:28 Freq: Status: Active Protocol: Document 02/04/19 09:01 MB (Rec: 02/04/19 13:33 MB [id number]) Cervical Spine Range of Motion Cervical Spine Active Testing Position Standing Flexion 35 Extension 40 Rotation Left 40 Rotation Right 50 Comments Pt reports stretch in right jaw with cervical extension and left upper traps area discomfort 3/10 with flexion PT-OP-M Strength Start: 02/04/19 07:28 Freq: Status: Active Protocol: Document 02/04/19 09:01 MB (Rec: 02/04/19 13:33 MB [id number]) Shoulder Strength Shoulder Manual Muscle Testing Left Flexion 4 Good Abduction (C5) 4 Good External Rotation 5 Normal Internal Rotation 5 Normal Right Flexion 5 Normal Abduction (C5) 5 Normal External Rotation 4 Good Internal Rotation 4 Good Elbow/Forearm Strength Elbow and Forearm Manual Muscle Testing Left Flexion (C6) 5 Normal Extension (C7) 5 Normal Pronation 4 Good Supination 4 Good Right Flexion (C6) 5 Normal Extension (C7) 5 Normal Pronation 4 Good Supination 4 Good Wrist Strength Wrist Manual Muscle Testing Left Flexion (C7) 5 Normal Extension (C6) 5 Normal Right Flexion (C7) 5 Normal Extension (C6) 5 Normal PT-OP-Q Treatments Start: 02/04/19 07:28 Freq: Status: Active Protocol: Document 01/27/20 08:15 MB (Rec: 01/27/20 09:10 MB [id number]) Manual Therapy Treatment Other Other Manual Treatments Pt agrees to Counterstrain to assess and treat fascial tension and pt presents with tension in the following fascial systems: left trigeminal, annular disc and lymphatic venous spinal medullary. PT treats stacks proximal to distal spinal medullary lymphatic venous, rib cartilage, annular discs cervical to thoracic spine. PT-OP-T Assessment and Plan Start: 02/04/19 07:28 Freq: Status: Active Protocol: Document 01/27/20 08:15 MB (Rec: 01/27/20 09:10 MB [id number]) Physical Therapy Assessment Rehab Potential Rehabilitation Potential Fair Evaluation Complexity Number of Personal Factors/Comorbidities 3 or More Number of Body Systems Impaired 3 Clinical Presentation at Evaluation Evolving Impairments Impairments Balance,Pain,Posture,ROM,Soft Tissue Mobility,Vestibular, Visual Motor Goals 8 Half-Way Goal (LTG) Pt will present with equal active left shoulder abduction and flexion compared to the right to allow overhead work by 03/24/2020. 01/22/2020: Pt presents with right shoulder abduction and flexion to 180 deg and left shoulder abduction 135 deg and flexion to 131 deg, close to last progress note ranges. 6 Half-Way Goal (LTG) Pt will report no more than 2 seizures per month by 03/24/2020 . 01/22/2020: Added new seizure goal in setting of flare-up LTG Duration 8 weeks 4 Half-Way Goal (LTG) Pt will report no more than 2 headaches per month by 2020. 01/22/2020: Updated headache goal in setting of flare-up LTG Duration 8 weeks 3 Half-Way Goal (LTG) Pt will perform progressive HEP with I including postural alignment, VOR, visual motor, flexibility, strengthening and relaxation exercises by 2020. 01/22/2020: Pt has been performing progressive HEP LTG Duration 8 weeks 2 Half-Way Goal (LTG) Pt will present with a QuickDASH score to reflect no more than 15% impairment to allow return to guitar and improvement of ADLs by 2020. 01/22/2020: QuickDASH score reflects 18.18% impairment, which is the same since last progress note in setting of flare-up LTG Duration 8 weeks 1 Cereal Maker Goal (LTG) Pt will present with a NDI score to reflect no more than 20% impairment by 03/24/2020. 01/22/2020: NDI score reflects 40% impairment, reflecting current headache flare-up LTG Duration 8 weeks Assessment Summary Assessment Ed pt to use theraband in standing for intrascapular muscle strengthening when he feels that he cannot keep his posture upright. Pt is moving and this may increase UE work. Pt presents with fascial tension today that improves with Counterstrain, with most focus on the thorax. He con't to have tension in thorax which corresponds with his injury and smoking history and current complaints and decreased shoulder ROM. Physical Therapy Plan Frequency and Duration Frequency of Treatment 1x/Week Duration of Treatment 8 weeks Plan of Care Start Date 01/22/20 Plan of Care End Date 03/24/20 Therapeutic Interventions Therapeutic Interventions Balance Training,Canalithic Repositioning,Coordination Training,Home Exercise Program ,Joint Mobilizations,Manual Therapy,Neuromuscular Re- education,Patient/Caregiver Education,Self-Care/Home Management,Sensory Integration ,Soft Tissue Mobilization, Taping,Therapeutic Activities, Therapeutic Exercises, Vestibular Rehabilitation Modalities Cold Pack/Ice Massage,Electric Stimulation,Hot Packs, Ultrasound Next Visit Focus/Plan Next Note Type Treatment Note Next Visit Plan Consider [place]ennard Treadmill Test, VOMS
--- NOTE | 2020-02-02 08:11 | PT.OTN ---
Current Diagnoses Cervicalgia (02/02/20) Headache (02/02/20) Personal history of traumatic brain injury (02/02/20) Physical Therapy Treatment Note PT-OP-A Visit Information Start: 02/04/19 07:28 Freq: Status: Active Protocol: Document 02/02/20 07:31 MB (Rec: 02/02/20 08:01 MB [id number]) Out-Patient Physical Therapy Visit Information Visit Information Visit Type Treatment Note Visit Start Time 07:31 Visit Stop Time 08:39 Total Visit Minutes 38 Visit Number 04/01 PT-OP-B Current Condition Start: 02/04/19 07:28 Freq: Status: Active Protocol: Document 02/04/19 09:01 MB (Rec: 02/04/19 09:50 MB [id number]) Current Condition History of Current Condition Onset Date 1.5 years History of Current Condition Pt reports TBI 4 years ago when tripping and hitting head on counter. He had a severe concussion and he was out at least 30 minutes. He went to the hospital and was checked out. He had had post- concussion syndrome for 6 weeks. He would fall out unconsious when sitting at random times. He would not have memory of it. He went from having headaches 1-2 times a year to 4-6 a year. Seizures started 1.5 years ago . They are termed psychogenic seizures. There is no epilectic activity. He screens high for PTSD. Pt states that PTSD may be related to past relationships. They happen out of sleep. He wakes up shaking . He does not think he has headaches. , Joy, describes rocking side to side or pelvic thrusting, head back and eyes rolled upward. He occ has horizontal nystagmus and then his head drops down. Events last 30 sec . He is taking Topamax in the a.m. to help with mood and headaches. He has not gone more than 18 days without a seizure. He has been on Topamax for a week and has not had a seizure. 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 He had trigger point injections. He has to go through series of taking medications including corticosteroids. 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 He and are trying out supportive neck pillows. He sleeps on a wedge. 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 He drinks caffeine and water . occ reports of pt with anger and memory loss connected. These were unlike his normal personality. Pt reports headaches up to a 7 /10 and he has to talk Percicet. Headaches are over the right eye and down into his right face and back of head and feeling right eyeball being squeezed. He sees colors and has horizontal nystagmus. Overall discomfort left upper trap area, 3/10. He has 3-7/10 pain down left arm . Right hernia surgery and pain after right testicle removed. Multiple neural surgeries in the area and he now has a small left inguinal hernia. Pt reports occ tingling 4th and 5th left digit and burning down back of left arm through elbow. Prior Treatments and Tests PT in the past for left shoulder. It went okay. He had it for his right wrist as well. Right TMJ injections PT-OP-C Subjective Start: 02/04/19 07:28 Freq: Status: Active Protocol: Document 02/02/20 07:31 MB (Rec: 02/02/20 08:01 MB [id number]) OP-PT Subjective Patient Comments Patient Comments I've been having migraines and seizures everyday. PT-OP-J Posture/Palpation/Skin Start: 02/04/19 07:28 Freq: Status: Active Protocol: Document 02/04/19 09:01 MB (Rec: 02/04/19 13:33 MB [id number]) Posture Evaluation Comments Posture Comments Standing posture: forward head , rounded shoulders, Dowager's hump, decreased thoracic kyphosis, increased lumbar lordosis, changes around T6 vertebra that could be stiffness PT-OP-K Range of Motion Start: 02/04/19 07:28 Freq: Status: Active Protocol: Document 02/04/19 09:01 MB (Rec: 02/04/19 13:33 MB [id number]) Cervical Spine Range of Motion Cervical Spine Active Testing Position Standing Flexion 35 Extension 40 Rotation Left 40 Rotation Right 50 Comments Pt reports stretch in right jaw with cervical extension and left upper traps area discomfort 3/10 with flexion PT-OP-M Strength Start: 02/04/19 07:28 Freq: Status: Active Protocol: Document 02/04/19 09:01 MB (Rec: 02/04/19 13:33 MB [id number]) Shoulder Strength Shoulder Manual Muscle Testing Left Flexion 4 Good Abduction (C5) 4 Good External Rotation 5 Normal Internal Rotation 5 Normal Right Flexion 5 Normal Abduction (C5) 5 Normal External Rotation 4 Good Internal Rotation 4 Good Elbow/Forearm Strength Elbow and Forearm Manual Muscle Testing Left Flexion (C6) 5 Normal Extension (C7) 5 Normal Pronation 4 Good Supination 4 Good Right Flexion (C6) 5 Normal Extension (C7) 5 Normal Pronation 4 Good Supination 4 Good Wrist Strength Wrist Manual Muscle Testing Left Flexion (C7) 5 Normal Extension (C6) 5 Normal Right Flexion (C7) 5 Normal Extension (C6) 5 Normal PT-OP-Q Treatments Start: 02/04/19 07:28 Freq: Status: Active Protocol: Document 02/02/20 07:31 MB (Rec: 02/02/20 08:01 MB [id number]) Manual Therapy Treatment Other Other Manual Treatments Pt agrees to Counterstrain to assess and treat fascial tension and pt presents with tension in the following fascial systems: cartilage and visceral and PT treats stacks in these systems proximal to distal. Cartilage treatments include eustachian, TMJ and ribs. PT-OP-T Assessment and Plan Start: 02/04/19 07:28 Freq: Status: Active Protocol: Document 02/02/20 07:31 MB (Rec: 02/02/20 08:01 MB [id number]) Physical Therapy Assessment Rehab Potential Rehabilitation Potential Fair Evaluation Complexity Number of Personal Factors/Comorbidities 3 or More Number of Body Systems Impaired 3 Clinical Presentation at Evaluation Evolving Impairments Impairments Balance,Pain,Posture,ROM,Soft Tissue Mobility,Vestibular, Visual Motor Goals 8 Screen Tender Goal (LTG) Pt will present with equal active left shoulder abduction and flexion compared to the right to allow overhead work by 03/24/2020. 01/22/2020: Pt presents with right shoulder abduction and flexion to 180 deg and left shoulder abduction 135 deg and flexion to 131 deg, close to last progress note ranges. 6 Shelter Goal (LTG) Pt will report no more than 2 seizures per month by 03/24/2020 . 01/22/2020: Added new seizure goal in setting of flare-up LTG Duration 8 weeks 4 Shelter Goal (LTG) Pt will report no more than 2 headaches per month by 2020. 01/22/2020: Updated headache goal in setting of flare-up LTG Duration 8 weeks 3 Shelter Goal (LTG) Pt will perform progressive HEP with I including postural alignment, VOR, visual motor, flexibility, strengthening and relaxation exercises by 2020. 01/22/2020: Pt has been performing progressive HEP LTG Duration 8 weeks 2 Shelter Goal (LTG) Pt will present with a QuickDASH score to reflect no more than 15% impairment [facility] and improvement of ADLs by 2020. 01/22/2020: QuickDASH score reflects 18.18% impairment, which is the same since last progress note in setting of flare-up LTG Duration 8 weeks 1 Shelter Goal (LTG) Pt will present with a NDI score to reflect no more than 20% impairment by 03/24/2020. 01/22/2020: NDI score reflects 40% impairment, reflecting current headache flare-up LTG Duration 8 weeks Assessment Summary Assessment New Counterstrain treatment today including cartilage treatment and his TMJ pain is better after treatment and this may help with headaches. Also treated visceral points proximal to thoracic areas, monitor response. Physical Therapy Plan Frequency and Duration Frequency of Treatment 1x/Week Duration of Treatment 8 weeks Plan of Care Start Date 01/22/20 Plan of Care End Date 03/24/20 Therapeutic Interventions Therapeutic Interventions Balance Training,Canalithic Repositioning,Coordination Training,Home Exercise Program ,Joint Mobilizations,Manual Therapy,Neuromuscular Re- education,Patient/Caregiver Education,Self-Care/Home Management,Sensory Integration ,Soft Tissue Mobilization, Taping,Therapeutic Activities, Therapeutic Exercises, Vestibular Rehabilitation Modalities Cold Pack/Ice Massage,Electric Stimulation,Hot Packs, Ultrasound Next Visit Focus/Plan Next Note Type Treatment Note Next Visit Plan Con't Counterstrain, Consider [place] Treadmill Test, VOMS
--- NOTE | 2020-02-11 13:01 | PT.OTN ---
Current Diagnoses Cervicalgia (02/11/20) Headache (02/11/20) Personal history of traumatic brain injury (02/11/20) Physical Therapy Treatment Note PT-OP-A Visit Information Start: 02/04/19 07:28 Freq: Status: Active Protocol: Document 02/11/20 12:16 MB (Rec: 02/11/20 13:00 MB [id number]) Out-Patient Physical Therapy Visit Information Visit Information Visit Type Treatment Note Visit Start Time 12:16 Visit Stop Time 13:00 Total Visit Minutes 44 Visit Number 04/29 PT-OP-B Current Condition Start: 02/04/19 07:28 Freq: Status: Active Protocol: Document 02/04/19 09:01 MB (Rec: 02/04/19 09:50 MB [id number]) Current Condition History of Current Condition Onset Date 1.5 years History of Current Condition Pt reports TBI 4 years ago when tripping and hitting head on counter. He had a severe concussion and he was out at least 30 minutes. He went to the hospital and was checked out. He had had post- concussion syndrome for 6 weeks. He would fall out unconsious when sitting at random times. He would not have memory of it. He went from having headaches 1-2 times a year to 4-6 a year. Seizures started 1.5 years ago . They are termed psychogenic seizures. There is no epilectic activity. He screens high for PTSD. Pt states that PTSD may be related to past relationships. They happen out of sleep. He wakes up shaking . He does not think he has headaches. , Joy, describes rocking side to side or pelvic thrusting, head back and eyes rolled upward. He occ has horizontal nystagmus and then his head drops down. Events last 30 sec . He is taking Topamax in the a.m. to help with mood and headaches. He has not gone more than 18 days without a seizure. He has been on Topamax for a week and has not had a seizure. 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 He had trigger point injections. He has to go through series of taking medications including corticosteroids. 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 He and are trying out supportive neck pillows. He sleeps on a wedge. 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 He drinks caffeine and water . occ reports of pt with anger and memory loss connected. These were unlike his normal personality. Pt reports headaches up to a 7 /10 and he has to talk Percicet. Headaches are over the right eye and down into his right face and back of head and feeling right eyeball being squeezed. He sees colors and has horizontal nystagmus. Overall discomfort left upper trap area, 3/10. He has 3-7/10 pain down left arm . Right hernia surgery and pain after right testicle removed. Multiple neural surgeries in the area and he now has a small left inguinal hernia. Pt reports occ tingling 4th and 5th left digit and burning down back of left arm through elbow. Prior Treatments and Tests PT in the past for left shoulder. It went okay. He had it for his right wrist as well. Right TMJ injections PT-OP-C Subjective Start: 02/04/19 07:28 Freq: Status: Active Protocol: Document 02/11/20 12:16 MB (Rec: 02/11/20 13:00 MB [id number]) OP-PT Subjective Patient Comments Patient Comments Over the last week pt reports, I have had 3 days without seizures and only one day without the migraine. PT-OP-J Posture/Palpation/Skin Start: 02/04/19 07:28 Freq: Status: Active Protocol: Document 02/04/19 09:01 MB (Rec: 02/04/19 13:33 MB [id number]) Posture Evaluation Comments Posture Comments Standing posture: forward head , rounded shoulders, Dowager's hump, decreased thoracic kyphosis, increased lumbar lordosis, changes around T6 vertebra that could be stiffness PT-OP-K Range of Motion Start: 02/04/19 07:28 Freq: Status: Active Protocol: Document 02/04/19 09:01 MB (Rec: 02/04/19 13:33 MB [id number]) Cervical Spine Range of Motion Cervical Spine Active Testing Position Standing Flexion 35 Extension 40 Rotation Left 40 Rotation Right 50 Comments Pt reports stretch in right jaw with cervical extension and left upper traps area discomfort 3/10 with flexion PT-OP-M Strength Start: 02/04/19 07:28 Freq: Status: Active Protocol: Document 02/04/19 09:01 MB (Rec: 02/04/19 13:33 MB [id number]) Shoulder Strength Shoulder Manual Muscle Testing Left Flexion 4 Good Abduction (C5) 4 Good External Rotation 5 Normal Internal Rotation 5 Normal Right Flexion 5 Normal Abduction (C5) 5 Normal External Rotation 4 Good Internal Rotation 4 Good Elbow/Forearm Strength Elbow and Forearm Manual Muscle Testing Left Flexion (C6) 5 Normal Extension (C7) 5 Normal Pronation 4 Good Supination 4 Good Right Flexion (C6) 5 Normal Extension (C7) 5 Normal Pronation 4 Good Supination 4 Good Wrist Strength Wrist Manual Muscle Testing Left Flexion (C7) 5 Normal Extension (C6) 5 Normal Right Flexion (C7) 5 Normal Extension (C6) 5 Normal PT-OP-Q Treatments Start: 02/04/19 07:28 Freq: Status: Active Protocol: Document 02/11/20 12:16 MB (Rec: 02/11/20 13:00 MB [id number]) Manual Therapy Treatment Other Other Manual Treatments Pt agrees to Counterstrain to assess and treat fascial tension and pt presents with tension in the following systems: periosteal, arterial, mesentery visceral and spinal medullary and PT treats stacks in spinal medullary LV and better fascial mobility after treatment. Next, treated standard row lymphatic venous , cervical and thoracic areas and pt responds well to treatment. PT-OP-T Assessment and Plan Start: 02/04/19 07:28 Freq: Status: Active Protocol: Document 02/11/20 12:16 MB (Rec: 02/11/20 13:00 MB [id number]) Physical Therapy Assessment Rehab Potential Rehabilitation Potential Fair Evaluation Complexity Number of Personal Factors/Comorbidities 3 or More Number of Body Systems Impaired 3 Clinical Presentation at Evaluation Evolving Impairments Impairments Balance,Pain,Posture,ROM,Soft Tissue Mobility,Vestibular, Visual Motor Goals 8 Loader Goal (LTG) Pt will present with equal active left shoulder abduction and flexion compared to the right to allow overhead work by 03/24/2020. 01/22/2020: Pt presents with right shoulder abduction and flexion to 180 deg and left shoulder abduction 135 deg and flexion to 131 deg, close to last progress note ranges. 6 Loader Goal (LTG) Pt will report no more than 2 seizures per month by 03/24/2020 . 01/22/2020: Added new seizure goal in setting of flare-up LTG Duration 8 weeks 4 Correction Goal (LTG) Pt will report no more than 2 headaches per month by 2020. 01/22/2020: Updated headache goal in setting of flare-up LTG Duration 8 weeks 3 Loader Goal (LTG) Pt will perform progressive HEP with I including postural alignment, VOR, visual motor, flexibility, strengthening and relaxation exercises by 2020. 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 01/22/2020: QuickDASH score reflects 18.18% impairment, which is the same since last progress note in setting of flare-up LTG Duration 8 weeks 1 Correction Goal (LTG) Pt will present with a NDI score to reflect no more than 20% impairment by 03/24/2020. 01/22/2020: NDI score reflects 40% impairment, reflecting current headache flare-up LTG Duration 8 weeks Assessment Summary Assessment Pt reports that the day after last Counterstrain treatment was the only day he did not have a seizure or headache. His TMJ feels better. Con't PT per POC. Physical Therapy Plan Frequency and Duration Frequency of Treatment 1x/Week Duration of Treatment 8 weeks Plan of Care Start Date 01/22/20 Plan of Care End Date 03/24/20 Therapeutic Interventions Therapeutic Interventions Balance Training,Canalithic Repositioning,Coordination Training,Home Exercise Program ,Joint Mobilizations,Manual Therapy,Neuromuscular Re- education,Patient/Caregiver Education,Self-Care/Home Management,Sensory Integration ,Soft Tissue Mobilization, Taping,Therapeutic Activities, Therapeutic Exercises, Vestibular Rehabilitation Modalities Cold Pack/Ice Massage,Electric Stimulation,Hot Packs, Ultrasound Next Visit Focus/Plan Next Note Type Treatment Note Next Visit Plan Con't Counterstrain, Consider [place] Treadmill Test, VOMS
--- NOTE | 2020-02-16 09:43 | PT.OTN ---
Current Diagnoses Cervicalgia (02/16/20) Headache (02/16/20) Personal history of traumatic brain injury (02/16/20) Physical Therapy Treatment Note PT-OP-A Visit Information Start: 02/04/19 07:28 Freq: Status: Active Protocol: Document 02/16/20 09:01 MB (Rec: 02/16/20 09:38 MB [id number]) Out-Patient Physical Therapy Visit Information Visit Information Visit Type Treatment Note Visit Start Time 09:01 Visit Stop Time 09:40 Total Visit Minutes 39 Visit Number 05/30 PT-OP-B Current Condition Start: 02/04/19 07:28 Freq: Status: Active Protocol: Document 02/04/19 09:01 MB (Rec: 02/04/19 09:50 MB [id number]) Current Condition History of Current Condition Onset Date 1.5 years History of Current Condition Pt reports TBI 4 years ago when tripping and hitting head on counter. He had a severe concussion and he was out at least 30 minutes. He went to the hospital and was checked out. He had had post- concussion syndrome for 6 weeks. He would fall out unconsious when sitting at random times. He would not have memory of it. He went from having headaches 1-2 times a year to 4-6 a year. Seizures started 1.5 years ago . They are termed psychogenic seizures. There is no epilectic activity. He screens high for PTSD. Pt states that PTSD may be related to past relationships. They happen out of sleep. He wakes up shaking . He does not think he has headaches. , Joy, describes rocking side to side or pelvic thrusting, head back and eyes rolled upward. He occ has horizontal nystagmus and then his head drops down. Events last 30 sec . He is taking Topamax in the a.m. to help with mood and headaches. He has not gone more than 18 days without a seizure. He has been on Topamax for a week and has not had a seizure. 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 He had trigger point injections. He has to go through series of taking medications including corticosteroids. 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 He and are trying out supportive neck pillows. He sleeps on a wedge. 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 He drinks caffeine and water . occ reports of pt with anger and memory loss connected. These were unlike his normal personality. Pt reports headaches up to a 7 /10 and he has to talk Percicet. Headaches are over the right eye and down into his right face and back of head and feeling right eyeball being squeezed. He sees colors and has horizontal nystagmus. Overall discomfort left upper trap area, 3/10. He has 3-7/10 pain down left arm . Right hernia surgery and pain after right testicle removed. Multiple neural surgeries in the area and he now has a small left inguinal hernia. Pt reports occ tingling 4th and 5th left digit and burning down back of left arm through elbow. Prior Treatments and Tests PT in the past for left shoulder. It went okay. He had it for his right wrist as well. Right TMJ injections PT-OP-C Subjective Start: 02/04/19 07:28 Freq: Status: Active Protocol: Document 02/16/20 09:01 MB (Rec: 02/16/20 09:38 MB [id number]) OP-PT Subjective Patient Comments Patient Comments It's been a really stressful couple of weeks. Pt reports that the move is almost done. The migraines and seizures have continued. He feels a lot is d/t stress. EMDR starts back this week. PT-OP-J Posture/Palpation/Skin Start: 02/04/19 07:28 Freq: Status: Active Protocol: Document 02/04/19 09:01 MB (Rec: 02/04/19 13:33 MB [id number]) Posture Evaluation Comments Posture Comments Standing posture: forward head , rounded shoulders, Dowager's hump, decreased thoracic kyphosis, increased lumbar lordosis, changes around T6 vertebra that could be stiffness PT-OP-K Range of Motion Start: 02/04/19 07:28 Freq: Status: Active Protocol: Document 02/04/19 09:01 MB (Rec: 02/04/19 13:33 MB [id number]) Cervical Spine Range of Motion Cervical Spine Active Testing Position Standing Flexion 35 Extension 40 Rotation Left 40 Rotation Right 50 Comments Pt reports stretch in right jaw with cervical extension and left upper traps area discomfort 3/10 with flexion PT-OP-M Strength Start: 02/04/19 07:28 Freq: Status: Active Protocol: Document 02/04/19 09:01 MB (Rec: 02/04/19 13:33 MB [id number]) Shoulder Strength Shoulder Manual Muscle Testing Left Flexion 4 Good Abduction (C5) 4 Good External Rotation 5 Normal Internal Rotation 5 Normal Right Flexion 5 Normal Abduction (C5) 5 Normal External Rotation 4 Good Internal Rotation 4 Good Elbow/Forearm Strength Elbow and Forearm Manual Muscle Testing Left Flexion (C6) 5 Normal Extension (C7) 5 Normal Pronation 4 Good Supination 4 Good Right Flexion (C6) 5 Normal Extension (C7) 5 Normal Pronation 4 Good Supination 4 Good Wrist Strength Wrist Manual Muscle Testing Left Flexion (C7) 5 Normal Extension (C6) 5 Normal Right Flexion (C7) 5 Normal Extension (C6) 5 Normal PT-OP-Q Treatments Start: 02/04/19 07:28 Freq: Status: Active Protocol: Document 02/16/20 09:01 MB (Rec: 02/16/20 09:38 MB [id number]) Manual Therapy Treatment Other Other Manual Treatments Pt prone: PA thoracic mobs grade III-IV, rib recoil and scapular mobs B, increased tension left intrascapular area and ribs there, positional release B levator and upper traps, grade II-III PA cervical mobs, TRACE left infraspinatus with pt performing active left shoulder ER and IR and PT providing pressure at TrP PT-OP-T Assessment and Plan Start: 02/04/19 07:28 Freq: Status: Active Protocol: Document 02/16/20 09:01 MB (Rec: 02/16/20 09:38 MB [id number]) Physical Therapy Assessment Rehab Potential Rehabilitation Potential Fair Evaluation Complexity Number of Personal Factors/Comorbidities 3 or More Number of Body Systems Impaired 3 Clinical Presentation at Evaluation Evolving Impairments Impairments Balance,Pain,Posture,ROM,Soft Tissue Mobility,Vestibular, Visual Motor Goals 8 Shelter Goal (LTG) Pt will present with equal active left shoulder abduction and flexion compared to the right to allow overhead work by 03/24/2020. 01/22/2020: Pt presents with right shoulder abduction and flexion to 180 deg and left shoulder abduction 135 deg and flexion to 131 deg, close to last progress note ranges. [address] Goal (LTG) Pt will report no more than 2 seizures per month by 03/24/2020 . 01/22/2020: Added new seizure goal in setting of flare-up LTG Duration 8 weeks 4 Shelter Goal (LTG) Pt will report no more than 2 headaches per month by 2020. 01/22/2020: Updated headache goal in setting of flare-up LTG Duration 8 weeks 3 Shelter Goal (LTG) Pt will perform progressive HEP with I including postural alignment, VOR, visual motor, flexibility, strengthening and relaxation exercises by 2020. 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 01/22/2020: QuickDASH score reflects 18.18% impairment, which is the same since last progress note in setting of flare-up LTG Duration 8 weeks 1 Shelter Goal (LTG) Pt will present with a NDI score to reflect no more than 20% impairment by 03/24/2020. 01/22/2020: NDI score reflects 40% impairment, reflecting current headache flare-up LTG Duration 8 weeks Assessment Summary Assessment Encouraged pt to get out of the house to walk and to work on getting into a routine. He verbalizes this. Manual work today improved rib mobility, especially on the left with inhalation and manual recheck in prone. Con't PT per POC. Physical Therapy Plan Frequency and Duration Frequency of Treatment 1x/Week Duration of Treatment 8 weeks Plan of Care Start Date 01/22/20 Plan of Care End Date 03/24/20 Therapeutic Interventions Therapeutic Interventions Balance Training,Canalithic Repositioning,Coordination Training,Home Exercise Program ,Joint Mobilizations,Manual Therapy,Neuromuscular Re- education,Patient/Caregiver Education,Self-Care/Home Management,Sensory Integration ,Soft Tissue Mobilization, Taping,Therapeutic Activities, Therapeutic Exercises, Vestibular Rehabilitation Modalities Cold Pack/Ice Massage,Electric Stimulation,Hot Packs, Ultrasound Next Visit Focus/Plan Next Note Type Treatment Note Next Visit Plan Con't manual PT and Consider [place] Treadmill Test, VOMS
--- NOTE | 2020-02-24 08:54 | PT.OTN ---
Current Diagnoses Cervicalgia (02/24/20) Headache (02/24/20) Personal history of traumatic brain injury (02/24/20) Physical Therapy Treatment Note PT-OP-A Visit Information Start: 02/04/19 07:28 Freq: Status: Active Protocol: Document 02/24/20 08:13 MB (Rec: 02/24/20 08:51 MB [id number]) Out-Patient Physical Therapy Visit Information Visit Information Visit Type Treatment Note Visit Start Time 08:13 Visit Stop Time 08:51 Total Visit Minutes 38 Visit Number 06/29 PT-OP-B Current Condition Start: 02/04/19 07:28 Freq: Status: Active Protocol: Document 02/04/19 09:01 MB (Rec: 02/04/19 09:50 MB [id number]) Current Condition History of Current Condition Onset Date 1.5 years History of Current Condition Pt reports TBI 4 years ago when tripping and hitting head on counter. He had a severe concussion and he was out at least 30 minutes. He went to the hospital and was checked out. He had had post- concussion syndrome for 6 weeks. He would fall out unconsious when sitting at random times. He would not have memory of it. He went from having headaches 1-2 times a year to 4-6 a year. Seizures started 1.5 years ago . They are termed psychogenic seizures. There is no epilectic activity. He screens high for PTSD. Pt states that PTSD may be related to past relationships. They happen out of sleep. He wakes up shaking . He does not think he has headaches. , Joy, describes rocking side to side or pelvic thrusting, head back and eyes rolled upward. He occ has horizontal nystagmus and then his head drops down. Events last 30 sec . He is taking Topamax in the a.m. to help with mood and headaches. He has not gone more than 18 days without a seizure. He has been on Topamax for a week and has not had a seizure. 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 He had trigger point injections. He has to go through series of taking medications including corticosteroids. 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 He and are trying out supportive neck pillows. He sleeps on a wedge. 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 He drinks caffeine and water . occ reports of pt with anger and memory loss connected. These were unlike his normal personality. Pt reports headaches up to a 7 /10 and he has to talk Percicet. Headaches are over the right eye and down into his right face and back of head and feeling right eyeball being squeezed. He sees colors and has horizontal nystagmus. Overall discomfort left upper trap area, 3/10. He has 3-7/10 pain down left arm . Right hernia surgery and pain after right testicle removed. Multiple neural surgeries in the area and he now has a small left inguinal hernia. Pt reports occ tingling 4th and 5th left digit and burning down back of left arm through elbow. Prior Treatments and Tests PT in the past for left shoulder. It went okay. He had it for his right wrist as well. Right TMJ injections PT-OP-C Subjective Start: 02/04/19 07:28 Freq: Status: Active Protocol: Document 02/24/20 08:13 MB (Rec: 02/24/20 08:51 MB [id number]) OP-PT Subjective Patient Comments Patient Comments I'm still having my seizures and headaches. Pt con't to state that he is having daily headaches and seizures 4-5x/ week. This time last year was troublesome and symptoms got better after senior living and PT started. Life situation con't to be similar. PT encourages pt to bring in next treatment date. PT-OP-J Posture/Palpation/Skin Start: 02/04/19 07:28 Freq: Status: Active Protocol: Document 02/04/19 09:01 MB (Rec: 02/04/19 13:33 MB [id number]) Posture Evaluation Comments Posture Comments Standing posture: forward head , rounded shoulders, Dowager's hump, decreased thoracic kyphosis, increased lumbar lordosis, changes around T6 vertebra that could be stiffness PT-OP-K Range of Motion Start: 02/04/19 07:28 Freq: Status: Active Protocol: Document 02/04/19 09:01 MB (Rec: 02/04/19 13:33 MB [id number]) Cervical Spine Range of Motion Cervical Spine Active Testing Position Standing Flexion 35 Extension 40 Rotation Left 40 Rotation Right 50 Comments Pt reports stretch in right jaw with cervical extension and left upper traps area discomfort 3/10 with flexion PT-OP-M Strength Start: 02/04/19 07:28 Freq: Status: Active Protocol: Document 02/04/19 09:01 MB (Rec: 02/04/19 13:33 MB [id number]) Shoulder Strength Shoulder Manual Muscle Testing Left Flexion 4 Good Abduction (C5) 4 Good External Rotation 5 Normal Internal Rotation 5 Normal Right Flexion 5 Normal Abduction (C5) 5 Normal External Rotation 4 Good Internal Rotation 4 Good Elbow/Forearm Strength Elbow and Forearm Manual Muscle Testing Left Flexion (C6) 5 Normal Extension (C7) 5 Normal Pronation 4 Good Supination 4 Good Right Flexion (C6) 5 Normal Extension (C7) 5 Normal Pronation 4 Good Supination 4 Good Wrist Strength Wrist Manual Muscle Testing Left Flexion (C7) 5 Normal Extension (C6) 5 Normal Right Flexion (C7) 5 Normal Extension (C6) 5 Normal PT-OP-Q Treatments Start: 02/04/19 07:28 Freq: Status: Active Protocol: Document 02/24/20 08:13 MB (Rec: 02/24/20 08:51 MB [id number]) Manual Therapy Treatment Other Other Manual Treatments Pt prone: cranial STM with upper traps, SCM and scalene and paraspinal STM, scapular and thoracic mobs with rib recoil and PA mobs grade III- IV PT-OP-T Assessment and Plan Start: 02/04/19 07:28 Freq: Status: Active Protocol: Document 02/24/20 08:13 MB (Rec: 02/24/20 08:51 MB [id number]) Physical Therapy Assessment Rehab Potential Rehabilitation Potential Fair Evaluation Complexity Number of Personal Factors/Comorbidities 3 or More Number of Body Systems Impaired 3 Clinical Presentation at Evaluation Evolving Impairments Impairments Balance,Pain,Posture,ROM,Soft Tissue Mobility,Vestibular, Visual Motor Goals 8 [employer] Goal (LTG) Pt will present with equal active left shoulder abduction and flexion compared to the right to allow overhead work by 03/24/2020. 01/22/2020: Pt presents with right shoulder abduction and flexion to 180 deg and left shoulder abduction 135 deg and flexion to 131 deg, close to last progress note ranges. 6 Snf Goal (LTG) Pt will report no more than 2 seizures per month by 03/24/2020 . 01/22/2020: Added new seizure goal in setting of flare-up LTG Duration 8 weeks 4 [employer] Goal (LTG) Pt will report no more than 2 headaches per month by 2020. 01/22/2020: Updated headache goal in setting of flare-up LTG Duration 8 weeks 3 Snf Goal (LTG) Pt will perform progressive HEP with I including postural alignment, VOR, visual motor, flexibility, strengthening and relaxation exercises by 2020. 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 01/22/2020: QuickDASH score reflects 18.18% impairment, which is the same since last progress note in setting of flare-up LTG Duration 8 weeks 1 Snf Goal (LTG) Pt will present with a NDI score to reflect no more than 20% impairment by 03/24/2020. 01/22/2020: NDI score reflects 40% impairment, reflecting current headache flare-up LTG Duration 8 weeks Assessment Summary Assessment [place] Treadmill Testing today deferred d/t pt not feeling as well. Recommend coming into a treatment session to get further recent history from her in setting of pt with history of some changes post-TBI. Foam roller reviewed today and pt tolerates well and ed pt to get one for home. Physical Therapy Plan Frequency and Duration Frequency of Treatment 1x/Week Duration of Treatment 8 weeks Plan of Care Start Date 01/22/20 Plan of Care End Date 03/24/20 Therapeutic Interventions Therapeutic Interventions Balance Training,Canalithic Repositioning,Coordination Training,Home Exercise Program ,Joint Mobilizations,Manual Therapy,Neuromuscular Re- education,Patient/Caregiver Education,Self-Care/Home Management,Sensory Integration ,Soft Tissue Mobilization, Taping,Therapeutic Activities, Therapeutic Exercises, Vestibular Rehabilitation Modalities Cold Pack/Ice Massage,Electric Stimulation,Hot Packs, Ultrasound Next Visit Focus/Plan Next Note Type Treatment Note Next Visit Plan As previous, con't manual PT and Consider [place] Treadmill Test, VOMS
--- NOTE | 2020-03-04 09:37 | PT.OTN ---
Current Diagnoses Cervicalgia (03/04/20) Headache (03/04/20) Personal history of traumatic brain injury (03/04/20) Physical Therapy Treatment Note PT-OP-A Visit Information Start: 02/04/19 07:28 Freq: Status: Active Protocol: Document 03/04/20 08:16 MB (Rec: 03/04/20 09:36 MB [id number]) Out-Patient Physical Therapy Visit Information Visit Information Visit Type Treatment Note Visit Start Time 08:16 Visit Stop Time 09:16 Total Visit Minutes 60 Visit Number 07/30 PT-OP-B Current Condition Start: 02/04/19 07:28 Freq: Status: Active Protocol: Document 02/04/19 09:01 MB (Rec: 02/04/19 09:50 MB [id number]) Current Condition History of Current Condition Onset Date 1.5 years History of Current Condition Pt reports TBI 4 years ago when tripping and hitting head on counter. He had a severe concussion and he was out at least 30 minutes. He went to the hospital and was checked out. He had had post- concussion syndrome for 6 weeks. He would fall out unconsious when sitting at random times. He would not have memory of it. He went from having headaches 1-2 times a year to 4-6 a year. Seizures started 1.5 years ago . They are termed psychogenic seizures. There is no epilectic activity. He screens high for PTSD. Pt states that PTSD may be related to past relationships. They happen out of sleep. He wakes up shaking . He does not think he has headaches. , Joy, describes rocking side to side or pelvic thrusting, head back and eyes rolled upward. He occ has horizontal nystagmus and then his head drops down. Events last 30 sec . He is taking Topamax in the a.m. to help with mood and headaches. He has not gone more than 18 days without a seizure. He has been on Topamax for a week and has not had a seizure. 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 He had trigger point injections. He has to go through series of taking medications including corticosteroids. 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 He and are trying out supportive neck pillows. He sleeps on a wedge. 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 He drinks caffeine and water . occ reports of pt with anger and memory loss connected. These were unlike his normal personality. Pt reports headaches up to a 7 /10 and he has to talk Percicet. Headaches are over the right eye and down into his right face and back of head and feeling right eyeball being squeezed. He sees colors and has horizontal nystagmus. Overall discomfort left upper trap area, 3/10. He has 3-7/10 pain down left arm . Right hernia surgery and pain after right testicle removed. Multiple neural surgeries in the area and he now has a small left inguinal hernia. Pt reports occ tingling 4th and 5th left digit and burning down back of left arm through elbow. Prior Treatments and Tests PT in the past for left shoulder. It went okay. He had it for his right wrist as well. Right TMJ injections PT-OP-C Subjective Start: 02/04/19 07:28 Freq: Status: Active Protocol: Document 03/04/20 08:16 MB (Rec: 03/04/20 09:36 MB [id number]) OP-PT Subjective Patient Comments Patient Comments , Joy, comes to treatment with pt today. She reports that he is getting a little relief from the seizures this week since she is keeping him awake and he is not napping when he has migraines. The seizures are different in that he is having back and neck extension, eyes open and rolled back and hands rigid with fingers flexed, palms extended and elbows flexed. He can then have convulsion. They are lasting 30-45 sec. They are happening when falls asleep. He is having a stay in EEG in March. Pt has been taking a baby aspirin in the morning and gabapentin in the morning and at night (to help with migraine). PT-OP-J Posture/Palpation/Skin Start: 02/04/19 07:28 Freq: Status: Active Protocol: Document 02/04/19 09:01 MB (Rec: 02/04/19 13:33 MB [id number]) Posture Evaluation Comments Posture Comments Standing posture: forward head , rounded shoulders, Dowager's hump, decreased thoracic kyphosis, increased lumbar lordosis, changes around T6 vertebra that could be stiffness PT-OP-K Range of Motion Start: 02/04/19 07:28 Freq: Status: Active Protocol: Document 02/04/19 09:01 MB (Rec: 02/04/19 13:33 MB [id number]) Cervical Spine Range of Motion Cervical Spine Active Testing Position Standing Flexion 35 Extension 40 Rotation Left 40 Rotation Right 50 Comments Pt reports stretch in right jaw with cervical extension and left upper traps area discomfort 3/10 with flexion PT-OP-M Strength Start: 02/04/19 07:28 Freq: Status: Active Protocol: Document 02/04/19 09:01 MB (Rec: 02/04/19 13:33 MB [id number]) Shoulder Strength Shoulder Manual Muscle Testing Left Flexion 4 Good Abduction (C5) 4 Good External Rotation 5 Normal Internal Rotation 5 Normal Right Flexion 5 Normal Abduction (C5) 5 Normal External Rotation 4 Good Internal Rotation 4 Good Elbow/Forearm Strength Elbow and Forearm Manual Muscle Testing Left Flexion (C6) 5 Normal Extension (C7) 5 Normal Pronation 4 Good Supination 4 Good Right Flexion (C6) 5 Normal Extension (C7) 5 Normal Pronation 4 Good Supination 4 Good Wrist Strength Wrist Manual Muscle Testing Left Flexion (C7) 5 Normal Extension (C6) 5 Normal Right Flexion (C7) 5 Normal Extension (C6) 5 Normal PT-OP-Q Treatments Start: 02/04/19 07:28 Freq: Status: Active Protocol: Document 03/04/20 08:16 MB (Rec: 03/04/20 09:36 MB [id number]) Manual Therapy Treatment Other Other Manual Treatments Pt agrees to Counterstrain to assess and treat fascial tension. Pt presents with tension in the following fascial systems: visceral and periosteal and PT treats stacks in the following fascial systems: distal visceral anterior and mesentery visceral proximal to distal Self-Care/Home Management Treatment Education Other Education Given history of concussion in August 2013 when he hit his head and was unconscious, ongoing migraines and seizures , PT provides handouts and education about concussion: headache self-care, brain recovery diet (ed to talk with doctor), practice proper sleep hygiene and concussion and brain injury summary (ed to talk with doctor/pharmacist ), gisella out cascade of concussion and provided paper to patient and , recommendation to follow-up with doctor and functional medicine pharmacist PT-OP-T Assessment and Plan Start: 02/04/19 07:28 Freq: Status: Active Protocol: Document 03/04/20 08:16 MB (Rec: 03/04/20 09:36 MB [id number]) Physical Therapy Assessment Rehab Potential Rehabilitation Potential Fair Evaluation Complexity Number of Personal Factors/Comorbidities 3 or More Number of Body Systems Impaired 3 Clinical Presentation at Evaluation Evolving Impairments Impairments Balance,Pain,Posture,ROM,Soft Tissue Mobility,Vestibular, Visual Motor Goals 8 [employer] Goal (LTG) Pt will present with equal active left shoulder abduction and flexion compared to the right to allow overhead work by 03/24/2020. 01/22/2020: Pt presents with right shoulder abduction and flexion to 180 deg and left shoulder abduction 135 deg and flexion to 131 deg, close to last progress note ranges. 6 [employer] Goal (LTG) Pt will report no more than 2 seizures per month by 03/24/2020 . 01/22/2020: Added new seizure goal in setting of flare-up LTG Duration 8 weeks 4 [facility] Goal (LTG) Pt will report no more than 2 headaches per month by 2020. 01/22/2020: Updated headache goal in setting of flare-up LTG Duration 8 weeks 3 [facility] Goal (LTG) Pt will perform progressive HEP with I including postural alignment, VOR, visual motor, flexibility, strengthening and relaxation exercises by 2020. 01/22/2020: Pt has been performing progressive HEP LTG Duration 8 weeks 2 [employer] Goal (LTG) Pt will present with a QuickDASH score to reflect no more than 15% impairment to allow return to itar and improvement of ADLs by 2020. 01/22/2020: QuickDASH score reflects 18.18% impairment, which is the same since last progress note in setting of flare-up LTG Duration 8 weeks 1 [employer] Goal (LTG) Pt will present with a NDI score to reflect no more than 20% impairment by 03/24/2020. 01/22/2020: NDI score reflects 40% impairment, reflecting current headache flare-up LTG Duration 8 weeks Assessment Summary Assessment 's assistance with pt history and description of seizures and headaches and changes is very helpful today, Initiated extensive concussion education and plan to start looking further into this with PT treatments. Pt with fascial scan improvements with Counterstrain. Con't intervention. Physical Therapy Plan Frequency and Duration Frequency of Treatment 1x/Week Duration of Treatment 8 weeks Plan of Care Start Date 01/22/20 Plan of Care End Date 03/24/20 Therapeutic Interventions Therapeutic Interventions Balance Training,Canalithic Repositioning,Coordination Training,Home Exercise Program ,Joint Mobilizations,Manual Therapy,Neuromuscular Re- education,Patient/Caregiver Education,Self-Care/Home Management,Sensory Integration ,Soft Tissue Mobilization, Taping,Therapeutic Activities, Therapeutic Exercises, Vestibular Rehabilitation Modalities Cold Pack/Ice Massage,Electric Stimulation,Hot Packs, Ultrasound Next Visit Focus/Plan Next Note Type Treatment Note Next Visit Plan As previous, con't manual PT and Consider [place] Treadmill Test, VOMS
--- NOTE | 2020-03-09 11:25 | PT.OTN ---
Current Diagnoses Cervicalgia (03/09/20) Headache (03/09/20) Personal history of traumatic brain injury (03/09/20) Physical Therapy Treatment Note PT-OP-A Visit Information Start: 02/04/19 07:28 Freq: Status: Active Protocol: Document 03/09/20 08:16 MB (Rec: 03/09/20 08:42 MB [id number]) Out-Patient Physical Therapy Visit Information Visit Information Visit Type Treatment Note Visit Start Time 08:16 Visit Stop Time 09:00 Total Visit Minutes 44 Visit Number 08/29 PT-OP-B Current Condition Start: 02/04/19 07:28 Freq: Status: Active Protocol: Document 02/04/19 09:01 MB (Rec: 02/04/19 09:50 MB [id number]) Current Condition History of Current Condition Onset Date 1.5 years History of Current Condition Pt reports TBI 4 years ago when tripping and hitting head on counter. He had a severe concussion and he was out at least 30 minutes. He went to the hospital and was checked out. He had had post- concussion syndrome for 6 weeks. He would fall out unconsious when sitting at random times. He would not have memory of it. He went from having headaches 1-2 times a year to 4-6 a year. Seizures started 1.5 years ago . They are termed psychogenic seizures. There is no epilectic activity. He screens high for PTSD. Pt states that PTSD may be related to past relationships. They happen out of sleep. He wakes up shaking . He does not think he has headaches. , Joy, describes rocking side to side or pelvic thrusting, head back and eyes rolled upward. He occ has horizontal nystagmus and then his head drops down. Events last 30 sec . He is taking Topamax in the a.m. to help with mood and headaches. He has not gone more than 18 days without a seizure. He has been on Topamax for a week and has not had a seizure. 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 He had trigger point injections. He has to go through series of taking medications including corticosteroids. 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 He and are trying out supportive neck pillows. He sleeps on a wedge. 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 He drinks caffeine and water . occ reports of pt with anger and memory loss connected. These were unlike his normal personality. Pt reports headaches up to a 7 /10 and he has to talk Percicet. Headaches are over the right eye and down into his right face and back of head and feeling right eyeball being squeezed. He sees colors and has horizontal nystagmus. Overall discomfort left upper trap area, 3/10. He has 3-7/10 pain down left arm . Right hernia surgery and pain after right testicle removed. Multiple neural surgeries in the area and he now has a small left inguinal hernia. Pt reports occ tingling 4th and 5th left digit and burning down back of left arm through elbow. Prior Treatments and Tests PT in the past for left shoulder. It went okay. He had it for his right wrist as well. Right TMJ injections PT-OP-C Subjective Start: 02/04/19 07:28 Freq: Status: Active Protocol: Document 03/09/20 08:16 MB (Rec: 03/09/20 08:42 MB [id number]) OP-PT Subjective Patient Comments Patient Comments states that pt didn't have a migraine until 1500 yesterday. He had some medication changes 6 days ago. He was able to work around the house for several hours. PT-OP-J Posture/Palpation/Skin Start: 02/04/19 07:28 Freq: Status: Active Protocol: Document 02/04/19 09:01 MB (Rec: 02/04/19 13:33 MB [id number]) Posture Evaluation Comments Posture Comments Standing posture: forward head , rounded shoulders, Dowager's hump, decreased thoracic kyphosis, increased lumbar lordosis, changes around T6 vertebra that could be stiffness PT-OP-K Range of Motion Start: 02/04/19 07:28 Freq: Status: Active Protocol: Document 02/04/19 09:01 MB (Rec: 02/04/19 13:33 MB [id number]) Cervical Spine Range of Motion Cervical Spine Active Testing Position Standing Flexion 35 Extension 40 Rotation Left 40 Rotation Right 50 Comments Pt reports stretch in right jaw with cervical extension and left upper traps area discomfort 3/10 with flexion PT-OP-M Strength Start: 02/04/19 07:28 Freq: Status: Active Protocol: Document 02/04/19 09:01 MB (Rec: 02/04/19 13:33 MB [id number]) Shoulder Strength Shoulder Manual Muscle Testing Left Flexion 4 Good Abduction (C5) 4 Good External Rotation 5 Normal Internal Rotation 5 Normal Right Flexion 5 Normal Abduction (C5) 5 Normal External Rotation 4 Good Internal Rotation 4 Good Elbow/Forearm Strength Elbow and Forearm Manual Muscle Testing Left Flexion (C6) 5 Normal Extension (C7) 5 Normal Pronation 4 Good Supination 4 Good Right Flexion (C6) 5 Normal Extension (C7) 5 Normal Pronation 4 Good Supination 4 Good Wrist Strength Wrist Manual Muscle Testing Left Flexion (C7) 5 Normal Extension (C6) 5 Normal Right Flexion (C7) 5 Normal Extension (C6) 5 Normal PT-OP-Q Treatments Start: 02/04/19 07:28 Freq: Status: Active Protocol: Document 03/09/20 08:16 MB (Rec: 03/09/20 11:25 MB [id number]) Cardio Equipment Treadmill Other 11.5' exercise, see [place] [facility]read[facility] Test findings below, exercise ed toda Manual Therapy Treatment Other Other Manual Treatments Left first rib mobilization isometric and left upper traps and levator STM and pt performing before active right cervical rotation and SB to assist with TrP release Self-Care/Home Management Treatment Education Other Education Pt and education about findings of [place] [facility]readmill Test, need to increase exercise of walking to 6x/wk 20-30 min for target heart rate to help with overall fitness and post-concussion symptoms related to blood supply and HRV, ed in benefits of walking on stable ground compared to treadmill, moving surface, ed on benefits of VOMS in future treatment date. PT-OP-T Assessment and Plan Start: 02/04/19 07:28 Freq: Status: Active Protocol: Document 03/09/20 08:16 MB (Rec: 03/09/20 08:42 MB [id number]) Physical Therapy Assessment Rehab Potential Rehabilitation Potential Fair Evaluation Complexity Number of Personal Factors/Comorbidities 3 or More Number of Body Systems Impaired 3 Clinical Presentation at Evaluation Evolving Impairments Impairments Balance,Pain,Posture,ROM,Soft Tissue Mobility,Vestibular, Visual Motor Goals 8 [place] Goal (LTG) Pt will present with equal active left shoulder abduction and flexion compared to the right to allow overhead work by 03/24/2020. 01/22/2020: Pt presents with right shoulder abduction and flexion to 180 deg and left shoulder abduction 135 deg and flexion to 131 deg, close to last progress note ranges. 6 [employer] [place] Goal (LTG) Pt will report no more than 2 seizures per month by 03/24/2020 . 01/22/2020: Added new seizure goal in setting of flare-up LTG Duration 8 weeks 4 [employer] Goal (LTG) Pt will report no more than 2 headaches per month by 2020. 01/22/2020: Updated headache goal in setting of flare-up LTG Duration 8 weeks 3 [employer] Goal (LTG) Pt will perform progressive HEP with I including postural alignment, VOR, visual motor, flexibility, strengthening and relaxation exercises by 2020. 01/22/2020: Pt has been performing progressive HEP LTG Duration 8 weeks 2 [employer] Goal (LTG) Pt will present with a QuickDASH score to reflect no more than 15% impairment to allow return to [facility] and improvement of ADLs by 2020. 01/22/2020: QuickDASH score reflects 18.18% impairment, which is the same since last progress note in setting of flare-up LTG Duration 8 weeks 1 [employer] Goal (LTG) Pt will present with a NDI score to reflect no more than 20% impairment by 03/24/2020. 01/22/2020: NDI score reflects 40% impairment, reflecting current headache flare-up LTG Duration 8 weeks Assessment Summary Assessment [place] [facility] Test today. Pt has increase in symptoms of fogginess, LEA and dizziness with incline of 2, mph 3.3 and overall 10 minutes of exercise. Vitals are O2 98% and HR 123 BPM with symptoms and so target HR is 99 BPM for walking outside 20-30 minutes a day, 6 days a week. Pt with first rib tension left and treated after treadmill test. reports that duration and loudness of snoring is less since last Counterstrain treatment. Pt reports increased allergies and testing soon. Con't manual work, post-concussion testing including VOMS. Physical Therapy Plan Frequency and Duration Frequency of Treatment 1x/Week Duration of Treatment 8 weeks Plan of Care Start Date 01/22/20 Plan of Care End Date 03/24/20 Therapeutic Interventions Therapeutic Interventions Balance Training,Canalithic Repositioning,Coordination Training,Home Exercise Program ,Joint Mobilizations,Manual Therapy,Neuromuscular Re- education,Patient/Caregiver Education,Self-Care/Home Management,Sensory Integration ,Soft Tissue Mobilization, Taping,Therapeutic Activities, Therapeutic Exercises, Vestibular Rehabilitation Modalities Cold Pack/Ice Massage,Electric Stimulation,Hot Packs, Ultrasound Next Visit Focus/Plan Next Note Type Treatment Note Next Visit Plan VOMS
--- NOTE | 2020-03-16 09:43 | PT.OTN ---
Current Diagnoses Cervicalgia (03/16/20) Headache (03/16/20) Personal history of traumatic brain injury (03/16/20) Physical Therapy Treatment Note PT-OP-A Visit Information Start: 02/04/19 07:28 Freq: Status: Active Protocol: Document 03/16/20 08:20 MB (Rec: 03/16/20 09:22 MB [id number]) Out-Patient Physical Therapy Visit Information Visit Information Visit Type Progress Note Visit Note Visit Start Time 08:20 Visit Stop Time 09:20 Total Visit Minutes 60 Visit Number 09/29 PT-OP-B Current Condition Start: 02/04/19 07:28 Freq: Status: Active Protocol: Document 02/04/19 09:01 MB (Rec: 02/04/19 09:50 MB [id number]) Current Condition History of Current Condition Onset Date 1.5 years History of Current Condition Pt reports TBI 4 years ago when tripping and hitting head on counter. He had a severe concussion and he was out at least 30 minutes. He went to the hospital and was checked out. He had had post- concussion syndrome for 6 weeks. He would fall out unconsious when sitting at random times. He would not have memory of it. He went from having headaches 1-2 times a year to 4-6 a year. Seizures started 1.5 years ago . They are termed psychogenic seizures. There is no epilectic activity. He screens high for PTSD. Pt states that PTSD may be related to past relationships. They happen out of sleep. He wakes up shaking . He does not think he has headaches. , Joy, describes rocking side to side or pelvic thrusting, head back and eyes rolled upward. He occ has horizontal nystagmus and then his head drops down. Events last 30 sec . He is taking Topamax in the a.m. to help with mood and headaches. He has not gone more than 18 days without a seizure. He has been on Topamax for a week and has not had a seizure. 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 He had trigger point injections. He has to go through series of taking medications including corticosteroids. 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 He and are trying out supportive neck pillows. He sleeps on a wedge. 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 He drinks caffeine and water . occ reports of pt with anger and memory loss connected. These were unlike his normal personality. Pt reports headaches up to a 7 /10 and he has to talk Percicet. Headaches are over the right eye and down into his right face and back of head and feeling right eyeball being squeezed. He sees colors and has horizontal nystagmus. Overall discomfort left upper trap area, 3/10. He has 3-7/10 pain down left arm . Right hernia surgery and pain after right testicle removed. Multiple neural surgeries in the area and he now has a small left inguinal hernia. Pt reports occ tingling 4th and 5th left digit and burning down back of left arm through elbow. Prior Treatments and Tests PT in the past for left shoulder. It went okay. He had it for his right wrist as well. Right TMJ injections PT-OP-C Subjective Start: 02/04/19 07:28 Freq: Status: Active Protocol: Document 03/16/20 08:20 MB (Rec: 03/16/20 09:22 MB [id number]) OP-PT Subjective Patient Comments Patient Comments Pt states that everything is about the same. He did not get too many walks in but he did do activity to get his HR up. The stay in [facility] is 03/21/20. He anticipates a several day stay . Patient Questionnaires Neck Disability Index Neck Disability Index Impairment 20 to 39% Impaired (Score 10- 19) Quick Dash- Upper Extremity Quick Dash UE Impairment 20 to 39% Impaired (Score 20- 39) PT-OP-J Posture/Palpation/Skin Start: 02/04/19 07:28 Freq: Status: Active Protocol: Document 02/04/19 09:01 MB (Rec: 02/04/19 13:33 MB [id number]) Posture Evaluation Comments Posture Comments Standing posture: forward head , rounded shoulders, Dowager's hump, decreased thoracic kyphosis, increased lumbar lordosis, changes around T6 vertebra that could be stiffness PT-OP-K Range of Motion Start: 02/04/19 07:28 Freq: Status: Active Protocol: Document 02/04/19 09:01 MB (Rec: 02/04/19 13:33 MB [id number]) Cervical Spine Range of Motion Cervical Spine Active Testing Position Standing Flexion 35 Extension 40 Rotation Left 40 Rotation Right 50 Comments Pt reports stretch in right jaw with cervical extension and left upper traps area discomfort 3/10 with flexion PT-OP-M Strength Start: 02/04/19 07:28 Freq: Status: Active Protocol: Document 02/04/19 09:01 MB (Rec: 02/04/19 13:33 MB [id number]) Shoulder Strength Shoulder Manual Muscle Testing Left Flexion 4 Good Abduction (C5) 4 Good External Rotation 5 Normal Internal Rotation 5 Normal Right Flexion 5 Normal Abduction (C5) 5 Normal External Rotation 4 Good Internal Rotation 4 Good Elbow/Forearm Strength Elbow and Forearm Manual Muscle Testing Left Flexion (C6) 5 Normal Extension (C7) 5 Normal Pronation 4 Good Supination 4 Good Right Flexion (C6) 5 Normal Extension (C7) 5 Normal Pronation 4 Good Supination 4 Good Wrist Strength Wrist Manual Muscle Testing Left Flexion (C7) 5 Normal Extension (C6) 5 Normal Right Flexion (C7) 5 Normal Extension (C6) 5 Normal PT-OP-Q Treatments Start: 02/04/19 07:28 Freq: Status: Active Protocol: Document 03/16/20 08:20 MB (Rec: 03/16/20 09:22 MB [id number]) Therapeutic Exercises Supine Exercises 6 foam roller, shoulder flexion with level 1 band Comments Verbally reviewed, 3x/wk at home Foam roller triceps with level one loop band Comments Verbally reviewed, 3x/wk at home Foam roller thoracic mobility Comments Verbally reviewed, to get foam roller, 3x/wk 1/2 foam roll shoulder ER Comments Verbally reviewed, doing over pool noodle to get 6 roller 1/2 foam roll PNF D2 and D1 Comments Verbally reviewed, doing over pool noodle to get 6 roller Jose stretch Comments To get back to 3x/wk performance at home Core progression on mat and then on pool noodle Comments Verbally reviewed and to do on pool noodle Pelvic realignment exercises Comments Verbally reviewed and to do PRN Self-massage with MWM B SCM Comments Verbally reviewed and to do as needec Buteyko breathing Supine Exercise Name Relaxation exercise 1, block nostril, sinus decongestion, diaphragm Comments Verbally reviewed and to con't at home everyday Sitting Exercises Levator scap stretch Comments Verbally reviewed, to do as needed at home Anterior neck stretch Comments Verbally reviewed, to do as needed Upper traps and levator stretch Comments Verbally reviewed, to do as tolerated Upper traps MWM with racquet ball Comments Performed today, to con't at home Standing Exercises Thread the needle against the wall Comments Verbally reviewed, to con't at home STM intrascapular muscles Comments Performed today, to con't at home Pillow case slide Comments Verbally reviewed and to con't at home 3x/wk Pect stretch doorway Comments Performed today and to con't at home Scapular and shoulder extension strengthening with level 2 band Comments Verbally reviewed today and pt to con't at home Racquet ball massage, MWM with infraspinatus Comments Performed today and pt to con' t at home Other Exercises Shoulder flexion and triceps with band around wrists Comments Verbally reviewed and pt to con't at home 3 position doorways stetch B Comments Performed today and pt to con' t at home Reviewed all other exercises, reviewed handouts today Comments Performed this today Neuro Re-Education Treatment Other Activities VOMS Comments VOMS testing: Pt with no LEA, dizziness, fogginess or nausea at rest. Smooth pursuits increases headache symptom to 1 and pt presents with some eye movement irregularities right eye and he reports history of right eye injury when he had head injury. He reports peripheral vision loss . Horizontal saccades symptoms : headache 1 and dizziness 3; vertical saccades similar symptoms. Horizontal VOR symptoms headache 1, dizziness 4, nausea 1 and pt has posterior sway and requires guarding. Vertical VOR: symptoms headache 1, dizziness 4, fogginess 1 and nausea 1. Anterior and posterior sway and CGA. Visual motion sensitivity also challenges balance, requiring CGA, and symptoms are headache 1, dizziness 4, fogginess 1, nausea 3. Accommodation and convergence testing have no norms for age group and do not increase symptoms. MARII-H with head rotated 45 deg left increases nausea. PT-OP-T Assessment and Plan Start: 02/04/19 07:28 Freq: Status: Active Protocol: Document 03/16/20 08:20 MB (Rec: 03/16/20 09:22 MB [id number]) Physical Therapy Assessment Rehab Potential Rehabilitation Potential Fair Evaluation Complexity Number of Personal Factors/Comorbidities 3 or More Number of Body Systems Impaired 3 Clinical Presentation at Evaluation Evolving Impairments Impairments Balance,Pain,Posture,ROM,Soft Tissue Mobility,Vestibular, Visual Motor Goals 8 [facility] Goal (LTG) Pt will present with equal active left shoulder abduction and flexion compared to the right to allow overhead work by 05/14/2020. 03/16/2020: Pt presents with right shoulder abduction and flexion to 180 deg and left shoulder abduction 120 deg and flexion to 136 deg. He is having more left hand tingling . 6 [facility] Goal (LTG) Pt will report no more than 1 seizure per week by 05/14/2020. 03/16/20: Increased frequency of seizure goal in setting of increase since 01/2020 and current work-up LTG Duration 8 weeks 4 [employer] Goal (LTG) Pt will report no more than 1 headache per week by 05/14/20. 03/16/20: Increased frequency of headache goal in setting of increase since 01/2020 and current work-up LTG Duration 8 weeks 3 [employer] Goal (LTG) Pt will perform progressive HEP with I including postural alignment, VOR, visual motor, flexibility, strengthening and relaxation exercises by . 03/16/20: Pt has been performing progressive HEP 2x/ wk. He will get to walking for relaxation and to increase HR up to BPM. 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 03/16/20: QuickDASH score reflects 22.72% impairment LTG Duration 8 weeks 1 [facility] Goal (LTG) Pt will present with a NDI score to reflect no more than 25% impairment by 05/14/2020. 1/27/21: NDI score reflects 36 % impairment, which is mildly improved since last progress note LTG Duration 8 weeks Assessment Summary Assessment VOMS performed today and pt presents with increased symptoms, greatest with head turns and indicating VOR dysfunction. He presents with visual tracking issues with the right eye and states that his vision was affected in brain injury in the past. His clinical presentation is complicated and overall, he has benefitted from PT. Recently, he has had seizure and LEA flare-up since 01/2020 and he is awaiting EEG next week. His headaches have affected his ability to do his PT HEP and to go for walks as PT encouraged for stress relief and to increase HR up to 99 BPM per [place] [facility]. His left UE symptoms and range are both slightly worse on progress note today. He has repeatedly presented with improved left shoulder range and function with manual PT in the past and he will benefit from further work on his shoulder. Pt will con't to benefit from PT 1-2x/ wk as his schedule allows to address post-concussion symptoms, VOR hypofunction, cervical and left shoulder tension and decreased ROM, strengthening, balance and relaxation. Barriers include his complicated presentation. PT suggests carpenter streetcar or naturopathic referral in the future to address metabolic contributions to his symptoms. Physical Therapy Plan Frequency and Duration Frequency of Treatment 2x/Week Duration of Treatment 8 weeks Plan of Care Start Date 03/16/20 Plan of Care End Date 05/16/20 Therapeutic Interventions Therapeutic Interventions Balance Training,Canalithic Repositioning,Coordination Training,Home Exercise Program ,Joint Mobilizations,Manual Therapy,Neuromuscular Re- education,Patient/Caregiver Education,Self-Care/Home Management,Sensory Integration ,Soft Tissue Mobilization, Taping,Therapeutic Activities, Therapeutic Exercises, Vestibular Rehabilitation Modalities Cold Pack/Ice Massage,Electric Stimulation,Hot Packs, Ultrasound Next Visit Focus/Plan Next Note Type Treatment Note Next Visit Plan [place] Protocol and provide shoulder abduction exercise and self mob over table for abduction
--- NOTE | 2020-03-16 09:43 | PT.OPPOC ---
Physical, Occupational & Speech Therapy At [facility] Current Diagnoses Cervicalgia (03/16/20) Headache (03/16/20) Personal history of traumatic brain injury (03/16/20) Visit Care Team Role Provider Type Elisha Mello DO Attending Provider Non-Staff Primary Care Provider Specialty: Medical Address: [address] [place] [address], [facility] Email: Plan Of Care PT-OP-T Assessment and Plan Start: 02/04/19 07:28 Freq: Status: Active Protocol: Document 03/16/20 08:20 MB (Rec: 03/16/20 09:22 MB [id number]) Physical Therapy Assessment Rehab Potential Rehabilitation Potential Fair Evaluation Complexity Number of Personal Factors/Comorbidities 3 or More Number of Body Systems Impaired 3 Clinical Presentation at Evaluation Evolving Impairments Impairments Balance,Pain,Posture,ROM,Soft Tissue Mobility,Vestibular, Visual Motor Goals 8 Feed Handler Goal (LTG) Pt will present with equal active left shoulder abduction and flexion compared to the right to allow overhead work by 05/14/2020. 03/16/2020: Pt presents with right shoulder abduction and flexion to 180 deg and left shoulder abduction 120 deg and flexion to 136 deg. He is having more left hand tingling . 6 Feed Handler Goal (LTG) Pt will report no more than 1 seizure per week by 05/14/2020. 03/16/20: Increased frequency of seizure goal in setting of increase since 01/2020 and current work-up LTG Duration 8 weeks 4 Feed Handler Goal (LTG) Pt will report no more than 1 headache per week by 05/14/20. 03/16/20: Increased frequency of headache goal in setting of increase since 01/2020 and current work-up LTG Duration 8 weeks 3 Snf Goal (LTG) Pt will perform progressive HEP with I including postural alignment, VOR, visual motor, flexibility, strengthening and relaxation exercises by . 03/16/20: Pt has been performing progressive HEP 2x/ wk. He will get to walking for relaxation and to increase HR up to BPM. His current HEP includes: racquet ball STM and (everyday), hook lying shoulder flexion, PNF and elbow flexion and extension with band, neck stretches, pillow case flexion, Jose stretch, pool noodle stretches (to get foam roller), core strengthening (3x/wk), thread the needle, pelvic realignment exercises, shoulder ER and intrascapular strengthening with band (PRN), Buteyko breathing, pect and hip flexor stretches (everyday) LTG Duration 8 weeks 2 Snf Goal (LTG) Pt will present with a QuickDASH score to reflect no more than 15% impairment to allow return [facility] and improvement of ADLs by 05/14/20 . 03/16/20: QuickDASH score reflects 22.72% impairment LTG Duration 8 weeks 1 Feed Handler Goal (LTG) Pt will present with a NDI score to reflect no more than 25% impairment by 05/14/2020. 03/16/20: NDI score reflects 36 % impairment, which is mildly improved since last progress note LTG Duration 8 weeks Assessment Summary Assessment VOMS performed today and pt presents with increased symptoms, greatest with head turns and indicating VOR dysfunction. He presents with visual tracking issues with the right eye and states that his vision was affected in brain injury in the past. His clinical presentation is complicated and overall, he has benefitted from PT. Recently, he has had seizure and LEA flare-up since 01/2020 and he is awaiting EEG next week. His headaches have affected his ability to do his PT HEP and to go for walks as PT encouraged for stress relief and to increase HR up to 99 BPM per [place] [facility]. His left UE symptoms and range are both slightly worse on progress note today. He has repeatedly presented with improved left shoulder range and function with manual PT in the past and he will benefit from further work on his shoulder. Pt will con't to benefit from PT 1-2x/ wk as his schedule allows to address post-concussion symptoms, VOR hypofunction, cervical and left shoulder tension and decreased ROM, strengthening, balance and relaxation. Barriers include his complicated presentation. PT suggests lead housekeeper or naturopathic referral in the future to address metabolic contributions to his symptoms. Physical Therapy Plan Frequency and Duration Frequency of Treatment 2x/Week Duration of Treatment 8 weeks Plan of Care Start Date 03/16/20 Plan of Care End Date 05/16/20 Therapeutic Interventions Therapeutic Interventions Balance Training,Canalithic Repositioning,Coordination Training,Home Exercise Program ,Joint Mobilizations,Manual Therapy,Neuromuscular Re- education,Patient/Caregiver Education,Self-Care/Home Management,Sensory Integration ,Soft Tissue Mobilization, Taping,Therapeutic Activities, Therapeutic Exercises, Vestibular Rehabilitation Modalities Cold Pack/Ice Massage,Electric Stimulation,Hot Packs, Ultrasound Next Visit Focus/Plan Next Note Type Treatment Note Next Visit Plan [place] Protocol and provide shoulder abduction exercise and self mob over table for abduction Plan of Care Dates Plan of Care Start Date 03/16/20 Plan of Care End Date 05/16/20 Electronically Signed by: Lisandra Little, PT 03/16/20 0943 Please Sign and Return: I have reviewed this Plan of Care and certify that the skilled therapy services above are required to meet the patient?s needs. Physician Signature Date Printed Name and Credentials Clinical Instructor Signature Printed Name and Credentials
--- NOTE | 2020-03-18 14:29 | PT.OTN ---
Current Diagnoses Cervicalgia (03/18/20) Headache (03/18/20) Personal history of traumatic brain injury (03/18/20) Physical Therapy Treatment Note PT-OP-A Visit Information Start: 02/04/19 07:28 Freq: Status: Active Protocol: Document 03/18/20 13:48 MB (Rec: 03/18/20 14:02 MB [id number]) Out-Patient Physical Therapy Visit Information Visit Information Visit Type Treatment Note Visit Note Visit Start Time 13:48 Visit Stop Time 14:30 Total Visit Minutes 42 Visit Number 10/30 PT-OP-B Current Condition Start: 02/04/19 07:28 Freq: Status: Active Protocol: Document 02/04/19 09:01 MB (Rec: 02/04/19 09:50 MB [id number]) Current Condition History of Current Condition Onset Date 1.5 years History of Current Condition Pt reports TBI 4 years ago when tripping and hitting head on counter. He had a severe concussion and he was out at least 30 minutes. He went to the hospital and was checked out. He had had post- concussion syndrome for 6 weeks. He would fall out unconsious when sitting at random times. He would not have memory of it. He went from having headaches 1-2 times a year to 4-6 a year. Seizures started 1.5 years ago . They are termed psychogenic seizures. There is no epilectic activity. He screens high for PTSD. Pt states that PTSD may be related to past relationships. They happen out of sleep. He wakes up shaking . He does not think he has headaches. , Joy, describes rocking side to side or pelvic thrusting, head back and eyes rolled upward. He occ has horizontal nystagmus and then his head drops down. Events last 30 sec . He is taking Topamax in the a.m. to help with mood and headaches. He has not gone more than 18 days without a seizure. He has been on Topamax for a week and has not had a seizure. 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 He had trigger point injections. He has to go through series of taking medications including corticosteroids. 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 He and are trying out supportive neck pillows. He sleeps on a wedge. 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 He drinks caffeine and water . occ reports of pt with anger and memory loss connected. These were unlike his normal personality. Pt reports headaches up to a 7 /10 and he has to talk Percicet. Headaches are over the right eye and down into his right face and back of head and feeling right eyeball being squeezed. He sees colors and has horizontal nystagmus. Overall discomfort left upper trap area, 3/10. He has 3-7/10 pain down left arm . Right hernia surgery and pain after right testicle removed. Multiple neural surgeries in the area and he now has a small left inguinal hernia. Pt reports occ tingling 4th and 5th left digit and burning down back of left arm through elbow. Prior Treatments and Tests PT in the past for left shoulder. It went okay. He had it for his right wrist as well. Right TMJ injections PT-OP-C Subjective Start: 02/04/19 07:28 Freq: Status: Active Protocol: Document 03/18/20 13:48 MB (Rec: 03/18/20 14:02 MB [id number]) OP-PT Subjective Patient Comments Patient Comments Pt has been feeling dizziness with sitting and standing since VOMS testing. Lying down is pretty good. Closing his eyes helps. states that he has been imbalanced and that his seizure was different : eyes opened and blinking and pulsing in his neck. PT-OP-J Posture/Palpation/Skin Start: 02/04/19 07:28 Freq: Status: Active Protocol: Document 02/04/19 09:01 MB (Rec: 02/04/19 13:33 MB [id number]) Posture Evaluation Comments Posture Comments Standing posture: forward head , rounded shoulders, Dowager's hump, decreased thoracic kyphosis, increased lumbar lordosis, changes around T6 vertebra that could be stiffness PT-OP-K Range of Motion Start: 02/04/19 07:28 Freq: Status: Active Protocol: Document 02/04/19 09:01 MB (Rec: 02/04/19 13:33 MB [id number]) Cervical Spine Range of Motion Cervical Spine Active Testing Position Standing Flexion 35 Extension 40 Rotation Left 40 Rotation Right 50 Comments Pt reports stretch in right jaw with cervical extension and left upper traps area discomfort 3/10 with flexion PT-OP-M Strength Start: 02/04/19 07:28 Freq: Status: Active Protocol: Document 02/04/19 09:01 MB (Rec: 02/04/19 13:33 MB [id number]) Shoulder Strength Shoulder Manual Muscle Testing Left Flexion 4 Good Abduction (C5) 4 Good External Rotation 5 Normal Internal Rotation 5 Normal Right Flexion 5 Normal Abduction (C5) 5 Normal External Rotation 4 Good Internal Rotation 4 Good Elbow/Forearm Strength Elbow and Forearm Manual Muscle Testing Left Flexion (C6) 5 Normal Extension (C7) 5 Normal Pronation 4 Good Supination 4 Good Right Flexion (C6) 5 Normal Extension (C7) 5 Normal Pronation 4 Good Supination 4 Good Wrist Strength Wrist Manual Muscle Testing Left Flexion (C7) 5 Normal Extension (C6) 5 Normal Right Flexion (C7) 5 Normal Extension (C6) 5 Normal PT-OP-Q Treatments Start: 02/04/19 07:28 Freq: Status: Active Protocol: Document 03/18/20 13:48 MB (Rec: 03/18/20 14:02 MB [id number]) Manual Therapy Treatment Other Other Manual Treatments Pt agrees to Counterstrain to assess and treat fascial tension. He presents with tension in the following fascial systems: lymphatic venous system spinal meduallary and standard row and PT treats proximal stacks B. PT-OP-T Assessment and Plan Start: 02/04/19 07:28 Freq: Status: Active Protocol: Document 03/18/20 13:48 MB (Rec: 03/18/20 14:02 MB [id number]) Physical Therapy Assessment Rehab Potential Rehabilitation Potential Fair Evaluation Complexity Number of Personal Factors/Comorbidities 3 or More Number of Body Systems Impaired 3 Clinical Presentation at Evaluation Evolving Impairments Impairments Balance,Pain,Posture,ROM,Soft Tissue Mobility,Vestibular, Visual Motor Goals 8 Penitentiary Goal (LTG) Pt will present with equal active left shoulder abduction and flexion compared to the right to allow overhead work by 05/14/2020. 03/16/2020: Pt presents with right shoulder abduction and flexion to 180 deg and left shoulder abduction 120 deg and flexion to 136 deg. He is having more left hand tingling . 6 Fruit Tester Goal (LTG) Pt will report no more than 1 seizure per week by 05/14/2020. 03/16/20: Increased frequency of seizure goal in setting of increase since 01/2020 and current work-up LTG Duration 8 weeks 4 Penitentiary Goal (LTG) Pt will report no more than 1 headache per week by 05/14/20. 03/16/20: Increased frequency of headache goal in setting of increase since 01/2020 and current work-up LTG Duration 8 weeks 3 Penitentiary Goal (LTG) Pt will perform progressive HEP with I including postural alignment, VOR, visual motor, flexibility, strengthening and relaxation exercises by . 03/16/20: Pt has been performing progressive HEP 2x/ wk. He will get to walking for relaxation and to increase HR up to BPM. His current HEP includes: racquet ball STM and (everyday), hook lying shoulder flexion, PNF and elbow flexion and extension with band, neck stretches, pillow case flexion, Jose stretch, pool noodle stretches (to get foam roller), core strengthening (3x/wk), thread the needle, pelvic realignment exercises, shoulder ER and intrascapular strengthening with band (PRN), Buteyko breathing, pect and hip flexor stretches (everyday) LTG Duration 8 weeks 2 Fruit Tester Goal (LTG) Pt will present with a QuickDASH score to reflect no more than 15% impairment to allow return to [facility] and improvement of ADLs by 05/14/20 . 03/16/20: QuickDASH score reflects 22.72% impairment LTG Duration 8 weeks 1 Penitentiary Goal (LTG) Pt will present with a NDI score to reflect no more than 25% impairment by 05/14/2020. 03/16/20: NDI score reflects 36 % impairment, which is mildly improved since last progress note LTG Duration 8 weeks Assessment Summary Assessment Pt has been very symptomatic after VOMS testing that revealed VOR, visual motor, balance and cervicogenic dysfunction. Con't PT to address fascial changes that contribute to his presentation . Physical Therapy Plan Frequency and Duration Frequency of Treatment 2x/Week Duration of Treatment 8 weeks Plan of Care Start Date 03/16/20 Plan of Care End Date 05/16/20 Therapeutic Interventions Therapeutic Interventions Balance Training,Canalithic Repositioning,Coordination Training,Home Exercise Program ,Joint Mobilizations,Manual Therapy,Neuromuscular Re- education,Patient/Caregiver Education,Self-Care/Home Management,Sensory Integration ,Soft Tissue Mobilization, Taping,Therapeutic Activities, Therapeutic Exercises, Vestibular Rehabilitation Modalities Cold Pack/Ice Massage,Electric Stimulation,Hot Packs, Ultrasound Next Visit Focus/Plan Next Note Type Treatment Note Next Visit Plan [place] Protocol and provide shoulder abduction exercise and self mob over table for abduction
--- NOTE | 2020-03-24 13:49 | PT-OP ANOTE ---
PT speaks with pt and . EEG was negative and pt is thought to have mthfr and will start 10 mg methylfolate and 5000 micrograms of [id number]. PT encouraged pt to connect with functional medicine pharmacist. Will con't PT next week.
--- NOTE | 2020-03-30 10:06 | PT.OTN ---
Current Diagnoses Cervicalgia (03/30/20) Headache (03/30/20) Personal history of traumatic brain injury (03/30/20) Physical Therapy Treatment Note PT-OP-A Visit Information Start: 02/04/19 07:28 Freq: Status: Active Protocol: Document 03/30/20 08:17 MB (Rec: 03/30/20 09:02 MB [id number]) Out-Patient Physical Therapy Visit Information Visit Information Visit Type Treatment Note Visit Note Visit Start Time 08:17 Visit Stop Time 09:00 Total Visit Minutes 43 Visit Number 11/29 PT-OP-B Current Condition Start: 02/04/19 07:28 Freq: Status: Active Protocol: Document 02/04/19 09:01 MB (Rec: 02/04/19 09:50 MB [id number]) Current Condition History of Current Condition Onset Date 1.5 years History of Current Condition Pt reports TBI 4 years ago when tripping and hitting head on counter. He had a severe concussion and he was out at least 30 minutes. He went to the hospital and was checked out. He had had post- concussion syndrome for 6 weeks. He would fall out unconsious when sitting at random times. He would not have memory of it. He went from having headaches 1-2 times a year to 4-6 a year. Seizures started 1.5 years ago . They are termed psychogenic seizures. There is no epilectic activity. He screens high for PTSD. Pt states that PTSD may be related to past relationships. They happen out of sleep. He wakes up shaking . He does not think he has headaches. , Joy, describes rocking side to side or pelvic thrusting, head back and eyes rolled upward. He occ has horizontal nystagmus and then his head drops down. Events last 30 sec . He is taking Topamax in the a.m. to help with mood and headaches. He has not gone more than 18 days without a seizure. He has been on Topamax for a week and has not had a seizure. 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 He had trigger point injections. He has to go through series of taking medications including corticosteroids. 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 He and are trying out supportive neck pillows. He sleeps on a wedge. 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 He drinks caffeine and water . occ reports of pt with anger and memory loss connected. These were unlike his normal personality. Pt reports headaches up to a 7 /10 and he has to talk Percicet. Headaches are over the right eye and down into his right face and back of head and feeling right eyeball being squeezed. He sees colors and has horizontal nystagmus. Overall discomfort left upper trap area, 3/10. He has 3-7/10 pain down left arm . Right hernia surgery and pain after right testicle removed. Multiple neural surgeries in the area and he now has a small left inguinal hernia. Pt reports occ tingling 4th and 5th left digit and burning down back of left arm through elbow. Prior Treatments and Tests PT in the past for left shoulder. It went okay. He had it for his right wrist as well. Right TMJ injections PT-OP-C Subjective Start: 02/04/19 07:28 Freq: Status: Active Protocol: Document 03/30/20 08:17 MB (Rec: 03/30/20 09:02 MB [id number]) OP-PT Subjective Patient Comments Patient Comments states that pt started the methylated supplements about a week ago. Pt states that his energy is better. thinks that his mood and talking are better. He has not had a seizure in 5 days. He has a headache everyday. PT-OP-J Posture/Palpation/Skin Start: 02/04/19 07:28 Freq: Status: Active Protocol: Document 02/04/19 09:01 MB (Rec: 02/04/19 13:33 MB [id number]) Posture Evaluation Comments Posture Comments Standing posture: forward head , rounded shoulders, Dowager's hump, decreased thoracic kyphosis, increased lumbar lordosis, changes around T6 vertebra that could be stiffness PT-OP-K Range of Motion Start: 02/04/19 07:28 Freq: Status: Active Protocol: Document 02/04/19 09:01 MB (Rec: 02/04/19 13:33 MB [id number]) Cervical Spine Range of Motion Cervical Spine Active Testing Position Standing Flexion 35 Extension 40 Rotation Left 40 Rotation Right 50 Comments Pt reports stretch in right jaw with cervical extension and left upper traps area discomfort 3/10 with flexion PT-OP-M Strength Start: 02/04/19 07:28 Freq: Status: Active Protocol: Document 02/04/19 09:01 MB (Rec: 02/04/19 13:33 MB [id number]) Shoulder Strength Shoulder Manual Muscle Testing Left Flexion 4 Good Abduction (C5) 4 Good External Rotation 5 Normal Internal Rotation 5 Normal Right Flexion 5 Normal Abduction (C5) 5 Normal External Rotation 4 Good Internal Rotation 4 Good Elbow/Forearm Strength Elbow and Forearm Manual Muscle Testing Left Flexion (C6) 5 Normal Extension (C7) 5 Normal Pronation 4 Good Supination 4 Good Right Flexion (C6) 5 Normal Extension (C7) 5 Normal Pronation 4 Good Supination 4 Good Wrist Strength Wrist Manual Muscle Testing Left Flexion (C7) 5 Normal Extension (C6) 5 Normal Right Flexion (C7) 5 Normal Extension (C6) 5 Normal PT-OP-Q Treatments Start: 02/04/19 07:28 Freq: Status: Active Protocol: Document 03/30/20 08:17 MB (Rec: 03/30/20 10:04 MB [id number]) Therapeutic Exercises Sitting Exercises Left shoulder abduction and self-mob over table Comments Ed today and pt performs Manual Therapy Treatment Manual Techniques [place] Protocol Comments Performed for left shoulder today and most tension with PA mobs at the joint. See assessment for range improvements after treatment today. PT does perform some other manual palpation assessment during the protocol PT-OP-T Assessment and Plan Start: 02/04/19 07:28 Freq: Status: Active Protocol: Document 03/30/20 08:17 MB (Rec: 03/30/20 09:02 MB [id number]) Physical Therapy Assessment Rehab Potential Rehabilitation Potential Fair Evaluation Complexity Number of Personal Factors/Comorbidities 3 or More Number of Body Systems Impaired 3 Clinical Presentation at Evaluation Evolving Impairments Impairments Balance,Pain,Posture,ROM,Soft Tissue Mobility,Vestibular, Visual Motor Goals 8 Fci Goal (LTG) Pt will present with equal active left shoulder abduction and flexion compared to the right to allow overhead work by 05/14/2020. 03/16/2020: Pt presents with right shoulder abduction and flexion to 180 deg and left shoulder abduction 120 deg and flexion to 136 deg. He is having more left hand tingling . 6 [facility]ci Goal (LTG) Pt will report no more than 1 seizure per week by 05/14/2020. 03/16/20: Increased frequency of seizure goal in setting of increase since 01/2020 and current work-up LTG Duration 8 weeks 4 [facility]ci Goal (LTG) Pt will report no more than 1 headache per week by 05/14/20. 03/16/20: Increased frequency of headache goal in setting of increase since 01/2020 and current work-up LTG Duration 8 weeks 3 [facility] Goal (LTG) Pt will perform progressive HEP with I including postural alignment, VOR, visual motor, flexibility, strengthening and relaxation exercises by . 03/16/20: Pt has been performing progressive HEP 2x/ wk. He will get to walking for relaxation and to increase HR up to BPM. His current HEP includes: racquet ball STM and (everyday), hook lying shoulder flexion, PNF and elbow flexion and extension with band, neck stretches, pillow case flexion, Jose stretch, pool noodle stretches (to get foam roller), core strengthening (3x/wk), thread the needle, pelvic realignment exercises, shoulder ER and intrascapular strengthening with band (PRN), Buteyko breathing, pect and hip flexor stretches (everyday) LTG Duration 8 weeks 2 Fci Goal (LTG) Pt will present with a QuickDASH score to reflect no more than 15% impairment to allow return to [facility] and improvement of ADLs by 05/14/20 . 03/16/20: QuickDASH score reflects 22.72% impairment LTG Duration 8 weeks 1 Traveling Engineer Goal (LTG) Pt will present with a NDI score to reflect no more than 25% impairment by 05/14/2020. 03/16/20: NDI score reflects 36 % impairment, which is mildly improved since last progress note LTG Duration 8 weeks Assessment Summary Assessment Left shoulder AROM in standing before treatment: 130 deg flexion and 122 deg abduction. After [place] Protocol: 147 deg flexion and 152 deg abduction. Most tension with PA mobs at joint line today. Added self-abduction treatment for home and will review exercises in future treatments . Physical Therapy Plan Frequency and Duration Frequency of Treatment 2x/Week Duration of Treatment 8 weeks Plan of Care Start Date 03/16/20 Plan of Care End Date 05/16/20 Therapeutic Interventions Therapeutic Interventions Balance Training,Canalithic Repositioning,Coordination Training,Home Exercise Program ,Joint Mobilizations,Manual Therapy,Neuromuscular Re- education,Patient/Caregiver Education,Self-Care/Home Management,Sensory Integration ,Soft Tissue Mobilization, Taping,Therapeutic Activities, Therapeutic Exercises, Vestibular Rehabilitation Modalities Cold Pack/Ice Massage,Electric Stimulation,Hot Packs, Ultrasound Next Visit Focus/Plan Next Note Type Treatment Note Next Visit Plan Review and revise HEP
--- NOTE | 2020-04-13 09:02 | PT.OTN ---
Current Diagnoses Cervicalgia (04/13/20) Headache (04/13/20) Personal history of traumatic brain injury (04/13/20) Physical Therapy Treatment Note PT-OP-A Visit Information Start: 02/04/19 07:28 Freq: Status: Active Protocol: Document 04/13/20 08:16 MB (Rec: 04/13/20 08:44 MB [id number]) Out-Patient Physical Therapy Visit Information Visit Information Visit Type Treatment Note Visit Note Visit Start Time 08:16 Visit Stop Time 09:00 Total Visit Minutes 44 Visit Number 12/30 PT-OP-B Current Condition Start: 02/04/19 07:28 Freq: Status: Active Protocol: Document 02/04/19 09:01 MB (Rec: 02/04/19 09:50 MB [id number]) Current Condition History of Current Condition Onset Date 1.5 years History of Current Condition Pt reports TBI 4 years ago when tripping and hitting head on counter. He had a severe concussion and he was out at least 30 minutes. He went to the hospital and was checked out. He had had post- concussion syndrome for 6 weeks. He would fall out unconsious when sitting at random times. He would not have memory of it. He went from having headaches 1-2 times a year to 4-6 a year. Seizures started 1.5 years ago . They are termed psychogenic seizures. There is no epilectic activity. He screens high for PTSD. Pt states that PTSD may be related to past relationships. They happen out of sleep. He wakes up shaking . He does not think he has headaches. , Joy, describes rocking side to side or pelvic thrusting, head back and eyes rolled upward. He occ has horizontal nystagmus and then his head drops down. Events last 30 sec . He is taking Topamax in the a.m. to help with mood and headaches. He has not gone more than 18 days without a seizure. He has been on Topamax for a week and has not had a seizure. 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 He had trigger point injections. He has to go through series of taking medications including corticosteroids. 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 He and are trying out supportive neck pillows. He sleeps on a wedge. 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 He drinks caffeine and water . occ reports of pt with anger and memory loss connected. These were unlike his normal personality. Pt reports headaches up to a 7 /10 and he has to talk Percicet. Headaches are over the right eye and down into his right face and back of head and feeling right eyeball being squeezed. He sees colors and has horizontal nystagmus. Overall discomfort left upper trap area, 3/10. He has 3-7/10 pain down left arm . Right hernia surgery and pain after right testicle removed. Multiple neural surgeries in the area and he now has a small left inguinal hernia. Pt reports occ tingling 4th and 5th left digit and burning down back of left arm through elbow. Prior Treatments and Tests PT in the past for left shoulder. It went okay. He had it for his right wrist as well. Right TMJ injections PT-OP-C Subjective Start: 02/04/19 07:28 Freq: Status: Active Protocol: Document 04/13/20 08:16 MB (Rec: 04/13/20 08:44 MB [id number]) OP-PT Subjective Patient Comments Patient Comments Pt states that he woke up Saturday morning with severe pain left AC joint with active shoulder abduction and flexion. He can lift his arm to 90 deg and then the pain got up to 7/10. PT-OP-J Posture/Palpation/Skin Start: 02/04/19 07:28 Freq: Status: Active Protocol: Document 02/04/19 09:01 MB (Rec: 02/04/19 13:33 MB [id number]) Posture Evaluation Comments Posture Comments Standing posture: forward head , rounded shoulders, Dowager's hump, decreased thoracic kyphosis, increased lumbar lordosis, changes around T6 vertebra that could be stiffness PT-OP-K Range of Motion Start: 02/04/19 07:28 Freq: Status: Active Protocol: Document 02/04/19 09:01 MB (Rec: 02/04/19 13:33 MB [id number]) Cervical Spine Range of Motion Cervical Spine Active Testing Position Standing Flexion 35 Extension 40 Rotation Left 40 Rotation Right 50 Comments Pt reports stretch in right jaw with cervical extension and left upper traps area discomfort 3/10 with flexion PT-OP-M Strength Start: 02/04/19 07:28 Freq: Status: Active Protocol: Document 02/04/19 09:01 MB (Rec: 02/04/19 13:33 MB [id number]) Shoulder Strength Shoulder Manual Muscle Testing Left Flexion 4 Good Abduction (C5) 4 Good External Rotation 5 Normal Internal Rotation 5 Normal Right Flexion 5 Normal Abduction (C5) 5 Normal External Rotation 4 Good Internal Rotation 4 Good Elbow/Forearm Strength Elbow and Forearm Manual Muscle Testing Left Flexion (C6) 5 Normal Extension (C7) 5 Normal Pronation 4 Good Supination 4 Good Right Flexion (C6) 5 Normal Extension (C7) 5 Normal Pronation 4 Good Supination 4 Good Wrist Strength Wrist Manual Muscle Testing Left Flexion (C7) 5 Normal Extension (C6) 5 Normal Right Flexion (C7) 5 Normal Extension (C6) 5 Normal PT-OP-Q Treatments Start: 02/04/19 07:28 Freq: Status: Active Protocol: Document 04/13/20 08:16 MB (Rec: 04/13/20 08:44 MB [id number]) Manual Therapy Treatment Other Other Manual Treatments Manual assessment before treatment: decreased mobility left SC joint, increased tension left standard lymphatic row and right visceral with fascial scan, tight first rib on the left, B equal tightness pect and tighter right deltoid and biceps, periosteal and ALL areas fascial scan, AC joint tenderness and attachement proximal biceps. PT treats: 1st rib mob, positional release shoulder and B pects and biceps. Prone thoracic mobility today: rib recoil and PA mobs up to grade IV and B scapular response. PT-OP-T Assessment and Plan Start: 02/04/19 07:28 Freq: Status: Active Protocol: Document 04/13/20 08:16 MB (Rec: 04/13/20 08:44 MB [id number]) Physical Therapy Assessment Rehab Potential Rehabilitation Potential Fair Evaluation Complexity Number of Personal Factors/Comorbidities 3 or More Number of Body Systems Impaired 3 Clinical Presentation at Evaluation Evolving Impairments Impairments Balance,Pain,Posture,ROM,Soft Tissue Mobility,Vestibular, Visual Motor Goals 8 Patient Safety Coordinator Goal (LTG) Pt will present with equal active left shoulder abduction and flexion compared to the right to allow overhead work by 05/14/2020. 03/16/2020: Pt presents with right shoulder abduction and flexion to 180 deg and left shoulder abduction 120 deg and flexion to 136 deg. He is having more left hand tingling . 6 Snf Goal (LTG) Pt will report no more than 1 seizure per week by 05/14/2020. 03/16/20: Increased frequency of seizure goal in setting of increase since 01/2020 and current work-up LTG Duration 8 weeks 4 Patient Safety Coordinator Goal (LTG) Pt will report no more than 1 headache per week by 05/14/20. 03/16/20: Increased frequency of headache goal in setting of increase since 01/2020 and current work-up LTG Duration 8 weeks 3 Patient Safety Coordinator Goal (LTG) Pt will perform progressive HEP with I including postural alignment, VOR, visual motor, flexibility, strengthening and relaxation exercises by . 03/16/20: Pt has been performing progressive HEP 2x/ wk. He will get to walking for relaxation and to increase HR up to BPM. His current HEP includes: racquet ball STM and (everyday), hook lying shoulder flexion, PNF and elbow flexion and extension with band, neck stretches, pillow case flexion, Jose stretch, pool noodle stretches (to get foam roller), core strengthening (3x/wk), thread the needle, pelvic realignment exercises, shoulder ER and intrascapular strengthening with band (PRN), Buteyko breathing, pect and hip flexor stretches (everyday) LTG Duration 8 weeks 2 Snf Goal (LTG) Pt will present with a QuickDASH score to reflect no more than 15% impairment to allow return to [facility] and improvement of ADLs by 05/14/20 . 03/16/20: QuickDASH score reflects 22.72% impairment LTG Duration 8 weeks 1 Snf Goal (LTG) Pt will present with a NDI score to reflect no more than 25% impairment by 05/14/2020. 03/16/20: NDI score reflects 36 % impairment, which is mildly improved since last progress note LTG Duration 8 weeks Assessment Summary Assessment Acute onset of left AC joint pain (pt has old injury in this area). He denies injury. Did not perform HEP review today as a result and initiated manual work d/t limited active ROM. Pt denies chest pain and visceral scan on the left is negative. Addressed thoracic tension mostly today. Physical Therapy Plan Frequency and Duration Frequency of Treatment 2x/Week Duration of Treatment 8 weeks Plan of Care Start Date 03/16/20 Plan of Care End Date 05/16/20 Therapeutic Interventions Therapeutic Interventions Balance Training,Canalithic Repositioning,Coordination Training,Home Exercise Program ,Joint Mobilizations,Manual Therapy,Neuromuscular Re- education,Patient/Caregiver Education,Self-Care/Home Management,Sensory Integration ,Soft Tissue Mobilization, Taping,Therapeutic Activities, Therapeutic Exercises, Vestibular Rehabilitation Modalities Cold Pack/Ice Massage,Electric Stimulation,Hot Packs, Ultrasound Next Visit Focus/Plan Next Note Type Treatment Note Next Visit Plan Review and revise HEP
--- NOTE | 2020-04-27 09:02 | PT.OTN ---
Current Diagnoses Cervicalgia (04/27/20) Headache (04/27/20) Personal history of traumatic brain injury (04/27/20) Physical Therapy Treatment Note PT-OP-A Visit Information Start: 02/04/19 07:28 Freq: Status: Active Protocol: Document 04/27/20 08:17 MB (Rec: 04/27/20 08:51 MB [id number]) Out-Patient Physical Therapy Visit Information Visit Information Visit Type Treatment Note Visit Note . PT re-checks auth in computer and edits below Visit Start Time 08:17 Visit Stop Time 09:00 Total Visit Minutes 43 Visit Number 05/30 on current auth PT-OP-B Current Condition Start: 02/04/19 07:28 Freq: Status: Active Protocol: Document 02/04/19 09:01 MB (Rec: 02/04/19 09:50 MB [id number]) Current Condition History of Current Condition Onset Date 1.5 years History of Current Condition Pt reports TBI 4 years ago when tripping and hitting head on counter. He had a severe concussion and he was out at least 30 minutes. He went to the hospital and was checked out. He had had post- concussion syndrome for 6 weeks. He would fall out unconsious when sitting at random times. He would not have memory of it. He went from having headaches 1-2 times a year to 4-6 a year. Seizures started 1.5 years ago . They are termed psychogenic seizures. There is no epilectic activity. He screens high for PTSD. Pt states that PTSD may be related to past relationships. They happen out of sleep. He wakes up shaking . He does not think he has headaches. , Joy, describes rocking side to side or pelvic thrusting, head back and eyes rolled upward. He occ has horizontal nystagmus and then his head drops down. Events last 30 sec . He is taking Topamax in the a.m. to help with mood and headaches. He has not gone more than 18 days without a seizure. He has been on Topamax for a week and has not had a seizure. 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 He had trigger point injections. He has to go through series of taking medications including corticosteroids. 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 He and are trying out supportive neck pillows. He sleeps on a wedge. 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 He drinks caffeine and water . occ reports of pt with anger and memory loss connected. These were unlike his normal personality. Pt reports headaches up to a 7 /10 and he has to talk Percicet. Headaches are over the right eye and down into his right face and back of head and feeling right eyeball being squeezed. He sees colors and has horizontal nystagmus. Overall discomfort left upper trap area, 3/10. He has 3-7/10 pain down left arm . Right hernia surgery and pain after right testicle removed. Multiple neural surgeries in the area and he now has a small left inguinal hernia. Pt reports occ tingling 4th and 5th left digit and burning down back of left arm through elbow. Prior Treatments and Tests PT in the past for left shoulder. It went okay. He had it for his right wrist as well. Right TMJ injections PT-OP-C Subjective Start: 02/04/19 07:28 Freq: Status: Active Protocol: Document 04/27/20 08:17 MB (Rec: 04/27/20 08:51 MB [id number]) OP-PT Subjective Patient Comments Patient Comments Pt states that his left shoulder is doing a lot better . He iced and stimmed and then was able to go and hit a bucket of 75 golf balls. He forgot to bring in exercises. PT-OP-J Posture/Palpation/Skin Start: 02/04/19 07:28 Freq: Status: Active Protocol: Document 02/04/19 09:01 MB (Rec: 02/04/19 13:33 MB [id number]) Posture Evaluation Comments Posture Comments Standing posture: forward head , rounded shoulders, Dowager's hump, decreased thoracic kyphosis, increased lumbar lordosis, changes around T6 vertebra that could be stiffness PT-OP-K Range of Motion Start: 02/04/19 07:28 Freq: Status: Active Protocol: Document 02/04/19 09:01 MB (Rec: 02/04/19 13:33 MB [id number]) Cervical Spine Range of Motion Cervical Spine Active Testing Position Standing Flexion 35 Extension 40 Rotation Left 40 Rotation Right 50 Comments Pt reports stretch in right jaw with cervical extension and left upper traps area discomfort 3/10 with flexion PT-OP-M Strength Start: 02/04/19 07:28 Freq: Status: Active Protocol: Document 02/04/19 09:01 MB (Rec: 02/04/19 13:33 MB [id number]) Shoulder Strength Shoulder Manual Muscle Testing Left Flexion 4 Good Abduction (C5) 4 Good External Rotation 5 Normal Internal Rotation 5 Normal Right Flexion 5 Normal Abduction (C5) 5 Normal External Rotation 4 Good Internal Rotation 4 Good Elbow/Forearm Strength Elbow and Forearm Manual Muscle Testing Left Flexion (C6) 5 Normal Extension (C7) 5 Normal Pronation 4 Good Supination 4 Good Right Flexion (C6) 5 Normal Extension (C7) 5 Normal Pronation 4 Good Supination 4 Good Wrist Strength Wrist Manual Muscle Testing Left Flexion (C7) 5 Normal Extension (C6) 5 Normal Right Flexion (C7) 5 Normal Extension (C6) 5 Normal PT-OP-Q Treatments Start: 02/04/19 07:28 Freq: Status: Active Protocol: Document 04/27/20 08:17 MB (Rec: 04/27/20 08:51 MB [id number]) Manual Therapy Treatment Other Other Manual Treatments Pt prone: thoracic spine PA mobs and rib recoil, B scapular mobs, suboccipital and cranial STM and manual release, first rib isometric B , B masseter release PT-OP-T Assessment and Plan Start: 02/04/19 07:28 Freq: Status: Active Protocol: Document 04/27/20 08:17 MB (Rec: 04/27/20 08:51 MB [id number]) Physical Therapy Assessment Rehab Potential Rehabilitation Potential Fair Evaluation Complexity Number of Personal Factors/Comorbidities 3 or More Number of Body Systems Impaired 3 Clinical Presentation at Evaluation Evolving Impairments Impairments Balance,Pain,Posture,ROM,Soft Tissue Mobility,Vestibular, Visual Motor Goals 8 Pesticide Applicator Goal (LTG) Pt will present with equal active left shoulder abduction and flexion compared to the right to allow overhead work by 05/14/2020. 03/16/2020: Pt presents with right shoulder abduction and flexion to 180 deg and left shoulder abduction 120 deg and flexion to 136 deg. He is having more left hand tingling . 6 Intermediate Goal (LTG) Pt will report no more than 1 seizure per week by 05/14/2020. 03/16/20: Increased frequency of seizure goal in setting of increase since 01/2020 and current work-up LTG Duration 8 weeks 4 Pesticide Applicator Goal (LTG) Pt will report no more than 1 headache per week by 05/14/20. 03/16/20: Increased frequency of headache goal in setting of increase since 01/2020 and current work-up LTG Duration 8 weeks 3 Pesticide Applicator Goal (LTG) Pt will perform progressive HEP with I including postural alignment, VOR, visual motor, flexibility, strengthening and relaxation exercises by . 03/16/20: Pt has been performing progressive HEP 2x/ wk. He will get to walking for relaxation and to increase HR up to BPM. His current HEP includes: racquet ball STM and (everyday), hook lying shoulder flexion, PNF and elbow flexion and extension with band, neck stretches, pillow case flexion, Jose stretch, pool noodle stretches (to get foam roller), core strengthening (3x/wk), thread the needle, pelvic realignment exercises, shoulder ER and intrascapular strengthening with band (PRN), Buteyko breathing, pect and hip flexor stretches (everyday) LTG Duration 8 weeks 2 Pesticide Applicator Goal (LTG) Pt will present with a QuickDASH score to reflect no more than 15% impairment to allow return to [facility] and improvement of ADLs by 05/14/20 . 03/16/20: QuickDASH score reflects 22.72% impairment LTG Duration 8 weeks 1 Pesticide Applicator Goal (LTG) Pt will present with a NDI score to reflect no more than 25% impairment by 05/14/2020. 03/16/20: NDI score reflects 36 % impairment, which is mildly improved since last progress note LTG Duration 8 weeks Assessment Summary Assessment Pt's left shoulder pain got better and he could hit golf balls for the first time in over 14 years. Pt forgot exercise handouts and will bring in next time. Manual work today for thoracic spine. Thoracic spine was tight and re-ed pt to get foam roller. Physical Therapy Plan Frequency and Duration Frequency of Treatment 2x/Week Duration of Treatment 8 weeks Plan of Care Start Date 03/16/20 Plan of Care End Date 05/16/20 Therapeutic Interventions Therapeutic Interventions Balance Training,Canalithic Repositioning,Coordination Training,Home Exercise Program ,Joint Mobilizations,Manual Therapy,Neuromuscular Re- education,Patient/Caregiver Education,Self-Care/Home Management,Sensory Integration ,Soft Tissue Mobilization, Taping,Therapeutic Activities, Therapeutic Exercises, Vestibular Rehabilitation Modalities Cold Pack/Ice Massage,Electric Stimulation,Hot Packs, Ultrasound Next Visit Focus/Plan Next Note Type Treatment Note Next Visit Plan Review and revise HEP
--- NOTE | 2020-05-02 13:46 | PT.OTN ---
Current Diagnoses Cervicalgia (05/02/20) Headache (05/02/20) Personal history of traumatic brain injury (05/02/20) Physical Therapy Treatment Note PT-OP-A Visit Information Start: 02/04/19 07:28 Freq: Status: Active Protocol: Document 05/02/20 13:01 MB (Rec: 05/02/20 13:45 MB [id number]) Out-Patient Physical Therapy Visit Information Visit Information Visit Type Treatment Note Visit Note esha Jean Visit Start Time 13:01 Visit Stop Time 13:45 Total Visit Minutes 44 Visit Number 03/01 PT-OP-B Current Condition Start: 02/04/19 07:28 Freq: Status: Active Protocol: Document 02/04/19 09:01 MB (Rec: 02/04/19 09:50 MB [id number]) Current Condition History of Current Condition Onset Date 1.5 years History of Current Condition Pt reports TBI 4 years ago when tripping and hitting head on counter. He had a severe concussion and he was out at least 30 minutes. He went to the hospital and was checked out. He had had post- concussion syndrome for 6 weeks. He would fall out unconsious when sitting at random times. He would not have memory of it. He went from having headaches 1-2 times a year to 4-6 a year. Seizures started 1.5 years ago . They are termed psychogenic seizures. There is no epilectic activity. He screens high for PTSD. Pt states that PTSD may be related to past relationships. They happen out of sleep. He wakes up shaking . He does not think he has headaches. , Joy, describes rocking side to side or pelvic thrusting, head back and eyes rolled upward. He occ has horizontal nystagmus and then his head drops down. Events last 30 sec . He is taking Topamax in the a.m. to help with mood and headaches. He has not gone more than 18 days without a seizure. He has been on Topamax for a week and has not had a seizure. 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 He had trigger point injections. He has to go through series of taking medications including corticosteroids. 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 He and are trying out supportive neck pillows. He sleeps on a wedge. 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 He drinks caffeine and water . occ reports of pt with anger and memory loss connected. These were unlike his normal personality. Pt reports headaches up to a 7 /10 and he has to talk Percicet. Headaches are over the right eye and down into his right face and back of head and feeling right eyeball being squeezed. He sees colors and has horizontal nystagmus. Overall discomfort left upper trap area, 3/10. He has 3-7/10 pain down left arm . Right hernia surgery and pain after right testicle removed. Multiple neural surgeries in the area and he now has a small left inguinal hernia. Pt reports occ tingling 4th and 5th left digit and burning down back of left arm through elbow. Prior Treatments and Tests PT in the past for left shoulder. It went okay. He had it for his right wrist as well. Right TMJ injections PT-OP-C Subjective Start: 02/04/19 07:28 Freq: Status: Active Protocol: Document 05/02/20 13:01 MB (Rec: 05/02/20 13:45 MB [id number]) OP-PT Subjective Patient Comments Patient Comments Pt states that his seizure was later on Saturday and so he missed treatment because he could not drive him and he needed a ride after seizure . PT-OP-J Posture/Palpation/Skin Start: 02/04/19 07:28 Freq: Status: Active Protocol: Document 02/04/19 09:01 MB (Rec: 02/04/19 13:33 MB [id number]) Posture Evaluation Comments Posture Comments Standing posture: forward head , rounded shoulders, Dowager's hump, decreased thoracic kyphosis, increased lumbar lordosis, changes around T6 vertebra that could be stiffness PT-OP-K Range of Motion Start: 02/04/19 07:28 Freq: Status: Active Protocol: Document 02/04/19 09:01 MB (Rec: 02/04/19 13:33 MB [id number]) Cervical Spine Range of Motion Cervical Spine Active Testing Position Standing Flexion 35 Extension 40 Rotation Left 40 Rotation Right 50 Comments Pt reports stretch in right jaw with cervical extension and left upper traps area discomfort 3/10 with flexion PT-OP-M Strength Start: 02/04/19 07:28 Freq: Status: Active Protocol: Document 02/04/19 09:01 MB (Rec: 02/04/19 13:33 MB [id number]) Shoulder Strength Shoulder Manual Muscle Testing Left Flexion 4 Good Abduction (C5) 4 Good External Rotation 5 Normal Internal Rotation 5 Normal Right Flexion 5 Normal Abduction (C5) 5 Normal External Rotation 4 Good Internal Rotation 4 Good Elbow/Forearm Strength Elbow and Forearm Manual Muscle Testing Left Flexion (C6) 5 Normal Extension (C7) 5 Normal Pronation 4 Good Supination 4 Good Right Flexion (C6) 5 Normal Extension (C7) 5 Normal Pronation 4 Good Supination 4 Good Wrist Strength Wrist Manual Muscle Testing Left Flexion (C7) 5 Normal Extension (C6) 5 Normal Right Flexion (C7) 5 Normal Extension (C6) 5 Normal PT-OP-Q Treatments Start: 02/04/19 07:28 Freq: Status: Active Protocol: Document 05/02/20 13:01 MB (Rec: 05/02/20 13:45 MB [id number]) Therapeutic Exercises Supine Exercises 6 foam roller, shoulder flexion with level 1 band Comments Performed and re-added to HEP Foam roller triceps with level one loop band Comments Performed and re-added to HEP Foam roller thoracic mobility Equipment Used 6 foam roller Comments Hands under head, thoracic mob over Jose stretch Comments Verbally reviewed and pt to perform at home Core progression on mat and then on pool noodle Supine Exercise Name Lumbar rotation, HS, mini march, knee fall out Comments 10 reps B Pelvic realignment exercises Comments Verbally reviewed and pt to con't at home Self-massage with MWM B SCM Comments Verbally reviewed and pt to con't at home Buteyko breathing Comments Verbally reviewed and pt to con't at home Sitting Exercises Left shoulder abduction and self-mob over table Comments Verbally reviewed and pt to con't at home Upper traps MWM with racquet ball Comments Verbally reviewed and pt to con't at home Standing Exercises STM intrascapular muscles Comments Pt performs I today with racquet ball in sock Pect stretch doorway Comments Verbally reviewed and pt to con't at home with hip flexor and QL stretch Scapular and shoulder extension strengthening with level 2 band Side bilateral Comments Verbally reviewed and pt to con't at home Racquet ball massage, MWM with infraspinatus Comments Pt performs I today Other Exercises Reviewed all other exercises, reviewed handouts today Comments Performed today and provided write out of HEP, updated goal PT-OP-T Assessment and Plan Start: 02/04/19 07:28 Freq: Status: Active Protocol: Document 05/02/20 13:01 MB (Rec: 05/02/20 13:45 MB [id number]) Physical Therapy Assessment Rehab Potential Rehabilitation Potential Fair Evaluation Complexity Number of Personal Factors/Comorbidities 3 or More Number of Body Systems Impaired 3 Clinical Presentation at Evaluation Evolving Impairments Impairments Balance,Pain,Posture,ROM,Soft Tissue Mobility,Vestibular, Visual Motor Goals 8 Pari Mutuel Clerk Goal (LTG) Pt will present with equal active left shoulder abduction and flexion compared to the right to allow overhead work by 05/14/2020. 03/16/2020: Pt presents with right shoulder abduction and flexion to 180 deg and left shoulder abduction 120 deg and flexion to 136 deg. He is having more left hand tingling . 6 Pari Mutuel Clerk Goal (LTG) Pt will report no more than 1 seizure per week by 05/14/2020. 03/16/20: Increased frequency of seizure goal in setting of increase since 01/2020 and current work-up LTG Duration 8 weeks 4 Mcc Goal (LTG) Pt will report no more than 1 headache per week by 05/14/20. 03/16/20: Increased frequency of headache goal in setting of increase since 01/2020 and current work-up LTG Duration 8 weeks 3 Mcc Goal (LTG) Pt will perform progressive HEP with I including postural alignment, VOR, visual motor, flexibility, strengthening and relaxation exercises by . 05/02/20: Revised HEP and pt performs 10 reps today of all strengthening: Everyday: Buteyko breathing (3 exercises), pect, hip flexor and QL stretch in doorway 3x/wk: abdominal drawing in, sword and sheath with teal band, shoulder ER with green band, shoulder flexion and elbow flexion and extension with light blue band, abduction mob, arm over table, Jose stretch, core progression As needed: pelvic realignment exercises, SCM self-massage, shoulder ER and rows with arms straight and teal band, intrascapular massage with racquet ball LTG Duration 8 weeks 2 Mcc Goal (LTG) Pt will present with a QuickDASH score to reflect no more than 15% impairment to allow return to guitar and improvement of ADLs by 05/14/20 . 03/16/20: QuickDASH score reflects 22.72% impairment LTG Duration 8 weeks 1 Mcc Goal (LTG) Pt will present with a NDI score to reflect no more than 25% impairment by 05/14/2020. 03/16/20: NDI score reflects 36 % impairment, which is mildly improved since last progress note LTG Duration 8 weeks Assessment Summary Assessment Revised and created new HEP program/plan today and provided write-out for pt. Con 't manual work next treatment, likely. Physical Therapy Plan Frequency and Duration Frequency of Treatment 2x/Week Duration of Treatment 8 weeks Plan of Care Start Date 03/16/20 Plan of Care End Date 05/16/20 Therapeutic Interventions Therapeutic Interventions Balance Training,Canalithic Repositioning,Coordination Training,Home Exercise Program ,Joint Mobilizations,Manual Therapy,Neuromuscular Re- education,Patient/Caregiver Education,Self-Care/Home Management,Sensory Integration ,Soft Tissue Mobilization, Taping,Therapeutic Activities, Therapeutic Exercises, Vestibular Rehabilitation Modalities Cold Pack/Ice Massage,Electric Stimulation,Hot Packs, Ultrasound Next Visit Focus/Plan Next Note Type Treatment Note Next Visit Plan Will assess what needs, [place] protocol may be beneficial
--- NOTE | 2020-05-05 08:14 | PT.OTN ---
Current Diagnoses Cervicalgia (05/05/20) Headache (05/05/20) Personal history of traumatic brain injury (05/05/20) Physical Therapy Treatment Note PT-OP-A Visit Information Start: 02/04/19 07:28 Freq: Status: Active Protocol: Document 05/05/20 07:31 MB (Rec: 05/05/20 08:13 MB [id number]) Out-Patient Physical Therapy Visit Information Visit Information Visit Type Treatment Note Visit Note esha Jean Visit Start Time 07:31 Visit Stop Time 08:12 Total Visit Minutes 41 Visit Number 04/01 PT-OP-B Current Condition Start: 02/04/19 07:28 Freq: Status: Active Protocol: Document 02/04/19 09:01 MB (Rec: 02/04/19 09:50 MB [id number]) Current Condition History of Current Condition Onset Date 1.5 years History of Current Condition Pt reports TBI 4 years ago when tripping and hitting head on counter. He had a severe concussion and he was out at least 30 minutes. He went to the hospital and was checked out. He had had post- concussion syndrome for 6 weeks. He would fall out unconsious when sitting at random times. He would not have memory of it. He went from having headaches 1-2 times a year to 4-6 a year. Seizures started 1.5 years ago . They are termed psychogenic seizures. There is no epilectic activity. He screens high for PTSD. Pt states that PTSD may be related to past relationships. They happen out of sleep. He wakes up shaking . He does not think he has headaches. , Joy, describes rocking side to side or pelvic thrusting, head back and eyes rolled upward. He occ has horizontal nystagmus and then his head drops down. Events last 30 sec . He is taking Topamax in the a.m. to help with mood and headaches. He has not gone more than 18 days without a seizure. He has been on Topamax for a week and has not had a seizure. 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 He had trigger point injections. He has to go through series of taking medications including corticosteroids. 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 He and are trying out supportive neck pillows. He sleeps on a wedge. 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 He drinks caffeine and water . occ reports of pt with anger and memory loss connected. These were unlike his normal personality. Pt reports headaches up to a 7 /10 and he has to talk Percicet. Headaches are over the right eye and down into his right face and back of head and feeling right eyeball being squeezed. He sees colors and has horizontal nystagmus. Overall discomfort left upper trap area, 3/10. He has 3-7/10 pain down left arm . Right hernia surgery and pain after right testicle removed. Multiple neural surgeries in the area and he now has a small left inguinal hernia. Pt reports occ tingling 4th and 5th left digit and burning down back of left arm through elbow. Prior Treatments and Tests PT in the past for left shoulder. It went okay. He had it for his right wrist as well. Right TMJ injections PT-OP-C Subjective Start: 02/04/19 07:28 Freq: Status: Active Protocol: Document 05/05/20 07:31 MB (Rec: 05/05/20 08:13 MB [id number]) OP-PT Subjective Patient Comments Patient Comments Pt got his foam roller in the mail. He got a double migraine on Saturday and a seizure after that. Yesterday, he got a really bad migraine that last a while. PT-OP-J Posture/Palpation/Skin Start: 02/04/19 07:28 Freq: Status: Active Protocol: Document 02/04/19 09:01 MB (Rec: 02/04/19 13:33 MB [id number]) Posture Evaluation Comments Posture Comments Standing posture: forward head , rounded shoulders, Dowager's hump, decreased thoracic kyphosis, increased lumbar lordosis, changes around T6 vertebra that could be stiffness PT-OP-K Range of Motion Start: 02/04/19 07:28 Freq: Status: Active Protocol: Document 02/04/19 09:01 MB (Rec: 02/04/19 13:33 MB [id number]) Cervical Spine Range of Motion Cervical Spine Active Testing Position Standing Flexion 35 Extension 40 Rotation Left 40 Rotation Right 50 Comments Pt reports stretch in right jaw with cervical extension and left upper traps area discomfort 3/10 with flexion PT-OP-M Strength Start: 02/04/19 07:28 Freq: Status: Active Protocol: Document 02/04/19 09:01 MB (Rec: 02/04/19 13:33 MB [id number]) Shoulder Strength Shoulder Manual Muscle Testing Left Flexion 4 Good Abduction (C5) 4 Good External Rotation 5 Normal Internal Rotation 5 Normal Right Flexion 5 Normal Abduction (C5) 5 Normal External Rotation 4 Good Internal Rotation 4 Good Elbow/Forearm Strength Elbow and Forearm Manual Muscle Testing Left Flexion (C6) 5 Normal Extension (C7) 5 Normal Pronation 4 Good Supination 4 Good Right Flexion (C6) 5 Normal Extension (C7) 5 Normal Pronation 4 Good Supination 4 Good Wrist Strength Wrist Manual Muscle Testing Left Flexion (C7) 5 Normal Extension (C6) 5 Normal Right Flexion (C7) 5 Normal Extension (C6) 5 Normal PT-OP-Q Treatments Start: 02/04/19 07:28 Freq: Status: Active Protocol: Document 05/05/20 07:31 MB (Rec: 05/05/20 08:13 MB [id number]) Manual Therapy Treatment Other Other Manual Treatments [place] Protocol L shoulder, left pect positional release and STM, B sternocostal recoil with coordinated breathing, left first rib mob PT-OP-T Assessment and Plan Start: 02/04/19 07:28 Freq: Status: Active Protocol: Document 05/05/20 07:31 MB (Rec: 05/05/20 08:13 MB [id number]) Physical Therapy Assessment Rehab Potential Rehabilitation Potential Fair Evaluation Complexity Number of Personal Factors/Comorbidities 3 or More Number of Body Systems Impaired 3 Clinical Presentation at Evaluation Evolving Impairments Impairments Balance,Pain,Posture,ROM,Soft Tissue Mobility,Vestibular, Visual Motor Goals 8 Snf Goal (LTG) Pt will present with equal active left shoulder abduction and flexion compared to the right to allow overhead work by 05/14/2020. 03/16/2020: Pt presents with right shoulder abduction and flexion to 180 deg and left shoulder abduction 120 deg and flexion to 136 deg. He is having more left hand tingling . 6 Snf Goal (LTG) Pt will report no more than 1 seizure per week by 05/14/2020. 03/16/20: Increased frequency of seizure goal in setting of increase since 01/2020 and current work-up LTG Duration 8 weeks 4 Snf Goal (LTG) Pt will report no more than 1 headache per week by 05/14/20. 03/16/20: Increased frequency of headache goal in setting of increase since 01/2020 and current work-up LTG Duration 8 weeks 3 Pearler Goal (LTG) Pt will perform progressive HEP with I including postural alignment, VOR, visual motor, flexibility, strengthening and relaxation exercises by . 05/02/20: Revised HEP and pt performs 10 reps today of all strengthening: Everyday: Buteyko breathing (3 exercises), pect, hip flexor and QL stretch in doorway 3x/wk: abdominal drawing in, sword and sheath with teal band, shoulder ER with green band, shoulder flexion and elbow flexion and extension with light blue band, abduction mob, arm over table, Jose stretch, core progression As needed: pelvic realignment exercises, SCM self-massage, shoulder ER and rows with arms straight and teal band, intrascapular massage with racquet ball LTG Duration 8 weeks 2 Snf Goal (LTG) Pt will present with a QuickDASH score to reflect no more than 15% impairment to allow return to itar and improvement of ADLs by 05/14/20 . 03/16/20: QuickDASH score reflects 22.72% impairment LTG Duration 8 weeks 1 Pearler Goal (LTG) Pt will present with a NDI score to reflect no more than 25% impairment by 05/14/2020. 03/16/20: NDI score reflects 36 % impairment, which is mildly improved since last progress note LTG Duration 8 weeks Assessment Summary Assessment Pt presents with increased left pect major and minor tension and his shoulder range and tension improve with manual work today. His clinical presenation is complex given multiple underlying conditions. Physical Therapy Plan Frequency and Duration Frequency of Treatment 2x/Week Duration of Treatment 8 weeks Plan of Care Start Date 03/16/20 Plan of Care End Date 05/16/20 Therapeutic Interventions Therapeutic Interventions Balance Training,Canalithic Repositioning,Coordination Training,Home Exercise Program ,Joint Mobilizations,Manual Therapy,Neuromuscular Re- education,Patient/Caregiver Education,Self-Care/Home Management,Sensory Integration ,Soft Tissue Mobilization, Taping,Therapeutic Activities, Therapeutic Exercises, Vestibular Rehabilitation Modalities Cold Pack/Ice Massage,Electric Stimulation,Hot Packs, Ultrasound Next Visit Focus/Plan Next Note Type Treatment Note Next Visit Plan Will assess what needs, Counterstrain
--- NOTE | 2020-05-13 08:12 | PT.OTN ---
Current Diagnoses Cervicalgia (05/13/20) Headache (05/13/20) Personal history of traumatic brain injury (05/13/20) Physical Therapy Treatment Note PT-OP-A Visit Information Start: 02/04/19 07:28 Freq: Status: Active Protocol: Document 05/13/20 07:30 MB (Rec: 05/13/20 08:09 MB [id number]) Out-Patient Physical Therapy Visit Information Visit Information Visit Type Treatment Note Visit Note esha Jean Visit Start Time 07:30 Visit Stop Time 08:08 Total Visit Minutes 38 Visit Number 04/29 PT-OP-B Current Condition Start: 02/04/19 07:28 Freq: Status: Active Protocol: Document 02/04/19 09:01 MB (Rec: 02/04/19 09:50 MB [id number]) Current Condition History of Current Condition Onset Date 1.5 years History of Current Condition Pt reports TBI 4 years ago when tripping and hitting head on counter. He had a severe concussion and he was out at least 30 minutes. He went to the hospital and was checked out. He had had post- concussion syndrome for 6 weeks. He would fall out unconsious when sitting at random times. He would not have memory of it. He went from having headaches 1-2 times a year to 4-6 a year. Seizures started 1.5 years ago . They are termed psychogenic seizures. There is no epilectic activity. He screens high for PTSD. Pt states that PTSD may be related to past relationships. They happen out of sleep. He wakes up shaking . He does not think he has headaches. , Joy, describes rocking side to side or pelvic thrusting, head back and eyes rolled upward. He occ has horizontal nystagmus and then his head drops down. Events last 30 sec . He is taking Topamax in the a.m. to help with mood and headaches. He has not gone more than 18 days without a seizure. He has been on Topamax for a week and has not had a seizure. 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 He had trigger point injections. He has to go through series of taking medications including corticosteroids. 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 He and are trying out supportive neck pillows. He sleeps on a wedge. 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 He drinks caffeine and water . occ reports of pt with anger and memory loss connected. These were unlike his normal personality. Pt reports headaches up to a 7 /10 and he has to talk Percicet. Headaches are over the right eye and down into his right face and back of head and feeling right eyeball being squeezed. He sees colors and has horizontal nystagmus. Overall discomfort left upper trap area, 3/10. He has 3-7/10 pain down left arm . Right hernia surgery and pain after right testicle removed. Multiple neural surgeries in the area and he now has a small left inguinal hernia. Pt reports occ tingling 4th and 5th left digit and burning down back of left arm through elbow. Prior Treatments and Tests PT in the past for left shoulder. It went okay. He had it for his right wrist as well. Right TMJ injections PT-OP-C Subjective Start: 02/04/19 07:28 Freq: Status: Active Protocol: Document 05/13/20 07:30 MB (Rec: 05/13/20 08:09 MB [id number]) OP-PT Subjective Patient Comments Patient Comments I'm still having migraines everyday. PT-OP-J Posture/Palpation/Skin Start: 02/04/19 07:28 Freq: Status: Active Protocol: Document 02/04/19 09:01 MB (Rec: 02/04/19 13:33 MB [id number]) Posture Evaluation Comments Posture Comments Standing posture: forward head , rounded shoulders, Dowager's hump, decreased thoracic kyphosis, increased lumbar lordosis, changes around T6 vertebra that could be stiffness PT-OP-K Range of Motion Start: 02/04/19 07:28 Freq: Status: Active Protocol: Document 02/04/19 09:01 MB (Rec: 02/04/19 13:33 MB [id number]) Cervical Spine Range of Motion Cervical Spine Active Testing Position Standing Flexion 35 Extension 40 Rotation Left 40 Rotation Right 50 Comments Pt reports stretch in right jaw with cervical extension and left upper traps area discomfort 3/10 with flexion PT-OP-M Strength Start: 02/04/19 07:28 Freq: Status: Active Protocol: Document 02/04/19 09:01 MB (Rec: 02/04/19 13:33 MB [id number]) Shoulder Strength Shoulder Manual Muscle Testing Left Flexion 4 Good Abduction (C5) 4 Good External Rotation 5 Normal Internal Rotation 5 Normal Right Flexion 5 Normal Abduction (C5) 5 Normal External Rotation 4 Good Internal Rotation 4 Good Elbow/Forearm Strength Elbow and Forearm Manual Muscle Testing Left Flexion (C6) 5 Normal Extension (C7) 5 Normal Pronation 4 Good Supination 4 Good Right Flexion (C6) 5 Normal Extension (C7) 5 Normal Pronation 4 Good Supination 4 Good Wrist Strength Wrist Manual Muscle Testing Left Flexion (C7) 5 Normal Extension (C6) 5 Normal Right Flexion (C7) 5 Normal Extension (C6) 5 Normal PT-OP-Q Treatments Start: 02/04/19 07:28 Freq: Status: Active Protocol: Document 05/13/20 07:30 MB (Rec: 05/13/20 08:09 MB [id number]) Manual Therapy Treatment Other Other Manual Treatments Pt agrees to Counterstrain to assess and treat fascial tension. Pt presents with tension in the following fascial systems: multisystem scan is pretty good except for some tension in the standard lymphatic row and right zygoma cranial scan and these have been treated in the past and so will con't scanning for cranial centralization points: dental nerves on the left, periosteal cranial B and cranial bone scar. After further assessment, PT treats stacks: LV upper cervical spinal medullary, right cerebellar vein and thoracic duct. C1 extended periosteal, maxillary posterior shear, zygomatic superior dysfunction right and palatine superior. Pt responds well initially and monitor response. PT-OP-T Assessment and Plan Start: 02/04/19 07:28 Freq: Status: Active Protocol: Document 05/13/20 07:30 MB (Rec: 05/13/20 08:09 MB [id number]) Physical Therapy Assessment Rehab Potential Rehabilitation Potential Fair Evaluation Complexity Number of Personal Factors/Comorbidities 3 or More Number of Body Systems Impaired 3 Clinical Presentation at Evaluation Evolving Impairments Impairments Balance,Pain,Posture,ROM,Soft Tissue Mobility,Vestibular, Visual Motor Goals 8 Fdc Goal (LTG) Pt will present with equal active left shoulder abduction and flexion compared to the right to allow overhead work by 05/14/2020. 03/16/2020: Pt presents with right shoulder abduction and flexion to 180 deg and left shoulder abduction 120 deg and flexion to 136 deg. He is having more left hand tingling . 6 Fdc Goal (LTG) Pt will report no more than 1 seizure per week by 05/14/2020. 03/16/20: Increased frequency of seizure goal in setting of increase since 01/2020 and current work-up LTG Duration 8 weeks 4 Moisture Tester Goal (LTG) Pt will report no more than 1 headache per week by 05/14/20. 03/16/20: Increased frequency of headache goal in setting of increase since 01/2020 and current work-up LTG Duration 8 weeks 3 Fdc Goal (LTG) Pt will perform progressive HEP with I including postural alignment, VOR, visual motor, flexibility, strengthening and relaxation exercises by . 05/02/20: Revised HEP and pt performs 10 reps today of all strengthening: Everyday: Buteyko breathing (3 exercises), pect, hip flexor and QL stretch in doorway 3x/wk: abdominal drawing in, sword and sheath with teal band, shoulder ER with green band, shoulder flexion and elbow flexion and extension with light blue band, abduction mob, arm over table, Jose stretch, core progression As needed: pelvic realignment exercises, SCM self-massage, shoulder ER and rows with arms straight and teal band, intrascapular massage with racquet ball LTG Duration 8 weeks 2 Moisture Tester Goal (LTG) Pt will present with a QuickDASH score to reflect no more than 15% impairment to allow return to [facility] and improvement of ADLs by 05/14/20 . 03/16/20: QuickDASH score reflects 22.72% impairment LTG Duration 8 weeks 1 Fdc Goal (LTG) Pt will present with a NDI score to reflect no more than 25% impairment by 05/14/2020. 03/16/20: NDI score reflects 36 % impairment, which is mildly improved since last progress note LTG Duration 8 weeks Assessment Summary Assessment Able to clear up new cranial fasical points today with idea that pt's trigeminal, facial and TMJ scans and symptoms con 't to improve. Monitor response. Physical Therapy Plan Frequency and Duration Frequency of Treatment 2x/Week Duration of Treatment 8 weeks Plan of Care Start Date 03/16/20 Plan of Care End Date 05/16/20 Therapeutic Interventions Therapeutic Interventions Balance Training,Canalithic Repositioning,Coordination Training,Home Exercise Program ,Joint Mobilizations,Manual Therapy,Neuromuscular Re- education,Patient/Caregiver Education,Self-Care/Home Management,Sensory Integration ,Soft Tissue Mobilization, Taping,Therapeutic Activities, Therapeutic Exercises, Vestibular Rehabilitation Modalities Cold Pack/Ice Massage,Electric Stimulation,Hot Packs, Ultrasound Next Visit Focus/Plan Next Note Type Treatment Note Next Visit Plan Will assess what needs, Counterstrain with new ability to work on cranial bone fasica
--- NOTE | 2020-05-18 12:54 | PT.OTN ---
Current Diagnoses Cervicalgia (05/18/20) Headache (05/18/20) Personal history of traumatic brain injury (05/18/20) Physical Therapy Treatment Note PT-OP-A Visit Information Start: 02/04/19 07:28 Freq: Status: Active Protocol: Document 05/18/20 12:13 MB (Rec: 05/18/20 12:20 MB [id number]) Out-Patient Physical Therapy Visit Information Visit Information Visit Type Treatment Note Visit Note esha Jean Visit Start Time 12:13 Visit Stop Time 12:51 Total Visit Minutes 38 Visit Number 05/30 PT-OP-B Current Condition Start: 02/04/19 07:28 Freq: Status: Active Protocol: Document 02/04/19 09:01 MB (Rec: 02/04/19 09:50 MB [id number]) Current Condition History of Current Condition Onset Date 1.5 years History of Current Condition Pt reports TBI 4 years ago when tripping and hitting head on counter. He had a severe concussion and he was out at least 30 minutes. He went to the hospital and was checked out. He had had post- concussion syndrome for 6 weeks. He would fall out unconsious when sitting at random times. He would not have memory of it. He went from having headaches 1-2 times a year to 4-6 a year. Seizures started 1.5 years ago . They are termed psychogenic seizures. There is no epilectic activity. He screens high for PTSD. Pt states that PTSD may be related to past relationships. They happen out of sleep. He wakes up shaking . He does not think he has headaches. , Joy, describes rocking side to side or pelvic thrusting, head back and eyes rolled upward. He occ has horizontal nystagmus and then his head drops down. Events last 30 sec . He is taking Topamax in the a.m. to help with mood and headaches. He has not gone more than 18 days without a seizure. He has been on Topamax for a week and has not had a seizure. 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 He had trigger point injections. He has to go through series of taking medications including corticosteroids. 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 He and are trying out supportive neck pillows. He sleeps on a wedge. 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 He drinks caffeine and water . occ reports of pt with anger and memory loss connected. These were unlike his normal personality. Pt reports headaches up to a 7 /10 and he has to talk Percicet. Headaches are over the right eye and down into his right face and back of head and feeling right eyeball being squeezed. He sees colors and has horizontal nystagmus. Overall discomfort left upper trap area, 3/10. He has 3-7/10 pain down left arm . Right hernia surgery and pain after right testicle removed. Multiple neural surgeries in the area and he now has a small left inguinal hernia. Pt reports occ tingling 4th and 5th left digit and burning down back of left arm through elbow. Prior Treatments and Tests PT in the past for left shoulder. It went okay. He had it for his right wrist as well. Right TMJ injections PT-OP-C Subjective Start: 02/04/19 07:28 Freq: Status: Active Protocol: Document 05/18/20 12:13 MB (Rec: 05/18/20 12:20 MB [id number]) OP-PT Subjective Patient Comments Patient Comments Pt states that his symptoms after his second COVID shot two days ago are better. PT-OP-J Posture/Palpation/Skin Start: 02/04/19 07:28 Freq: Status: Active Protocol: Document 02/04/19 09:01 MB (Rec: 02/04/19 13:33 MB [id number]) Posture Evaluation Comments Posture Comments Standing posture: forward head , rounded shoulders, Dowager's hump, decreased thoracic kyphosis, increased lumbar lordosis, changes around T6 vertebra that could be stiffness PT-OP-K Range of Motion Start: 02/04/19 07:28 Freq: Status: Active Protocol: Document 02/04/19 09:01 MB (Rec: 02/04/19 13:33 MB [id number]) Cervical Spine Range of Motion Cervical Spine Active Testing Position Standing Flexion 35 Extension 40 Rotation Left 40 Rotation Right 50 Comments Pt reports stretch in right jaw with cervical extension and left upper traps area discomfort 3/10 with flexion PT-OP-M Strength Start: 02/04/19 07:28 Freq: Status: Active Protocol: Document 02/04/19 09:01 MB (Rec: 02/04/19 13:33 MB [id number]) Shoulder Strength Shoulder Manual Muscle Testing Left Flexion 4 Good Abduction (C5) 4 Good External Rotation 5 Normal Internal Rotation 5 Normal Right Flexion 5 Normal Abduction (C5) 5 Normal External Rotation 4 Good Internal Rotation 4 Good Elbow/Forearm Strength Elbow and Forearm Manual Muscle Testing Left Flexion (C6) 5 Normal Extension (C7) 5 Normal Pronation 4 Good Supination 4 Good Right Flexion (C6) 5 Normal Extension (C7) 5 Normal Pronation 4 Good Supination 4 Good Wrist Strength Wrist Manual Muscle Testing Left Flexion (C7) 5 Normal Extension (C6) 5 Normal Right Flexion (C7) 5 Normal Extension (C6) 5 Normal PT-OP-Q Treatments Start: 02/04/19 07:28 Freq: Status: Active Protocol: Document 05/18/20 12:13 MB (Rec: 05/18/20 12:49 MB [id number]) Manual Therapy Treatment Other Other Manual Treatments Pt agrees to Counterstrain to assess and treat fascial tension. Pt presents with tension in the following fascial systems: cranial bones . PT treats stacks in the cranial area. Pt responds especially well to maxillary medial dysfunction/high vaulted palate. Decided to defer further cranial bone treatment until next treatment date in order to see how things settle out with his TMJ over the next couple of days. Next time, assess zygoma and palatine points to further assist with cartilage components to cervical and TMJ issues. PT-OP-T Assessment and Plan Start: 02/04/19 07:28 Freq: Status: Active Protocol: Document 05/18/20 12:13 MB (Rec: 05/18/20 12:20 MB [id number]) Physical Therapy Assessment Rehab Potential Rehabilitation Potential Fair Evaluation Complexity Number of Personal Factors/Comorbidities 3 or More Number of Body Systems Impaired 3 Clinical Presentation at Evaluation Evolving Impairments Impairments Balance,Pain,Posture,ROM,Soft Tissue Mobility,Vestibular, Visual Motor Goals 8 Still Operator Batch Or Continuous Goal (LTG) Pt will present with equal active left shoulder abduction and flexion compared to the right to allow overhead work by 05/14/2020. 03/16/2020: Pt presents with right shoulder abduction and flexion to 180 deg and left shoulder abduction 120 deg and flexion to 136 deg. He is having more left hand tingling . 6 [facility] Goal (LTG) Pt will report no more than 1 seizure per week by 05/14/2020. 03/16/20: Increased frequency of seizure goal in setting of increase since 01/2020 and current work-up LTG Duration 8 weeks 4 [facility] Goal (LTG) Pt will report no more than 1 headache per week by 05/14/20. 03/16/20: Increased frequency of headache goal in setting of increase since 01/2020 and current work-up LTG Duration 8 weeks 3 Still Operator Batch Or Continuous Goal (LTG) Pt will perform progressive HEP with I including postural alignment, VOR, visual motor, flexibility, strengthening and relaxation exercises by . 05/02/20: Revised HEP and pt performs 10 reps today of all strengthening: Everyday: Buteyko breathing (3 exercises), pect, hip flexor and QL stretch in doorway 3x/wk: abdominal drawing in, sword and sheath with teal band, shoulder ER with green band, shoulder flexion and elbow flexion and extension with light blue band, abduction mob, arm over table, Jose stretch, core progression As needed: pelvic realignment exercises, SCM self-massage, shoulder ER and rows with arms straight and teal band, intrascapular massage with racquet ball LTG Duration 8 weeks 2 [facility] Goal (LTG) Pt will present with a QuickDASH score to reflect no more than 15% impairment to allow return to [facility] and improvement of ADLs by 05/14/20 . 03/16/20: QuickDASH score reflects 22.72% impairment LTG Duration 8 weeks 1 [facility] Goal (LTG) Pt will present with a NDI score to reflect no more than 25% impairment by 05/14/2020. 03/16/20: NDI score reflects 36 % impairment, which is mildly improved since last progress note LTG Duration 8 weeks Assessment Summary Assessment Counterstrain today to again address cranial fascial contributions to his symptoms and especially since symptoms are localized to his right jaw today. Pt tolerates well immediately after treatment and will con't to monitor. Physical Therapy Plan Frequency and Duration Frequency of Treatment 2x/Week Duration of Treatment 8 weeks Plan of Care Start Date 03/16/20 Plan of Care End Date 05/16/20 Therapeutic Interventions Therapeutic Interventions Balance Training,Canalithic Repositioning,Coordination Training,Home Exercise Program ,Joint Mobilizations,Manual Therapy,Neuromuscular Re- education,Patient/Caregiver Education,Self-Care/Home Management,Sensory Integration ,Soft Tissue Mobilization, Taping,Therapeutic Activities, Therapeutic Exercises, Vestibular Rehabilitation Modalities Cold Pack/Ice Massage,Electric Stimulation,Hot Packs, Ultrasound Next Visit Focus/Plan Next Note Type Treatment Note Next Visit Plan Will assess what needs, Counterstrain with new ability to work on cranial bone fasica
--- NOTE | 2020-05-18 14:30 | PT.OPPOC ---
Addendum entered and electronically signed by Lisandra Little PT 05/19/20 13:40: Plan of care was due to be updated and did not address all goals d/t need to continue with cranial treatments this week. Did update all goals and POC and address some goals. Will con't per POC as it is still appropriate for pt. Once again, his presentation is multi-factorial. Original Note: Physical, Occupational & Speech Therapy [facility] Current Diagnoses Cervicalgia (05/18/20) Headache (05/18/20) Personal history of traumatic brain injury (05/18/20) Visit Care Team Role Provider Type Elisha Mello DO Attending Provider Non-Staff Primary Care Provider Specialty: Medical Address: [address] [place] [address], [id number] Email: Plan Of Care PT-OP-T Assessment and Plan Start: 02/04/19 07:28 Freq: Status: Active Protocol: Document 05/18/20 12:13 MB (Rec: 05/18/20 12:20 MB [id number]) Physical Therapy Assessment Rehab Potential Rehabilitation Potential Fair Evaluation Complexity Number of Personal Factors/Comorbidities 3 or More Number of Body Systems Impaired 3 Clinical Presentation at Evaluation Evolving Impairments Impairments Balance,Pain,Posture,ROM,Soft Tissue Mobility,Vestibular, Visual Motor Goals 8 Cytotechnologist/Cytology Supervisor Goal (LTG) Pt will present with equal active left shoulder abduction and flexion compared to the right to allow overhead work by 07/19/2020. 03/16/2020: Pt presents with right shoulder abduction and flexion to 180 deg and left shoulder abduction 120 deg and flexion to 136 deg. He is having more left hand tingling . 6 Penitentiary Goal (LTG) Pt will report no more than 1 seizure per week by 07/19/2020. 05/18/20: Pt con't with increased stress and seizures. LTG Duration 8 weeks 4 Penitentiary Goal (LTG) Pt will report no more than 1 headache per week by 07/19/20. 05/18/20: Over the last couple of days, pt's pain has localized more to his right TMJ. He does con't with HAs. LTG Duration 8 weeks 3 Cytotechnologist/Cytology Supervisor Goal (LTG) Pt will perform progressive HEP with I including postural alignment, VOR, visual motor, flexibility, strengthening and relaxation exercises by . 05/02/20: Revised HEP and pt performs 10 reps today of all strengthening: Everyday: Buteyko breathing (3 exercises), pect, hip flexor and QL stretch in doorway 3x/wk: abdominal drawing in, sword and sheath with teal band, shoulder ER with green band, shoulder flexion and elbow flexion and extension with light blue band, abduction mob, arm over table, Jose stretch, core progression As needed: pelvic realignment exercises, SCM self-massage, shoulder ER and rows with arms straight and teal band, intrascapular massage with racquet ball LTG Duration 8 weeks 2 Cytotechnologist/Cytology Supervisor Goal (LTG) Pt will present with a QuickDASH score to reflect no more than 15% 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 03/16/20: QuickDASH score reflects 22.72% impairment LTG Duration 8 weeks 1 Penitentiary Goal (LTG) Pt will present with a NDI score to reflect no more than 25% impairment by 07/19/2020. 03/16/20: NDI score reflects 36 % impairment, which is mildly improved since last progress note LTG Duration 8 weeks Assessment Summary Assessment Counterstrain today to again address cranial fascial contributions to his symptoms and especially since symptoms are localized to his right jaw today. Pt tolerates well immediately after treatment and will con't to monitor. Physical Therapy Plan Frequency and Duration Frequency of Treatment 1-2x/wk Duration of Treatment 8 weeks Plan of Care Start Date 05/18/20 Plan of Care End Date 07/19/20 Therapeutic Interventions Therapeutic Interventions Balance Training,Canalithic Repositioning,Coordination Training,Home Exercise Program ,Joint Mobilizations,Manual Therapy,Neuromuscular Re- education,Patient/Caregiver Education,Self-Care/Home Management,Sensory Integration ,Soft Tissue Mobilization, Taping,Therapeutic Activities, Therapeutic Exercises, Vestibular Rehabilitation Modalities Cold Pack/Ice Massage,Electric Stimulation,Hot Packs, Ultrasound Next Visit Focus/Plan Next Note Type Treatment Note Next Visit Plan Will assess what needs, Counterstrain with new ability to work on cranial bone fasica Plan of Care Dates Plan of Care Start Date 05/18/20 Plan of Care End Date 07/19/20 Electronically Signed by: Lisandra Little, PT 05/19/20 [id number] Please Sign and Return: I have reviewed this Plan of Care and certify that the skilled therapy services above are required to meet the patient?s needs. Physician Signature Date Printed Name and Credentials Clinical Instructor Signature Printed Name and Credentials
--- NOTE | 2020-05-20 08:20 | PT.OTN ---
Current Diagnoses Cervicalgia (05/20/20) Headache (05/20/20) Personal history of traumatic brain injury (05/20/20) Physical Therapy Treatment Note PT-OP-A Visit Information Start: 02/04/19 07:28 Freq: Status: Active Protocol: Document 05/20/20 07:52 MB (Rec: 05/20/20 08:18 MB [id number]) Out-Patient Physical Therapy Visit Information Visit Information Visit Type Treatment Note Visit Note esha Jean Pt is late to appointment Visit Start Time 07:52 Visit Stop Time 08:15 Total Visit Minutes 23 Visit Number 06/29 PT-OP-B Current Condition Start: 02/04/19 07:28 Freq: Status: Active Protocol: Document 02/04/19 09:01 MB (Rec: 02/04/19 09:50 MB [id number]) Current Condition History of Current Condition Onset Date 1.5 years History of Current Condition Pt reports TBI 4 years ago when tripping and hitting head on counter. He had a severe concussion and he was out at least 30 minutes. He went to the hospital and was checked out. He had had post- concussion syndrome for 6 weeks. He would fall out unconsious when sitting at random times. He would not have memory of it. He went from having headaches 1-2 times a year to 4-6 a year. Seizures started 1.5 years ago . They are termed psychogenic seizures. There is no epilectic activity. He screens high for PTSD. Pt states that PTSD may be related to past relationships. They happen out of sleep. He wakes up shaking . He does not think he has headaches. , Joy, describes rocking side to side or pelvic thrusting, head back and eyes rolled upward. He occ has horizontal nystagmus and then his head drops down. Events last 30 sec . He is taking Topamax in the a.m. to help with mood and headaches. He has not gone more than 18 days without a seizure. He has been on Topamax for a week and has not had a seizure. 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 He had trigger point injections. He has to go through series of taking medications including corticosteroids. 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 He and are trying out supportive neck pillows. He sleeps on a wedge. 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 He drinks caffeine and water . occ reports of pt with anger and memory loss connected. These were unlike his normal personality. Pt reports headaches up to a 7 /10 and he has to talk Percicet. Headaches are over the right eye and down into his right face and back of head and feeling right eyeball being squeezed. He sees colors and has horizontal nystagmus. Overall discomfort left upper trap area, 3/10. He has 3-7/10 pain down left arm . Right hernia surgery and pain after right testicle removed. Multiple neural surgeries in the area and he now has a small left inguinal hernia. Pt reports occ tingling 4th and 5th left digit and burning down back of left arm through elbow. Prior Treatments and Tests PT in the past for left shoulder. It went okay. He had it for his right wrist as well. Right TMJ injections PT-OP-C Subjective Start: 02/04/19 07:28 Freq: Status: Active Protocol: Document 05/20/20 07:52 MB (Rec: 05/20/20 08:18 MB [id number]) OP-PT Subjective Patient Comments Patient Comments Pt is feeling a little looser after cranial treatment of zygoma. Will con't manual work . PT-OP-J Posture/Palpation/Skin Start: 02/04/19 07:28 Freq: Status: Active Protocol: Document 02/04/19 09:01 MB (Rec: 02/04/19 13:33 MB [id number]) Posture Evaluation Comments Posture Comments Standing posture: forward head , rounded shoulders, Dowager's hump, decreased thoracic kyphosis, increased lumbar lordosis, changes around T6 vertebra that could be stiffness PT-OP-K Range of Motion Start: 02/04/19 07:28 Freq: Status: Active Protocol: Document 02/04/19 09:01 MB (Rec: 02/04/19 13:33 MB [id number]) Cervical Spine Range of Motion Cervical Spine Active Testing Position Standing Flexion 35 Extension 40 Rotation Left 40 Rotation Right 50 Comments Pt reports stretch in right jaw with cervical extension and left upper traps area discomfort 3/10 with flexion PT-OP-M Strength Start: 02/04/19 07:28 Freq: Status: Active Protocol: Document 02/04/19 09:01 MB (Rec: 02/04/19 13:33 MB [id number]) Shoulder Strength Shoulder Manual Muscle Testing Left Flexion 4 Good Abduction (C5) 4 Good External Rotation 5 Normal Internal Rotation 5 Normal Right Flexion 5 Normal Abduction (C5) 5 Normal External Rotation 4 Good Internal Rotation 4 Good Elbow/Forearm Strength Elbow and Forearm Manual Muscle Testing Left Flexion (C6) 5 Normal Extension (C7) 5 Normal Pronation 4 Good Supination 4 Good Right Flexion (C6) 5 Normal Extension (C7) 5 Normal Pronation 4 Good Supination 4 Good Wrist Strength Wrist Manual Muscle Testing Left Flexion (C7) 5 Normal Extension (C6) 5 Normal Right Flexion (C7) 5 Normal Extension (C6) 5 Normal PT-OP-Q Treatments Start: 02/04/19 07:28 Freq: Status: Active Protocol: Document 05/20/20 07:52 MB (Rec: 05/20/20 08:18 MB [id number]) Manual Therapy Treatment Other Other Manual Treatments Pt agrees to Counterstrain to assess and treat fascial tension. Pt presents with tension in the following fascial systems: spinal medullary lymphatic venous. PT treats stacks in this area. PT-OP-T Assessment and Plan Start: 02/04/19 07:28 Freq: Status: Active Protocol: Document 05/20/20 07:52 MB (Rec: 05/20/20 08:18 MB [id number]) Physical Therapy Assessment Rehab Potential Rehabilitation Potential Fair Evaluation Complexity Number of Personal Factors/Comorbidities 3 or More Number of Body Systems Impaired 3 Clinical Presentation at Evaluation Evolving Impairments Impairments Balance,Pain,Posture,ROM,Soft Tissue Mobility,Vestibular, Visual Motor Goals 8 Shelter Goal (LTG) Pt will present with equal active left shoulder abduction and flexion compared to the right to allow overhead work by 07/19/2020. 03/16/2020: Pt presents with right shoulder abduction and flexion to 180 deg and left shoulder abduction 120 deg and flexion to 136 deg. He is having more left hand tingling . 6 Sports Activities Foul Judge Goal (LTG) Pt will report no more than 1 seizure per week by 07/19/2020. 05/18/20: Pt con't with increased stress and seizures. LTG Duration 8 weeks 4 Sports Activities Foul Judge Goal (LTG) Pt will report no more than 1 headache per week by 07/19/20. 05/18/20: Over the last couple of days, pt's pain has localized more to his right TMJ. He does con't with HAs. LTG Duration 8 weeks 3 Shelter Goal (LTG) Pt will perform progressive HEP with I including postural alignment, VOR, visual motor, flexibility, strengthening and relaxation exercises by . 05/02/20: Revised HEP and pt performs 10 reps today of all strengthening: Everyday: Buteyko breathing (3 exercises), pect, hip flexor and QL stretch in doorway 3x/wk: abdominal drawing in, sword and sheath with teal band, shoulder ER with green band, shoulder flexion and elbow flexion and extension with light blue band, abduction mob, arm over table, Jose stretch, core progression As needed: pelvic realignment exercises, SCM self-massage, shoulder ER and rows with arms straight and teal band, intrascapular massage with racquet ball LTG Duration 8 weeks 2 Shelter Goal (LTG) Pt will present with a QuickDASH score to reflect no more than 15% impairment to allow return to [facility] and improvement of ADLs by 07/19/20. 03/16/20: QuickDASH score reflects 22.72% impairment LTG Duration 8 weeks 1 Sports Activities Foul Judge Goal (LTG) Pt will present with a NDI score to reflect no more than 25% impairment by 07/19/2020. 03/16/20: NDI score reflects 36 % impairment, which is mildly improved since last progress note LTG Duration 8 weeks Assessment Summary Assessment Counterstrain improves spinal medullary LV tension today on scan and distally. Will con't to assess and treat. Physical Therapy Plan Frequency and Duration Frequency of Treatment 1-2x/wk Duration of Treatment 8 weeks Plan of Care Start Date 05/18/20 Plan of Care End Date 07/19/20 Therapeutic Interventions Therapeutic Interventions Balance Training,Canalithic Repositioning,Coordination Training,Home Exercise Program ,Joint Mobilizations,Manual Therapy,Neuromuscular Re- education,Patient/Caregiver Education,Self-Care/Home Management,Sensory Integration ,Soft Tissue Mobilization, Taping,Therapeutic Activities, Therapeutic Exercises, Vestibular Rehabilitation Modalities Cold Pack/Ice Massage,Electric Stimulation,Hot Packs, Ultrasound Next Visit Focus/Plan Next Note Type Treatment Note Next Visit Plan Will assess what needs, Counterstrain with new ability to work on cranial bone fasica
--- NOTE | 2020-05-24 14:03 | PT.OTN ---
Current Diagnoses Cervicalgia (05/24/20) Headache (05/24/20) Personal history of traumatic brain injury (05/24/20) Physical Therapy Treatment Note PT-OP-A Visit Information Start: 02/04/19 07:28 Freq: Status: Active Protocol: Document 05/24/20 13:00 MB (Rec: 05/24/20 14:03 MB [id number]) Out-Patient Physical Therapy Visit Information Visit Information Visit Type Treatment Note Visit Note esha Jean Visit Start Time 13:00 Visit Stop Time 14:00 Total Visit Minutes 60 Visit Number 07/30 PT-OP-B Current Condition Start: 02/04/19 07:28 Freq: Status: Active Protocol: Document 02/04/19 09:01 MB (Rec: 02/04/19 09:50 MB [id number]) Current Condition History of Current Condition Onset Date 1.5 years History of Current Condition Pt reports TBI 4 years ago when tripping and hitting head on counter. He had a severe concussion and he was out at least 30 minutes. He went to the hospital and was checked out. He had had post- concussion syndrome for 6 weeks. He would fall out unconsious when sitting at random times. He would not have memory of it. He went from having headaches 1-2 times a year to 4-6 a year. Seizures started 1.5 years ago . They are termed psychogenic seizures. There is no epilectic activity. He screens high for PTSD. Pt states that PTSD may be related to past relationships. They happen out of sleep. He wakes up shaking . He does not think he has headaches. , Joy, describes rocking side to side or pelvic thrusting, head back and eyes rolled upward. He occ has horizontal nystagmus and then his head drops down. Events last 30 sec . He is taking Topamax in the a.m. to help with mood and headaches. He has not gone more than 18 days without a seizure. He has been on Topamax for a week and has not had a seizure. 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 He had trigger point injections. He has to go through series of taking medications including corticosteroids. 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 He and are trying out supportive neck pillows. He sleeps on a wedge. 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 He drinks caffeine and water . occ reports of pt with anger and memory loss connected. These were unlike his normal personality. Pt reports headaches up to a 7 /10 and he has to talk Percicet. Headaches are over the right eye and down into his right face and back of head and feeling right eyeball being squeezed. He sees colors and has horizontal nystagmus. Overall discomfort left upper trap area, 3/10. He has 3-7/10 pain down left arm . Right hernia surgery and pain after right testicle removed. Multiple neural surgeries in the area and he now has a small left inguinal hernia. Pt reports occ tingling 4th and 5th left digit and burning down back of left arm through elbow. Prior Treatments and Tests PT in the past for left shoulder. It went okay. He had it for his right wrist as well. Right TMJ injections PT-OP-C Subjective Start: 02/04/19 07:28 Freq: Status: Active Protocol: Document 05/24/20 13:00 MB (Rec: 05/24/20 14:03 MB [id number]) OP-PT Subjective Patient Comments Patient Comments We are moving in the right direction. Pt states that he con't with migraines and that the seizures are about the same. His right TMJ is feeling better. PT-OP-J Posture/Palpation/Skin Start: 02/04/19 07:28 Freq: Status: Active Protocol: Document 02/04/19 09:01 MB (Rec: 02/04/19 13:33 MB [id number]) Posture Evaluation Comments Posture Comments Standing posture: forward head , rounded shoulders, Dowager's hump, decreased thoracic kyphosis, increased lumbar lordosis, changes around T6 vertebra that could be stiffness PT-OP-K Range of Motion Start: 02/04/19 07:28 Freq: Status: Active Protocol: Document 02/04/19 09:01 MB (Rec: 02/04/19 13:33 MB [id number]) Cervical Spine Range of Motion Cervical Spine Active Testing Position Standing Flexion 35 Extension 40 Rotation Left 40 Rotation Right 50 Comments Pt reports stretch in right jaw with cervical extension and left upper traps area discomfort 3/10 with flexion PT-OP-M Strength Start: 02/04/19 07:28 Freq: Status: Active Protocol: Document 02/04/19 09:01 MB (Rec: 02/04/19 13:33 MB [id number]) Shoulder Strength Shoulder Manual Muscle Testing Left Flexion 4 Good Abduction (C5) 4 Good External Rotation 5 Normal Internal Rotation 5 Normal Right Flexion 5 Normal Abduction (C5) 5 Normal External Rotation 4 Good Internal Rotation 4 Good Elbow/Forearm Strength Elbow and Forearm Manual Muscle Testing Left Flexion (C6) 5 Normal Extension (C7) 5 Normal Pronation 4 Good Supination 4 Good Right Flexion (C6) 5 Normal Extension (C7) 5 Normal Pronation 4 Good Supination 4 Good Wrist Strength Wrist Manual Muscle Testing Left Flexion (C7) 5 Normal Extension (C6) 5 Normal Right Flexion (C7) 5 Normal Extension (C6) 5 Normal PT-OP-Q Treatments Start: 02/04/19 07:28 Freq: Status: Active Protocol: Document 05/24/20 13:00 MB (Rec: 05/24/20 14:03 MB [id number]) Manual Therapy Treatment Other Other Manual Treatments Pt agrees to Counterstrain to assess and treat fascial tension. Pt presents with tension in the following fascial systems: cranial periosteal and cranial scar on the right. PT treats many points in this system including R frontal anterior lat (history of recurrent cervical spinal med v points), L PPL (P), L STLM (P), L STYP (P), R STYM (P), R MASM (P), L AML-MS, L FRLS (P), R FRLI ( P) and TMJ and eustacian cartilage. Pt tolerates treatment well. PT-OP-T Assessment and Plan Start: 02/04/19 07:28 Freq: Status: Active Protocol: Document 05/24/20 13:00 MB (Rec: 05/24/20 14:03 MB [id number]) Physical Therapy Assessment Rehab Potential Rehabilitation Potential Fair Evaluation Complexity Number of Personal Factors/Comorbidities 3 or More Number of Body Systems Impaired 3 Clinical Presentation at Evaluation Evolving Impairments Impairments Balance,Pain,Posture,ROM,Soft Tissue Mobility,Vestibular, Visual Motor Goals 8 [facility]ci Goal (LTG) Pt will present with equal active left shoulder abduction and flexion compared to the right to allow overhead work by 07/19/2020. 03/16/2020: Pt presents with right shoulder abduction and flexion to 180 deg and left shoulder abduction 120 deg and flexion to 136 deg. He is having more left hand tingling . 6 Fci Goal (LTG) Pt will report no more than 1 seizure per week by 07/19/2020. 05/18/20: Pt con't with increased stress and seizures. LTG Duration 8 weeks 4 Patient Relations Liaison Goal (LTG) Pt will report no more than 1 headache per week by 07/19/20. 05/18/20: Over the last couple of days, pt's pain has localized more to his right TMJ. He does con't with HAs. LTG Duration 8 weeks 3 Patient Relations Liaison Goal (LTG) Pt will perform progressive HEP with I including postural alignment, VOR, visual motor, flexibility, strengthening and relaxation exercises by . 05/02/20: Revised HEP and pt performs 10 reps today of all strengthening: Everyday: Buteyko breathing (3 exercises), pect, hip flexor and QL stretch in doorway 3x/wk: abdominal drawing in, sword and sheath with teal band, shoulder ER with green band, shoulder flexion and elbow flexion and extension with light blue band, abduction mob, arm over table, Jose stretch, core progression As needed: pelvic realignment exercises, SCM self-massage, shoulder ER and rows with arms straight and teal band, intrascapular massage with racquet ball LTG Duration 8 weeks 2 Patient Relations Liaison Goal (LTG) Pt will present with a QuickDASH score to reflect no more than 15% impairment to allow return to [facility] and improvement of ADLs by 07/19/20. 03/16/20: QuickDASH score reflects 22.72% impairment LTG Duration 8 weeks 1 Patient Relations Liaison Goal (LTG) Pt will present with a NDI score to reflect no more than 25% impairment by 07/19/2020. 03/16/20: NDI score reflects 36 % impairment, which is mildly improved since last progress note LTG Duration 8 weeks Assessment Summary Assessment Counterstrain again today. Pt tolerates new cranial fascia treatments well. Monitor his response. Will con't to assess and treat. Physical Therapy Plan Frequency and Duration Frequency of Treatment 1-2x/wk Duration of Treatment 8 weeks Plan of Care Start Date 05/18/20 Plan of Care End Date 07/19/20 Therapeutic Interventions Therapeutic Interventions Balance Training,Canalithic Repositioning,Coordination Training,Home Exercise Program ,Joint Mobilizations,Manual Therapy,Neuromuscular Re- education,Patient/Caregiver Education,Self-Care/Home Management,Sensory Integration ,Soft Tissue Mobilization, Taping,Therapeutic Activities, Therapeutic Exercises, Vestibular Rehabilitation Modalities Cold Pack/Ice Massage,Electric Stimulation,Hot Packs, Ultrasound Next Visit Focus/Plan Next Note Type Treatment Note Next Visit Plan Ongoing: assess what needs, Counterstrain with new ability to work on cranial bone fasica
--- NOTE | 2020-06-07 09:01 | PT.OTN ---
Current Diagnoses Cervicalgia (06/07/20) Headache (06/07/20) Personal history of traumatic brain injury (06/07/20) Physical Therapy Treatment Note PT-OP-A Visit Information Start: 02/04/19 07:28 Freq: Status: Active Protocol: Document 06/07/20 08:17 MB (Rec: 06/07/20 09:00 MB [id number]) Out-Patient Physical Therapy Visit Information Visit Information Visit Type Treatment Note Visit Note esha Jean Visit Start Time 08:17 Visit Stop Time 08:57 Total Visit Minutes 40 Visit Number 08/29 PT-OP-B Current Condition Start: 02/04/19 07:28 Freq: Status: Active Protocol: Document 02/04/19 09:01 MB (Rec: 02/04/19 09:50 MB [id number]) Current Condition History of Current Condition Onset Date 1.5 years History of Current Condition Pt reports TBI 4 years ago when tripping and hitting head on counter. He had a severe concussion and he was out at least 30 minutes. He went to the hospital and was checked out. He had had post- concussion syndrome for 6 weeks. He would fall out unconsious when sitting at random times. He would not have memory of it. He went from having headaches 1-2 times a year to 4-6 a year. Seizures started 1.5 years ago . They are termed psychogenic seizures. There is no epilectic activity. He screens high for PTSD. Pt states that PTSD may be related to past relationships. They happen out of sleep. He wakes up shaking . He does not think he has headaches. , Joy, describes rocking side to side or pelvic thrusting, head back and eyes rolled upward. He occ has horizontal nystagmus and then his head drops down. Events last 30 sec . He is taking Topamax in the a.m. to help with mood and headaches. He has not gone more than 18 days without a seizure. He has been on Topamax for a week and has not had a seizure. 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 He had trigger point injections. He has to go through series of taking medications including corticosteroids. He has a overnight babysitter. 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 He and are trying out supportive neck pillows. He sleeps on a wedge. 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 He drinks caffeine and water . occ reports of pt with anger and memory loss connected. These were unlike his normal personality. Pt reports headaches up to a 7 /10 and he has to talk Percicet. Headaches are over the right eye and down into his right face and back of head and feeling right eyeball being squeezed. He sees colors and has horizontal nystagmus. Overall discomfort left upper trap area, 3/10. He has 3-7/10 pain down left arm . Right hernia surgery and pain after right testicle removed. Multiple neural surgeries in the area and he now has a small left inguinal hernia. Pt reports occ tingling 4th and 5th left digit and burning down back of left arm through elbow. Prior Treatments and Tests PT in the past for left shoulder. It went okay. He had it for his right wrist as well. Right TMJ injections PT-OP-C Subjective Start: 02/04/19 07:28 Freq: Status: Active Protocol: Document 06/07/20 08:17 MB (Rec: 06/07/20 09:00 MB [id number]) OP-PT Subjective Patient Comments Patient Comments Pt reports seizures 1-2x/week, daily headaches that are related to his right TMJ and occur after eating. He felt a little off after last treatment and then felt very good afterwards. PT-OP-J Posture/Palpation/Skin Start: 02/04/19 07:28 Freq: Status: Active Protocol: Document 02/04/19 09:01 MB (Rec: 02/04/19 13:33 MB [id number]) Posture Evaluation Comments Posture Comments Standing posture: forward head , rounded shoulders, Dowager's hump, decreased thoracic kyphosis, increased lumbar lordosis, changes around T6 vertebra that could be stiffness PT-OP-K Range of Motion Start: 02/04/19 07:28 Freq: Status: Active Protocol: Document 02/04/19 09:01 MB (Rec: 02/04/19 13:33 MB [id number]) Cervical Spine Range of Motion Cervical Spine Active Testing Position Standing Flexion 35 Extension 40 Rotation Left 40 Rotation Right 50 Comments Pt reports stretch in right jaw with cervical extension and left upper traps area discomfort 3/10 with flexion PT-OP-M Strength Start: 02/04/19 07:28 Freq: Status: Active Protocol: Document 02/04/19 09:01 MB (Rec: 02/04/19 13:33 MB [id number]) Shoulder Strength Shoulder Manual Muscle Testing Left Flexion 4 Good Abduction (C5) 4 Good External Rotation 5 Normal Internal Rotation 5 Normal Right Flexion 5 Normal Abduction (C5) 5 Normal External Rotation 4 Good Internal Rotation 4 Good Elbow/Forearm Strength Elbow and Forearm Manual Muscle Testing Left Flexion (C6) 5 Normal Extension (C7) 5 Normal Pronation 4 Good Supination 4 Good Right Flexion (C6) 5 Normal Extension (C7) 5 Normal Pronation 4 Good Supination 4 Good Wrist Strength Wrist Manual Muscle Testing Left Flexion (C7) 5 Normal Extension (C6) 5 Normal Right Flexion (C7) 5 Normal Extension (C6) 5 Normal PT-OP-Q Treatments Start: 02/04/19 07:28 Freq: Status: Active Protocol: Document 06/07/20 08:17 MB (Rec: 06/07/20 09:00 MB [id number]) Manual Therapy Treatment Other Other Manual Treatments Pt agrees to Counterstrain to assess and treat fascial tension. Pt presents with tension in the following fascial systems: cranial bones with treatment of OMPS (P) left, dental arteries inferior and superior, right styloid anterior. B positional release SCM. Overall, pt is congested and is mouth breathing. Checked O2 sats and HR after treatment: 71 BPM and 96% O2 sats and then improvement to 69 BPM and sats 97% with slowed breathing, but pt cannot perform nasal breathing today. Self-Care/Home Management Treatment Education Other Education Questions/discussion about mouth position with his bite guard, is mouth opened or closed, benefits of Buteyko taping to promote nasal breathing, chewing on both sides, time and types of food PT-OP-T Assessment and Plan Start: 02/04/19 07:28 Freq: Status: Active Protocol: Document 06/07/20 08:17 MB (Rec: 06/07/20 09:00 MB [id number]) Physical Therapy Assessment Rehab Potential Rehabilitation Potential Fair Evaluation Complexity Number of Personal Factors/Comorbidities 3 or More Number of Body Systems Impaired 3 Clinical Presentation at Evaluation Evolving Impairments Impairments Balance,Pain,Posture,ROM,Soft Tissue Mobility,Vestibular, Visual Motor Goals 8 Halfway Goal (LTG) Pt will present with equal active left shoulder abduction and flexion compared to the right to allow overhead work by 07/19/2020. 03/16/2020: Pt presents with right shoulder abduction and flexion to 180 deg and left shoulder abduction 120 deg and flexion to 136 deg. He is having more left hand tingling . 6 Halfway Goal (LTG) Pt will report no more than 1 seizure per week by 07/19/2020. 05/18/20: Pt con't with increased stress and seizures. LTG Duration 8 weeks 4 3D Animator Goal (LTG) Pt will report no more than 1 headache per week by 07/19/20. 05/18/20: Over the last couple of days, pt's pain has localized more to his right TMJ. He does con't with HAs. LTG Duration 8 weeks 3 3D Animator Goal (LTG) Pt will perform progressive HEP with I including postural alignment, VOR, visual motor, flexibility, strengthening and relaxation exercises by . 05/02/20: Revised HEP and pt performs 10 reps today of all strengthening: Everyday: Buteyko breathing (3 exercises), pect, hip flexor and QL stretch in doorway 3x/wk: abdominal drawing in, sword and sheath with teal band, shoulder ER with green band, shoulder flexion and elbow flexion and extension with light blue band, abduction mob, arm over table, Jose stretch, core progression As needed: pelvic realignment exercises, SCM self-massage, shoulder ER and rows with arms straight and teal band, intrascapular massage with racquet ball LTG Duration 8 weeks 2 Halfway Goal (LTG) Pt will present with a QuickDASH score to reflect no more than 15% 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 03/16/20: QuickDASH score reflects 22.72% impairment LTG Duration 8 weeks 1 Halfway Goal (LTG) Pt will present with a NDI score to reflect no more than 25% impairment by 07/19/2020. 03/16/20: NDI score reflects 36 % impairment, which is mildly improved since last progress note LTG Duration 8 weeks Assessment Summary Assessment Improvement in O2 sats, HR and fascial tension with cranial periosteal fascial treatment today. Con't to monitor. Talked with pt about nasal breathing and taping lips. Physical Therapy Plan Frequency and Duration Frequency of Treatment 1-2x/wk Duration of Treatment 8 weeks Plan of Care Start Date 05/18/20 Plan of Care End Date 07/19/20 Therapeutic Interventions Therapeutic Interventions Balance Training,Canalithic Repositioning,Coordination Training,Home Exercise Program ,Joint Mobilizations,Manual Therapy,Neuromuscular Re- education,Patient/Caregiver Education,Self-Care/Home Management,Sensory Integration ,Soft Tissue Mobilization, Taping,Therapeutic Activities, Therapeutic Exercises, Vestibular Rehabilitation Modalities Cold Pack/Ice Massage,Electric Stimulation,Hot Packs, Ultrasound Next Visit Focus/Plan Next Note Type Treatment Note Next Visit Plan Con't to assess what needs, Counterstrain with new ability to work on cranial bone fascia
--- NOTE | 2020-06-08 15:23 | PT-OP ANOTE ---
PT returns pt's 's call. She states that pt's dentist wants to make another type of security guard supervisor. She states that the dentist wants pt's C1/atlas checked for alignment. PT asks pt to test his cervical rotation side to side and he states it feels pretty good and Joy states it looks pretty even. They are hesitant about following-up with a chiropractor as dentist advised. They will call the dentist back.
--- NOTE | 2020-06-10 08:16 | PT.OTN ---
Current Diagnoses Cervicalgia (06/10/20) Headache (06/10/20) Personal history of traumatic brain injury (06/10/20) Physical Therapy Treatment Note PT-OP-A Visit Information Start: 02/04/19 07:28 Freq: Status: Active Protocol: Document 06/10/20 07:30 MB (Rec: 06/10/20 08:13 MB [id number]) Out-Patient Physical Therapy Visit Information Visit Information Visit Type Treatment Note Visit Note esha Jean Visit Start Time 07:30 Visit Stop Time 08:11 Total Visit Minutes 41 Visit Number 09/29 PT-OP-B Current Condition Start: 02/04/19 07:28 Freq: Status: Active Protocol: Document 02/04/19 09:01 MB (Rec: 02/04/19 09:50 MB [id number]) Current Condition History of Current Condition Onset Date 1.5 years History of Current Condition Pt reports TBI 4 years ago when tripping and hitting head on counter. He had a severe concussion and he was out at least 30 minutes. He went to the hospital and was checked out. He had had post- concussion syndrome for 6 weeks. He would fall out unconsious when sitting at random times. He would not have memory of it. He went from having headaches 1-2 times a year to 4-6 a year. Seizures started 1.5 years ago . They are termed psychogenic seizures. There is no epilectic activity. He screens high for PTSD. Pt states that PTSD may be related to past relationships. They happen out of sleep. He wakes up shaking . He does not think he has headaches. , Joy, describes rocking side to side or pelvic thrusting, head back and eyes rolled upward. He occ has horizontal nystagmus and then his head drops down. Events last 30 sec . He is taking Topamax in the a.m. to help with mood and headaches. He has not gone more than 18 days without a seizure. He has been on Topamax for a week and has not had a seizure. 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 He had trigger point injections. He has to go through series of taking medications including corticosteroids. 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 He and are trying out supportive neck pillows. He sleeps on a wedge. 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 He drinks caffeine and water . occ reports of pt with anger and memory loss connected. These were unlike his normal personality. Pt reports headaches up to a 7 /10 and he has to talk Percicet. Headaches are over the right eye and down into his right face and back of head and feeling right eyeball being squeezed. He sees colors and has horizontal nystagmus. Overall discomfort left upper trap area, 3/10. He has 3-7/10 pain down left arm . Right hernia surgery and pain after right testicle removed. Multiple neural surgeries in the area and he now has a small left inguinal hernia. Pt reports occ tingling 4th and 5th left digit and burning down back of left arm through elbow. Prior Treatments and Tests PT in the past for left shoulder. It went okay. He had it for his right wrist as well. Right TMJ injections PT-OP-C Subjective Start: 02/04/19 07:28 Freq: Status: Active Protocol: Document 06/10/20 07:30 MB (Rec: 06/10/20 08:13 MB [id number]) OP-PT Subjective Patient Comments Patient Comments Pt states that his TMJ is a little tight. His left shoulder is a little tight. He returns to the dentist today to be molded for his new life guard. PT-OP-J Posture/Palpation/Skin Start: 02/04/19 07:28 Freq: Status: Active Protocol: Document 02/04/19 09:01 MB (Rec: 02/04/19 13:33 MB [id number]) Posture Evaluation Comments Posture Comments Standing posture: forward head , rounded shoulders, Dowager's hump, decreased thoracic kyphosis, increased lumbar lordosis, changes around T6 vertebra that could be stiffness PT-OP-K Range of Motion Start: 02/04/19 07:28 Freq: Status: Active Protocol: Document 02/04/19 09:01 MB (Rec: 02/04/19 13:33 MB [id number]) Cervical Spine Range of Motion Cervical Spine Active Testing Position Standing Flexion 35 Extension 40 Rotation Left 40 Rotation Right 50 Comments Pt reports stretch in right jaw with cervical extension and left upper traps area discomfort 3/10 with flexion PT-OP-M Strength Start: 02/04/19 07:28 Freq: Status: Active Protocol: Document 02/04/19 09:01 MB (Rec: 02/04/19 13:33 MB [id number]) Shoulder Strength Shoulder Manual Muscle Testing Left Flexion 4 Good Abduction (C5) 4 Good External Rotation 5 Normal Internal Rotation 5 Normal Right Flexion 5 Normal Abduction (C5) 5 Normal External Rotation 4 Good Internal Rotation 4 Good Elbow/Forearm Strength Elbow and Forearm Manual Muscle Testing Left Flexion (C6) 5 Normal Extension (C7) 5 Normal Pronation 4 Good Supination 4 Good Right Flexion (C6) 5 Normal Extension (C7) 5 Normal Pronation 4 Good Supination 4 Good Wrist Strength Wrist Manual Muscle Testing Left Flexion (C7) 5 Normal Extension (C6) 5 Normal Right Flexion (C7) 5 Normal Extension (C6) 5 Normal PT-OP-Q Treatments Start: 02/04/19 07:28 Freq: Status: Active Protocol: Document 06/10/20 07:30 MB (Rec: 06/10/20 08:13 MB [id number]) Manual Therapy Treatment Other Other Manual Treatments Left shoulder [place] Protocol and active left shoulder flexion is better than the right after mobs. With AAROM left shoulder abduction with PT assist, pt's abduction is normal in standing and actively without asst from PT, it is reduced compared to the right, may need ongoing manual work. STM and positional release B masseter PT-OP-T Assessment and Plan Start: 02/04/19 07:28 Freq: Status: Active Protocol: Document 06/10/20 07:30 MB (Rec: 06/10/20 08:13 MB [id number]) Physical Therapy Assessment Rehab Potential Rehabilitation Potential Fair Evaluation Complexity Number of Personal Factors/Comorbidities 3 or More Number of Body Systems Impaired 3 Clinical Presentation at Evaluation Evolving Impairments Impairments Balance,Pain,Posture,ROM,Soft Tissue Mobility,Vestibular, Visual Motor Goals 8 Nursing Home Goal (LTG) Pt will present with equal active left shoulder abduction and flexion compared to the right to allow overhead work by 07/19/2020. 03/16/2020: Pt presents with right shoulder abduction and flexion to 180 deg and left shoulder abduction 120 deg and flexion to 136 deg. He is having more left hand tingling . 6 Nursing Home Goal (LTG) Pt will report no more than 1 seizure per week by 07/19/2020. 05/18/20: Pt con't with increased stress and seizures. LTG Duration 8 weeks 4 Nursing Home Goal (LTG) Pt will report no more than 1 headache per week by 07/19/20. 05/18/20: Over the last couple of days, pt's pain has localized more to his right TMJ. He does con't with HAs. LTG Duration 8 weeks 3 Nursing Home Goal (LTG) Pt will perform progressive HEP with I including postural alignment, VOR, visual motor, flexibility, strengthening and relaxation exercises by . 05/02/20: Revised HEP and pt performs 10 reps today of all strengthening: Everyday: Buteyko breathing (3 exercises), pect, hip flexor and QL stretch in doorway 3x/wk: abdominal drawing in, sword and sheath with teal band, shoulder ER with green band, shoulder flexion and elbow flexion and extension with light blue band, abduction mob, arm over table, Jose stretch, core progression As needed: pelvic realignment exercises, SCM self-massage, shoulder ER and rows with arms straight and teal band, intrascapular massage with racquet ball LTG Duration 8 weeks 2 Nursing Home Goal (LTG) Pt will present with a QuickDASH score to reflect no more than 15% impairment to allow return to itar and improvement of ADLs by 07/19/20. 03/16/20: QuickDASH score reflects 22.72% impairment LTG Duration 8 weeks 1 Rn Unit Manager Goal (LTG) Pt will present with a NDI score to reflect no more than 25% impairment by 07/19/2020. 03/16/20: NDI score reflects 36 % impairment, which is mildly improved since last progress note LTG Duration 8 weeks Assessment Summary Assessment Left shoulder flexion is normal after [place] Protocol and he con't to have some limitations with active abduction in standing. Will con't to benefit from ongoing manual work for this. Pt to get new mouth guard and will be molded today and will monitor any changes with this. For masseter release, left masseter is about 65-75% improved after treatment and right 25% improved. He had much more tension on the left. Physical Therapy Plan Frequency and Duration Frequency of Treatment 1-2x/wk Duration of Treatment 8 weeks Plan of Care Start Date 05/18/20 Plan of Care End Date 07/19/20 Therapeutic Interventions Therapeutic Interventions Balance Training,Canalithic Repositioning,Coordination Training,Home Exercise Program ,Joint Mobilizations,Manual Therapy,Neuromuscular Re- education,Patient/Caregiver Education,Self-Care/Home Management,Sensory Integration ,Soft Tissue Mobilization, Taping,Therapeutic Activities, Therapeutic Exercises, Vestibular Rehabilitation Modalities Cold Pack/Ice Massage,Electric Stimulation,Hot Packs, Ultrasound Next Visit Focus/Plan Next Note Type Treatment Note Next Visit Plan Further left shoulder mobs and reassess table self-mob, Counterstrain with new ability to work on cranial bone fascia
--- NOTE | 2020-06-14 13:45 | PT.OTN ---
Current Diagnoses Cervicalgia (06/14/20) Headache (06/14/20) Personal history of traumatic brain injury (06/14/20) Physical Therapy Treatment Note PT-OP-A Visit Information Start: 02/04/19 07:28 Freq: Status: Active Protocol: Document 06/14/20 13:02 MB (Rec: 06/14/20 13:45 MB [id number]) Out-Patient Physical Therapy Visit Information Visit Information Visit Type Treatment Note Visit Note esha Jean Visit Start Time 13:02 Visit Stop Time 13:42 Total Visit Minutes 40 Visit Number 10/30 PT-OP-B Current Condition Start: 02/04/19 07:28 Freq: Status: Active Protocol: Document 02/04/19 09:01 MB (Rec: 02/04/19 09:50 MB [id number]) Current Condition History of Current Condition Onset Date 1.5 years History of Current Condition Pt reports TBI 4 years ago when tripping and hitting head on counter. He had a severe concussion and he was out at least 30 minutes. He went to the hospital and was checked out. He had had post- concussion syndrome for 6 weeks. He would fall out unconsious when sitting at random times. He would not have memory of it. He went from having headaches 1-2 times a year to 4-6 a year. Seizures started 1.5 years ago . They are termed psychogenic seizures. There is no epilectic activity. He screens high for PTSD. Pt states that PTSD may be related to past relationships. They happen out of sleep. He wakes up shaking . He does not think he has headaches. , Joy, describes rocking side to side or pelvic thrusting, head back and eyes rolled upward. He occ has horizontal nystagmus and then his head drops down. Events last 30 sec . He is taking Topamax in the a.m. to help with mood and headaches. He has not gone more than 18 days without a seizure. He has been on Topamax for a week and has not had a seizure. 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 He had trigger point injections. He has to go through series of taking medications including corticosteroids. 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 He and are trying out supportive neck pillows. He sleeps on a wedge. 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 He drinks caffeine and water . occ reports of pt with anger and memory loss connected. These were unlike his normal personality. Pt reports headaches up to a 7 /10 and he has to talk Percicet. Headaches are over the right eye and down into his right face and back of head and feeling right eyeball being squeezed. He sees colors and has horizontal nystagmus. Overall discomfort left upper trap area, 3/10. He has 3-7/10 pain down left arm . Right hernia surgery and pain after right testicle removed. Multiple neural surgeries in the area and he now has a small left inguinal hernia. Pt reports occ tingling 4th and 5th left digit and burning down back of left arm through elbow. Prior Treatments and Tests PT in the past for left shoulder. It went okay. He had it for his right wrist as well. Right TMJ injections PT-OP-C Subjective Start: 02/04/19 07:28 Freq: Status: Active Protocol: Document 06/14/20 13:02 MB (Rec: 06/14/20 13:45 MB [id number]) OP-PT Subjective Patient Comments Patient Comments Pt states that the work on his masseters was really helpful. He was able to do well with the making for the molds of his mouth guards. PT-OP-J Posture/Palpation/Skin Start: 02/04/19 07:28 Freq: Status: Active Protocol: Document 02/04/19 09:01 MB (Rec: 02/04/19 13:33 MB [id number]) Posture Evaluation Comments Posture Comments Standing posture: forward head , rounded shoulders, Dowager's hump, decreased thoracic kyphosis, increased lumbar lordosis, changes around T6 vertebra that could be stiffness PT-OP-K Range of Motion Start: 02/04/19 07:28 Freq: Status: Active Protocol: Document 02/04/19 09:01 MB (Rec: 02/04/19 13:33 MB [id number]) Cervical Spine Range of Motion Cervical Spine Active Testing Position Standing Flexion 35 Extension 40 Rotation Left 40 Rotation Right 50 Comments Pt reports stretch in right jaw with cervical extension and left upper traps area discomfort 3/10 with flexion PT-OP-M Strength Start: 02/04/19 07:28 Freq: Status: Active Protocol: Document 02/04/19 09:01 MB (Rec: 02/04/19 13:33 MB [id number]) Shoulder Strength Shoulder Manual Muscle Testing Left Flexion 4 Good Abduction (C5) 4 Good External Rotation 5 Normal Internal Rotation 5 Normal Right Flexion 5 Normal Abduction (C5) 5 Normal External Rotation 4 Good Internal Rotation 4 Good Elbow/Forearm Strength Elbow and Forearm Manual Muscle Testing Left Flexion (C6) 5 Normal Extension (C7) 5 Normal Pronation 4 Good Supination 4 Good Right Flexion (C6) 5 Normal Extension (C7) 5 Normal Pronation 4 Good Supination 4 Good Wrist Strength Wrist Manual Muscle Testing Left Flexion (C7) 5 Normal Extension (C6) 5 Normal Right Flexion (C7) 5 Normal Extension (C6) 5 Normal PT-OP-Q Treatments Start: 02/04/19 07:28 Freq: Status: Active Protocol: Document 06/14/20 13:02 MB (Rec: 06/14/20 13:45 MB [id number]) Manual Therapy Treatment Other Other Manual Treatments B masseter positional release and STM for treatment today and both sides do improve with enough time working on them. He does have some residual tension to be addressed in future PT dates. PT-OP-T Assessment and Plan Start: 02/04/19 07:28 Freq: Status: Active Protocol: Document 06/14/20 13:02 MB (Rec: 06/14/20 13:45 MB [id number]) Physical Therapy Assessment Rehab Potential Rehabilitation Potential Fair Evaluation Complexity Number of Personal Factors/Comorbidities 3 or More Number of Body Systems Impaired 3 Clinical Presentation at Evaluation Evolving Impairments Impairments Balance,Pain,Posture,ROM,Soft Tissue Mobility,Vestibular, Visual Motor Goals 8 Playground Equipment Erector Goal (LTG) Pt will present with equal active left shoulder abduction and flexion compared to the right to allow overhead work by 07/19/2020. 03/16/2020: Pt presents with right shoulder abduction and flexion to 180 deg and left shoulder abduction 120 deg and flexion to 136 deg. He is having more left hand tingling . 6 Halfway Goal (LTG) Pt will report no more than 1 seizure per week by 07/19/2020. 05/18/20: Pt con't with increased stress and seizures. LTG Duration 8 weeks 4 Halfway Goal (LTG) Pt will report no more than 1 headache per week by 07/19/20. 05/18/20: Over the last couple of days, pt's pain has localized more to his right TMJ. He does con't with HAs. LTG Duration 8 weeks 3 Playground Equipment Erector Goal (LTG) Pt will perform progressive HEP with I including postural alignment, VOR, visual motor, flexibility, strengthening and relaxation exercises by . 05/02/20: Revised HEP and pt performs 10 reps today of all strengthening: Everyday: Buteyko breathing (3 exercises), pect, hip flexor and QL stretch in doorway 3x/wk: abdominal drawing in, sword and sheath with teal band, shoulder ER with green band, shoulder flexion and elbow flexion and extension with light blue band, abduction mob, arm over table, Jose stretch, core progression As needed: pelvic realignment exercises, SCM self-massage, shoulder ER and rows with arms straight and teal band, intrascapular massage with racquet ball LTG Duration 8 weeks 2 Halfway Goal (LTG) Pt will present with a QuickDASH score to reflect no more than 15% impairment to allow return to [place] and improvement of ADLs by 07/19/20. 03/16/20: QuickDASH score reflects 22.72% impairment LTG Duration 8 weeks 1 Playground Equipment Erector Goal (LTG) Pt will present with a NDI score to reflect no more than 25% impairment by 07/19/2020. 03/16/20: NDI score reflects 36 % impairment, which is mildly improved since last progress note LTG Duration 8 weeks Assessment Summary Assessment B masseter STM and pt responds well and B masseter are much improved and do have some lingering tension after treatment. Pt reports his dentist stated that his B TMJ is much more relaxed with PT. Con't efforts and per plan below. Physical Therapy Plan Frequency and Duration Frequency of Treatment 1-2x/wk Duration of Treatment 8 weeks Plan of Care Start Date 05/18/20 Plan of Care End Date 07/19/20 Therapeutic Interventions Therapeutic Interventions Balance Training,Canalithic Repositioning,Coordination Training,Home Exercise Program ,Joint Mobilizations,Manual Therapy,Neuromuscular Re- education,Patient/Caregiver Education,Self-Care/Home Management,Sensory Integration ,Soft Tissue Mobilization, Taping,Therapeutic Activities, Therapeutic Exercises, Vestibular Rehabilitation Modalities Cold Pack/Ice Massage,Electric Stimulation,Hot Packs, Ultrasound Next Visit Focus/Plan Next Note Type Progress Note Next Visit Plan As before: left shoulder mobs and reassess table self-mob, Counterstrain with new ability to work on cranial bone fascia
--- NOTE | 2020-06-16 13:51 | PT.OTN ---
Current Diagnoses Cervicalgia (06/16/20) Headache (06/16/20) Personal history of traumatic brain injury (06/16/20) Physical Therapy Treatment Note PT-OP-A Visit Information Start: 02/04/19 07:28 Freq: Status: Active Protocol: Document 06/16/20 13:02 MB (Rec: 06/16/20 13:46 MB [id number]) Out-Patient Physical Therapy Visit Information Visit Information Visit Type Treatment Note Visit Note esha Jean Visit Start Time 13:00 Visit Stop Time 13:38 Total Visit Minutes 38 Visit Number 11/29 PT-OP-B Current Condition Start: 02/04/19 07:28 Freq: Status: Active Protocol: Document 02/04/19 09:01 MB (Rec: 02/04/19 09:50 MB [id number]) Current Condition History of Current Condition Onset Date 1.5 years History of Current Condition Pt reports TBI 4 years ago when tripping and hitting head on counter. He had a severe concussion and he was out at least 30 minutes. He went to the hospital and was checked out. He had had post- concussion syndrome for 6 weeks. He would fall out unconsious when sitting at random times. He would not have memory of it. He went from having headaches 1-2 times a year to 4-6 a year. Seizures started 1.5 years ago . They are termed psychogenic seizures. There is no epilectic activity. He screens high for PTSD. Pt states that PTSD may be related to past relationships. They happen out of sleep. He wakes up shaking . He does not think he has headaches. , Joy, describes rocking side to side or pelvic thrusting, head back and eyes rolled upward. He occ has horizontal nystagmus and then his head drops down. Events last 30 sec . He is taking Topamax in the a.m. to help with mood and headaches. He has not gone more than 18 days without a seizure. He has been on Topamax for a week and has not had a seizure. 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 He had trigger point injections. He has to go through series of taking medications including corticosteroids. 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 He and are trying out supportive neck pillows. He sleeps on a wedge. 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 He drinks caffeine and water . occ reports of pt with anger and memory loss connected. These were unlike his normal personality. Pt reports headaches up to a 7 /10 and he has to talk Percicet. Headaches are over the right eye and down into his right face and back of head and feeling right eyeball being squeezed. He sees colors and has horizontal nystagmus. Overall discomfort left upper trap area, 3/10. He has 3-7/10 pain down left arm . Right hernia surgery and pain after right testicle removed. Multiple neural surgeries in the area and he now has a small left inguinal hernia. Pt reports occ tingling 4th and 5th left digit and burning down back of left arm through elbow. Prior Treatments and Tests PT in the past for left shoulder. It went okay. He had it for his right wrist as well. Right TMJ injections PT-OP-C Subjective Start: 02/04/19 07:28 Freq: Status: Active Protocol: Document 06/16/20 13:02 MB (Rec: 06/16/20 13:46 MB [id number]) OP-PT Subjective Patient Comments Patient Comments Pt is doing his exercises every couple of days. He states that his depression is his biggest factor right now. PT-OP-J Posture/Palpation/Skin Start: 02/04/19 07:28 Freq: Status: Active Protocol: Document 02/04/19 09:01 MB (Rec: 02/04/19 13:33 MB [id number]) Posture Evaluation Comments Posture Comments Standing posture: forward head , rounded shoulders, Dowager's hump, decreased thoracic kyphosis, increased lumbar lordosis, changes around T6 vertebra that could be stiffness PT-OP-K Range of Motion Start: 02/04/19 07:28 Freq: Status: Active Protocol: Document 02/04/19 09:01 MB (Rec: 02/04/19 13:33 MB [id number]) Cervical Spine Range of Motion Cervical Spine Active Testing Position Standing Flexion 35 Extension 40 Rotation Left 40 Rotation Right 50 Comments Pt reports stretch in right jaw with cervical extension and left upper traps area discomfort 3/10 with flexion PT-OP-M Strength Start: 02/04/19 07:28 Freq: Status: Active Protocol: Document 02/04/19 09:01 MB (Rec: 02/04/19 13:33 MB [id number]) Shoulder Strength Shoulder Manual Muscle Testing Left Flexion 4 Good Abduction (C5) 4 Good External Rotation 5 Normal Internal Rotation 5 Normal Right Flexion 5 Normal Abduction (C5) 5 Normal External Rotation 4 Good Internal Rotation 4 Good Elbow/Forearm Strength Elbow and Forearm Manual Muscle Testing Left Flexion (C6) 5 Normal Extension (C7) 5 Normal Pronation 4 Good Supination 4 Good Right Flexion (C6) 5 Normal Extension (C7) 5 Normal Pronation 4 Good Supination 4 Good Wrist Strength Wrist Manual Muscle Testing Left Flexion (C7) 5 Normal Extension (C6) 5 Normal Right Flexion (C7) 5 Normal Extension (C6) 5 Normal PT-OP-Q Treatments Start: 02/04/19 07:28 Freq: Status: Active Protocol: Document 06/16/20 13:02 MB (Rec: 06/16/20 13:46 MB [id number]) Therapeutic Exercises Supine Exercises 6 foam roller, shoulder flexion with level 1 band Comments Performed today Foam roller triceps with level one loop band Comments Performed today Foam roller thoracic mobility Comments Performed today Jose stretch Comments Verbally reviewed today Core progression on mat and then on pool noodle Comments Verbally reviewed today Pelvic realignment exercises Comments Verbally reviewed today Self-massage with MWM B SCM Comments Verbally reviewed today Buteyko breathing Comments Verbally reviewed today Sitting Exercises Left shoulder abduction and self-mob over table Comments Verbally reviewed today Upper traps MWM with racquet ball Comments Verbally reviewed today Standing Exercises Upper cervical isometric Side right Comments Chin dropped to chest, test both sides and treated tighter right side Cervical rotation with end-range nods Side bilateral Comments Right and left x3 with 5-10 mini nods at end-range STM intrascapular muscles Comments Verbally reviewed today Scapular and shoulder extension strengthening with level 2 band Comments Verbally reviewed today Racquet ball massage, MWM with infraspinatus Comments Verbally reviewed today Other Exercises Reviewed all other exercises, reviewed handouts today Comments Pt performs all foam roller exercises, thoracic flex, shoulder strengthenin PT-OP-T Assessment and Plan Start: 02/04/19 07:28 Freq: Status: Active Protocol: Document 06/16/20 13:02 MB (Rec: 06/16/20 13:46 MB [id number]) Physical Therapy Assessment Rehab Potential Rehabilitation Potential Fair Evaluation Complexity Number of Personal Factors/Comorbidities 3 or More Number of Body Systems Impaired 3 Clinical Presentation at Evaluation Evolving Impairments Impairments Balance,Pain,Posture,ROM,Soft Tissue Mobility,Vestibular, Visual Motor Goals 8 Spike Driver Goal (LTG) Pt will present with equal active left shoulder abduction and flexion compared to the right to allow overhead work by 07/19/2020. 06/16/2020: Pt presents with right shoulder abduction and flexion to 180 deg and left shoulder abduction 160 deg and flexion to 165 deg. 6 Spike Driver Goal (LTG) Pt will report no more than 1 seizure per week by 07/19/2020. 06/16/20: Pt states that his seizures are random: three weeks ago, he had 10 days without seizures and he has had three weeks of one per week LTG Duration 8 weeks 4 Penitentiary Goal (LTG) Pt will report no more than 3 headaches per week by 07/19/20. 06/16/20: Pt con't with daily headaches and states that his TMJ is a big problem. Stress, depression and tension have been factors, per his report. He is getting a new mouth guard. LTG Duration 8 weeks 3 Spike Driver Goal (LTG) Pt will perform progressive HEP with I including postural alignment, VOR, visual motor, flexibility, strengthening and relaxation exercises by . 06/16/20: Revised HEP and pt performs strengthening today: Everyday: Buteyko breathing (3 exercises), pect, hip flexor and QL stretch in doorway 3x/wk: abdominal drawing in, sword and sheath with teal band, shoulder ER with green band, shoulder flexion and elbow flexion and extension with light blue band, abduction mob, arm over table or wall crawl, Jose stretch, core progression As needed: pelvic realignment exercises, SCM self-massage, shoulder ER and rows with arms straight and teal band, intrascapular massage with racquet ball LTG Duration 8 weeks 2 Penitentiary Goal (LTG) Pt will present with a QuickDASH score to reflect no more than 15% 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 06/16/20: QuickDASH score reflects 22.72% impairment LTG Duration 8 weeks 1 Penitentiary Goal (LTG) Pt will present with a NDI score to reflect no more than 25% impairment by 07/19/2020. 06/16/20: NDI score reflects 32 % impairment, which is mildly improved since last progress note LTG Duration 8 weeks Assessment Summary Assessment Pt has progressed towards HEP, reduced seziures and NDI scores since last progress note. His active left shoulder flexion and abduction are also much better today. QuickDASH score and headaches are similar. His clinical presentation is complicated and multi-factorial and he does con't to make gains towards PT. Pt will benefit from ongoing PT to further progress towards goals and will keep his current scheduled 6 PT appointments and con't manual work, self- care and therapeutic exercise training. Physical Therapy Plan Frequency and Duration Frequency of Treatment 1-2x/wk Duration of Treatment 5 weeks Plan of Care Start Date 06/16/20 Plan of Care End Date 07/19/20 Therapeutic Interventions Therapeutic Interventions Balance Training,Canalithic Repositioning,Coordination Training,Home Exercise Program ,Joint Mobilizations,Manual Therapy,Neuromuscular Re- education,Patient/Caregiver Education,Self-Care/Home Management,Sensory Integration ,Soft Tissue Mobilization, Taping,Therapeutic Activities, Therapeutic Exercises, Vestibular Rehabilitation Modalities Cold Pack/Ice Massage,Electric Stimulation,Hot Packs, Ultrasound Next Visit Focus/Plan Next Note Type Treatment Note Next Visit Plan Con't left shoulder mobs and reassess table self-mob, Counterstrain with new ability to work on cranial bone fascia
--- NOTE | 2020-06-16 13:51 | PT.OPPOC ---
Physical, Occupational & Speech Therapy At [facility] Current Diagnoses Cervicalgia (06/16/20) Headache (06/16/20) Personal history of traumatic brain injury (06/16/20) Visit Care Team Role Provider Type Elisha Mello DO Attending Provider Non-Staff Primary Care Provider Specialty: Medical Address: [address] [place] [address], [id number] Email: Plan Of Care PT-OP-T Assessment and Plan Start: 02/04/19 07:28 Freq: Status: Active Protocol: Document 06/16/20 13:02 MB (Rec: 06/16/20 13:46 MB [id number]) Physical Therapy Assessment Rehab Potential Rehabilitation Potential Fair Evaluation Complexity Number of Personal Factors/Comorbidities 3 or More Number of Body Systems Impaired 3 Clinical Presentation at Evaluation Evolving Impairments Impairments Balance,Pain,Posture,ROM,Soft Tissue Mobility,Vestibular, Visual Motor Goals 8 Fdc Goal (LTG) Pt will present with equal active left shoulder abduction and flexion compared to the right to allow overhead work by 07/19/2020. 06/16/2020: Pt presents with right shoulder abduction and flexion to 180 deg and left shoulder abduction 160 deg and flexion to 165 deg. 6 Fdc Goal (LTG) Pt will report no more than 1 seizure per week by 07/19/2020. 06/16/20: Pt states that his seizures are random: three weeks ago, he had 10 days without seizures and he has had three weeks of one per week LTG Duration 8 weeks 4 Business Investor Goal (LTG) Pt will report no more than 3 headaches per week by 07/19/20. 06/16/20: Pt con't with daily headaches and states that his TMJ is a big problem. Stress, depression and tension have been factors, per his report. He is getting a new mouth guard. LTG Duration 8 weeks 3 Fdc Goal (LTG) Pt will perform progressive HEP with I including postural alignment, VOR, visual motor, flexibility, strengthening and relaxation exercises by . 06/16/20: Revised HEP and pt performs strengthening today: Everyday: Buteyko breathing (3 exercises), pect, hip flexor and QL stretch in doorway 3x/wk: abdominal drawing in, sword and sheath with teal band, shoulder ER with green band, shoulder flexion and elbow flexion and extension with light blue band, abduction mob, arm over table or wall crawl, Jose stretch, core progression As needed: pelvic realignment exercises, SCM self-massage, shoulder ER and rows with arms straight and teal band, intrascapular massage with racquet ball LTG Duration 8 weeks 2 Business Investor Goal (LTG) Pt will present with a QuickDASH score to reflect no more than 15% impairment to allow return to [facility] and improvement of ADLs by 07/19/20. 06/16/20: QuickDASH score reflects 22.72% impairment LTG Duration 8 weeks 1 Fdc Goal (LTG) Pt will present with a NDI score to reflect no more than 25% impairment by 07/19/2020. 06/16/20: NDI score reflects 32 % impairment, which is mildly improved since last progress note LTG Duration 8 weeks Assessment Summary Assessment Pt has progressed towards HEP, reduced seziures and NDI scores since last progress note. His active left shoulder flexion and abduction are also much better today. QuickDASH score and headaches are similar. His clinical presentation is complicated and multi-factorial and he does con't to make gains towards PT. Pt will benefit from ongoing PT to further progress towards goals and will keep his current scheduled 6 PT appointments and con't manual work, self- care and therapeutic exercise training. Physical Therapy Plan Frequency and Duration Frequency of Treatment 1-2x/wk Duration of Treatment 5 weeks Plan of Care Start Date 06/16/20 Plan of Care End Date 07/19/20 Therapeutic Interventions Therapeutic Interventions Balance Training,Canalithic Repositioning,Coordination Training,Home Exercise Program ,Joint Mobilizations,Manual Therapy,Neuromuscular Re- education,Patient/Caregiver Education,Self-Care/Home Management,Sensory Integration ,Soft Tissue Mobilization, Taping,Therapeutic Activities, Therapeutic Exercises, Vestibular Rehabilitation Modalities Cold Pack/Ice Massage,Electric Stimulation,Hot Packs, Ultrasound Next Visit Focus/Plan Next Note Type Treatment Note Next Visit Plan Con't left shoulder mobs and reassess table self-mob, Counterstrain with new ability to work on cranial bone fascia Plan of Care Dates Plan of Care Start Date 06/16/20 Plan of Care End Date 07/19/20 Electronically Signed by: Lisandra Little, PT 06/16/20 [id number] Please Sign and Return: I have reviewed this Plan of Care and certify that the skilled therapy services above are required to meet the patient?s needs. Physician Signature Date Printed Name and Credentials Clinical Instructor Signature Printed Name and Credentials
--- NOTE | 2020-06-20 14:06 | PT.OTN ---
Current Diagnoses Cervicalgia (06/20/20) Headache (06/20/20) Personal history of traumatic brain injury (06/20/20) Physical Therapy Treatment Note PT-OP-A Visit Information Start: 02/04/19 07:28 Freq: Status: Active Protocol: Document 06/20/20 13:02 MB (Rec: 06/20/20 14:06 MB [id number]) Out-Patient Physical Therapy Visit Information Visit Information Visit Type Treatment Note Visit Note esha Jean Visit Start Time 13:02 Visit Stop Time 14:02 Total Visit Minutes 60 Visit Number 12/30 PT-OP-B Current Condition Start: 02/04/19 07:28 Freq: Status: Active Protocol: Document 02/04/19 09:01 MB (Rec: 02/04/19 09:50 MB [id number]) Current Condition History of Current Condition Onset Date 1.5 years History of Current Condition Pt reports TBI 4 years ago when tripping and hitting head on counter. He had a severe concussion and he was out at least 30 minutes. He went to the hospital and was checked out. He had had post- concussion syndrome for 6 weeks. He would fall out unconsious when sitting at random times. He would not have memory of it. He went from having headaches 1-2 times a year to 4-6 a year. Seizures started 1.5 years ago . They are termed psychogenic seizures. There is no epilectic activity. He screens high for PTSD. Pt states that PTSD may be related to past relationships. They happen out of sleep. He wakes up shaking . He does not think he has headaches. , Joy, describes rocking side to side or pelvic thrusting, head back and eyes rolled upward. He occ has horizontal nystagmus and then his head drops down. Events last 30 sec . He is taking Topamax in the a.m. to help with mood and headaches. He has not gone more than 18 days without a seizure. He has been on Topamax for a week and has not had a seizure. 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 He had trigger point injections. He has to go through series of taking medications including corticosteroids. 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 He and are trying out supportive neck pillows. He sleeps on a wedge. 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 He drinks caffeine and water . occ reports of pt with anger and memory loss connected. These were unlike his normal personality. Pt reports headaches up to a 7 /10 and he has to talk Percicet. Headaches are over the right eye and down into his right face and back of head and feeling right eyeball being squeezed. He sees colors and has horizontal nystagmus. Overall discomfort left upper trap area, 3/10. He has 3-7/10 pain down left arm . Right hernia surgery and pain after right testicle removed. Multiple neural surgeries in the area and he now has a small left inguinal hernia. Pt reports occ tingling 4th and 5th left digit and burning down back of left arm through elbow. Prior Treatments and Tests PT in the past for left shoulder. It went okay. He had it for his right wrist as well. Right TMJ injections PT-OP-C Subjective Start: 02/04/19 07:28 Freq: Status: Active Protocol: Document 06/20/20 13:02 MB (Rec: 06/20/20 14:06 MB [id number]) OP-PT Subjective Patient Comments Patient Comments Pt states that he is trying to keep his migraines down. He likes the TENS once a day. He is using after he eats as he feels that the migraines are related to jaw tension. PT-OP-J Posture/Palpation/Skin Start: 02/04/19 07:28 Freq: Status: Active Protocol: Document 02/04/19 09:01 MB (Rec: 02/04/19 13:33 MB [id number]) Posture Evaluation Comments Posture Comments Standing posture: forward head , rounded shoulders, Dowager's hump, decreased thoracic kyphosis, increased lumbar lordosis, changes around T6 vertebra that could be stiffness PT-OP-K Range of Motion Start: 02/04/19 07:28 Freq: Status: Active Protocol: Document 02/04/19 09:01 MB (Rec: 02/04/19 13:33 MB [id number]) Cervical Spine Range of Motion Cervical Spine Active Testing Position Standing Flexion 35 Extension 40 Rotation Left 40 Rotation Right 50 Comments Pt reports stretch in right jaw with cervical extension and left upper traps area discomfort 3/10 with flexion PT-OP-M Strength Start: 02/04/19 07:28 Freq: Status: Active Protocol: Document 02/04/19 09:01 MB (Rec: 02/04/19 13:33 MB [id number]) Shoulder Strength Shoulder Manual Muscle Testing Left Flexion 4 Good Abduction (C5) 4 Good External Rotation 5 Normal Internal Rotation 5 Normal Right Flexion 5 Normal Abduction (C5) 5 Normal External Rotation 4 Good Internal Rotation 4 Good Elbow/Forearm Strength Elbow and Forearm Manual Muscle Testing Left Flexion (C6) 5 Normal Extension (C7) 5 Normal Pronation 4 Good Supination 4 Good Right Flexion (C6) 5 Normal Extension (C7) 5 Normal Pronation 4 Good Supination 4 Good Wrist Strength Wrist Manual Muscle Testing Left Flexion (C7) 5 Normal Extension (C6) 5 Normal Right Flexion (C7) 5 Normal Extension (C6) 5 Normal PT-OP-Q Treatments Start: 02/04/19 07:28 Freq: Status: Active Protocol: Document 06/20/20 13:02 MB (Rec: 06/20/20 14:06 MB [id number]) Manual Therapy Treatment Other Other Manual Treatments Pt agrees to Counterstrain to assess and treat fascial tension and he presents with tension in the following fascial systems: DPR and periosteal and PT treats stacks in these systems after treating C1-2 tender points that are tight including lymphatic venous. Positional release B pect major with more tension on the left. He responds well to treatment. PT treats superficial fascia for neck and this is helpful as well and scan improves afterwards. PT-OP-T Assessment and Plan Start: 02/04/19 07:28 Freq: Status: Active Protocol: Document 06/20/20 13:02 MB (Rec: 06/20/20 14:06 MB [id number]) Physical Therapy Assessment Rehab Potential Rehabilitation Potential Fair Evaluation Complexity Number of Personal Factors/Comorbidities 3 or More Number of Body Systems Impaired 3 Clinical Presentation at Evaluation Evolving Impairments Impairments Balance,Pain,Posture,ROM,Soft Tissue Mobility,Vestibular, Visual Motor Goals 8 Capping Machine Operator Goal (LTG) Pt will present with equal active left shoulder abduction and flexion compared to the right to allow overhead work by 07/19/2020. 06/16/2020: Pt presents with right shoulder abduction and flexion to 180 deg and left shoulder abduction 160 deg and flexion to 165 deg. 6 Penitentiary Goal (LTG) Pt will report no more than 1 seizure per week by 07/19/2020. 06/16/20: Pt states that his seizures are random: three weeks ago, he had 10 days without seizures and he has had three weeks of one per week LTG Duration 8 weeks 4 Capping Machine Operator Goal (LTG) Pt will report no more than 3 headaches per week by 07/19/20. 06/16/20: Pt con't with daily headaches and states that his TMJ is a big problem. Stress, depression and tension have been factors, per his report. He is getting a new mouth guard. LTG Duration 8 weeks 3 Capping Machine Operator Goal (LTG) Pt will perform progressive HEP with I including postural alignment, VOR, visual motor, flexibility, strengthening and relaxation exercises by . 06/16/20: Revised HEP and pt performs strengthening today: Everyday: Buteyko breathing (3 exercises), pect, hip flexor and QL stretch in doorway 3x/wk: abdominal drawing in, sword and sheath with teal band, shoulder ER with green band, shoulder flexion and elbow flexion and extension with light blue band, abduction mob, arm over table or wall crawl, Jose stretch, core progression As needed: pelvic realignment exercises, SCM self-massage, shoulder ER and rows with arms straight and teal band, intrascapular massage with racquet ball LTG Duration 8 weeks 2 Capping Machine Operator Goal (LTG) Pt will present with a QuickDASH score to reflect no more than 15% impairment to allow return to [facility] and improvement of ADLs by 07/19/20. 06/16/20: QuickDASH score reflects 22.72% impairment LTG Duration 8 weeks 1 Capping Machine Operator Goal (LTG) Pt will present with a NDI score to reflect no more than 25% impairment by 07/19/2020. 06/16/20: NDI score reflects 32 % impairment, which is mildly improved since last progress note LTG Duration 8 weeks Assessment Summary Assessment Fasical tension on left occiput improves with Counterstrain treatment today. Con't assessment and treatment of fascial tension. Physical Therapy Plan Frequency and Duration Frequency of Treatment 1-2x/wk Duration of Treatment 5 weeks Plan of Care Start Date 06/16/20 Plan of Care End Date 07/19/20 Therapeutic Interventions Therapeutic Interventions Balance Training,Canalithic Repositioning,Coordination Training,Home Exercise Program ,Joint Mobilizations,Manual Therapy,Neuromuscular Re- education,Patient/Caregiver Education,Self-Care/Home Management,Sensory Integration ,Soft Tissue Mobilization, Taping,Therapeutic Activities, Therapeutic Exercises, Vestibular Rehabilitation Modalities Cold Pack/Ice Massage,Electric Stimulation,Hot Packs, Ultrasound Next Visit Focus/Plan Next Note Type Treatment Note Next Visit Plan Con't left shoulder mobs and reassess table self-mob, Counterstrain with new ability to work on cranial bone fascia
--- NOTE | 2020-06-28 09:00 | PT.OTN ---
Current Diagnoses Cervicalgia (06/28/20) Headache (06/28/20) Personal history of traumatic brain injury (06/28/20) Physical Therapy Treatment Note PT-OP-A Visit Information Start: 02/04/19 07:28 Freq: Status: Active Protocol: Document 06/28/20 08:16 MB (Rec: 06/28/20 08:57 MB [id number]) Out-Patient Physical Therapy Visit Information Visit Information Visit Type Treatment Note Visit Note Miranda, front office states that new auth is in Visit Start Time 08:16 Visit Stop Time 09:00 Total Visit Minutes 44 Visit Number 01/29 PT-OP-B Current Condition Start: 02/04/19 07:28 Freq: Status: Active Protocol: Document 02/04/19 09:01 MB (Rec: 02/04/19 09:50 MB [id number]) Current Condition History of Current Condition Onset Date 1.5 years History of Current Condition Pt reports TBI 4 years ago when tripping and hitting head on counter. He had a severe concussion and he was out at least 30 minutes. He went to the hospital and was checked out. He had had post- concussion syndrome for 6 weeks. He would fall out unconsious when sitting at random times. He would not have memory of it. He went from having headaches 1-2 times a year to 4-6 a year. Seizures started 1.5 years ago . They are termed psychogenic seizures. There is no epilectic activity. He screens high for PTSD. Pt states that PTSD may be related to past relationships. They happen out of sleep. He wakes up shaking . He does not think he has headaches. , Joy, describes rocking side to side or pelvic thrusting, head back and eyes rolled upward. He occ has horizontal nystagmus and then his head drops down. Events last 30 sec . He is taking Topamax in the a.m. to help with mood and headaches. He has not gone more than 18 days without a seizure. He has been on Topamax for a week and has not had a seizure. 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 He had trigger point injections. He has to go through series of taking medications including corticosteroids. 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 He and are trying out supportive neck pillows. He sleeps on a wedge. 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 He drinks caffeine and water . occ reports of pt with anger and memory loss connected. These were unlike his normal personality. Pt reports headaches up to a 7 /10 and he has to talk Percicet. Headaches are over the right eye and down into his right face and back of head and feeling right eyeball being squeezed. He sees colors and has horizontal nystagmus. Overall discomfort left upper trap area, 3/10. He has 3-7/10 pain down left arm . Right hernia surgery and pain after right testicle removed. Multiple neural surgeries in the area and he now has a small left inguinal hernia. Pt reports occ tingling 4th and 5th left digit and burning down back of left arm through elbow. Prior Treatments and Tests PT in the past for left shoulder. It went okay. He had it for his right wrist as well. Right TMJ injections PT-OP-C Subjective Start: 02/04/19 07:28 Freq: Status: Active Protocol: Document 06/28/20 08:16 MB (Rec: 06/28/20 08:57 MB [id number]) OP-PT Subjective Patient Comments Patient Comments Pt states that he has a little area of neck tension on the back of his neck. PT-OP-J Posture/Palpation/Skin Start: 02/04/19 07:28 Freq: Status: Active Protocol: Document 02/04/19 09:01 MB (Rec: 02/04/19 13:33 MB [id number]) Posture Evaluation Comments Posture Comments Standing posture: forward head , rounded shoulders, Dowager's hump, decreased thoracic kyphosis, increased lumbar lordosis, changes around T6 vertebra that could be stiffness PT-OP-K Range of Motion Start: 02/04/19 07:28 Freq: Status: Active Protocol: Document 02/04/19 09:01 MB (Rec: 02/04/19 13:33 MB [id number]) Cervical Spine Range of Motion Cervical Spine Active Testing Position Standing Flexion 35 Extension 40 Rotation Left 40 Rotation Right 50 Comments Pt reports stretch in right jaw with cervical extension and left upper traps area discomfort 3/10 with flexion PT-OP-M Strength Start: 02/04/19 07:28 Freq: Status: Active Protocol: Document 02/04/19 09:01 MB (Rec: 02/04/19 13:33 MB [id number]) Shoulder Strength Shoulder Manual Muscle Testing Left Flexion 4 Good Abduction (C5) 4 Good External Rotation 5 Normal Internal Rotation 5 Normal Right Flexion 5 Normal Abduction (C5) 5 Normal External Rotation 4 Good Internal Rotation 4 Good Elbow/Forearm Strength Elbow and Forearm Manual Muscle Testing Left Flexion (C6) 5 Normal Extension (C7) 5 Normal Pronation 4 Good Supination 4 Good Right Flexion (C6) 5 Normal Extension (C7) 5 Normal Pronation 4 Good Supination 4 Good Wrist Strength Wrist Manual Muscle Testing Left Flexion (C7) 5 Normal Extension (C6) 5 Normal Right Flexion (C7) 5 Normal Extension (C6) 5 Normal PT-OP-Q Treatments Start: 02/04/19 07:28 Freq: Status: Active Protocol: Document 06/28/20 08:16 MB (Rec: 06/28/20 08:57 MB [id number]) Manual Therapy Treatment Other Other Manual Treatments Positional release right cervical paraspinals, B masseter release intraoral and extraoral, masseter release takes extended time, 10' on each side, positional release B SCM and right styloid process PT-OP-T Assessment and Plan Start: 02/04/19 07:28 Freq: Status: Active Protocol: Document 06/28/20 08:16 MB (Rec: 06/28/20 08:57 MB [id number]) Physical Therapy Assessment Rehab Potential Rehabilitation Potential Fair Evaluation Complexity Number of Personal Factors/Comorbidities 3 or More Number of Body Systems Impaired 3 Clinical Presentation at Evaluation Evolving Impairments Impairments Balance,Pain,Posture,ROM,Soft Tissue Mobility,Vestibular, Visual Motor Goals 8 Snf Goal (LTG) Pt will present with equal active left shoulder abduction and flexion compared to the right to allow overhead work by 07/19/2020. 06/16/2020: Pt presents with right shoulder abduction and flexion to 180 deg and left shoulder abduction 160 deg and flexion to 165 deg. 6 Snf Goal (LTG) Pt will report no more than 1 seizure per week by 07/19/2020. 06/16/20: Pt states that his seizures are random: three weeks ago, he had 10 days without seizures and he has had three weeks of one per week LTG Duration 8 weeks 4 Snf Goal (LTG) Pt will report no more than 3 headaches per week by 07/19/20. 06/16/20: Pt con't with daily headaches and states that his TMJ is a big problem. Stress, depression and tension have been factors, per his report. He is getting a new mouth guard. LTG Duration 8 weeks 3 Technical Support Professional Goal (LTG) Pt will perform progressive HEP with I including postural alignment, VOR, visual motor, flexibility, strengthening and relaxation exercises by . 06/16/20: Revised HEP and pt performs strengthening today: Everyday: Buteyko breathing (3 exercises), pect, hip flexor and QL stretch in doorway 3x/wk: abdominal drawing in, sword and sheath with teal band, shoulder ER with green band, shoulder flexion and elbow flexion and extension with light blue band, abduction mob, arm over table or wall crawl, Jose stretch, core progression As needed: pelvic realignment exercises, SCM self-massage, shoulder ER and rows with arms straight and teal band, intrascapular massage with racquet ball LTG Duration 8 weeks 2 Technical Support Professional Goal (LTG) Pt will present with a QuickDASH score to reflect no more than 15% impairment to allow [facility] and improvement of ADLs by 07/19/20. 06/16/20: QuickDASH score reflects 22.72% impairment LTG Duration 8 weeks 1 Snf Goal (LTG) Pt will present with a NDI score to reflect no more than 25% impairment by 07/19/2020. 06/16/20: NDI score reflects 32 % impairment, which is mildly improved since last progress note LTG Duration 8 weeks Assessment Summary Assessment Pt relaxes well with manual work today, falling asleep and myofascial release works well as far as relaxing B TMJ. Will con't work. Physical Therapy Plan Frequency and Duration Frequency of Treatment 1-2x/wk Duration of Treatment 5 weeks Plan of Care Start Date 06/16/20 Plan of Care End Date 07/19/20 Therapeutic Interventions Therapeutic Interventions Balance Training,Canalithic Repositioning,Coordination Training,Home Exercise Program ,Joint Mobilizations,Manual Therapy,Neuromuscular Re- education,Patient/Caregiver Education,Self-Care/Home Management,Sensory Integration ,Soft Tissue Mobilization, Taping,Therapeutic Activities, Therapeutic Exercises, Vestibular Rehabilitation Modalities Cold Pack/Ice Massage,Electric Stimulation,Hot Packs, Ultrasound Next Visit Focus/Plan Next Note Type Treatment Note Next Visit Plan Con't left shoulder mobs and reassess table self-mob, Counterstrain with new ability to work on cranial bone fascia
--- NOTE | 2020-06-30 13:43 | PT.OTN ---
Current Diagnoses Cervicalgia (06/30/20) Headache (06/30/20) Personal history of traumatic brain injury (06/30/20) Physical Therapy Treatment Note PT-OP-A Visit Information Start: 02/04/19 07:28 Freq: Status: Active Protocol: Document 06/30/20 13:00 MB (Rec: 06/30/20 13:43 MB [id number]) Out-Patient Physical Therapy Visit Information Visit Information Visit Type Treatment Note Visit Note esha Jean Visit Start Time 13:00 Visit Stop Time 13:39 Total Visit Minutes 39 Visit Number 03/01 PT-OP-B Current Condition Start: 02/04/19 07:28 Freq: Status: Active Protocol: Document 02/04/19 09:01 MB (Rec: 02/04/19 09:50 MB [id number]) Current Condition History of Current Condition Onset Date 1.5 years History of Current Condition Pt reports TBI 4 years ago when tripping and hitting head on counter. He had a severe concussion and he was out at least 30 minutes. He went to the hospital and was checked out. He had had post- concussion syndrome for 6 weeks. He would fall out unconsious when sitting at random times. He would not have memory of it. He went from having headaches 1-2 times a year to 4-6 a year. Seizures started 1.5 years ago . They are termed psychogenic seizures. There is no epilectic activity. He screens high for PTSD. Pt states that PTSD may be related to past relationships. They happen out of sleep. He wakes up shaking . He does not think he has headaches. , Joy, describes rocking side to side or pelvic thrusting, head back and eyes rolled upward. He occ has horizontal nystagmus and then his head drops down. Events last 30 sec . He is taking Topamax in the a.m. to help with mood and headaches. He has not gone more than 18 days without a seizure. He has been on Topamax for a week and has not had a seizure. 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 He had trigger point injections. He has to go through series of taking medications including corticosteroids. 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 He and are trying out supportive neck pillows. He sleeps on a wedge. 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 He drinks caffeine and water . occ reports of pt with anger and memory loss connected. These were unlike his normal personality. Pt reports headaches up to a 7 /10 and he has to talk Percicet. Headaches are over the right eye and down into his right face and back of head and feeling right eyeball being squeezed. He sees colors and has horizontal nystagmus. Overall discomfort left upper trap area, 3/10. He has 3-7/10 pain down left arm . Right hernia surgery and pain after right testicle removed. Multiple neural surgeries in the area and he now has a small left inguinal hernia. Pt reports occ tingling 4th and 5th left digit and burning down back of left arm through elbow. Prior Treatments and Tests PT in the past for left shoulder. It went okay. He had it for his right wrist as well. Right TMJ injections PT-OP-C Subjective Start: 02/04/19 07:28 Freq: Status: Active Protocol: Document 06/30/20 13:00 MB (Rec: 06/30/20 13:43 MB [id number]) OP-PT Subjective Patient Comments Patient Comments Pt states that his reports that he is snoring less PT-OP-J Posture/Palpation/Skin Start: 02/04/19 07:28 Freq: Status: Active Protocol: Document 02/04/19 09:01 MB (Rec: 02/04/19 13:33 MB [id number]) Posture Evaluation Comments Posture Comments Standing posture: forward head , rounded shoulders, Dowager's hump, decreased thoracic kyphosis, increased lumbar lordosis, changes around T6 vertebra that could be stiffness PT-OP-K Range of Motion Start: 02/04/19 07:28 Freq: Status: Active Protocol: Document 02/04/19 09:01 MB (Rec: 02/04/19 13:33 MB [id number]) Cervical Spine Range of Motion Cervical Spine Active Testing Position Standing Flexion 35 Extension 40 Rotation Left 40 Rotation Right 50 Comments Pt reports stretch in right jaw with cervical extension and left upper traps area discomfort 3/10 with flexion PT-OP-M Strength Start: 02/04/19 07:28 Freq: Status: Active Protocol: Document 02/04/19 09:01 MB (Rec: 02/04/19 13:33 MB [id number]) Shoulder Strength Shoulder Manual Muscle Testing Left Flexion 4 Good Abduction (C5) 4 Good External Rotation 5 Normal Internal Rotation 5 Normal Right Flexion 5 Normal Abduction (C5) 5 Normal External Rotation 4 Good Internal Rotation 4 Good Elbow/Forearm Strength Elbow and Forearm Manual Muscle Testing Left Flexion (C6) 5 Normal Extension (C7) 5 Normal Pronation 4 Good Supination 4 Good Right Flexion (C6) 5 Normal Extension (C7) 5 Normal Pronation 4 Good Supination 4 Good Wrist Strength Wrist Manual Muscle Testing Left Flexion (C7) 5 Normal Extension (C6) 5 Normal Right Flexion (C7) 5 Normal Extension (C6) 5 Normal PT-OP-Q Treatments Start: 02/04/19 07:28 Freq: Status: Active Protocol: Document 06/30/20 13:00 MB (Rec: 06/30/20 13:43 MB [id number]) Manual Therapy Treatment Other Other Manual Treatments Pt prone: B scapular mobs, thoracic PA mobs III, intrascapular, paraspinals, upper traps STM, PA mobs left shoulder with shoulder in neutral and in ER. Pt presents with tightness T9-10 area and rib tightness that con't after treatment and ed pt on benefits of stretching over 65 cm ball PT-OP-T Assessment and Plan Start: 02/04/19 07:28 Freq: Status: Active Protocol: Document 06/30/20 13:00 MB (Rec: 06/30/20 13:43 MB [id number]) Physical Therapy Assessment Rehab Potential Rehabilitation Potential Fair Evaluation Complexity Number of Personal Factors/Comorbidities 3 or More Number of Body Systems Impaired 3 Clinical Presentation at Evaluation Evolving Impairments Impairments Balance,Pain,Posture,ROM,Soft Tissue Mobility,Vestibular, Visual Motor Goals 8 Long-Term Goal (LTG) Pt will present with equal active left shoulder abduction and flexion compared to the right to allow overhead work by 07/19/2020. 06/16/2020: Pt presents with right shoulder abduction and flexion to 180 deg and left shoulder abduction 160 deg and flexion to 165 deg. 6 Patient Service Rep Goal (LTG) Pt will report no more than 1 seizure per week by 07/19/2020. 06/16/20: Pt states that his seizures are random: three weeks ago, he had 10 days without seizures and he has had three weeks of one per week LTG Duration 8 weeks 4 Patient Service Rep Goal (LTG) Pt will report no more than 3 headaches per week by 07/19/20. 06/16/20: Pt con't with daily headaches and states that his TMJ is a big problem. Stress, depression and tension have been factors, per his report. He is getting a new mouth guard. LTG Duration 8 weeks 3 Long-Term Goal (LTG) Pt will perform progressive HEP with I including postural alignment, VOR, visual motor, flexibility, strengthening and relaxation exercises by . 06/16/20: Revised HEP and pt performs strengthening today: Everyday: Buteyko breathing (3 exercises), pect, hip flexor and QL stretch in doorway 3x/wk: abdominal drawing in, sword and sheath with teal band, shoulder ER with green band, shoulder flexion and elbow flexion and extension with light blue band, abduction mob, arm over table or wall crawl, Jose stretch, core progression As needed: pelvic realignment exercises, SCM self-massage, shoulder ER and rows with arms straight and teal band, intrascapular massage with racquet ball LTG Duration 8 weeks 2 Long-Term Goal (LTG) Pt will present with a QuickDASH score to reflect no more than 15% impairment to allow return to [facility] and improvement of ADLs by 07/19/20. 06/16/20: QuickDASH score reflects 22.72% impairment LTG Duration 8 weeks 1 Patient Service Rep Goal (LTG) Pt will present with a NDI score to reflect no more than 25% impairment by 07/19/2020. 06/16/20: NDI score reflects 32 % impairment, which is mildly improved since last progress note LTG Duration 8 weeks Assessment Summary Assessment Pt presents with increased thoracic tension and treated in prone today and ed pt on self-mobility over 65 cm ball in order to help. Con't PT per plan. Physical Therapy Plan Frequency and Duration Frequency of Treatment 1-2x/wk Duration of Treatment 5 weeks Plan of Care Start Date 06/16/20 Plan of Care End Date 07/19/20 Therapeutic Interventions Therapeutic Interventions Balance Training,Canalithic Repositioning,Coordination Training,Home Exercise Program ,Joint Mobilizations,Manual Therapy,Neuromuscular Re- education,Patient/Caregiver Education,Self-Care/Home Management,Sensory Integration ,Soft Tissue Mobilization, Taping,Therapeutic Activities, Therapeutic Exercises, Vestibular Rehabilitation Modalities Cold Pack/Ice Massage,Electric Stimulation,Hot Packs, Ultrasound Next Visit Focus/Plan Next Note Type Treatment Note Next Visit Plan Left shoulder mobs and reassess table self-mob, Counterstrain with new ability to work on cranial bone fascia
--- NOTE | 2020-07-05 09:46 | PT.OTN ---
Current Diagnoses Cervicalgia (07/05/20) Headache (07/05/20) Personal history of traumatic brain injury (07/05/20) Physical Therapy Treatment Note PT-OP-A Visit Information Start: 02/04/19 07:28 Freq: Status: Active Protocol: Document 07/05/20 09:07 MB (Rec: 07/05/20 09:45 MB [id number]) Out-Patient Physical Therapy Visit Information Visit Information Visit Type Treatment Note Visit Note esha Jean Visit Start Time 09:07 Visit Stop Time 09:45 Total Visit Minutes 38 Visit Number 04/01 PT-OP-B Current Condition Start: 02/04/19 07:28 Freq: Status: Active Protocol: Document 02/04/19 09:01 MB (Rec: 02/04/19 09:50 MB [id number]) Current Condition History of Current Condition Onset Date 1.5 years History of Current Condition Pt reports TBI 4 years ago when tripping and hitting head on counter. He had a severe concussion and he was out at least 30 minutes. He went to the hospital and was checked out. He had had post- concussion syndrome for 6 weeks. He would fall out unconsious when sitting at random times. He would not have memory of it. He went from having headaches 1-2 times a year to 4-6 a year. Seizures started 1.5 years ago . They are termed psychogenic seizures. There is no epilectic activity. He screens high for PTSD. Pt states that PTSD may be related to past relationships. They happen out of sleep. He wakes up shaking . He does not think he has headaches. , Joy, describes rocking side to side or pelvic thrusting, head back and eyes rolled upward. He occ has horizontal nystagmus and then his head drops down. Events last 30 sec . He is taking Topamax in the a.m. to help with mood and headaches. He has not gone more than 18 days without a seizure. He has been on Topamax for a week and has not had a seizure. 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 He had trigger point injections. He has to go through series of taking medications including corticosteroids. 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 He and are trying out supportive neck pillows. He sleeps on a wedge. 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 He drinks caffeine and water . occ reports of pt with anger and memory loss connected. These were unlike his normal personality. Pt reports headaches up to a 7 /10 and he has to talk Percicet. Headaches are over the right eye and down into his right face and back of head and feeling right eyeball being squeezed. He sees colors and has horizontal nystagmus. Overall discomfort left upper trap area, 3/10. He has 3-7/10 pain down left arm . Right hernia surgery and pain after right testicle removed. Multiple neural surgeries in the area and he now has a small left inguinal hernia. Pt reports occ tingling 4th and 5th left digit and burning down back of left arm through elbow. Prior Treatments and Tests PT in the past for left shoulder. It went okay. He had it for his right wrist as well. Right TMJ injections PT-OP-C Subjective Start: 02/04/19 07:28 Freq: Status: Active Protocol: Document 07/05/20 09:07 MB (Rec: 07/05/20 09:45 MB [id number]) OP-PT Subjective Patient Comments Patient Comments Pt states that he is okay. His jaw is bothering him today. PT-OP-J Posture/Palpation/Skin Start: 02/04/19 07:28 Freq: Status: Active Protocol: Document 02/04/19 09:01 MB (Rec: 02/04/19 13:33 MB [id number]) Posture Evaluation Comments Posture Comments Standing posture: forward head , rounded shoulders, Dowager's hump, decreased thoracic kyphosis, increased lumbar lordosis, changes around T6 vertebra that could be stiffness PT-OP-K Range of Motion Start: 02/04/19 07:28 Freq: Status: Active Protocol: Document 02/04/19 09:01 MB (Rec: 02/04/19 13:33 MB [id number]) Cervical Spine Range of Motion Cervical Spine Active Testing Position Standing Flexion 35 Extension 40 Rotation Left 40 Rotation Right 50 Comments Pt reports stretch in right jaw with cervical extension and left upper traps area discomfort 3/10 with flexion PT-OP-M Strength Start: 02/04/19 07:28 Freq: Status: Active Protocol: Document 02/04/19 09:01 MB (Rec: 02/04/19 13:33 MB [id number]) Shoulder Strength Shoulder Manual Muscle Testing Left Flexion 4 Good Abduction (C5) 4 Good External Rotation 5 Normal Internal Rotation 5 Normal Right Flexion 5 Normal Abduction (C5) 5 Normal External Rotation 4 Good Internal Rotation 4 Good Elbow/Forearm Strength Elbow and Forearm Manual Muscle Testing Left Flexion (C6) 5 Normal Extension (C7) 5 Normal Pronation 4 Good Supination 4 Good Right Flexion (C6) 5 Normal Extension (C7) 5 Normal Pronation 4 Good Supination 4 Good Wrist Strength Wrist Manual Muscle Testing Left Flexion (C7) 5 Normal Extension (C6) 5 Normal Right Flexion (C7) 5 Normal Extension (C6) 5 Normal PT-OP-Q Treatments Start: 02/04/19 07:28 Freq: Status: Active Protocol: Document 07/05/20 09:07 MB (Rec: 07/05/20 09:45 MB [id number]) Manual Therapy Treatment Other Other Manual Treatments B masseter STM and positional release, positional release right SCM and MWM with active cervical rotation to the left PT-OP-T Assessment and Plan Start: 02/04/19 07:28 Freq: Status: Active Protocol: Document 07/05/20 09:07 MB (Rec: 07/05/20 09:45 MB [id number]) Physical Therapy Assessment Rehab Potential Rehabilitation Potential Fair Evaluation Complexity Number of Personal Factors/Comorbidities 3 or More Number of Body Systems Impaired 3 Clinical Presentation at Evaluation Evolving Impairments Impairments Balance,Pain,Posture,ROM,Soft Tissue Mobility,Vestibular, Visual Motor Goals 8 Senior Care Goal (LTG) Pt will present with equal active left shoulder abduction and flexion compared to the right to allow overhead work by 07/19/2020. 06/16/2020: Pt presents with right shoulder abduction and flexion to 180 deg and left shoulder abduction 160 deg and flexion to 165 deg. 6 Senior Care Goal (LTG) Pt will report no more than 1 seizure per week by 07/19/2020. 06/16/20: Pt states that his seizures are random: three weeks ago, he had 10 days without seizures and he has had three weeks of one per week LTG Duration 8 weeks 4 Cosmetic Account Coordinator Goal (LTG) Pt will report no more than 3 headaches per week by 07/19/20. 06/16/20: Pt con't with daily headaches and states that his TMJ is a big problem. Stress, depression and tension have been factors, per his report. He is getting a new mouth guard. LTG Duration 8 weeks 3 Senior Care Goal (LTG) Pt will perform progressive HEP with I including postural alignment, VOR, visual motor, flexibility, strengthening and relaxation exercises by . 06/16/20: Revised HEP and pt performs strengthening today: Everyday: Buteyko breathing (3 exercises), pect, hip flexor and QL stretch in doorway 3x/wk: abdominal drawing in, sword and sheath with teal band, shoulder ER with green band, shoulder flexion and elbow flexion and extension with light blue band, abduction mob, arm over table or wall crawl, Jose stretch, core progression As needed: pelvic realignment exercises, SCM self-massage, shoulder ER and rows with arms straight and teal band, intrascapular massage with racquet ball LTG Duration 8 weeks 2 Cosmetic Account Coordinator Goal (LTG) Pt will present with a QuickDASH score to reflect no more than 15% impairment to allow return to [facility] and improvement of ADLs by 07/19/20. 06/16/20: QuickDASH score reflects 22.72% impairment LTG Duration 8 weeks 1 Cosmetic Account Coordinator Goal (LTG) Pt will present with a NDI score to reflect no more than 25% impairment by 07/19/2020. 06/16/20: NDI score reflects 32 % impairment, which is mildly improved since last progress note LTG Duration 8 weeks Assessment Summary Assessment Manual work today and pt con't with right SCM tension and he responds well to treatment. Pt is awaiting getting his new mouth guards and is performing self-SCM work at home. He will con't this at d/ c. Physical Therapy Plan Frequency and Duration Frequency of Treatment 1-2x/wk Duration of Treatment 5 weeks Plan of Care Start Date 06/16/20 Plan of Care End Date 07/19/20 Therapeutic Interventions Therapeutic Interventions Balance Training,Canalithic Repositioning,Coordination Training,Home Exercise Program ,Joint Mobilizations,Manual Therapy,Neuromuscular Re- education,Patient/Caregiver Education,Self-Care/Home Management,Sensory Integration ,Soft Tissue Mobilization, Taping,Therapeutic Activities, Therapeutic Exercises, Vestibular Rehabilitation Modalities Cold Pack/Ice Massage,Electric Stimulation,Hot Packs, Ultrasound Next Visit Focus/Plan Next Note Type Discharge Summary
--- NOTE | 2020-07-14 15:44 | PT.OTN ---
Current Diagnoses Cervicalgia (07/14/20) Headache (07/14/20) Personal history of traumatic brain injury (07/14/20) Physical Therapy Treatment Note PT-OP-A Visit Information Start: 02/04/19 07:28 Freq: Status: Active Protocol: Document 07/14/20 13:02 MB (Rec: 07/14/20 13:43 MB [id number]) Out-Patient Physical Therapy Visit Information Visit Information Visit Type Discharge Summary Visit Start Time 13:02 Visit Stop Time 13:42 Total Visit Minutes 40 Visit Number 04/29 PT-OP-B Current Condition Start: 02/04/19 07:28 Freq: Status: Active Protocol: Document 02/04/19 09:01 MB (Rec: 02/04/19 09:50 MB [id number]) Current Condition History of Current Condition Onset Date 1.5 years History of Current Condition Pt reports TBI 4 years ago when tripping and hitting head on counter. He had a severe concussion and he was out at least 30 minutes. He went to the hospital and was checked out. He had had post- concussion syndrome for 6 weeks. He would fall out unconsious when sitting at random times. He would not have memory of it. He went from having headaches 1-2 times a year to 4-6 a year. Seizures started 1.5 years ago . They are termed psychogenic seizures. There is no epilectic activity. He screens high for PTSD. Pt states that PTSD may be related to past relationships. They happen out of sleep. He wakes up shaking . He does not think he has headaches. , Joy, describes rocking side to side or pelvic thrusting, head back and eyes rolled upward. He occ has horizontal nystagmus and then his head drops down. Events last 30 sec . He is taking Topamax in the a.m. to help with mood and headaches. He has not gone more than 18 days without a seizure. He has been on Topamax for a week and has not had a seizure. 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 He had trigger point injections. He has to go through series of taking medications including corticosteroids. 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 He and are trying out supportive neck pillows. He sleeps on a wedge. 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 He drinks caffeine and water . occ reports of pt with anger and memory loss connected. These were unlike his normal personality. Pt reports headaches up to a 7 /10 and he has to talk Percicet. Headaches are over the right eye and down into his right face and back of head and feeling right eyeball being squeezed. He sees colors and has horizontal nystagmus. Overall discomfort left upper trap area, 3/10. He has 3-7/10 pain down left arm . Right hernia surgery and pain after right testicle removed. Multiple neural surgeries in the area and he now has a small left inguinal hernia. Pt reports occ tingling 4th and 5th left digit and burning down back of left arm through elbow. Prior Treatments and Tests PT in the past for left shoulder. It went okay. He had it for his right wrist as well. Right TMJ injections PT-OP-C Subjective Start: 02/04/19 07:28 Freq: Status: Active Protocol: Document 07/14/20 13:02 MB (Rec: 07/14/20 13:43 MB [id number]) OP-PT Subjective Patient Comments Patient Comments Pt states that he thinks he is getting towards self- management stage. His range of motion is better. He still has days where he sleeps poorly and the headaches are a combo of stress and allergies . He just had more allergy testing and is allergic to a lot of things and will start allergy shots. He hasn't been doing a lot of things like golfing d/t depression. PT-OP-J Posture/Palpation/Skin Start: 02/04/19 07:28 Freq: Status: Active Protocol: Document 02/04/19 09:01 MB (Rec: 02/04/19 13:33 MB [id number]) Posture Evaluation Comments Posture Comments Standing posture: forward head , rounded shoulders, Dowager's hump, decreased thoracic kyphosis, increased lumbar lordosis, changes around T6 vertebra that could be stiffness PT-OP-K Range of Motion Start: 02/04/19 07:28 Freq: Status: Active Protocol: Document 02/04/19 09:01 MB (Rec: 02/04/19 13:33 MB [id number]) Cervical Spine Range of Motion Cervical Spine Active Testing Position Standing Flexion 35 Extension 40 Rotation Left 40 Rotation Right 50 Comments Pt reports stretch in right jaw with cervical extension and left upper traps area discomfort 3/10 with flexion PT-OP-M Strength Start: 02/04/19 07:28 Freq: Status: Active Protocol: Document 02/04/19 09:01 MB (Rec: 02/04/19 13:33 MB [id number]) Shoulder Strength Shoulder Manual Muscle Testing Left Flexion 4 Good Abduction (C5) 4 Good External Rotation 5 Normal Internal Rotation 5 Normal Right Flexion 5 Normal Abduction (C5) 5 Normal External Rotation 4 Good Internal Rotation 4 Good Elbow/Forearm Strength Elbow and Forearm Manual Muscle Testing Left Flexion (C6) 5 Normal Extension (C7) 5 Normal Pronation 4 Good Supination 4 Good Right Flexion (C6) 5 Normal Extension (C7) 5 Normal Pronation 4 Good Supination 4 Good Wrist Strength Wrist Manual Muscle Testing Left Flexion (C7) 5 Normal Extension (C6) 5 Normal Right Flexion (C7) 5 Normal Extension (C6) 5 Normal PT-OP-Q Treatments Start: 02/04/19 07:28 Freq: Status: Active Protocol: Document 07/14/20 13:02 MB (Rec: 07/14/20 13:43 MB [id number]) Therapeutic Exercises Other Exercises Reviewed all other exercises, reviewed handouts today Comments This performed today during d/ c questionnaires, pt performs racquet ball ST Manual Therapy Treatment Other Other Manual Treatments Pt prone: B scapular mobs, thoracic PA mobs III, intrascapular, paraspinals, upper traps STM, PA mobs left shoulder with shoulder in neutral and in ER Self-Care/Home Management Treatment Education Other Education Ed pt in importance of con't exercises including stretching on foam roller and Buteyko breathing, benefits of ongoing maintainence for manual work of his neck, TMJ and left shoulder, benefits of getting out and golfing for his mobility and psychosocial health--pt is understanding and agreeable to all PT-OP-T Assessment and Plan Start: 02/04/19 07:28 Freq: Status: Active Protocol: Document 07/14/20 13:02 MB (Rec: 07/14/20 13:43 MB [id number]) Physical Therapy Assessment Rehab Potential Rehabilitation Potential Fair Evaluation Complexity Number of Personal Factors/Comorbidities 3 or More Number of Body Systems Impaired 3 Clinical Presentation at Evaluation Evolving Impairments Impairments Balance,Pain,Posture,ROM,Soft Tissue Mobility,Vestibular, Visual Motor Goals 8 Nursing Home Goal (LTG) Pt will present with equal active left shoulder abduction and flexion compared to the right to allow overhead work by 07/19/2020. 07/14/20: Today, right shoulder flexion is 160 and left flexion is 135 deg, right shoulder abduction is 165 deg and left shoulder abduction is 150 deg LTG Duration Progress 6 Nursing Home Goal (LTG) Pt will report no more than 1 seizure per week by 07/19/2020. 07/14/20: Pt reports seizures about once a week by now. He states that mostly stress is causing those. LTG Duration Some progress 4 Nursing Home Goal (LTG) Pt will report no more than 3 headaches per week by 07/19/20. 07/14/20: Pt con't with daily headaches. He likes his new mouth guard. LTG Duration No recent progress 3 Nursing Home Goal (LTG) Pt will perform progressive HEP with I including postural alignment, VOR, visual motor, flexibility, strengthening and relaxation exercises by . 07/14/20: Pt is performing his revised exercises more: Everyday: Buteyko breathing (3 exercises), pect, hip flexor and QL stretch in doorway 3x/wk: abdominal drawing in, sword and sheath with teal band, shoulder ER with green band, shoulder flexion and elbow flexion and extension with light blue band, abduction mob, arm over table or wall crawl, Jose stretch, core progression As needed: pelvic realignment exercises, SCM self-massage, shoulder ER and rows with arms straight and teal band, intrascapular massage with racquet ball LTG Duration Met 2 Tafe Lecturer Goal (LTG) Pt will present with a QuickDASH score to reflect no more than 15% 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 07/14/20: QuickDASH score reflects 20.25% impairment LTG Duration Progress 1 Nursing Home Goal (LTG) Pt will present with a NDI score to reflect no more than 25% impairment by 07/19/2020. 07/14/20: NDI score reflects 22 % impairment, which is 10% better than last progress note LTG Duration Met Assessment Summary Assessment Pt has met HEP and NDI goals since starting PT. He has had ongoing progress with left shoulder ROM and QuickDASH scores. He has had some improvement in seizures and he has not had recent improvements in HAs. He is getting other interventions to assist with his HAs including new manager night, EMDR and other therapy for depression and allergy treatment. Overall , pt has done very well in setting of serious chronic injuries including concussion and left brachial plexus injury, right TMJ trouble, HAs and seizures. He is currently close to maintenance level and so will d/c skilled PT. Recommend manual work in the future. Thank you for this referral.
== END 2020-07-15 07:05 | disposition home or self-care (01) ==
LOC: PHYS 13:00
PROVIDERS: PCP Family Medicine; Visit Provider Family Medicine
DX: M54.2 Cervicalgia (principal); R51 Headache; Z87.820 Personal history of traumatic brain injury
CPT/HCPCS: 97110; 97112; 97140; 97162; 97535

== ENCOUNTER 2020-09-29 15:56 | Emergency (ER) | payer OTHER, SELFPAY ==
[2020-09-29] VITALS (7 sets, daily range): BP systolic 119–125; BP diastolic 75–86; PULSE 70–91; RESP 16–22; TEMP 36.4; O2SAT 97–98; BMI 30.4
[2020-09-29 16:42] LABS: INR 1.1 (0.9-1.3); Prothrombin Time 12.3 SECONDS (10.1-12.7)
[2020-09-29 16:44] LABS: PTT Partial Thromboplastin Tim 38 SECONDS (26.4-36.2)
[2020-09-29 16:47] LABS: Alanine Aminotransferase 45 IU/L (<50); Albumin 4.4 g/dL (3.5-5.0); Albumin Globulin Ratio 1.4 (1.0-2.8); Alkaline Phosphatase 67 U/L (38-126); Aspartate Aminotransferase 34 IU/L (17-59); BUN Creatinine Ratio 13.8 (6-22); Bilirubin Total 0.5 mg/dL (0.2-1.3); Blood Urea Nitrogen 12 mg/dL (9-20); Calcium 9.4 mg/dL (8.4-10.2); Carbon Dioxide 21 mmol/L (22-32); Chloride 109 mmol/L (98-107); Estimated Glomerular Filt Rate > 60.0 mL/min (>60); Globulin 3.1 g/dL (1.7-4.1); Glucose 100 mg/dL (70-100); HEMOLYSIS < 15 (0-50); Potassium 3.7 mmol/L (3.4-5.1); Sodium 139 mmol/L (137-145); Total Protein 7.5 g/dL (6.3-8.2)
--- NOTE | 2020-09-29 16:55 | ED.GIBLEED ---
HPI - GI Bleed General Chief complaint: GI Bleed Stated complaint: tender stomach, blood in stool Time Seen by Provider: 09/29/20 16:31 History of Present Illness HPI Narrative: 40-year-old male who is here for evaluation of approximately 12 hours of abdominal cramping and a couple episodes of bright red blood per rectum. No urinary symptoms. No prior abdominal surgeries. He did have his right testicle removed after persistent epididymitis. He has had a colonoscopy in the past. He states this is 4 years ago. He had 2 benign polyps removed. He is scheduled to have another colonoscopy next year. No recent travel. No recent antibiotics. No fevers. No rashes. Related Data Home Medications Medication Instructions Recorded Confirmed cetirizine 10 mg capsule (Zyrtec) 10 mg PO DAILY 11/20/19 04/04/20 cyclobenzaprine 10 mg tablet 10 mg PO BEDTIME 11/20/19 04/04/20 gabapentin 300 mg capsule 300 mg PO DAILY 11/20/19 04/04/20 azelastine 137 mcg (0.1 %) nasal 1 spray INTRANASAL BID 04/04/20 04/04/20 spray aerosol cyanocobalamin-methylcobalamin 600 tab SUBLINGUAL 04/04/20 04/04/20 mcg-600 mcg sublingual tablet methylated foate PO 04/04/20 metoprolol succinate 25 mg 25 mg PO DAILY 04/04/20 04/04/20 tablet,extended release 24 hr omeprazole 20 mg capsule,delayed 20 mg PO BID 04/04/20 04/04/20 release quetiapine 25 mg tablet (Seroquel) 75 mg PO BEDTIME tab 04/04/20 04/04/20 rosuvastatin 5 mg tablet (Crestor) 5 mg PO DAILY 04/04/20 04/04/20 sertraline 50 mg tablet (Zoloft) 150 mg PO DAILY tab 04/04/20 04/04/20 tamsulosin 0.4 mg capsule 0.4 mg PO DAILY 04/04/20 04/04/20 topiramate 100 mg capsule 100 mg PO DAILY 04/04/20 04/04/20 sprinkle,extended release 24 hr Allergies Allergy/AdvReac Type Severity Reaction Status Date / Time No Known Drug Allergies Allergy Unverified 12/29/19 16:05 Review of Systems Constitutional Comments: No fevers Cardiovascular Comments: No chest pain Respiratory Comments: No shortness of breath Gastrointestinal Gastrointestinal: Reports as per HPI Genitourinary Comments: No blood in urine, no dysuria Musculoskeletal Comments: No back pain Integumentary/Breasts Comments: No rashes Neurologic Comments: No behavior changes Psychiatric Comments: No behavior changes Endocrine Endocrine: Reports system reviewed and no additional complaints, except as documented Hematologic/Lymphatic On Anticoagulants: No Allergic/Immunologic Allergic/Immunologic: Reports system reviewed and no additional complaints, except as documented Patient History Medical History BPH (benign prostatic hyperplasia) BPH w urinary obs/LUTS Depression GERD (gastroesophageal reflux disease) High blood pressure Lower urinary tract symptoms (LUTS) Lower urinary tract symptoms (LUTS) Migraine headache Seizure disorder Surgical History H/O cystoscopy H/O hernia repair H/O vasectomy History of orchiectomy Social History Smoking Status: Former smoker Smoking Status: Former smoker alcohol intake frequency: holidays/special occasions only Substance Use Type: does not use Exam Initial Vital Signs Initial Vital Signs: Vital Signs Temperature 97.6 F 09/29/20 16:06 Pulse Rate 70 09/29/20 16:06 Respiratory Rate 16 09/29/20 16:06 Blood Pressure 123/86 09/29/20 16:06 Pulse Oximetry 97 09/29/20 16:06 Const General: cooperative and healthy appearing [facility] Head: normal to inspection and normocephalic Eyes General: appearance normal, both eyes and all related structures Resp Effort & Inspection: normal respiratory effort Auscultation: clear to auscultation bilaterally Cardio Rate: regular rate Rhythm: regular rhythm GI Inspection: normal to inspection Palpation: soft, No guarding and tender (Diffuse) Back/Spine/Pelvis Back: normal to inspection Skin General: no rashes or lesions noted Neuro General: patient alert, patient awake, patient oriented x3 and moves all extremities Speech: speech normal Gait: normal gait Extrem General: normal to inspection Psych Appearance: grossly normal and well kempt Course Orders Ordered: ED Orders 09/29/20 16:11 EKG-12 Lead Stat 09/29/20 16:17 Complete Blood Count AUTO DIFF Stat Comprehensive Metabolic Panel Stat Partial Thromboplastin Time Stat Prothrombin Time INR Stat Type and Screen Stat 09/29/20 16:56 CT abdomen pelvis w con Stat Vital Signs Vital signs: Vital Signs - 8 hr 09/29/20 16:06 09/29/20 16:20 09/29/20 16:21 Temperature 97.6 F Pulse Rate 70 90 91 H Respiratory Rate 16 Blood Pressure 123/86 119/75 Pulse Oximetry 97 98 98 09/29/20 16:30 09/29/20 17:00 09/29/20 17:30 Temperature Pulse Rate 86 83 79 Respiratory Rate 22 19 Blood Pressure Pulse Oximetry 97 97 97 09/29/20 18:00 Temperature Pulse Rate 78 Respiratory Rate 19 Blood Pressure 125/80 Pulse Oximetry 98 MDM - GI Bleed Lab Data Attestation: I reviewed the patient's lab results. Result diagrams: 09/29/20 16:17 09/29/20 16:17 Labs: Lab Results 09/29/20 09/29/20 09/29/20 Range/Units 16:17 16:17 16:17 WBC 6.1 (4.5-11.0) X10^3/uL RBC 5.00 (4.5-5.9) X10^6/uL Hgb 14.3 (13.5-17.5) g/dL Hct 42.4 (41-53) % MCV 84.9 (80-100) fL MCH 28.6 (26-34) PG MCHC 33.7 (30-36) % RDW 13.4 (11.6-14.8) % Plt Count 276 (150-400) X10^3/uL Neut % (Auto) 57.6 (50-75) % Lymph % (Auto) 30.7 (25-40) % [place] % (Auto) 6.3 (3-14) % Eos % (Auto) 2.4 (2-4) % Baso % (Auto) 3.0 H (0-2) % Neut # (Auto) 3500 (9567-6640) /uL Lymph # (Auto) 1900 (1816-6310) /uL [place] # (Auto) 400 (0-900) /uL Eos # (Auto) 100 (0-450) /uL Baso # (Auto) 200 H (0-100) /uL PT 12.3 (10.1-12.7) SECONDS INR 1.1 (0.9-1.3) APTT 38 H (26.4-36.2) SECONDS Sodium 139 (137-145) mmol/L Potassium 3.7 (3.4-5.1) mmol/L Chloride 109 H (98-107) mmol/L Carbon Dioxide 21 L (22-32) mmol/L BUN 12 (9-20) mg/dL Creatinine 0.87 (0.66-1.25) mg/dL Estimated GFR > 60.0 (>60) mL/min BUN/Creatinine Ratio 13.8 (6-22) Glucose 100 (70-100) mg/dL Calcium 9.4 (8.4-10.2) mg/dL Total Bilirubin 0.5 (0.2-1.3) mg/dL AST 34 (17-59) IU/L ALT 45 (<50) IU/L Alkaline Phosphatase 67 (38-126) U/L Total Protein 7.5 (6.3-8.2) g/dL Albumin 4.4 (3.5-5.0) g/dL Globulin 3.1 (1.7-4.1) g/dL Albumin/Globulin Ratio 1.4 (1.0-2.8) Blood Type Antibody Screen 09/29/20 Range/Units 16:17 WBC (4.5-11.0) X10^3/uL RBC (4.5-5.9) X10^6/uL Hgb (13.5-17.5) g/dL Hct (41-53) % MCV (80-100) fL MCH (26-34) PG MCHC (30-36) % RDW (11.6-14.8) % Plt Count (150-400) X10^3/uL Neut % (Auto) (50-75) % Lymph % (Auto) (25-40) % [place] % (Auto) (3-14) % Eos % (Auto) (2-4) % Baso % (Auto) (0-2) % Neut # (Auto) (2773-2162) /uL Lymph # (Auto) (0199-4183) /uL [place] # (Auto) (0-900) /uL Eos # (Auto) (0-450) /uL Baso # (Auto) (0-100) /uL PT (10.1-12.7) SECONDS INR (0.9-1.3) APTT (26.4-36.2) SECONDS Sodium (137-145) mmol/L Potassium (3.4-5.1) mmol/L Chloride (98-107) mmol/L Carbon Dioxide (22-32) mmol/L BUN (9-20) mg/dL Creatinine (0.66-1.25) mg/dL Estimated GFR (>60) mL/min BUN/Creatinine Ratio (6-22) Glucose (70-100) mg/dL Calcium (8.4-10.2) mg/dL Total Bilirubin (0.2-1.3) mg/dL AST (17-59) IU/L ALT (<50) IU/L Alkaline Phosphatase (38-126) U/L Total Protein (6.3-8.2) g/dL Albumin (3.5-5.0) g/dL Globulin (1.7-4.1) g/dL Albumin/Globulin Ratio (1.0-2.8) Blood Type A Positive Antibody Screen Negative Imaging Data CT scan - abdomen/pelvis: Radiologist's Impression: [address] Scan ReportSigned Patient: Juan Craig PMR#: [id number]: 1980Acct:[id number]/Sex: 40 / MDate of Service: 09/29/20Loc: EDAccession Number: [id number] Procedure: CT abdomen pelvis w con Ordering Provider: Juan Pelletier D.O. PROCEDURE: CT ABDOMEN PELVIS W CON INDICATIONS: Generalized abdominal pain TECHNIQUE: After the administration of oral and IV contrast, axial sections were acquired from the lung bases to the pubic symphysis. Coronal and sagittal reformats were performed. For radiation dose reduction, the following was used: automated exposure control, adjustment of mA and/or kV according to patient size. COMPARISON: None. FINDINGS: Image quality: Excellent. Lung bases: Unremarkable. A small hiatal hernia is incidentally noted. Heart: No significant findings. ABDOMEN: Liver: Diffuse fatty liver infiltration is noted. Gallbladder: Unremarkable. Biliary ducts: Unremarkable. Pancreas: Unremarkable. Spleen: Unremarkable. Adrenal Glands: Unremarkable. Kidneys and Ureters: A nonobstructing 7 mm stone can be seen within the mid to inferior right kidney. The kidneys demonstrate normal size. There is no hydronephrosis. The kidneys enhance symmetrically. Stomach and Bowel: There is a normal appendix seen, as on series 2, image 71. There is submucosal fat seen within the distal terminal ileum as well as within the cecum and the proximal ascending colon. Minimal surrounding inflammatory changes are seen within the right lower quadrant. Mild generalized wall thickening can be seen of the colon. No dilated loops of small bowel are seen. Peritoneum: No abnormal intraperitoneal fluid. No free air. Ventral Wall: No hernia. Abdominal Nodes: No retroperitoneal or mesenteric adenopathy by size criteria. Vessels: Aorta and inferior vena cava are normal in size. PELVIS: Pelvic Organs: Unremarkable. Bladder: Unremarkable. Pelvic Nodes: No enlarged lymph nodes. Miscellaneous: A fat containing left inguinal hernia is seen. An apparent right testicular prosthesis is partially seen, as on series 2, image 106 and on series 4, image 16. Bones: Unremarkable. IMPRESSION: Mild generalized colonic wall thickening can be seen. Please correlate with potential infectious and inflammatory causes of colitis, including C. difficile colitis. No findings of perforation or abscess can be seen. Submucosal fat can also be seen involving the distal terminal ileum and the cecum and the ascending colon. This is highly suspicious for Crohn's disease. Incidental note is made of: Small hiatal hernia Fatty liver infiltration Nonobstructing 7 mm right-sided kidney stone Fat containing left inguinal hernia Likely right testicular prosthesis Dictated by: Timbo Walsh M.D. on 09/29/2020 at 16:48 Approved by: Timbo Walsh M.D. on 09/29/2020 at 16:51 ECG Data Attestation: I personally reviewed and interpreted this ECG as follows: Interpretation: Sinus rhythm Ventricular rate 84 Normal axis Normal QRS Normal QTC no signs of ST T wave changes MDM Narrative Medical decision making narrative: Patient is afebrile, a does have a benign abdominal exam, labs are unremarkable, no leukocytosis, CT scan does show findings consistent with colitis and this would be consistent with his presentation today. No indication for antibiotics. He has a follow-up with his primary doctor scheduled for Saturday and informed him that he needed to keep this appointment to discuss a referral to the potentially have his colonoscopy performed earlier the next year. He was given strict return precautions and follow-up instructions. He expressed understanding and agreement plan. Discharge Plan Departure Patient Disposition: Home Clinical Impression: Colitis with rectal bleeding Instructions: DI for Colitis Activity Restrictions/Additional Instructions: The symptoms that you are having should be self-limiting. If they persist you do need to follow-up with her primary doctor's you will most likely need a referral to see Gastroenterology. Be sure to increase your fluid intake. Continue all of your medications as directed. Return to the emergency department for any new or worsening symptoms. Prescriptions: No Action gabapentin 300 mg capsule 300 mg PO DAILY RF: 0 cyclobenzaprine 10 mg tablet 10 mg PO BEDTIME RF: 0 Zyrtec 10 mg capsule 10 mg PO DAILY RF: 0 sertraline [Zoloft] 50 mg tablet 150 mg PO DAILY RF: 0 topiramate 100 mg capsule,sprinkle,ER 24hr 100 mg PO DAILY RF: 0 tamsulosin 0.4 mg capsule 0.4 mg PO DAILY RF: 0 azelastine 137 mcg (0.1 %) aerosol,spray 1 spray intranasal BID RF: 0 quetiapine [Seroquel] 25 mg tablet 75 mg PO BEDTIME RF: 0 rosuvastatin [Crestor] 5 mg tablet 5 mg PO DAILY RF: 0 metoprolol succinate 25 mg tablet extended release 24 hr 25 mg PO DAILY RF: 0 omeprazole 20 mg capsule,delayed release(DR/EC) 20 mg PO BID RF: 0 cyanocobalamin-methylcobalamin 600-600 mcg tablet, sublingual sublingual RF: 0 methylated foate PO RF: 0 Referrals: Elisha Mello DO [Primary Care Provider] -
[2020-09-29 17:21] LABS: Add Manual Diff / Slide Review NO; Basophils Absolute Auto 200 /uL (0-100); Eosinophils Absolute Auto 100 /uL (0-450); Eosinophils Percent Auto 2.4 % (2-4); Hematocrit 42.4 % (41-53); Hemoglobin 14.3 g/dL (13.5-17.5); Lymphocytes Absolute Auto 1900 /uL (1100-4500); Lymphocytes Percent Auto 30.7 % (25-40); Mean Corpuscular HGB Conc 33.7 % (30-36); Mean Corpuscular Hemoglobin 28.6 PG (26-34); Mean Corpuscular Volume 84.9 fL (80-100); Monocytes Absolute Auto 400 /uL (0-900); Monocytes Percent Auto 6.3 % (3-14); Neutrophils Absolute Auto 3500 /uL (1500-7000); Neutrophils Percent Auto 57.6 % (50-75); Platelet Count 276 X10^3/uL (150-400); Red Cell Distribution Width 13.4 % (11.6-14.8); White Blood Cell Count 6.1 X10^3/uL (4.5-11.0)
== END 2020-09-29 18:13 | disposition home or self-care (01) ==
PROVIDERS: Emergency Provider Emergency Medicine; PCP Family Medicine
DX: K52.9 Noninfective gastroenteritis and colitis, unspecified (principal); K62.5 Hemorrhage of anus and rectum
CPT/HCPCS: 36415; 74177; 80053; 85025; 85610; 85730; 86850; 86900; 86901; 93005; 99283; 99284; Q9967

== ENCOUNTER 2020-12-14 22:09 | Emergency (ER) | payer OTHER, SELFPAY ==
[2020-12-14 22:12] VITALS: BP 147/97; PULSE 78; RESP 22; TEMP 36.5; O2SAT 97
[2020-12-14 22:52] LABS: Alanine Aminotransferase 38 IU/L (<50); Albumin 4.3 g/dL (3.5-5.0); Albumin Globulin Ratio 1.4 (1.0-2.8); Alkaline Phosphatase 63 U/L (38-126); Aspartate Aminotransferase 29 IU/L (17-59); BUN Creatinine Ratio 11.5 (6-22); Bilirubin Total 0.3 mg/dL (0.2-1.3); Blood Urea Nitrogen 12 mg/dL (9-20); Calcium 8.9 mg/dL (8.4-10.2); Carbon Dioxide 24 mmol/L (22-32); Chloride 104 mmol/L (98-107); Estimated Glomerular Filt Rate > 60.0 mL/min (>60); Glucose 164 mg/dL (70-100); HEMOLYSIS < 15 (0-50); Lipase 97 U/L (23-300); Potassium 3.4 mmol/L (3.4-5.1); Sodium 138 mmol/L (137-145); Total Protein 7.3 g/dL (6.3-8.2)
[2020-12-14 22:59] LABS: Add Manual Diff / Slide Review NO; Basophils Absolute Auto 100 /uL (0-100); Basophils Percent Auto 1.1 % (0-2); Eosinophils Absolute Auto 100 /uL (0-450); Eosinophils Percent Auto 1.3 % (2-4); Hematocrit 42.3 % (41-53); Hemoglobin 14.3 g/dL (13.5-17.5); Lymphocytes Absolute Auto 1300 /uL (1100-4500); Lymphocytes Percent Auto 16.1 % (25-40); Mean Corpuscular HGB Conc 33.8 % (30-36); Mean Corpuscular Hemoglobin 27.4 PG (26-34); Mean Corpuscular Volume 81.1 fL (80-100); Monocytes Absolute Auto 700 /uL (0-900); Neutrophils Absolute Auto 5800 /uL (1500-7000); Neutrophils Percent Auto 72.5 % (50-75); Platelet Count 235 X10^3/uL (150-400); Red Blood Cell Count 5.21 X10^6/uL (4.5-5.9); Red Cell Distribution Width 13.2 % (11.6-14.8); White Blood Cell Count 8.1 X10^3/uL (4.5-11.0)
--- NOTE | 2020-12-14 23:09 | ED.GENADULT ---
HPI - General Adult General Chief complaint: Abdominal Pain Stated complaint: abd pain, N/V, diarrhea Time Seen by Provider: 12/14/20 23:02 Source: patient Mode of arrival: Ambulatory History of Present Illness HPI narrative: 40-year-old male here for evaluation of right-sided abdominal discomfort. Recently he did have episodes of diarrhea. Nonbloody. No recent travel. No recent antibiotics. The abdominal discomfort that he has now started earlier in the day. Is having some nausea. No fevers. Has not tried anything for symptoms prior to arrival Related Data Home Medications Medication Instructions Recorded Confirmed cetirizine 10 mg capsule (Zyrtec) 10 mg PO DAILY 11/20/19 04/04/20 cyclobenzaprine 10 mg tablet 10 mg PO BEDTIME 11/20/19 04/04/20 gabapentin 300 mg capsule 300 mg PO DAILY 11/20/19 04/04/20 azelastine 137 mcg (0.1 %) nasal 1 spray INTRANASAL BID 04/04/20 04/04/20 spray aerosol cyanocobalamin-methylcobalamin 600 tab SUBLINGUAL 04/04/20 04/04/20 mcg-600 mcg sublingual tablet methylated foate PO 04/04/20 metoprolol succinate 25 mg 25 mg PO DAILY 04/04/20 04/04/20 tablet,extended release 24 hr omeprazole 20 mg capsule,delayed 20 mg PO BID 04/04/20 04/04/20 release quetiapine 25 mg tablet (Seroquel) 75 mg PO BEDTIME tab 04/04/20 04/04/20 rosuvastatin 5 mg tablet (Crestor) 5 mg PO DAILY 04/04/20 04/04/20 sertraline 50 mg tablet (Zoloft) 150 mg PO DAILY tab 04/04/20 04/04/20 tamsulosin 0.4 mg capsule 0.4 mg PO DAILY 04/04/20 04/04/20 topiramate 100 mg capsule 100 mg PO DAILY 04/04/20 04/04/20 sprinkle,extended release 24 hr Previous Rx's Medication Instructions Recorded hydrocodone 5 mg-acetaminophen 325 1 tab PO Q4-6H PRN #10 tab 12/15/20 mg tablet Allergies Allergy/AdvReac Type Severity Reaction Status Date / Time No Known Drug Allergies Allergy Unverified 12/29/19 16:05 Review of Systems Cardiovascular Cardiovascular: Reports system reviewed and no additional complaints, except as documented Respiratory Respiratory: Reports system reviewed and no additional complaints, except as documented Gastrointestinal Gastrointestinal: Reports as per HPI and Reports system reviewed and no additional complaints, except as documented Genitourinary Genitourinary: Reports system reviewed and no additional complaints, except as documented and Reports as per HPI Musculoskeletal Musculoskeletal: Reports system reviewed and no additional complaints, except as documented and Reports as per HPI Integumentary/Breasts Skin/Breast: Reports system reviewed and no additional complaints, except as documented Hematologic/Lymphatic On Anticoagulants: No Patient History Medical History BPH (benign prostatic hyperplasia) BPH w urinary obs/LUTS Depression GERD (gastroesophageal reflux disease) High blood pressure Lower urinary tract symptoms (LUTS) Lower urinary tract symptoms (LUTS) Migraine headache Seizure disorder Surgical History H/O cystoscopy H/O hernia repair H/O vasectomy History of orchiectomy Social History Smoking Status: Former smoker Smoking Status: Former smoker alcohol intake frequency: holidays/special occasions only Substance Use Type: does not use Exam Initial Vital Signs Initial Vital Signs: Vital Signs Temperature 97.7 F 12/14/20 22:12 Pulse Rate 78 12/14/20 22:12 Respiratory Rate 22 12/14/20 22:12 Blood Pressure 147/97 H 12/14/20 22:12 Pulse Oximetry 97 12/14/20 22:12 HENMT Head: normal to inspection and normocephalic Resp Effort & Inspection: normal respiratory effort Cardio Rate: regular rate GI Inspection: normal to inspection Palpation: soft, No firm and tender (Right-sided abdomen) Back/Spine/Pelvis Back: No CVA tenderness Neuro General: patient alert, patient awake and moves all extremities Extrem General: capillary refill normal Psych Appearance: grossly normal and well kempt Course Orders Ordered: ED Orders 12/14/20 22:34 Complete Blood Count AUTO DIFF Stat Comprehensive Metabolic Panel Stat Lipase Stat 12/14/20 23:15 CT abdomen pelvis w con Stat Discontinued Medications Hydrocodone Bitart/Acetaminophen (Hydrocodone/Acet 5/325 Prepack) 1 bottle MISC SEEINSTR ONE Stop: 12/15/20 00:25 Last Admin: 12/15/20 00:28 Dose: 1 bottle Documented by: BRITTANY Sodium Chloride (Normal Saline 0.9%) 1,000 mls @ 1,000 mls/hr IV BOLUS ONE Stop: 12/15/20 00:17 Last Infusion: 12/15/20 00:32 Dose: 0 mls/hr Documented by: Admin: 12/14/20 23:33 Dose: 1,000 mls/hr Documented by: MATILDE Ketorolac Tromethamine (Ketorolac 30 Mg/Ml Vial) 15 mg IV NOW ONE Stop: 12/15/20 00:25 Last Admin: 12/15/20 00:28 Dose: 15 mg Documented by: BRITTANY Vital Signs Vital signs: Vital Signs - 8 hr 12/14/20 22:12 12/15/20 00:38 Temperature 97.7 F Pulse Rate 78 72 Respiratory Rate 22 18 Blood Pressure 147/97 H 146/86 H Pulse Oximetry 97 97 Medical Decision Making Medical Records Medical records reviewed: Yes I reviewed the patient's medical records. Lab Data Lab results reviewed: Yes I reviewed the patient's lab results. Result diagrams: 12/14/20 22:34 12/14/20 22:34 Labs: Lab Results 12/14/20 12/14/20 Range/Units 22:34 22:34 WBC 8.1 (4.5-11.0) X10^3/uL RBC 5.21 (4.5-5.9) X10^6/uL Hgb 14.3 (13.5-17.5) g/dL Hct 42.3 (41-53) % MCV 81.1 (80-100) fL MCH 27.4 (26-34) PG MCHC 33.8 (30-36) % RDW 13.2 (11.6-14.8) % Plt Count 235 (150-400) X10^3/uL Neut % (Auto) 72.5 (50-75) % Lymph % (Auto) 16.1 L (25-40) % [place] % (Auto) 9.0 (3-14) % Eos % (Auto) 1.3 L (2-4) % Baso % (Auto) 1.1 (0-2) % Neut # (Auto) 5800 (0647-3422) /uL Lymph # (Auto) 1300 (3903-1813) /uL [place] # (Auto) 700 (0-900) /uL Eos # (Auto) 100 (0-450) /uL Baso # (Auto) 100 (0-100) /uL Sodium 138 (137-145) mmol/L Potassium 3.4 (3.4-5.1) mmol/L Chloride 104 (98-107) mmol/L Carbon Dioxide 24 (22-32) mmol/L BUN 12 (9-20) mg/dL Creatinine 1.04 (0.66-1.25) mg/dL Estimated GFR > 60.0 (>60) mL/min BUN/Creatinine Ratio 11.5 (6-22) Glucose 164 H (70-100) mg/dL Calcium 8.9 (8.4-10.2) mg/dL Total Bilirubin 0.3 (0.2-1.3) mg/dL AST 29 (17-59) IU/L ALT 38 (<50) IU/L Alkaline Phosphatase 63 (38-126) U/L Total Protein 7.3 (6.3-8.2) g/dL Albumin 4.3 (3.5-5.0) g/dL Globulin 3.0 (1.7-4.1) g/dL Albumin/Globulin Ratio 1.4 (1.0-2.8) Lipase 97 (23-300) U/L Imaging Data CT scan - abdomen/pelvis: Radiologist's Impression: [address] [address] [address] Scan Report Signed Patient: Juan Craig MR#: [id number] : 1980 Acct:[id number] Age/Sex: 40 / M Date of Service: 12/14/20 Loc: ED Accession Number: [id number] ?? Procedure: CT abdomen pelvis w con Ordering Provider: Juan Pelletier D.O. PROCEDURE:? CT ABDOMEN PELVIS W CON ? INDICATIONS:? Right lower quadrant abdominal pain ? TECHNIQUE:? After the administration of intravenous contrast, axial sections acquired from the lung bases to the pubic symphysis.? Coronal and sagittal reformats were performed.? For radiation dose reduction, the following was used:? automated exposure control, adjustment of mA and/or kV according to patient size.? ? COMPARISON:? None. ? FINDINGS:? ? There is an obstructing 5 mm calculus in the proximal right ureter on series 2, image 50 producing mild hydroureteronephrosis.? No additional urinary tract calculus identified.? Kidneys and ureters are otherwise normal in appearance.? Urinary bladder unremarkable. ? Unremarkable liver, spleen, pancreas, adrenal glands, and gallbladder.? No acute enteric abnormality.? Appendix is normal.? Nonaneurysmal abdominal aorta.? No threshold enlarged intra-abdominal, retroperitoneal, pelvic, or inguinal lymph node.? Fat containing left inguinal hernia.? Orchiectomy changes. ? IMPRESSION:? Obstructing 5 mm proximal right ureteral calculus producing mild hydroureteronephrosis. ? ? Dictated by: Rodney Diego M.D. on 12/14/2020 at 23:49 ? ? Approved by: Rodney Diego M.D. on 12/14/2020 at 23:51? MDM Narrative Medical decision making narrative: Nontoxic. CT scan does show right-sided ureteral lithiasis this does that his presentation today. Kidney functions unremarkable. No signs of any urinary tract infection. Will discharge home with symptom control. He was given return precautions and follow-up instructions. He expressed understanding and agreement. Discharge Plan Departure Patient Disposition: Home Clinical Impression: Kidney stone on right side Instructions: Kidney Stones -- Adult Activity Restrictions/Additional Instructions: The CT scan does show a kidney stone on the right-hand side. It is 5 mm. You should be able to pass this on your own. I recommend you contact your urologist for a follow-up. Return to the emergency department for any new or worsening symptoms Prescriptions: New hydrocodone-acetaminophen 5-325 mg tablet 1 tab PO Q4-6H PRN (Reason: pain) Qty: 10 RF: 0 No Action gabapentin 300 mg capsule 300 mg PO DAILY RF: 0 cyclobenzaprine 10 mg tablet 10 mg PO BEDTIME RF: 0 Zyrtec 10 mg capsule 10 mg PO DAILY RF: 0 sertraline [Zoloft] 50 mg tablet 150 mg PO DAILY RF: 0 topiramate 100 mg capsule,sprinkle,ER 24hr 100 mg PO DAILY RF: 0 tamsulosin 0.4 mg capsule 0.4 mg PO DAILY RF: 0 azelastine 137 mcg (0.1 %) aerosol,spray 1 spray intranasal BID RF: 0 quetiapine [Seroquel] 25 mg tablet 75 mg PO BEDTIME RF: 0 rosuvastatin [Crestor] 5 mg tablet 5 mg PO DAILY RF: 0 metoprolol succinate 25 mg tablet extended release 24 hr 25 mg PO DAILY RF: 0 omeprazole 20 mg capsule,delayed release(DR/EC) 20 mg PO BID RF: 0 cyanocobalamin-methylcobalamin 600-600 mcg tablet, sublingual sublingual RF: 0 methylated foate PO RF: 0 Referrals: Elisha Mello DO [Primary Care Provider] -
--- NOTE | 2020-12-14 23:15 | DI.CT.S_ITS ---
PROCEDURE: CT ABDOMEN PELVIS W CON INDICATIONS: Right lower quadrant abdominal pain TECHNIQUE: After the administration of intravenous contrast, axial sections acquired from the lung bases to the pubic symphysis. Coronal and sagittal reformats were performed. For radiation dose reduction, the following was used: automated exposure control, adjustment of mA and/or kV according to patient size. COMPARISON: None. FINDINGS: There is an obstructing 5 mm calculus in the proximal right ureter on series 2, image 50 producing mild hydroureteronephrosis. No additional urinary tract calculus identified. Kidneys and ureters are otherwise normal in appearance. Urinary bladder unremarkable. Unremarkable liver, spleen, pancreas, adrenal glands, and gallbladder. No acute enteric abnormality. Appendix is normal. Nonaneurysmal abdominal aorta. No threshold enlarged intra-abdominal, retroperitoneal, pelvic, or inguinal lymph node. Fat containing left inguinal hernia. Orchiectomy changes. IMPRESSION: Obstructing 5 mm proximal right ureteral calculus producing mild hydroureteronephrosis. Dictated by: Rodney Diego M.D. on 12/14/2020 at 23:49 Approved by: Rodney Diego M.D. on 12/14/2020 at 23:51
[2020-12-14] MEDS: SODIUM CHLORIDE 0.9% 1,000 ML 1000 ML IV (23:33)
[2020-12-15] MEDS: KETOROLAC 30 MG/ML VIAL 15 MG IV (00:28)
[2020-12-15] MEDS: HYDROCODONE/ACET 5/325 PREPACK 1 BOTTLE MISC (00:28)
[2020-12-15 00:38] VITALS: BP 146/86; PULSE 72; RESP 18; O2SAT 97
== END 2020-12-15 00:40 | disposition home or self-care (01) ==
PROVIDERS: Emergency Provider Emergency Medicine; PCP Family Medicine
DX: N20.0 Calculus of kidney (principal); R19.7 Diarrhea, unspecified; R11.0 Nausea; R10.31 Right lower quadrant pain
CPT/HCPCS: 36415; 74177; 80053; 83690; 85025; 96361; 96374; 99284; J1885; Q9967

== ENCOUNTER 2020-12-17 19:33 | Emergency (ER) | payer OTHER, SELFPAY ==
[2020-12-17 19:48] VITALS: BP 154/89; PULSE 87; RESP 16; TEMP 36.3; O2SAT 96; BMI 31.1
--- NOTE | 2020-12-17 20:24 | ED.MALEGU ---
HPI - Male Genitourinary General Chief complaint: Urogenital-Male Stated complaint: passing kidney stone, wed-revisit, not passing Time Seen by Provider: 12/17/20 20:24 History of Present Illness HPI Narrative: Patient is a 40-year-old male history of autism, orchectomy, BPH, diagnosed with a right 5 mm kidney stone own 3 days ago presenting today with increased pain and decreased urination. He has not had any fever or chills. He has not been taking ibuprofen causes upset stomach but he has been taking [place]. He feels nauseous at times but no vomiting. Pain continues to radiate from right flank to groin. states that she has been reading up on kidney stones concerned that the 5 mm stone may need intervention. He does have a urologist Dr. Singh given unable to get in touch with him her make an appointment. He has been drinking least 12 glasses of water daily. Related Data Home Medications Medication Instructions Recorded Confirmed cetirizine 10 mg capsule (Zyrtec) 10 mg PO DAILY 11/20/19 04/04/20 cyclobenzaprine 10 mg tablet 10 mg PO BEDTIME 11/20/19 04/04/20 gabapentin 300 mg capsule 300 mg PO DAILY 11/20/19 04/04/20 azelastine 137 mcg (0.1 %) nasal 1 spray INTRANASAL BID 04/04/20 04/04/20 spray aerosol cyanocobalamin-methylcobalamin 600 tab SUBLINGUAL 04/04/20 04/04/20 mcg-600 mcg sublingual tablet methylated foate PO 04/04/20 metoprolol succinate 25 mg 25 mg PO DAILY 04/04/20 04/04/20 tablet,extended release 24 hr omeprazole 20 mg capsule,delayed 20 mg PO BID 04/04/20 04/04/20 release quetiapine 25 mg tablet (Seroquel) 75 mg PO BEDTIME tab 04/04/20 04/04/20 rosuvastatin 5 mg tablet (Crestor) 5 mg PO DAILY 04/04/20 04/04/20 sertraline 50 mg tablet (Zoloft) 150 mg PO DAILY tab 04/04/20 04/04/20 tamsulosin 0.4 mg capsule 0.4 mg PO DAILY 04/04/20 04/04/20 topiramate 100 mg capsule 100 mg PO DAILY 04/04/20 04/04/20 sprinkle,extended release 24 hr Previous Rx's Medication Instructions Recorded hydrocodone 5 mg-acetaminophen 325 1 tab PO Q4-6H PRN #10 tab 12/15/20 mg tablet hydrocodone 5 mg-acetaminophen 325 1 tab PO Q6H PRN #10 tab 12/17/20 mg tablet sulfamethoxazole 800 1 tab PO BID 7 Days #14 tab 12/17/20 mg-trimethoprim 160 mg tablet (Bactrim DS) Allergies Allergy/AdvReac Type Severity Reaction Status Date / Time No Known Drug Allergies Allergy Unverified 12/29/19 16:05 Review of Systems Review of Systems Narrative: GENERAL: Denies chills, fatigue, malaise, fever, sweats, travel HEENT: Denies sinus pain, ear pain, sore throat, difficulty swallowing, neck pain RESPIRATORY: Denies dyspnea, cough, wheezing, hemoptysis, sputum. CARDIOVASCULAR: Denies chest pain, palpitations, orthopnea, edema GASTROINTESTINAL: Denies nausea, vomiting, abdominal pain, diarrhea, constipation, melena. : See HPI MUSCULOSKELETAL: Denies weakness, joint pain, or bony pain SKIN: No rash, no erythema, no pruritus NEUROLOGIC: Denies weakness, dizziness, headache, numbness, change in speech, confusion PSYCHIATRIC: No concerning psychosocial issues. 12 point review of systems is negative except for those stated above and HPI Patient History Medical History BPH (benign prostatic hyperplasia) BPH w urinary obs/LUTS Depression GERD (gastroesophageal reflux disease) High blood pressure Lower urinary tract symptoms (LUTS) Lower urinary tract symptoms (LUTS) Migraine headache Seizure disorder Surgical History H/O cystoscopy H/O hernia repair H/O vasectomy History of orchiectomy Social History Smoking Status: Former smoker Smoking Status: Former smoker alcohol intake frequency: holidays/special occasions only Substance Use Type: does not use Exam Initial Vital Signs Initial Vital Signs: Vital Signs Temperature 97.4 F L 12/17/20 19:48 Pulse Rate 87 12/17/20 19:48 Respiratory Rate 16 12/17/20 19:48 Blood Pressure 154/89 H 12/17/20 19:48 Pulse Oximetry 96 12/17/20 19:48 GENERAL: Alert well-appearing 40-year-old male HEENT: Head atraumatic,EOMI, pupils reactive, face symmetric, moist mucous membranes CARDIOVASCULAR: Regular rate and rhythm without murmurs, rubs or gallops. RESPIRATORY: Breath sounds equal bilaterally, no wheezes rales or rhonchi. ABDOMEN: Soft, nontender. Normoactive bowel sounds all 4 quadrants. No guarding or rebound. : Mild right CVA tenderness EXTREMITIES: Normal range of motion, no clubbing or edema. Neurovascularly intact NEUROLOGICAL: Alert and oriented x4.Normal gait and speech. SKIN: Warm, dry, no laceration, no petechiae, no rashes or lesions. Course Orders Ordered: ED Orders 12/17/20 20:00 Urine Microscopic Stat 12/17/20 20:35 Complete Blood Count AUTO DIFF Stat Comprehensive Metabolic Panel Stat Discontinued Medications Sodium Chloride (Normal Saline 0.9%) 1,000 mls @ 1,000 mls/hr IV BOLUS ONE Stop: 12/17/20 21:34 Last Infusion: 12/17/20 21:59 Dose: 0 mls/hr Documented by: Admin: 12/17/20 20:59 Dose: 1,000 mls/hr Documented by: RICK Ketorolac Tromethamine (Ketorolac 30 Mg/Ml Vial) 15 mg IV NOW ONE Stop: 12/17/20 20:36 Last Admin: 12/17/20 20:58 Dose: 15 mg Documented by: RICK Trimethoprim/Sulfamethoxazole (Trimeth/Sulfa 160/800 Prepack) 1 bottle MISC SEEINSTR ONE Stop: 12/17/20 21:59 Last Admin: 12/17/20 22:09 Dose: Not Given Documented by: CHRISTOS Vital Signs Vital signs: Vital Signs - 8 hr 12/17/20 19:48 12/17/20 22:07 Temperature 97.4 F L Pulse Rate 87 68 Respiratory Rate 16 16 Blood Pressure 154/89 H 127/79 Pulse Oximetry 96 97 MDM - Male Genitourinary Lab Data Result diagrams: 12/17/20 20:35 12/17/20 20:35 Labs: Lab Results 12/17/20 12/17/20 12/17/20 Range/Units 20:00 20:35 20:35 WBC 6.6 (4.5-11.0) X10^3/uL RBC 5.04 (4.5-5.9) X10^6/uL Hgb 13.6 (13.5-17.5) g/dL Hct 41.0 (41-53) % MCV 81.3 (80-100) fL MCH 27.0 (26-34) PG MCHC 33.2 (30-36) % RDW 13.4 (11.6-14.8) % Plt Count 271 (150-400) X10^3/uL Neut % (Auto) 60.3 (50-75) % Lymph % (Auto) 24.5 L (25-40) % [place] % (Auto) 13.0 (3-14) % Eos % (Auto) 1.6 L (2-4) % Baso % (Auto) 0.6 (0-2) % Neut # (Auto) 4000 (4524-1040) /uL Lymph # (Auto) 1600 (8907-7823) /uL [place] # (Auto) 900 (0-900) /uL Eos # (Auto) 100 (0-450) /uL Baso # (Auto) 0 (0-100) /uL Sodium 138 (137-145) mmol/L Potassium 3.5 (3.4-5.1) mmol/L Chloride 106 (98-107) mmol/L Carbon Dioxide 22 (22-32) mmol/L BUN 12 (9-20) mg/dL Creatinine 1.63 H (0.66-1.25) mg/dL Estimated GFR 46.6 L (>60) mL/min BUN/Creatinine Ratio 7.4 (6-22) Glucose 106 H (70-100) mg/dL Calcium 8.8 (8.4-10.2) mg/dL Total Bilirubin 0.3 (0.2-1.3) mg/dL AST 31 (17-59) IU/L ALT 36 (<50) IU/L Alkaline Phosphatase 62 (38-126) U/L Total Protein 7.1 (6.3-8.2) g/dL Albumin 4.1 (3.5-5.0) g/dL Globulin 3.0 (1.7-4.1) g/dL Albumin/Globulin Ratio 1.4 (1.0-2.8) Urine RBC 1-5/hpf (0-5/HPF) Urine WBC 0-1/hpf (0-5/HPF) Urine Bacteria Few (2-10) H (None) Ur Culture Indicated? Cult not indicated Urine Dip Bedside Urine Glucose Negative Bedside Urine Bilirubin - Negative Bedside Urine Ketone - Negative Urine Specific [place] 1.010 Bedside Urine Occult Blood + Bedside Urine pH 7 Bedside Urine Protein - Negative Bedside Urine Urobilinogen - Negative Bedside Urine Nitrite - Negative Bedside Urine Leukocytes - Negative Esterase MDM Narrative Medical decision making narrative: Patient has a known 5 mm stone pain is much better after Toradol. He does have slightly increased creatinine today of 1.63 previously was 1.0. He does have bacteria in his urine today will start him on some antibiotic he overall is not septic. He is needing more pain medications. He has not able to take lots of NSAIDs due to upset stomach. At this time discussed with patient and patient's need for follow-up with Urology. Patient should pass stone without intervention. He is also already taking tamsulosin. All questions have been addressed. Discharge Plan Departure Patient Disposition: Home Clinical Impression: Kidney stones, Acute UTI Instructions: DI for Urinary Tract Infection (UTI) Activity Restrictions/Additional Instructions: *You have been diagnosed with bladder infection, right-sided kidney stone *What to do: At this time you do have slightly increased in your knee function. Please be sure to increase fluid intake. Will start you on antibiotics. Please continue to take cannula listen. *Continue to take medications as directed 1 tablet twice a day for 7 days [place] 1 tablet every 6 hours needed for severe pain *Follow up with your primary care provider in 2-3 days *Return to ER if you should have increasing pain, fever, persistent vomiting, inability to tolerate fluids or any new, worsening or concerning symptoms CONTROLLED SUBSTANCE DISCHARGE (Narcotoic/benzodiazepine/Flexeril/Phenergan) 1. You have been prescribed narcotic medications, it does have acetaminophen/Tylenol/paracetamol in it, DO NOT TAKE MORE THAN 4,00mg in 24 hours of Tylenol. TRAMADOL DOES NOT CONTAIN TYLENOL 2. Please understand that we cannot provide further refills of narcotics, benzodiazepines or controlled substances through the ED and her pain management will need to be through your provider. 3. While on these medications you cannot drive or operate heavy machinery. 4. You cannot sign legal documents or perform any duties such as this. 5. As long as you're taking opiate pain medications he should also be taking a stool softener such as Colace, Dulcolax, MiraLAX or prune juice, to help avoid constipation. Prescriptions: New hydrocodone-acetaminophen 5-325 mg tablet 1 tab PO Q6H PRN (Reason: pain) Qty: 10 RF: 0 sulfamethoxazole-trimethoprim [Bactrim DS] 800-160 mg tablet 1 tab PO BID 7 Days Qty: 14 RF: 0 No Action gabapentin 300 mg capsule 300 mg PO DAILY RF: 0 cyclobenzaprine 10 mg tablet 10 mg PO BEDTIME RF: 0 Zyrtec 10 mg capsule 10 mg PO DAILY RF: 0 sertraline [Zoloft] 50 mg tablet 150 mg PO DAILY RF: 0 hydrocodone-acetaminophen 5-325 mg tablet 1 tab PO Q4-6H PRN (Reason: pain) Qty: 10 RF: 0 topiramate 100 mg capsule,sprinkle,ER 24hr 100 mg PO DAILY RF: 0 tamsulosin 0.4 mg capsule 0.4 mg PO DAILY RF: 0 azelastine 137 mcg (0.1 %) aerosol,spray 1 spray intranasal BID RF: 0 quetiapine [Seroquel] 25 mg tablet 75 mg PO BEDTIME RF: 0 rosuvastatin [Crestor] 5 mg tablet 5 mg PO DAILY RF: 0 metoprolol succinate 25 mg tablet extended release 24 hr 25 mg PO DAILY RF: 0 omeprazole 20 mg capsule,delayed release(DR/EC) 20 mg PO BID RF: 0 cyanocobalamin-methylcobalamin 600-600 mcg tablet, sublingual sublingual RF: 0 methylated foate PO RF: 0 Referrals: Robyn Singh MD [Physician] - Elisha Mello DO [Primary Care Provider] -
[2020-12-17 20:35] LABS: Bacteria Urine Few (2-10); Culture Indicated Urine Cult Not Indicated; RBC Urine 1-5/HPF (0-5/HPF); WBC Urine 0-1/HPF (0-5/HPF)
[2020-12-17 20:46] LABS: Add Manual Diff / Slide Review NO; Basophils Absolute Auto 0 /uL (0-100); Basophils Percent Auto 0.6 % (0-2); Eosinophils Absolute Auto 100 /uL (0-450); Eosinophils Percent Auto 1.6 % (2-4); Hemoglobin 13.6 g/dL (13.5-17.5); Lymphocytes Absolute Auto 1600 /uL (1100-4500); Lymphocytes Percent Auto 24.5 % (25-40); Mean Corpuscular HGB Conc 33.2 % (30-36); Mean Corpuscular Volume 81.3 fL (80-100); Monocytes Absolute Auto 900 /uL (0-900); Neutrophils Absolute Auto 4000 /uL (1500-7000); Neutrophils Percent Auto 60.3 % (50-75); Platelet Count 271 X10^3/uL (150-400); Red Blood Cell Count 5.04 X10^6/uL (4.5-5.9); Red Cell Distribution Width 13.4 % (11.6-14.8); White Blood Cell Count 6.6 X10^3/uL (4.5-11.0)
[2020-12-17 20:56] LABS: Alanine Aminotransferase 36 IU/L (<50); Albumin 4.1 g/dL (3.5-5.0); Albumin Globulin Ratio 1.4 (1.0-2.8); Alkaline Phosphatase 62 U/L (38-126); Aspartate Aminotransferase 31 IU/L (17-59); BUN Creatinine Ratio 7.4 (6-22); Bilirubin Total 0.3 mg/dL (0.2-1.3); Blood Urea Nitrogen 12 mg/dL (9-20); Calcium 8.8 mg/dL (8.4-10.2); Carbon Dioxide 22 mmol/L (22-32); Chloride 106 mmol/L (98-107); Estimated Glomerular Filt Rate 46.6 mL/min (>60); Glucose 106 mg/dL (70-100); HEMOLYSIS < 15 (0-50); Potassium 3.5 mmol/L (3.4-5.1); Sodium 138 mmol/L (137-145); Total Protein 7.1 g/dL (6.3-8.2)
[2020-12-17] MEDS: KETOROLAC 30 MG/ML VIAL 15 MG IV (20:58)
[2020-12-17] MEDS: ONDANSETRON 4 MG/2 ML INJ (20:58)
[2020-12-17] MEDS: SODIUM CHLORIDE 0.9% 1,000 ML 1000 ML IV (20:59)
[2020-12-17 22:07] VITALS: BP 127/79; PULSE 68; RESP 16; O2SAT 97
== END 2020-12-17 22:09 | disposition home or self-care (01) ==
PROVIDERS: Emergency Provider Emergency Medicine; PCP Family Medicine
DX: N20.0 Calculus of kidney (principal); N39.0 Urinary tract infection, site not specified; R11.0 Nausea
CPT/HCPCS: 36415; 51798; 80053; 81003; 81015; 85025; 96361; 96374; 96375; 99284; J1885; J2405

== ENCOUNTER → 2020-12-20 09:56 | Outpatient (CLI) | payer OTHER, SELFPAY ==
--- NOTE | 2020-12-20 09:57 | DI.RAD.S_ITS ---
PROCEDURE: XR KUB INDICATIONS: Kidney stone TECHNIQUE: One view of the abdomen acquired. COMPARISON: [facility], CT, CT ABDOMEN PELVIS W CON, 12/14/2020, 23:22. FINDINGS: Surgical changes and devices: None. Bowel: Moderate stool burden in the ascending colon. Soft tissues: No suspicious abdominal calcifications. Visualized solid organ contours appear normal in size. Bones: No suspicious bony lesions. IMPRESSION: No significant abnormality. Dictated by: Kain Bush M.D. on 12/20/2020 at 10:30 Approved by: Kain Bush M.D. on 12/20/2020 at 10:35
== END ==
PROVIDERS: PCP Family Medicine; Referring Provider Urology; Visit Provider Urology
DX: N20.1 Calculus of ureter (principal); N20.0 Calculus of kidney; N39.9 Disorder of urinary system, unspecified
CPT/HCPCS: 74018; 81002; 99214

== ENCOUNTER → 2020-12-28 09:04 | Outpatient (CLI) | payer OTHER, SELFPAY ==
[2020-12-28 11:51] LABS: COVID19 -Nasal RAPID Negative (Negative)
== END ==
PROVIDERS: PCP Family Medicine; Visit Provider Physician Assistant
DX: Z20.822 Contact with and (suspected) exposure to COVID-19 (principal)
CPT/HCPCS: 87635

== ENCOUNTER 2020-12-28 14:50 | Day surgery (SDC) | payer OTHER, SELFPAY ==
[2020-12-28] VITALS (9 sets, daily range): BP systolic 132–160; BP diastolic 96–109; PULSE 71–85; RESP 12–20; TEMP 36.1–36.4; O2SAT 93–100; BMI 30.5
--- NOTE | 2020-12-28 | DI.RAD.S_ITS ---
PROCEDURE: XR ABDOMEN 1V INDICATIONS: RIGHT URETER STENT TECHNIQUE: One view of the abdomen acquired. COMPARISON: [facility], CT, CT ABDOMEN PELVIS W CON, 12/14/2020, 23:22. [facility], CR, XR KUB, 12/20/2020, 10:09. FINDINGS: Intraoperative fluoroscopic support for right ureteral stent placement. Proximal segment of a right ureteral stent is visualized. It appears to be within the right renal pelvis. Contrast opacifies a mildly dilated right upper renal collecting system. IMPRESSION: Intraoperative fluoroscopic support for right ureter stent placement. Catheter appears to be appropriately position. Mild right hydronephrosis. Please see urology report for further details. Dictated by: Vik Nj M.D. on 12/28/2020 at 17:28 Approved by: Vik Nj M.D. on 12/28/2020 at 17:30
[2020-12-28] MEDS: LACTATED RINGERS 1,000 ML 42 ML IV (15:22)
[2020-12-28] MEDS: CEFAZOLIN 1 GM VIAL 2 GM IV (16:15)
--- NOTE | 2020-12-28 16:20 | SUR.OPER ---
Lithotomy on padded OR bed, head on pillow, arms secured on padded arm boards at <90 degrees abduction. Legs secured in padded yellow fins stirrups.
[2020-12-28] MEDS: IOPAMIDOL 15 ML VIAL INJ ×3 (16:38→16:41)
--- NOTE | 2020-12-28 16:54 | PM.PREOP ---
Pre-operative Note Interval Note History & Physical reviewed/Exam performed by Physician: Yes Changes to H&P: No
--- NOTE | 2020-12-28 16:54 | PM.OP.1 ---
Operative Date/Time/Diagnoses Date of procedure: 12/28/20 Time of procedure: 16:54 Pre-op diagnosis: 1. 5 mm right ureteral calculus 2. Intractable right renal colic Post-op diagnosis: same Procedure & Clinicians Procedure: 1. Cystoscopy/right ureteroscopy. 2. Cystoscopy/right retrograde pyelogram. 3. Cystoscopy/placement right ureteral stent (6 Egyptian by 22-32 cm multi-length). Same procedure as scheduled: No (Index calculus not seen via rigid ureteroscopy to mid right ureter.) Indications: 1. 5 mm right ureteral calculus. 2. Intractable right renal colic. Surgeon: Robyn Singh Click Yes if Unassisted: Yes Anesthesia Type: General Operative Notes Findings: 1. Urethra-normal caliber without annular stricture or lesion. 2. External sphincter-coapted with normal overlying urothelium. 3. A prostate 4 cm length with moderate obstructing lateral lobe hyperplasia and elevated median bar. 4. Bladder-1+ trabeculation. Normal ureteral orifices bilateral. No evidence of stone, blood, or debris dependently in the bladder floor. The right ureteral orifice had no evidence of edema or erythema. No stone was seen . 5. The right distal ureter up to the level of L3-L4 showed no evidence of stone, o'clock, urothelial disruption or edema. Right retrograde pyelogram performed from this level through the semi rigid ureteral scope failed to demonstrate evidence of a filling defect or obstruction. There was mild calyceal dilation. Closure Type: not applicable Specimen(s): none sent Applied: other (See 6 Egyptian by 22-32 cm multi-length stent) Estimated Blood Loss (mL): 0 Blood products transfused: none Procedure in detail: The patient was positioned supine and administered general anesthesia. He was then repositioned semi lithotomy and the lower abdomen, genitalia, and groin were then prepped and draped in sterile fashion. The 22 Egyptian panendoscope was then passed lower urinary tract with the findings as described above. A 0.35 hybrid guidewire was then selected and advanced through the scope and into the right upper collecting system under direct and fluoroscopic guidance. Next a 15 Egyptian by 6 cm balloon dilating catheter was advanced over the hybrid guidewire and positioned across the right vesicoureteral junction. The balloon was then inflated to 18 atmospheres and held in position for 5 minutes. The balloon was then deflated and backloaded off the wire. The panendoscope was backloaded off the wire. The wire was secured to the drape. Next, the semi rigid ureteral scope was prepared and advanced into the lower urinary tract under direct visualization and then advanced into the right ureteral orifice and more proximally with the findings as described above. Due to the above-described intraoperative findings a retrograde pyelogram was then performed x2 using gentle 10 cc installation of undiluted contrast each time. Findings as described above. The semi-rigid ureteroscope was then backloaded and removed. The guidewire was then front loaded into the panendoscope in the panendoscope was then advanced proximally back into the bladder proper. Six Egyptian by 22-32 cm multi-length stent was then selected and advanced over the guidewire under direct and fluoroscopic guidance. A RETRIEVAL LINE WAS LEFT ATTACHED. The bladder was then drained completely and all instrumentation was removed final time. The patient was then repositioned in supine, was awakened, transferred to [place], and transferred to PACU in stable condition. Complications: none Post-operative Condition: stable Disposition: PACU Plan for aftercare: Discharge home
== END 2020-12-28 17:59 | disposition home or self-care (01) ==
PROVIDERS: PCP Family Medicine; Referring Provider Specialist; Visit Provider Specialist
PROC: 0TF68ZZ Fragmentation in Right Ureter, Via Natural or Artificial Opening Endoscopic (ICD-10-PCS; CPT 52353; principal; 2020-12-28 17:15)
DX: N23 Unspecified renal colic (principal); N20.1 Calculus of ureter; K21.9 Gastro-esophageal reflux disease without esophagitis; I10 Essential (primary) hypertension; N40.1 Benign prostatic hyperplasia with lower urinary tract symptoms; N13.8 Other obstructive and reflux uropathy; R39.9 Unspecified symptoms and signs involving the genitourinary system; Z20.822 Contact with and (suspected) exposure to COVID-19
CPT/HCPCS: 52332; 74018; 76000; 87635; 99215; J0690; J1100; J2405; J2704; J3010

== ENCOUNTER → 2021-01-02 14:40 | Outpatient (CLI) | payer OTHER, SELFPAY ==
--- NOTE | 2021-01-02 14:40 | DI.CT.S_ITS ---
PROCEDURE: CT KIDNEY URETER BLADDER (KUB) INDICATIONS: Kidney stone TECHNIQUE: Axial sections were acquired from the lung bases to the pubic symphysis. Coronal and sagittal reformats were performed. For radiation dose reduction, the following was used: automated exposure control, adjustment of mA and/or kV according to patient size. COMPARISON: [facility], CT, CT ABDOMEN PELVIS W CON, 12/14/2020, 23:22. FINDINGS: Image quality: Excellent. Lung bases: Unremarkable. Heart: No significant findings. URINARY: Right Kidney: No stones or hydronephrosis. Right Ureter: There has been interval placement of a right ureteral stent in good position. 5 mm calculus in the proximal right ureter is similar in position compared to the prior. Left Kidney: No stones or hydronephrosis. Left Ureter: No hydroureter. Bladder: Normal wall thickness. No stones. ABDOMEN: Liver: Unremarkable. Gallbladder: Unremarkable. Biliary ducts: Unremarkable. Pancreas: Unremarkable. Spleen: Unremarkable. Adrenal Glands: Unremarkable. Stomach and Bowel: Stomach, small bowel loops, and colon are unremarkable. Peritoneum: No abnormal intraperitoneal fluid. No free air. Ventral Wall: No hernia. Abdominal Nodes: No enlarged retroperitoneal or mesenteric lymph nodes. Vessels: Aorta and inferior vena cava are normal in size. PELVIS: Pelvic Organs: Unremarkable. Pelvic Nodes: Bilateral inguinal hernia contains fat without bowel involvement. Orchectomy changes noted. Bones: Unremarkable. IMPRESSION: 1. Right ureteral stent in good position. 5 mm proximal right ureteral calculus unchanged. No hydronephrosis. Approved by: Alexi Domínguez M.D. on 01/02/2021 at 15:43
== END ==
PROVIDERS: PCP Family Medicine; Referring Provider Specialist; Visit Provider Specialist
DX: N20.1 Calculus of ureter (principal); Z96.0 Presence of urogenital implants
CPT/HCPCS: 74176

== ENCOUNTER 2021-01-16 08:16 | Day surgery (SDC) | payer OTHER, SELFPAY ==
[2021-01-06 11:01] VITALS: BMI 31.3
[2021-01-16] VITALS (7 sets, daily range): BP systolic 121–142; BP diastolic 86–101; PULSE 75–89; RESP 12–16; TEMP 36–36.6; O2SAT 93–97; BMI 31.3
--- NOTE | 2021-01-16 11:19 | P.OP_ITS ---
Operative Date/Time/Diagnoses Date of procedure: 01/16/21 Time of procedure: 11:20 Pre-op diagnosis: Urinary retention Post-op diagnosis: same Procedure & Clinicians Procedure: 1. Simple open prostatectomy. Same procedure as scheduled: No (Diverticulum deemed small, no removal) Indications: 1. Urinary retention Surgeon: Robyn Singh Piped Pocket Machine Operator: Nino Akins Click Yes if Unassisted: No Anesthesia Type: General, Spinal and Local (1.33% Exparel) Operative Notes Findings: 1. Thickened bladder wall and cellules consistent with chronic bladder outlet obstruction. 2. Large intravesical median lobe and markedly large prostate adenoma. Closure Type: primary Specimen(s): other (Prostate adenoma) Applied: catheter ([address] hematuria catheter) and drain(s) (15 Macanese fenestrated drain) Estimated Blood Loss (mL): 600 Blood products transfused: none Tourniquet time (min): 0 Procedure in detail: The patient was positioned in supine following successful placement of Duramorph spinal anesthesia and was provided general anesthesia. Lower abdomen, genitalia, and groin were then prepped and draped in sterile fashion. A 22 Macanese Rogers catheter was then inserted lower urinary tract, the balloon filled, and approximately 4 cc of sterile saline were then instilled in the bladder and the out flow clamped temporarily. A midline infraumbilical incision was then made through the layers of the skin, subcutaneous fat, Thuy's fascia, and rectus fascia. Careful blunt dissection was then conducted to expose the anterior and lateral bladder wall. The midline bladder was then infiltrated with 0.5% Marcaine with epinephrine. A cystotomy was then conducted and the incision was extended the length of the anterior wal. The previously placed saline was suctioned from the bladder proper. Local anesthetic (0.5% Marcaine with epinephrine) was then used to infiltrate the bladder mucosa and muscular wall of the bladder neck. The ureteral orifices were identified bilaterally and were preserved. The cautery pen was then used to incise the bladder mucosa and superficial muscle of the bladder neck and the previously anesthetized area. Next a combination of sharp and blunt dissection were utilized to reach the appropriate plane between the prostate capsule and adenoma. Use of a 0 Vicryl suture for traction was utilized to facilitate visualization and retraction of the prostate from the prostate fossa. Eventually the prostatic apex was cleared of attachments and the urethra was transected just distal to the site. The prostate with a test intravesical medi an lobe was then handed off the field intact and submitted for routine gross and microscopic examination. The prostatic fossa was then packed with lap sponges for 5-10 minutes there were then removed and interrupted [id number] 2-0 Monocryl placed where necessary at the bladder neck for hemostasis. The main locations were anteriorly at 12:00 p.m., at 5:00 a.m., and 7:00 a.m.. Ureteral orifices were preserved, preserved, and were witnessed to a productive efflux of clear straw-colored urine. Additional hemostasis within the prostatic fossa was conducted with interrupted [id number] 2-0 Monocryl. A [address] Rogers catheter was then passed no lower urinary tract and positioned within the bladder without the balloon filled. A 2 layer, inner mucosal muscular, and outer seromuscular closure was performed using a Lembert technique. The Rogers balloon was then filled to 45 cc. The bladder was then irrigated vigorously with return of light pink colored irrigant. There was no evidence of active bleeding or clot. Next, a 15 Macanese fenestrated Law drain was positioned in the space of Retzius and brought out through a separate stab incision to the right of midline incision. The drain was secured to the skin using a Karl sandals technique of 2-0 silk. The midline rectus fascia was then closed with running 0 PDS beginning at the inferior, and then the superior apex and time 1 another together at approximately the midpoint of the incision. The subcutaneous Thuy's fascia was then reapproximated with running 3-0 Monocryl. The skin was reapproximated using a running 4-0 Monocryl with a subcuticular technique. Next, Telfa was selected and tailored to overlap the incision line and also a piece was tailored to created drain sponge at the drain exit site. Entire area was then covered with a bio occlusive Op site. The three-way catheter outflow was attached to gravity drainage in the inflow was attached to sterile normal saline CBI. The patient was then awakened, transferred to a gurney, transported to recovery in stable condition. Complications: none Post-operative Condition: stable Plan for aftercare: Admit to acute care.
--- NOTE | 2021-01-16 11:19 | PM.PREOP ---
Pre-operative Note Interval Note History & Physical reviewed/Exam performed by Physician: Yes Changes to H&P: No
--- NOTE | 2021-01-16 11:30 | PM.OP.1 ---
Operative Date/Time/Diagnoses Date of procedure: 01/16/21 Time of procedure: 11:30 Pre-op diagnosis: 5 mm obstructing right proximal ureteral calculus Retained right ureteral stent Procedure & Clinicians Procedure: 1. Cystoscopy/right ureteroscopic laser lithotripsy. 2. Cystoscopy/right ureteral stent exchange. Same procedure as scheduled: Yes Indications: 1. Obstructing 5 mm right proximal ureteral calculus. 2. Retained right ureteral stent. Surgeon: Robyn Singh Click Yes if Unassisted: Yes Anesthesia Type: General Operative Notes Findings: 1. Urethra-normal caliber without annular stricture or lesion. 2. External sphincter-coapted with normal overlying urothelium. 3. Vhzwdtho-6-1.5 cm length with mild lateral lobe hyperplasia. 4. Bladder-trace trabeculation. Normal left ureteral orifice. There is an intact indwelling right ureteral stent with emanating from the right ureteral orifice. With surrounding edema and erythema. 5. Right ureter-index calculus encountered in very close proximity to location to location seen in preoperative imaging. Closure Type: not applicable Specimen(s): none sent Applied: other (Seven Tuvaluan by 22-32 cm multi-length ureteral stent.) Estimated Blood Loss (mL): 0 Blood products transfused: none Procedure in detail: Patient was positions supine was administered general anesthesia. He was then repositioned semi lithotomy and the lower abdomen, genitalia, and groin were then prepped and draped in sterile fashion. The 22 Tuvaluan panendoscope was then passed lower urinary track with findings as described above. Foreign body grasper was then utilized to engage the distal end of the indwelling ureteral stent and upon withdrawal the scope the distal end of the stent was brought be on the distal urethral meatus. A 0.35 hybrid guidewire was then advanced through the lumen of the indwelling stent and advanced proximally under direct fluoroscopic guidance. There with retained indwelling stent was then backloaded off the wire and discarded. Next, a dual lumen ureteral access sheath was advanced over the the guidewire and advanced proximally under fluoroscopic guidance. A 2nd 0.35 hybrid wire was then selected advanced through the accessory lumen and this too was advanced proximally under fluoroscopic guidance. The dual lumen ureteral access sheath was then backloaded off both wires. One wire was then secured to the operative drape. The flexible ureteral scope was then advanced over the remaining hybrid guidewire was advanced proximally under fluoroscopic guidance. This wire was then backloaded out of the scope. Careful inspection of the upper track was then undertaken and the stone was encountered. A 200 micron laser fiber was then selected. All operating room personnel and patient were fitted with laser safety eyewear. Laser lithotripsy was then commenced with excellent result in fragmentation of the index calculus. The sand, pummace common tiny fragments were then cleared from the ureteral lumen utilizing combination of mechanical and hydrostatic mechanisms. The flexible ureteroscope was then removed in its entirety. Next, the semi rigid ureteral scope was front loaded on the safety wire previously and secured to the operative drape. The scope was then advanced proximally into the bladder proper. Next, a 7 Tuvaluan by 22-32 cm multi-length stent was selected. This was advanced over the hybrid guidewire under direct and fluoroscopic guidance. A RETRIEVAL LINE was left attached. The bladder is then drained completely and all instrumentation was removed. The patient was then repositioned in supine, was awakened, then was transferred to a gurwesco awake and stable condition. He was then transferred to PACU in stable condition. Complications: none Post-operative Condition: stable Disposition: PACU Plan for aftercare: Discharge home.
[2021-01-16] MEDS: CEFAZOLIN 2 GM/20 ML SYRINGE IV (12:15)
--- NOTE | 2021-01-16 12:30 | SUR.OPER ---
Lithotomy on padded OR bed, head on pillow, arms secured on padded arm boards at <90 degrees abduction. Legs secured in padded yellow fins stirrups.
[2021-01-16] MEDS: BELLADONNA/OPIUM SUPPOSITORIES 1 EACH PR (12:44)
== END 2021-01-16 14:30 | disposition home or self-care (01) ==
PROVIDERS: PCP Family Medicine; Referring Provider Specialist; Visit Provider Specialist
PROC: 0TF68ZZ Fragmentation in Right Ureter, Via Natural or Artificial Opening Endoscopic (ICD-10-PCS; CPT 52353; principal; 2021-01-16 10:15)
DX: N20.1 Calculus of ureter (principal); N40.1 Benign prostatic hyperplasia with lower urinary tract symptoms; N13.8 Other obstructive and reflux uropathy; I10 Essential (primary) hypertension; K21.9 Gastro-esophageal reflux disease without esophagitis
CPT/HCPCS: 52356; 76000; J0690; J1100; J2250; J2704; J3010

== ENCOUNTER → 2021-04-03 11:39 | Outpatient (CLI) | payer OTHER, SELFPAY ==
--- NOTE | 2021-04-03 11:41 | DI.RAD.S_ITS ---
PROCEDURE: XR KUB INDICATIONS: possible ureteral calculus TECHNIQUE: One view of the abdomen acquired. COMPARISON: [facility], CT, CT KIDNEY URETER BLADDER (KUB), 01/02/2021, 14:51. [facility], CR, XR KUB, 12/20/2020, 10:09. FINDINGS: Surgical changes and devices: None. Bowel: Bowel gas pattern is normal. Soft tissues: No suspicious abdominal calcifications. No discrete radiopaque renal or ureteral stone identified. There are small calcifications redemonstrated in the pelvis consistent with phleboliths. Bones: No suspicious bony lesions. IMPRESSION: 1. No discrete radiopaque renal or ureteral stone identified. Dictated by: Salvador Stanford M.D. on 04/03/2021 at 16:04 Approved by: Salvador Stanford M.D. on 04/03/2021 at 16:06
[2021-04-03 14:02] LABS: Calcium 9.6 mg/dL (8.4-10.2); Uric Acid 5.6 mg/dL (3.5-8.5)
[2021-04-04 11:08] LABS: Parathyroid Hormone Int 46 pg/mL (15-65)
== END ==
PROVIDERS: PCP Family Medicine; Referring Provider Specialist; Visit Provider Specialist
DX: N40.1 Benign prostatic hyperplasia with lower urinary tract symptoms (principal); N13.8 Other obstructive and reflux uropathy; N20.1 Calculus of ureter
CPT/HCPCS: 36415; 74018; 82310; 83970; 84550

== ENCOUNTER 2021-04-09 13:21 | Emergency (ER) | payer OTHER, SELFPAY ==
[2021-04-09 13:28] VITALS: BP 119/74; PULSE 109; RESP 18; TEMP 36.9; O2SAT 100
[2021-04-09 13:30] VITALS: BP 119/74
--- NOTE | 2021-04-09 13:56 | ED_ITS ---
HPI - Abdominal Pain <FARHANA Zavala - Last Filed: 04/09/21 16:30> General Chief Complaint: Abdominal Pain Stated Complaint: Kidney Stone Time Seen by Provider: 04/09/21 13:31 Source: patient Mode of arrival: Ambulatory History of Present Illness HPI narrative: 40-year-old man with history of nephrolithiasis, autism, hematuria and urinary retention at baseline who presents to the emergency department with chief complaint of right flank pain and left lower quadrant pain. Patient states that he recently had a right ureteral stent for obstructive uropathy and colitis, he had a colonoscopy showed diverticulosis without diverticulitis and this was proximally 1 month ago. Patient sees Dr. Singh from Urology and recently had a KUB on 03/24/2021 which did not show any stone. Patient comes in today for ongoing pain and concern for stone. He has hematuria at baseline, he denies dysuria, denies vomiting or diarrhea but states nausea. He denies any fever, he denies any trauma, he denies any chills, dizziness, weakness. Related Data Home Medications Medication Instructions Recorded Confirmed cetirizine 10 mg capsule (Zyrtec) 10 mg PO DAILY 11/20/19 04/04/21 gabapentin 300 mg capsule 300 mg PO DAILY 11/20/19 04/04/21 azelastine 137 mcg (0.1 %) nasal 1 spray INTRANASAL BID 04/04/20 04/04/21 spray aerosol cyanocobalamin-methylcobalamin 600 tab SUBLINGUAL 04/04/20 04/04/21 mcg-600 mcg sublingual tablet methylated foate PO 04/04/20 04/04/21 omeprazole 20 mg capsule,delayed 20 mg PO BID 04/04/20 04/04/21 release quetiapine 25 mg tablet (Seroquel) 75 mg PO BEDTIME tab 04/04/20 04/04/21 rosuvastatin 5 mg tablet (Crestor) 5 mg PO DAILY 04/04/20 04/04/21 sertraline 50 mg tablet (Zoloft) 150 mg PO DAILY tab 04/04/20 04/04/21 tamsulosin 0.4 mg capsule 0.4 mg PO DAILY 04/04/20 04/04/21 topiramate 100 mg capsule 100 mg PO DAILY 04/04/20 04/04/21 sprinkle,extended release 24 hr Previous Rx's Medication Instructions Recorded tramadol 100 mg tablet 100 mg PO Q6H PRN #30 tab 01/16/21 tramadol 50 mg tablet 50 mg PO Q6H PRN #30 tab 01/16/21 potassium citrate 10 mEq (1,080 10 meq PO TID #270 tab 04/04/21 mg) tablet,extended release Allergies Allergy/AdvReac Type Severity Reaction Status Date / Time No Known Drug Allergies Allergy Verified 04/04/21 13:44 Review of Systems <FARHANA Zavala - Last Filed: 04/09/21 16:30> Review of Systems Narrative: General: denies fever, chills, malaise, sweats, fatigue Head/Neck: denies headache, neck pain, dizziness Eyes: denies visual changes, eye pain Cardio: denies chest pain, palpitations, edema Respiratory: denies dyspnea, cough, orthopnea GI: Endorses left lower quadrant pain, left and right flank pain,nausea without vomiting, denies any diarrhea : denies dysuria, +hematuria, he endorses urinary retention at baseline and frequency with dribbling but no incontinence. Patient states this is not a change from his baseline. MSK: denies joint pain, muscle weakness Skin: denies rash, itching, skin lesions or other Neuro: denies numbness, tingling Patient History <FARHANA Zavala - Last Filed: 04/09/21 16:30> Medical History Anxiety Autism BPH (benign prostatic hyperplasia) BPH w urinary obs/LUTS Colitis Colon polyps Depression GERD (gastroesophageal reflux disease) High blood pressure History of nephrolithiasis Lower urinary tract symptoms (LUTS) Lower urinary tract symptoms (LUTS) Migraine headache Right ureteral calculus Seizure disorder TBI (traumatic brain injury) (2013) Surgical History H/O cystoscopy H/O hernia repair H/O vasectomy History of orchiectomy (2017) Hx of adenoidectomy Social History household members: spouse Smoking Status: Former smoker alcohol intake: current Smoking Status: Former smoker alcohol intake frequency: holidays/special occasions only Substance Use Type: does not use Exam <FARHANA Zavala - Last Filed: 04/09/21 16:30> Narrative Exam Narrative: Independently reviewed vitals signs and nursing notes. General: Cooperative, comfortable, in no acute distress, well developed and well groomed Head/Neck: Normal visual inspection and supple, atraumatic, no JVD or lymphadenopathy. Normal facial exam Eyes: Pupils equal round and reactive, EOMI, conjunctiva normal, no scleral icterus or injections Nose: External nose normal, nares patent, no rhinorrhea, without purulent drainage Mouth/Throat: uvula midline, moist mucus membranes Cardio: Regular rate and rhythm, no peripheral edema, warm extremities Respiratory: Normal respiratory effort, able to speak in complete sentences without audible wheezing, stridor, or rales. No retractions. GI: Abdomen soft, mild tenderness to lower left quadrant with palpation, no tenderness to other quadrants of abdomen, nondistended, no masses or exquisite tenderness with exam, left-sided CVA tenderness with palpation, no right CVA tenderness MSK: Moves all extremities, neurovascularly intact Skin: Normal capillary refill, no rash Neuro: Normal speech and cognition, normal gait, A&O x3, tone normal, moves all extremities Psych: Mental status is grossly normal, speech is clear, congruent mood, normal affect Initial Vital Signs Initial Vital Signs: Vital Signs Temperature 98.4 F 04/09/21 13:28 Pulse Rate 109 H 04/09/21 13:28 Respiratory Rate 18 04/09/21 13:28 Blood Pressure 119/74 04/09/21 13:28 Pulse Oximetry 100 04/09/21 13:28 Course <FARHANA Zavala - Last Filed: 04/09/21 16:30> Orders Ordered: ED Orders 04/09/21 13:35 UA Complete [Urinalysis and Microscopic] Stat 04/09/21 13:43 Complete Blood Count AUTO DIFF Stat Comprehensive Metabolic Panel Stat Lipase Stat 04/09/21 13:57 CT kidney ureter bladder (KUB) Stat Discontinued Medications Sodium Chloride (Normal Saline 0.9%) 1,000 mls @ 1,000 mls/hr IV BOLUS ONE Stop: 04/09/21 14:35 Last Infusion: 04/09/21 15:00 Dose: 0 mls/hr Documented by: Admin: 04/09/21 14:21 Dose: 1,000 mls/hr Documented by: KATHERIN Ketorolac Tromethamine (Ketorolac 30 Mg/Ml Vial) 15 mg IV NOW ONE Stop: 04/09/21 13:33 Last Admin: 04/09/21 14:18 Dose: 15 mg Documented by: KATHERIN Vital Signs Vital signs: Vital Signs - 8 hr 04/09/21 13:28 04/09/21 13:30 04/09/21 15:00 Temperature 98.4 F 97.8 F Pulse Rate 109 H 87 Respiratory Rate 18 18 Blood Pressure 119/74 119/74 138/64 Pulse Oximetry 100 96 MDM - Abdominal Pain <FARHANA Zavala - Last Filed: 04/09/21 16:30> Lab Data Result diagrams: 04/09/21 13:43 04/09/21 13:43 Labs: Lab Results 04/09/21 04/09/21 04/09/21 Range/Units 13:35 13:43 13:43 WBC 4.4 L (4.5-11.0) X10^3/uL RBC 5.22 (4.5-5.9) X10^6/uL Hgb 14.4 (13.5-17.5) g/dL Hct 42.3 (41-53) % MCV 81.1 (80-100) fL MCH 27.7 (26-34) PG MCHC 34.1 (30-36) % RDW 16.0 H (11.6-14.8) % Plt Count 223 (150-400) X10^3/uL Neut % (Auto) 53.1 (50-75) % Lymph % (Auto) 37.2 (25-40) % [place] % (Auto) 6.7 (3-14) % Eos % (Auto) 2.7 (2-4) % Baso % (Auto) 0.3 (0-2) % Neut # (Auto) 2300 (0831-3298) /uL Lymph # (Auto) 1600 (4064-0461) /uL [place] # (Auto) 300 (0-900) /uL Eos # (Auto) 100 (0-450) /uL Baso # (Auto) 0 (0-100) /uL Sodium 139 (137-145) mmol/L Potassium 3.5 (3.4-5.1) mmol/L Chloride 107 (98-107) mmol/L Carbon Dioxide 26 (22-32) mmol/L BUN 11 (9-20) mg/dL Creatinine 0.99 (0.66-1.25) mg/dL Estimated GFR > 60.0 (>60) mL/min BUN/Creatinine Ratio 11.1 (6-22) Glucose 143 H (70-100) mg/dL Calcium 9.1 (8.4-10.2) mg/dL Total Bilirubin 0.5 (0.2-1.3) mg/dL AST 30 (17-59) IU/L ALT 29 (<50) IU/L Alkaline Phosphatase 71 (38-126) U/L Total Protein 7.6 (6.3-8.2) g/dL Albumin 4.6 (3.5-5.0) g/dL Globulin 3.0 (1.7-4.1) g/dL Albumin/Globulin Ratio 1.5 (1.0-2.8) Lipase 60 (23-300) U/L Urine Color Yellow Urine Appearance Clear Urine pH 5.0 (4.5-8.0) Ur Specific Driver 1.020 (1.000-1.035) Urine Protein Negative (Negative) Urine Glucose (UA) Negative (Negative) g/dL Urine Ketones Negative (NEGATIVE) Urine Occult Blood 2+ H (Negative) Urine Nitrate Negative (Negative) Urine Bilirubin Negative (NEGATIVE) Urine Urobilinogen 0.2 (0.2) E.U./dL Ur Leukocyte Esterase Negative (NEGATIVE) Urine RBC 1-5/hpf (0-5/HPF) Urine WBC 0-1/hpf (0-5/HPF) Ur Squamous Epith Cells 0-1 /hpf (0-5/HPF) Urine Bacteria None seen (None) Ur Culture Indicated? Cult not indicated Imaging Data CT scan - abdomen/pelvis: Radiologist's Impression: PROCEDURE:? CT KIDNEY URETER BLADDER (KUB) ? INDICATIONS:? nephrolithiasis vs pyelo Rt? xr kub did not show, +hematuria ? TECHNIQUE:? Axial sections were acquired from the lung bases to the pubic symphysis.? Coronal and sagittal reformats were performed.? For radiation dose reduction, the following was used: ?automated exposure control, adjustment of mA and/or kV according to patient size.? ? COMPARISON:? [facility], CT, CT KIDNEY URETER BLADDER (KUB), 01/02/2021, 14:51. ? FINDINGS:? Image quality:? Excellent.? ? Lung bases:? Unremarkable.? ? Heart:? No significant findings. ? URINARY: Right Kidney:? No stones or hydronephrosis.? Right Ureter:? Prior right ureteral stent has been removed.? No ureteral calculus is seen. ? Left Kidney:? No stones or hydronephrosis. Left Ureter:? No hydroureter. ? Bladder:? Normal wall thickness. No stones. ? ? ? ABDOMEN: Liver:? The liver is hypoattenuating, consistent with fatty infiltration.? There is mild fatty sparing in the gallbladder fossa.? ? Gallbladder:? Unremarkable. Biliary ducts:? Unremarkable.? ? Pancreas:? Unremarkable.? ? Spleen:? Unremarkable.? ? Adrenal Glands:? Unremarkable.? ? ? Stomach and Bowel:? A few scattered diverticula are seen in the colon without signs of acute diverticulitis.? Intramural fat is seen within the cecum.? Normal appendix.? No signs of bowel obstruction. Peritoneum:? No abnormal intraperitoneal fluid.? No free air.? ? Ventral Wall: ? No hernia.? Abdominal Nodes:? No enlarged retroperitoneal or mesenteric lymph nodes.? Vessels:? Aorta and inferior vena cava are normal in size.? ? PELVIS: Pelvic Organs:? Unremarkable.? ? Pelvic Nodes: Unremarkable. Miscellaneous:? There is a fat containing left inguinal hernia. ? ? ? Bones:? Unremarkable. ? IMPRESSION:? 1. No renal or ureteral calculus or hydronephrosis. 2. Colonic diverticulosis.? 3. Diffuse hepatic steatosis. 4. Fat containing left inguinal hernia.? ? ? Dictated by: Quentin Liriano M.D. on 04/09/2021 at 14:25 ? ? Approved by: Quentin Liriano M.D. on 04/09/2021 at 14:30 ? MDM Narrative Medical decision making narrative: 40-year-old male with history of nephrolithiasis, autism, diverticulosis without diverticulitis, BPH with urinary obstruction and chronic hematuria, who presents to the emergency department complaining of concern for nephrolithiasis with flank pain. Patient had a x-ray KUB on 04/03/2021 which did not show any renal calculi. He states he continues to have symptoms and came to the emergency department to rule out kidney stone with advanced imaging. Showed 2+ blood, spec gravity was 1.02, no other abnormalities. CT KUB obtained which demonstrates no renal or ureteral calculus or hydronephrosis, it did show colonic diverticulosis, diffuse hepatic steatosis, fat containing left inguinal hernia. Discussed these findings with the patient, who endorses that he recently had a colonoscopy which showed this but did not tell me about this prior to the scan. Patient was given information on diverticulosis diet, encouraged to stay hydrated, take his medications as prescribed. Labs demonstrate no evidence of renal failure or sepsis, urine demonstrates no signs of infection and vital signs are stable. Patient improved with use of above stated therapies. Pain continues to be well controlled. Patient given extensive return precautions and questions have been answered to their apparent satisfacti on. Patient was given Toradol in the emergency department with moderate relief of his pain down to a 4/10. He is also given 500 mL of normal saline. Patient is appropriate and amenable to discharge home. Vital signs are stable on repeat examination is unremarkable. Patient has been informed of results. Patient has been given strict return to ER precautions for any new or worsening symptoms. Patient understands to follow up closely with outpatient providers as instructed. Patient understands plan and agrees to discharge home. All questions and concerns answered at this time. Discharge Plan Departure Patient Disposition: Home Clinical Impression: Diverticulosis Instructions: Diverticulitis, DI for Diverticulitis Activity Restrictions/Additional Instructions: *You have been diagnosed with diverticulosis without diverticulitis. Since you have a history of this you know little bit about it. Please do a high-fiber diet, there is information below these instructions. Please stay hydrated, you may do a bowel rest and clear liquid diet for a few days if that helps ear pain sensation. Continue taking your omeprazole, you may take ibuprofen if it is helpful, Tylenol and please follow-up with your primary care provider about this. There is no other acute or dangerous findings on your scan. Thank you for trusting us with your care, please keep doing what you are doing and hopefully your pain will improve soon. *What to do: *Please continue to take your regular medications as directed. [ ] New medication prescriptions sent to your pharmacy: [ ] [ ] New medication written as a paper prescription [x] No new medications given *Please follow up with your primary care provider in 2-3 days, call for an appointment. Let them know you were seen in the Emergency Department and that we ask that you be seen in follow up. We will electronically transmit a record of today's note if your PCP is in our system *If you do not have a primary care provider please contact the [facility] Resource line at [phone]. They will ask some questions about your medical history and help get you set up with a doctor in the community. *Return to Emergency Department if you should have any new, worsening or concerning symptoms, such as [fever greater than 101F, chills, worsening pain, persistent vomiting or other bothersome symptoms] Diverticulosis?is a condition in which small, bulging pouches (diverticuli) form inside the lower part of the intestine, usually in the colon. Constipation and straining during bowel movements can worsen the condition. A diet rich in fiber can help keep stools soft and prevent inflammation. Diverticulitis?occurs when the pouches in the colon become infected or inflamed. Dietary changes can help the colon heal. Fiber https://www.[facility].org/education/fiber-supplements ?is an important part of the diet for patients with diverticulosis. A high-fiber diet softens and gives bulk to the stool, allowing it to pass quickly and easily. Diet for Diverticulosis Eat a high-fiber diet when you have diverticulosis. Fiber softens the stool and helps prevent constipation. It also can help decrease pressure in the colon and help prevent flare-ups of diverticulitis. High-fiber foods include: * Beans and legumes * Bran, whole wheat bread and whole grain cereals such as oatmeal * Brown and wild rice * Fruits such as apples, bananas and pears * Vegetables such as broccoli, carrots, corn and squash * Whole wheat pasta If you currently don't have a diet high in fiber, you should add fiber gradually. This helps avoid bloating and abdominal discomfort. The target is to eat 25 to 30 grams of fiber daily. Drink at least 8 cups of fluid daily. Fluid will help soften your stool. Exercise also promotes bowel movement and helps prevent constipation. When the colon is not inflamed, eat popcorn, nuts and seeds as tolerated. Diet for Diverticulitis During flare ups of diverticulitis, follow a clear liquid diet. Your doctor will let you know when to progress from clear liquids to low fiber solids and then back to your normal diet. A clear liquid diet means no solid foods. Juices should have no pulp. During the clear liquid diet, you may consume: * Broth * Clear juices such as apple, cranberry and grape. (Avoid orange juice) * Jell-O * Popsicles When you're able to eat solid food, choose low fiber foods while healing. Low fiber foods include: * Canned or cooked fruit without seeds or skin, such as applesauce and melon * Canned or well cooked vegetables without seeds and skin * Dairy products such as cheese, milk and yogurt * Eggs * Low-fiber cereal * Meat that is ground or tender and well cooked * Pasta * White bread and white rice After symptoms improve, usually within two to four days, you may add 5 to 15 grams of fiber a day back into your diet. Resume your high fiber diet when you no longer have symptoms. Prescriptions: No Action gabapentin 300 mg capsule 300 mg PO DAILY 0RF Zyrtec 10 mg capsule 10 mg PO DAILY 0RF Label Comments: stopped for now. sertraline [Zoloft] 50 mg tablet 150 mg PO DAILY 0RF tramadol 100 mg tablet 100 mg PO Q6H PRN (Reason: pain) Qty: 30 0RF Rx Instructions: DNExceed 4 doses/24h Take 1 tablet with 1-2 Tylenol as needed every 6 hour for pain. tramadol 50 mg tablet 50 mg PO Q6H PRN (Reason: pain) Qty: 30 0RF topiramate 100 mg capsule,sprinkle,ER 24hr 100 mg PO DAILY 0RF tamsulosin 0.4 mg capsule 0.4 mg PO DAILY 0RF azelastine 137 mcg (0.1 %) aerosol,spray 1 spray intranasal BID 0RF Rx Instructions: administer into each nostril quetiapine [Seroquel] 25 mg tablet 75 mg PO BEDTIME 0RF rosuvastatin [Crestor] 5 mg tablet 5 mg PO DAILY 0RF omeprazole 20 mg capsule,delayed release(DR/EC) 20 mg PO BID 0RF cyanocobalamin-methylcobalamin 600-600 mcg tablet, sublingual sublingual 0RF Label Comments: over a week methylated foate PO 0RF potassium citrate 10 mEq (1,080 mg) tablet extended release 10 meq PO TID Qty: 270 3RF Referrals: Elisha Mello DO [Primary Care Provider] -
--- NOTE | 2021-04-09 13:57 | DI.CT.S_ITS ---
PROCEDURE: CT KIDNEY URETER BLADDER (KUB) INDICATIONS: nephrolithiasis vs pyelo Rt? xr kub did not show, +hematuria TECHNIQUE: Axial sections were acquired from the lung bases to the pubic symphysis. Coronal and sagittal reformats were performed. For radiation dose reduction, the following was used: automated exposure control, adjustment of mA and/or kV according to patient size. COMPARISON: [facility], CT, CT KIDNEY URETER BLADDER (KUB), 01/02/2021, 14:51. FINDINGS: Image quality: Excellent. Lung bases: Unremarkable. Heart: No significant findings. URINARY: Right Kidney: No stones or hydronephrosis. Right Ureter: Prior right ureteral stent has been removed. No ureteral calculus is seen. Left Kidney: No stones or hydronephrosis. Left Ureter: No hydroureter. Bladder: Normal wall thickness. No stones. ABDOMEN: Liver: The liver is hypoattenuating, consistent with fatty infiltration. There is mild fatty sparing in the gallbladder fossa. Gallbladder: Unremarkable. Biliary ducts: Unremarkable. Pancreas: Unremarkable. Spleen: Unremarkable. Adrenal Glands: Unremarkable. Stomach and Bowel: A few scattered diverticula are seen in the colon without signs of acute diverticulitis. Intramural fat is seen within the cecum. Normal appendix. No signs of bowel obstruction. Peritoneum: No abnormal intraperitoneal fluid. No free air. Ventral Wall: No hernia. Abdominal Nodes: No enlarged retroperitoneal or mesenteric lymph nodes. Vessels: Aorta and inferior vena cava are normal in size. PELVIS: Pelvic Organs: Unremarkable. Pelvic Nodes: Unremarkable. Miscellaneous: There is a fat containing left inguinal hernia. Bones: Unremarkable. IMPRESSION: 1. No renal or ureteral calculus or hydronephrosis. 2. Colonic diverticulosis. 3. Diffuse hepatic steatosis. 4. Fat containing left inguinal hernia. Dictated by: Quentin Liriano M.D. on 04/09/2021 at 14:25 Approved by: Quentin Liriano M.D. on 04/09/2021 at 14:30
[2021-04-09 13:58] LABS: Add Manual Diff / Slide Review NO; Basophils Absolute Auto 0 /uL (0-100); Basophils Percent Auto 0.3 % (0-2); Eosinophils Absolute Auto 100 /uL (0-450); Eosinophils Percent Auto 2.7 % (2-4); Hematocrit 42.3 % (41-53); Hemoglobin 14.4 g/dL (13.5-17.5); Lymphocytes Absolute Auto 1600 /uL (1100-4500); Lymphocytes Percent Auto 37.2 % (25-40); Mean Corpuscular HGB Conc 34.1 % (30-36); Mean Corpuscular Hemoglobin 27.7 PG (26-34); Mean Corpuscular Volume 81.1 fL (80-100); Monocytes Absolute Auto 300 /uL (0-900); Monocytes Percent Auto 6.7 % (3-14); Neutrophils Absolute Auto 2300 /uL (1500-7000); Neutrophils Percent Auto 53.1 % (50-75); Platelet Count 223 X10^3/uL (150-400); Red Blood Cell Count 5.22 X10^6/uL (4.5-5.9); White Blood Cell Count 4.4 X10^3/uL (4.5-11.0)
[2021-04-09 14:07] LABS: Alanine Aminotransferase 29 IU/L (<50); Albumin 4.6 g/dL (3.5-5.0); Albumin Globulin Ratio 1.5 (1.0-2.8); Alkaline Phosphatase 71 U/L (38-126); Aspartate Aminotransferase 30 IU/L (17-59); BUN Creatinine Ratio 11.1 (6-22); Bilirubin Total 0.5 mg/dL (0.2-1.3); Blood Urea Nitrogen 11 mg/dL (9-20); Calcium 9.1 mg/dL (8.4-10.2); Carbon Dioxide 26 mmol/L (22-32); Chloride 107 mmol/L (98-107); Estimated Glomerular Filt Rate > 60.0 mL/min (>60); Glucose 143 mg/dL (70-100); HEMOLYSIS < 15 (0-50); Lipase 60 U/L (23-300); Potassium 3.5 mmol/L (3.4-5.1); Sodium 139 mmol/L (137-145); Total Protein 7.6 g/dL (6.3-8.2)
[2021-04-09 14:11] LABS: Appearance Urine UA CLEAR; Bilirubin Urine UA NEGATIVE (NEGATIVE); Color Urine UA YELLOW; Glucose Urine UA NEGATIVE (Negative); Ketones Urine UA NEGATIVE (NEGATIVE); Leukocyte Esterase Urine UA NEGATIVE (NEGATIVE); Nitrite Urine UA NEGATIVE (Negative); Occult Blood Urine UA 2+ (Negative); Protein Urine UA NEGATIVE (Negative); Urobilinogen Urine UA 0.2 E.U./dL (0.2)
[2021-04-09] MEDS: KETOROLAC 30 MG/ML VIAL 15 MG IV (14:18)
[2021-04-09 14:19] LABS: Bacteria Urine None Seen; Culture Indicated Urine Cult Not Indicated; RBC Urine 1-5/HPF (0-5/HPF); Squamous Epithelial Cell Urine 0-1 /HPF (0-5/HPF); WBC Urine 0-1/HPF (0-5/HPF)
[2021-04-09] MEDS: SODIUM CHLORIDE 0.9% 1,000 ML 1000 ML IV (14:21)
--- NOTE | 2021-04-09 14:22 | PC.NURSE ---
Pt states he sees Dr. Singh (sp) for urology. Pain 08/27, LRQ.
[2021-04-09 15:00] VITALS: BP 138/64; PULSE 87; RESP 18; TEMP 36.6; O2SAT 96
== END 2021-04-09 15:20 | disposition home or self-care (01) ==
PROVIDERS: Emergency Medicine; Emergency Provider Nurse Practitioner Critical Care Medicine; PCP Family Medicine
DX: K57.30 Diverticulosis of large intestine without perforation or abscess without bleeding (principal)
CPT/HCPCS: 36415; 74176; 80053; 81001; 83690; 85025; 96361; 96374; 99284; J1885

== ENCOUNTER 2021-05-09 15:55 | Emergency (ER) | payer OTHER, SELFPAY ==
[2021-05-09 16:25] VITALS: BP 131/102; PULSE 85; RESP 18; TEMP 36.6; O2SAT 97; BMI 30.5
--- NOTE | 2021-05-09 16:54 | DI.CT.S_ITS ---
PROCEDURE: CT ABDOMEN PELVIS W CON INDICATIONS: lower abdominal pain, previous inguinal hernia repair TECHNIQUE: After the administration of oral and IV contrast, axial sections were acquired from the lung bases to the pubic symphysis. Coronal and sagittal reformats were performed. For radiation dose reduction, the following was used: automated exposure control, adjustment of mA and/or kV according to patient size. COMPARISON: [facility], CT, CT KIDNEY URETER BLADDER (KUB), 04/09/2021, 14:00. [facility], CT, CT KIDNEY URETER BLADDER (KUB), 01/02/2021, 14:51. [facility], CT, CT ABDOMEN PELVIS W CON, 12/14/2020, 23:22. FINDINGS: Image quality: Excellent. Lung bases: Unremarkable. Heart: No significant findings. ABDOMEN: Liver: An enlarged, fatty infiltrated liver can be seen. No focal liver lesions are seen. Gallbladder: Unremarkable. Biliary ducts: Unremarkable. Pancreas: Unremarkable. Spleen: Unremarkable. Adrenal Glands: Unremarkable. Kidneys and Ureters: Unremarkable. Stomach and Bowel: Stomach, small bowel loops, and colon are unremarkable. Normal appendix. Minimal distal colonic diverticulosis is seen, without findings of active diverticulitis. Peritoneum: No abnormal intraperitoneal fluid. No free air. Ventral Wall: No hernia. Abdominal Nodes: No retroperitoneal or mesenteric adenopathy by size criteria. Vessels: Aorta and inferior vena cava are normal in size. 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 Bladder: Unremarkable. Pelvic Nodes: No enlarged lymph nodes. Miscellaneous: There is a fat containing left inguinal hernia. No right inguinal hernia is seen. Bones: Unremarkable. IMPRESSION: Fat containing left inguinal hernia, as before. Normal appendix. Minimal distal colonic diverticulosis, without active diverticulitis. Incidental note is made of: Enlarged, fatty liver infiltration. Right testicular prosthesis. Dictated by: Timbo Walsh M.D. on 05/09/2021 at 17:07 Approved by: Timbo Walsh M.D. on 05/09/2021 at 17:10
--- NOTE | 2021-05-09 16:57 | ED_ITS ---
HPI - Abdominal Pain <Leo Shankar PA-C - Last Filed: 05/09/21 18:54> General Chief Complaint: Abdominal Pain Stated Complaint: states hernia pain Time Seen by Provider: 05/09/21 16:44 Source: patient and family Mode of arrival: Ambulatory History of Present Illness HPI narrative: Patient is a 40-year-old male who presents to the ED complaining of lower groin pain on the right and left side after suffering a seizure from 2 days ago. He has a history of TBI and does have clonic tonic seizure activity that is mostly precipitated at night. Spouse reports that he had a typical clonic tonic seizure 2 nights ago and afterwards started having severe pain in his right and left groin. He had a left-sided inguinal repair done surgically couple years ago and the right side was recommended to just monitor at this point. He also has had previous testicle removed on the right side. Pain is pretty severe on both sides right now he reports about a 4/10. He denies any nausea vomiting diarrhea fever no reported dysuria no reported testicular problem or pain no penile discharge. Related Data Home Medications Medication Instructions Recorded Confirmed cetirizine 10 mg capsule (Zyrtec) 10 mg PO DAILY 11/20/19 04/04/21 gabapentin 300 mg capsule 300 mg PO DAILY 11/20/19 04/04/21 azelastine 137 mcg (0.1 %) nasal 1 spray INTRANASAL BID 04/04/20 04/04/21 spray aerosol cyanocobalamin-methylcobalamin 600 tab SUBLINGUAL 04/04/20 04/04/21 mcg-600 mcg sublingual tablet methylated foate PO 04/04/20 04/04/21 omeprazole 20 mg capsule,delayed 20 mg PO BID 04/04/20 04/04/21 release quetiapine 25 mg tablet (Seroquel) 75 mg PO BEDTIME tab 04/04/20 04/04/21 rosuvastatin 5 mg tablet (Crestor) 5 mg PO DAILY 04/04/20 04/04/21 sertraline 50 mg tablet (Zoloft) 150 mg PO DAILY tab 04/04/20 04/04/21 tamsulosin 0.4 mg capsule 0.4 mg PO DAILY 04/04/20 04/04/21 topiramate 100 mg capsule 100 mg PO DAILY 04/04/20 04/04/21 sprinkle,extended release 24 hr Previous Rx's Medication Instructions Recorded tramadol 100 mg tablet 100 mg PO Q6H PRN #30 tab 01/16/21 tramadol 50 mg tablet 50 mg PO Q6H PRN #30 tab 01/16/21 potassium citrate 10 mEq (1,080 10 meq PO TID #270 tab 04/04/21 mg) tablet,extended release Allergies Allergy/AdvReac Type Severity Reaction Status Date / Time No Known Drug Allergies Allergy Verified 05/09/21 16:31 Review of Systems <Leo Shankar PA-C - Last Filed: 05/09/21 18:54> Review of Systems ROS Unobtainable: All systems reviewed & are unremarkable except as noted in HPI and below Constitutional Constitutional: Denies chills, Denies fatigue, Denies fever(s), Denies frequent falls, Denies lethargy and Denies weakness Eyes Eyes: Denies change in vision, Denies eye discharge, Denies irritation and Denies loss of vision ENT Ears, Nose, Mouth, and Throat: Denies change in voice, Denies dizziness, Denies neck pain, Denies sore throat and Denies throat swelling Cardiovascular Cardiovascular: Denies chest pain, Denies irregular heart rhythm, Denies lightheadedness, Denies palpitations, Denies dyspnea, Denies dyspnea on exertion and Denies orthopnea Respiratory Respiratory: Denies cough, Denies dyspnea, Denies dyspnea on exertion and Denies wheezing Gastrointestinal Gastrointestinal: Reports abdominal pain, Denies change in bowel habits, Denies diarrhea, Denies nausea and Denies vomiting Genitourinary Genitourinary: Denies hematuria, Denies flank pain, Denies urinary incontinence and Denies urinary urgency Musculoskeletal Musculoskeletal: Denies back pain, Denies muscle weakness, Denies neck pain, Denies numbness and Denies tingling Integumentary/Breasts Skin/Breast: Denies pruritus, Denies erythema, Denies rash and Denies wounds Neurologic Neurologic: Denies behavioral changes, Denies confusion, Denies dizziness, Denies frequent falls, Denies loss of vision, Denies numbness, Denies tingling and Denies weakness Psychiatric Psychiatric: Denies anxiety, Denies behavioral changes, Denies confusion, Denies depression, Denies homicidal ideation and Denies suicidal ideation Endocrine Endocrine: Denies fatigue, Denies flushing and Denies palpitations Hematologic/Lymphatic Hematologic/Lymphatic: Denies easy bruising Allergic/Immunologic Allergic/Immunologic: Denies urticaria, Denies throat swelling and Denies wheezing Patient History <Leo Shankar PA-C - Last Filed: 05/09/21 18:54> Medical History Anxiety Autism BPH (benign prostatic hyperplasia) BPH w urinary obs/LUTS Colitis Colon polyps Depression GERD (gastroesophageal reflux disease) High blood pressure History of nephrolithiasis Lower urinary tract symptoms (LUTS) Lower urinary tract symptoms (LUTS) Migraine headache Right ureteral calculus Seizure disorder TBI (traumatic brain injury) (2014) Surgical History H/O cystoscopy H/O hernia repair H/O vasectomy History of orchiectomy (2016) Hx of adenoidectomy Social History household members: spouse Smoking Status: Former smoker alcohol intake: current Smoking Status: Former smoker alcohol intake frequency: holidays/special occasions only Substance Use Type: does not use Exam <Leo Shankar PA-C - Last Filed: 05/09/21 18:54> Initial Vital Signs Initial Vital Signs: Vital Signs Temperature 97.9 F 05/09/21 16:25 Pulse Rate 85 05/09/21 16:25 Respiratory Rate 18 05/09/21 16:25 Blood Pressure 131/102 H 05/09/21 16:25 Pulse Oximetry 97 05/09/21 16:25 Const General: cooperative, healthy appearing, comfortable and well developed Nutritional Appearance: average body habitus Orientation: Orientation [facility] Head: normal to inspection, normocephalic and atraumatic Ears: hearing grossly normal bilaterally and external ears normal Nose: external nose normal and nares normal Face and sinus: normal facial exam and sinuses nontender Mouth: oral mucosae normal Teeth and gingiva: dentition normal Neck Neck: normal visual inspection and full ROM Resp Effort & Inspection: normal respiratory effort and able to speak in complete sentences Auscultation: clear to auscultation bilaterally Percussion: percussion normal Cardio Palpation: normal PMI Rate: regular rate Rhythm: regular rhythm Heart Sounds: S1 normal and S2 normal GI Inspection: normal to inspection Palpation: soft, no hepatosplenomegaly and tender (Right and left groin) Percussion: normal to percussion Auscultation: normal bowel sounds Skin General: no rashes or lesions noted <DO Radha Ham Last Filed: 05/09/21 18:58> Initial Vital Signs Initial Vital Signs: Vital Signs Temperature 97.9 F 05/09/21 16:25 Pulse Rate 85 05/09/21 16:25 Respiratory Rate 18 05/09/21 16:25 Blood Pressure 131/102 H 05/09/21 16:25 Pulse Oximetry 97 05/09/21 16:25 Course <RONNY Michelle Last Filed: 05/09/21 18:54> Orders Ordered: ED Orders 05/09/21 16:54 CT abdomen pelvis w con Stat 05/09/21 17:07 CBC Auto Diff [Complete Blood Count AUTO DIFF] Stat CMP [Comprehensive Metabolic Panel] Stat 05/09/21 17:10 UA Complete [Urinalysis and Microscopic] Stat Vital Signs Vital signs: Vital Signs - 8 hr 05/09/21 16:25 Temperature 97.9 F Pulse Rate 85 Respiratory Rate 18 Blood Pressure 131/102 H Pulse Oximetry 97 <DO Radha Ham Last Filed: 05/09/21 18:58> Orders Ordered: ED Orders 05/09/21 16:54 CT abdomen pelvis w con Stat 05/09/21 17:07 CBC Auto Diff [Complete Blood Count AUTO DIFF] Stat CMP [Comprehensive Metabolic Panel] Stat 05/09/21 17:10 UA Complete [Urinalysis and Microscopic] Stat Vital Signs Vital signs: Vital Signs - 8 hr 05/09/21 16:25 Temperature 97.9 F Pulse Rate 85 Respiratory Rate 18 Blood Pressure 131/102 H Pulse Oximetry 97 MDM - Abdominal Pain <RONNY Michelle Last Filed: 05/09/21 18:54> Differential Diagnosis Differential diagnosis: Likely abdominal pain Lab Data Result diagrams: 05/09/21 17:07 05/09/21 17:07 Labs: Lab Results 05/09/21 05/09/21 05/09/21 Range/Units 17:07 17:07 17:10 WBC 5.4 (4.5-11.0) X10^3/uL RBC 5.11 (4.5-5.9) X10^6/uL Hgb 14.6 (13.5-17.5) g/dL Hct 42.8 (41-53) % MCV 83.8 (80-100) fL MCH 28.5 (26-34) PG MCHC 34.0 (30-36) % RDW 15.1 H (11.6-14.8) % Plt Count 217 (150-400) X10^3/uL Neut % (Auto) 57.9 (50-75) % Lymph % (Auto) 31.5 (25-40) % [place] % (Auto) 7.7 (3-14) % Eos % (Auto) 2.6 (2-4) % Baso % (Auto) 0.3 (0-2) % Neut # (Auto) 3100 (2935-9971) /uL Lymph # (Auto) 1700 (1658-0181) /uL [place] # (Auto) 400 (0-900) /uL Eos # (Auto) 100 (0-450) /uL Baso # (Auto) 0 (0-100) /uL Sodium 142 (137-145) mmol/L Potassium 4.0 (3.4-5.1) mmol/L Chloride 112 H (98-107) mmol/L Carbon Dioxide 21 L (22-32) mmol/L BUN 14 (9-20) mg/dL Creatinine 0.88 (0.66-1.25) mg/dL Estimated GFR > 60.0 (>60) mL/min BUN/Creatinine Ratio 15.9 (6-22) Glucose 101 H (70-100) mg/dL Calcium 9.0 (8.4-10.2) mg/dL Total Bilirubin 0.4 (0.2-1.3) mg/dL AST 27 (17-59) IU/L ALT 29 (<50) IU/L Alkaline Phosphatase 68 (38-126) U/L Total Protein 7.7 (6.3-8.2) g/dL Albumin 4.5 (3.5-5.0) g/dL Globulin 3.2 (1.7-4.1) g/dL Albumin/Globulin Ratio 1.4 (1.0-2.8) Urine Color Yellow Urine Appearance Clear Urine pH 5.5 (4.5-8.0) Ur Specific [place] 1.025 (1.000-1.035) Urine Protein Negative (Negative) Urine Glucose (UA) Negative (Negative) g/dL Urine Ketones Negative (NEGATIVE) Urine Occult Blood 1+ H (Negative) Urine Nitrate Negative (Negative) Urine Bilirubin Negative (NEGATIVE) Urine Urobilinogen 0.2 (0.2) E.U./dL Ur Leukocyte Esterase Negative (NEGATIVE) Urine RBC 0-1/hpf (0-5/HPF) Urine WBC 0-1/hpf (0-5/HPF) Urine Bacteria None seen (None) Ur Culture Indicated? Cult not indicated MDM Narrative Medical decision making narrative: Patient was evaluated today for groin pain both on the left and right side. His previous inguinal hernia repair on the right side is still intact according to the CT however he does have evidence of a left-sided fat containing small inguinal hernia of which he has continues to have ongoing symptoms for. After speaking with the patient he will follow up with if his surgeon for further evaluation. Patient will be discharged home and told to return to the emergency room with having any further difficulty or problems. <Juan Pelletier, DO - Last Filed: 05/09/21 18:58> Lab Data Labs: Lab Results 05/09/21 05/09/21 05/09/21 Range/Units 17:07 17:07 17:10 WBC 5.4 (4.5-11.0) X10^3/uL RBC 5.11 (4.5-5.9) X10^6/uL Hgb 14.6 (13.5-17.5) g/dL Hct 42.8 (41-53) % MCV 83.8 (80-100) fL MCH 28.5 (26-34) PG MCHC 34.0 (30-36) % RDW 15.1 H (11.6-14.8) % Plt Count 217 (150-400) X10^3/uL Neut % (Auto) 57.9 (50-75) % Lymph % (Auto) 31.5 (25-40) % [place] % (Auto) 7.7 (3-14) % Eos % (Auto) 2.6 (2-4) % Baso % (Auto) 0.3 (0-2) % Neut # (Auto) 3100 (2318-1793) /uL Lymph # (Auto) 1700 (4785-4950) /uL [place] # (Auto) 400 (0-900) /uL Eos # (Auto) 100 (0-450) /uL Baso # (Auto) 0 (0-100) /uL Sodium 142 (137-145) mmol/L Potassium 4.0 (3.4-5.1) mmol/L Chloride 112 H (98-107) mmol/L Carbon Dioxide 21 L (22-32) mmol/L BUN 14 (9-20) mg/dL Creatinine 0.88 (0.66-1.25) mg/dL Estimated GFR > 60.0 (>60) mL/min BUN/Creatinine Ratio 15.9 (6-22) Glucose 101 H (70-100) mg/dL Calcium 9.0 (8.4-10.2) mg/dL Total Bilirubin 0.4 (0.2-1.3) mg/dL AST 27 (17-59) IU/L ALT 29 (<50) IU/L Alkaline Phosphatase 68 (38-126) U/L Total Protein 7.7 (6.3-8.2) g/dL Albumin 4.5 (3.5-5.0) g/dL Globulin 3.2 (1.7-4.1) g/dL Albumin/Globulin Ratio 1.4 (1.0-2.8) Urine Color Yellow Urine Appearance Clear Urine pH 5.5 (4.5-8.0) Ur Specific [place] 1.025 (1.000-1.035) Urine Protein Negative (Negative) Urine Glucose (UA) Negative (Negative) g/dL Urine Ketones Negative (NEGATIVE) Urine Occult Blood 1+ H (Negative) Urine Nitrate Negative (Negative) Urine Bilirubin Negative (NEGATIVE) Urine Urobilinogen 0.2 (0.2) E.U./dL Ur Leukocyte Esterase Negative (NEGATIVE) Urine RBC 0-1/hpf (0-5/HPF) Urine WBC 0-1/hpf (0-5/HPF) Urine Bacteria None seen (None) Ur Culture Indicated? Cult not indicated Discharge Plan Departure Patient Disposition: Home Clinical Impression: Inguinal hernia Instructions: Groin Hernia -- Adult Activity Restrictions/Additional Instructions: Your hernia on the left side appears to be stable with only fat containing within it. If he continued to have worsening pain or any problems he can return to the emergency room or you can follow-up with her general surgeon for evaluation and treatment. Thank you for the opportunity to treat today. Prescriptions: No Action gabapentin 300 mg capsule 300 mg PO DAILY 0RF Zyrtec 10 mg capsule 10 mg PO DAILY 0RF Label Comments: stopped for now. sertraline [Zoloft] 50 mg tablet 150 mg PO DAILY 0RF tramadol 100 mg tablet 100 mg PO Q6H PRN (Reason: pain) Qty: 30 0RF Rx Instructions: DNExceed 4 doses/24h Take 1 tablet with 1-2 Tylenol as needed every 6 hour for pain. tramadol 50 mg tablet 50 mg PO Q6H PRN (Reason: pain) Qty: 30 0RF topiramate 100 mg capsule,sprinkle,ER 24hr 100 mg PO DAILY 0RF tamsulosin 0.4 mg capsule 0.4 mg PO DAILY 0RF azelastine 137 mcg (0.1 %) aerosol,spray 1 spray intranasal BID 0RF Rx Instructions: administer into each nostril quetiapine [Seroquel] 25 mg tablet 75 mg PO BEDTIME 0RF rosuvastatin [Crestor] 5 mg tablet 5 mg PO DAILY 0RF omeprazole 20 mg capsule,delayed release(DR/EC) 20 mg PO BID 0RF cyanocobalamin-methylcobalamin 600-600 mcg tablet, sublingual sublingual 0RF Label Comments: over a week methylated foate PO 0RF potassium citrate 10 mEq (1,080 mg) tablet extended release 10 meq PO TID Qty: 270 3RF Referrals: Elisha Mello DO [Primary Care Provider] - <Juan Pelletier DO - Last Filed: 05/09/21 18:58> Cosign ED Attending Cosignature Attestation: Dr Pelletier Co-Sign Statement: I was available for consultation during this patient's emergency department visit. This chart is signed by myself for administrative purposes only. I did not have direct contact with this patient during this visit. They were seen independently by the APC.
[2021-05-09 17:15] LABS: Add Manual Diff / Slide Review NO; Basophils Absolute Auto 0 /uL (0-100); Basophils Percent Auto 0.3 % (0-2); Eosinophils Absolute Auto 100 /uL (0-450); Eosinophils Percent Auto 2.6 % (2-4); Hematocrit 42.8 % (41-53); Hemoglobin 14.6 g/dL (13.5-17.5); Lymphocytes Absolute Auto 1700 /uL (1100-4500); Lymphocytes Percent Auto 31.5 % (25-40); Mean Corpuscular Hemoglobin 28.5 PG (26-34); Mean Corpuscular Volume 83.8 fL (80-100); Monocytes Absolute Auto 400 /uL (0-900); Monocytes Percent Auto 7.7 % (3-14); Neutrophils Absolute Auto 3100 /uL (1500-7000); Neutrophils Percent Auto 57.9 % (50-75); Platelet Count 217 X10^3/uL (150-400); Red Blood Cell Count 5.11 X10^6/uL (4.5-5.9); Red Cell Distribution Width 15.1 % (11.6-14.8); White Blood Cell Count 5.4 X10^3/uL (4.5-11.0)
[2021-05-09 17:16] LABS: Appearance Urine UA CLEAR; Bilirubin Urine UA NEGATIVE (NEGATIVE); Color Urine UA YELLOW; Glucose Urine UA NEGATIVE (Negative); Ketones Urine UA NEGATIVE (NEGATIVE); Leukocyte Esterase Urine UA NEGATIVE (NEGATIVE); Nitrite Urine UA NEGATIVE (Negative); Occult Blood Urine UA 1+ (Negative); Protein Urine UA NEGATIVE (Negative); Specific Gravity Urine UA 1.025 (1.000-1.035); Urobilinogen Urine UA 0.2 E.U./dL (0.2); pH Urine UA 5.5 (4.5-8.0)
[2021-05-09 17:23] LABS: Bacteria Urine None Seen; Culture Indicated Urine Cult Not Indicated; RBC Urine 0-1/HPF (0-5/HPF); WBC Urine 0-1/HPF (0-5/HPF)
[2021-05-09 17:42] LABS: Alanine Aminotransferase 29 IU/L (<50); Albumin 4.5 g/dL (3.5-5.0); Albumin Globulin Ratio 1.4 (1.0-2.8); Alkaline Phosphatase 68 U/L (38-126); Aspartate Aminotransferase 27 IU/L (17-59); BUN Creatinine Ratio 15.9 (6-22); Bilirubin Total 0.4 mg/dL (0.2-1.3); Blood Urea Nitrogen 14 mg/dL (9-20); Carbon Dioxide 21 mmol/L (22-32); Chloride 112 mmol/L (98-107); Estimated Glomerular Filt Rate > 60.0 mL/min (>60); Globulin 3.2 g/dL (1.7-4.1); Glucose 101 mg/dL (70-100); HEMOLYSIS 47 (0-50); Sodium 142 mmol/L (137-145); Total Protein 7.7 g/dL (6.3-8.2)
--- NOTE | 2021-05-09 18:36 | PC.NURSE ---
Pt states hx of seizures and bilateral inguinal hernias. Right testicle has been removed, testicle implant in its place. Denies issues with bladder/bowels. LRQ pain 4/10 after a recent seizure.
[2021-05-09 19:01] VITALS: BP 124/84; PULSE 69; RESP 14; O2SAT 100
== END 2021-05-09 19:02 | disposition home or self-care (01) ==
PROVIDERS: Emergency Provider Physician Assistant; PCP Family Medicine
DX: K40.90 Unilateral inguinal hernia, without obstruction or gangrene, not specified as recurrent (principal); Z87.891 Personal history of nicotine dependence
CPT/HCPCS: 36415; 74177; 80053; 81001; 85025; 99283; 99284; Q9967

== ENCOUNTER → 2021-06-12 11:28 | Outpatient (CLI) | payer OTHER, SELFPAY ==
[2021-06-12 14:21] LABS: COVID19 -Nasal RAPID Negative (Negative)
== END ==
PROVIDERS: PCP Family Medicine; Visit Provider Surgery
DX: Z01.812 Encounter for preprocedural laboratory examination (principal); Z20.822 Contact with and (suspected) exposure to COVID-19
CPT/HCPCS: 87635; C9803

== ENCOUNTER 2021-06-13 13:12 | Day surgery (SDC) | payer OTHER, SELFPAY ==
[2021-06-07 12:22] VITALS: BMI 29.8
[2021-06-13 13:24] VITALS: BMI 29.8
[2021-06-13 13:34] VITALS: BP 130/87; PULSE 88; RESP 16; TEMP 36.6; O2SAT 96
[2021-06-13] MEDS: LACTATED RINGERS 1,000 ML 42 ML IV (13:48)
--- NOTE | 2021-06-13 13:56 | SUR.PREOP ---
Seizure pads placed on side rails due to seizure history
--- NOTE | 2021-06-13 14:31 | PM.PREOP ---
Pre-operative Note COVID-19 COVID-19 status: Negative Result date/Date tested (Pos, Neg/Pending): 06/12/21 Interval Note History & Physical reviewed/Exam performed by Physician: Yes Changes to H&P: No ASA Class (for procedural sedation): II
[2021-06-13] MEDS: CEFAZOLIN 2 GM/20 ML SYRINGE IV (15:15)
--- NOTE | 2021-06-13 15:34 | SUR.OPER ---
Addendum entered by Mya Parks R.N. 06/13/21 15:57: Patient in preop area prior to entering OR. Original Note: Supine on padded OR bed with pink pad positioner, head on pillow, arms padded and tucked at sides, legs uncrossed, safety belt at thigh, tape over blanket over lower legs . Patient's glasses removed and taken to OR. Given to PACU nurse.
[2021-06-13] MEDS: BUPIVACAINE 0.5% (PF) VIAL 30 ML INJ (15:53)
[2021-06-13] MEDS: LIDOCAINE 1% W/EPI 20 ML INJ (15:55)
--- NOTE | 2021-06-13 16:38 | P.OP_ITS ---
Operative Date/Time/Diagnoses Date of procedure: 06/13/21 Time of procedure: 16:38 Pre-op diagnosis: Left inguinal hernia Post-op diagnosis: same Procedure & Clinicians Procedure: Laparoscopic left inguinal hernia repair with mesh Same procedure as scheduled: Yes Surgeon: David Martell Anesthesia Type: General Operative Notes Findings: Sliding indirect hernia Estimated Blood Loss (mL): 15 Procedure in detail: The patient was given preoperative antibiotics. The patient was brought to the operating room, placed on the table in the supine position with the arms tucked and general anesthesia was induced. The abdomen was prepped and draped in the usual fashion. A time-out was performed. A 1 cm curvilinear transverse incision was created about 3 cm above the umbilicus and dissection was carried down to the anterior sheath. The anterior sheath was scored transversely with cautery. A Peon clamp was used to vora the peritoneum. The Silvia port was placed and the abdomen was insufflated to 15 mmHg. The camera was inserted, there was no evidence of any injury from the entry. 5 mm ports were placed under direct vision in the mid left and mid right abdomen. The patient was posi tioned in steep Trendelenburg. The left myopectineal orifice was obscured by a loop of sigmoid colon which was adherent to the peritoneum. The colon was left attached to the peritoneum. We created left peritoneal flap about 2 cm above the colon. The peritoneum was dissected completely from the cord structures and the Ric's ligament was exposed. A large fatty lipoma was removed from the internal ring and left in the myopectineal space. A large left Bard mesh was brought in and placed over the defect with the medial edge against Ric's ligament. We then closed the peritoneal flap with a running 3-0 barbed suture. We took one last look around the abdomen and saw no other abnormalities. The suture was removed and accounted for. The 5 mm ports were removed under direct vision. The abdomen was desufflated. The Silvia port was removed. Additional local was injected into the fascia and the infraumbilical fascial incision was closed with 2 interrupted 0 Vicryl sutures. The skin incisions were closed with 4 Monocryl, Steri-Strips and Band-Aids. Post-operative Condition: stable Disposition: PACU
[2021-06-13 16:42] VITALS: BP 143/83; PULSE 81; RESP 14; TEMP 36.7; O2SAT 90
[2021-06-13 16:47] VITALS: BP 132/86; PULSE 82; RESP 12; O2SAT 93
[2021-06-13 16:52] VITALS: BP 136/80; PULSE 85; RESP 12; O2SAT 94
[2021-06-13] MEDS: OXYCODONE/ACETAMINOPHEN 5/325 TABLET 1 TAB PO ×2 (16:59→17:30)
[2021-06-13 17:02] VITALS: BP 132/80; PULSE 82; RESP 15; O2SAT 94
[2021-06-13 17:05] VITALS: BP 132/80; PULSE 76; RESP 10; O2SAT 94
--- NOTE | 2021-06-13 17:07 | SUR.PHASEII ---
Dr Martell aware of pt scrotal swelling. States okay to go home
== END 2021-06-13 16:33 | disposition home or self-care (01) ==
PROVIDERS: PCP Family Medicine; Referring Provider Surgery; Visit Provider Surgery
PROC: 0YQ64ZZ Repair Left Inguinal Region, Percutaneous Endoscopic Approach (ICD-10-PCS; CPT 49650; principal; 2021-06-13 14:15)
DX: K40.90 Unilateral inguinal hernia, without obstruction or gangrene, not specified as recurrent (principal)
CPT/HCPCS: 49650; J0690; J1100; J1885; J2250; J2405; J2704; J3010

== ENCOUNTER 2021-09-21 18:37 | Emergency (ER) | payer OTHER, MEDICARE, SELFPAY ==
[2021-09-21 18:53] VITALS: BP 133/76; PULSE 82; RESP 18; TEMP 36.2; O2SAT 100; BMI 30.5
[2021-09-21 20:09] LABS: Alanine Aminotransferase 35 IU/L (<50); Albumin 4.6 g/dL (3.5-5.0); Albumin Globulin Ratio 1.5 (1.0-2.8); Alkaline Phosphatase 85 U/L (38-126); Aspartate Aminotransferase 28 IU/L (17-59); BUN Creatinine Ratio 14.6 (6-22); Bilirubin Total 0.2 mg/dL (0.2-1.3); Blood Urea Nitrogen 15 mg/dL (9-20); Calcium 8.7 mg/dL (8.4-10.2); Carbon Dioxide 23 mmol/L (22-32); Chloride 108 mmol/L (98-107); Estimated Glomerular Filt Rate > 60 mL/min (>60); Globulin 3.1 g/dL (1.7-4.1); Glucose 105 mg/dL (70-100); HEMOLYSIS < 15 (0-50); Lipase 83 U/L (23-300); Potassium 3.6 mmol/L (3.4-5.1); Sodium 141 mmol/L (137-145); Total Protein 7.7 g/dL (6.3-8.2)
[2021-09-21 20:18] LABS: Add Manual Diff / Slide Review NO; Basophils Absolute Auto 100 /uL (0-100); Eosinophils Absolute Auto 100 /uL (0-450); Eosinophils Percent Auto 2.3 % (2-4); Hematocrit 40.2 % (41-53); Hemoglobin 13.2 g/dL (13.5-17.5); Lymphocytes Absolute Auto 1900 /uL (1100-4500); Lymphocytes Percent Auto 31.7 % (25-40); Mean Corpuscular HGB Conc 32.8 % (30-36); Mean Corpuscular Hemoglobin 26.7 PG (26-34); Mean Corpuscular Volume 81.4 fL (80-100); Monocytes Absolute Auto 400 /uL (0-900); Monocytes Percent Auto 6.8 % (3-14); Neutrophils Absolute Auto 3500 /uL (1500-7000); Neutrophils Percent Auto 57.2 % (50-75); Platelet Count 229 X10^3/uL (150-400); Red Blood Cell Count 4.94 X10^6/uL (4.5-5.9); Red Cell Distribution Width 14.3 % (11.6-14.8); White Blood Cell Count 6.1 X10^3/uL (4.5-11.0)
--- NOTE | 2021-09-21 22:07 | DI.US.S_ITS ---
PROCEDURE: US ABDOMEN LIMITED INDICATIONS: RUQ pain, worse with eating TECHNIQUE: Real-time focused scanning was performed of the abdomen, with image documentation. COMPARISON: None. FINDINGS: The liver demonstrates increased echogenicity with coarse sonographic echotexture consistent with fatty infiltration. Gallbladder demonstrates no stones, wall thickening, or pericholecystic fluid. No intra or extrahepatic biliary ductal dilatation. The visualized common bile duct measures up to 0.4 cm. Limited evaluation of the gallbladder demonstrates suggestion of increased echogenicity. IMPRESSION: 1. No evidence of cholelithiasis or cholecystitis. No biliary ductal dilatation. 2. Increased hepatic echogenicity likely representing steatosis. 3. Limited evaluation of the pancreas demonstrates suggestion of increased echogenicity. The findings are nonspecific but correlation is recommended with laboratory values for possible pancreatitis. Dictated by: Salvador Stanford M.D. on 09/21/2021 at 23:33 Approved by: Salvador Stanford M.D. on 09/21/2021 at 23:35
--- NOTE | 2021-09-21 23:13 | ED.ABDPAIN ---
HPI - Abdominal Pain General Chief Complaint: Abdominal Pain Stated Complaint: Rt side abd pain Time Seen by Provider: 09/21/21 22:01 Source: patient Mode of arrival: Ambulatory History of Present Illness HPI narrative: 41-year-old male former smoker with a history of kidney stones presents with his in the chief complaint of severe right upper quadrant pain over the course of the day that is made worse by eating or drinking and radiates to his back. He has nausea but denies any vomiting. He states it is also made worse by motion and improves with rest. He is had no fever or chills. He has no chest pain, shortness of breath or cough. He denies any dysuria, frequency or urgency. Related Data Home Medications Medication Instructions Recorded Confirmed cetirizine 10 mg capsule (Zyrtec) 10 mg PO DAILY 11/20/19 06/28/21 gabapentin 300 mg capsule 300 - 600 mg PO SEEINSTR 11/20/19 06/28/21 azelastine 137 mcg (0.1 %) nasal 1 spray intranasal BID 04/04/20 06/28/21 spray aerosol cyanocobalamin-methylcobalamin 600 1 tab sublingual DAILY PRN Muscle 04/04/20 06/28/21 mcg-600 mcg sublingual tablet Relaxant methylated foate 2 tab PO DAILY 04/04/20 06/28/21 omeprazole 20 mg capsule,delayed 20 mg PO BID 04/04/20 06/28/21 release quetiapine 25 mg tablet (Seroquel) 75 mg PO BEDTIME 04/04/20 06/28/21 sertraline 50 mg tablet (Zoloft) 150 mg PO DAILY 04/04/20 06/28/21 tamsulosin 0.4 mg capsule 0.8 mg PO DAILY PRN Kidney Stone 04/04/20 06/28/21 Pain rosuvastatin 5 mg tablet 5 mg PO QPM 06/13/21 06/28/21 topiramate 100 mg tablet 100 mg PO DAILY 06/13/21 06/28/21 trazodone 50 mg tablet 25 mg PO BEDTIME 06/13/21 06/28/21 Previous Rx's Medication Instructions Recorded tramadol 50 mg tablet 50 mg PO Q6H PRN pain #30 tabs 01/16/21 potassium citrate 10 mEq (1,080 10 meq PO TID #270 tabs 04/04/21 mg) tablet,extended release Allergies Allergy/AdvReac Type Severity Reaction Status Date / Time No Known Drug Allergies Allergy Verified 09/21/21 18:51 Review of Systems Review of Systems Narrative: GENERAL: Denies chills, fatigue, malaise, fever, sweats. HEENT: Denies sinus pain, ear pain, sore throat, difficulty swallowing, dizziness. RESPIRATORY: Denies dyspnea, cough, wheezing, hemoptysis, sputum. CARDIOVASCULAR: Denies chest pain, palpitations, orthopnea, edema, GASTROINTESTINAL: See HPI : Denies dysuria, frequency, incontinence, hematuria, urinary retention. MUSCULOSKELETAL: denies weakness, joint pain, or bony pain SKIN: Denies rash, skin lesions, or other NEUROLOGIC: Denies weakness, headache, numbness, change in speech, confusion, seizures, incoordination. PSYCHIATRIC: No concerning psychosocial issues. 12 point review of systems is negative except for those stated above Patient History Medical History Anxiety Autism BPH (benign prostatic hyperplasia) BPH w urinary obs/LUTS Colitis Colon polyps Depression GERD (gastroesophageal reflux disease) High blood pressure History of nephrolithiasis Lower urinary tract symptoms (LUTS) Lower urinary tract symptoms (LUTS) Migraine headache Right ureteral calculus Seizure disorder TBI (traumatic brain injury) (2013) Surgical History H/O cystoscopy H/O hernia repair H/O vasectomy History of orchiectomy (2016) Hx of adenoidectomy Hx of cystoscopy (01/16/21) Social History household members: spouse Smoking Status: Former smoker alcohol intake: current Smoking Status: Former smoker alcohol intake frequency: a few times a month Substance Use Type: does not use Exam Narrative Exam Narrative: GENERAL: [41] year old patient appears stated age. Well-developed patient, in mild distress. HEAD: Atraumatic. Normocephalic. EYES: Pupils equal round and reactive. Extraocular motions intact. No scleral icterus. No injection or drainage. ENT: Nose without bleeding, purulent drainage. Throat without erythema, tonsillar hypertrophy or exudate. Airway patent. NECK: Trachea midline. Non tender CARDIOVASCULAR: Regular rate and rhythm without murmurs, gallops, or rubs. RESPIRATORY: Clear to auscultation. Breath sounds equal bilaterally. No wheezes, rales, or rhonchi. GASTROINTESTINAL: Abdomen soft, tender in the right upper quadrant EXTREMITIES: No edema or joint tenderness. BACK: Nontender without deformity or crepitance. No flank tenderness. NEURO: AOx3. SKIN: No rash or erythema of visible areas Initial Vital Signs Initial Vital Signs: Vital Signs Temperature 97.1 F L 09/21/21 18:53 Pulse Rate 82 09/21/21 18:53 Respiratory Rate 18 09/21/21 18:53 Blood Pressure 133/76 09/21/21 18:53 Pulse Oximetry 100 09/21/21 18:53 Oxygen Delivery Method 09/21/21 18:53 Course Orders Ordered: ED Orders 09/21/21 22:07 US abdomen limited Stat Vital Signs Vital signs: Vital Signs - 8 hr 09/22/21 00:17 Pulse Rate 68 Respiratory Rate 18 Blood Pressure 118/78 Pulse Oximetry 98 Oxygen Delivery Method Room Air MDM - Abdominal Pain Lab Data Result diagrams: 09/21/21 19:38 09/21/21 19:38 Labs: Lab Results 09/21/21 09/21/21 Range/Units 19:38 19:38 WBC 6.1 (4.5-11.0) X10^3/uL RBC 4.94 (4.5-5.9) X10^6/uL Hgb 13.2 L (13.5-17.5) g/dL Hct 40.2 L (41-53) % MCV 81.4 (80-100) fL MCH 26.7 (26-34) PG MCHC 32.8 (30-36) % RDW 14.3 (11.6-14.8) % Plt Count 229 (150-400) X10^3/uL Neut % (Auto) 57.2 (50-75) % Lymph % (Auto) 31.7 (25-40) % Lyon % (Auto) 6.8 (3-14) % Eos % (Auto) 2.3 (2-4) % Baso % (Auto) 2.0 (0-2) % Neut # (Auto) 3500 (3761-0109) /uL Lymph # (Auto) 1900 (8184-6848) /uL Lyon # (Auto) 400 (0-900) /uL Eos # (Auto) 100 (0-450) /uL Baso # (Auto) 100 (0-100) /uL Sodium 141 (137-145) mmol/L Potassium 3.6 (3.4-5.1) mmol/L Chloride 108 H (98-107) mmol/L Carbon Dioxide 23 (22-32) mmol/L BUN 15 (9-20) mg/dL Creatinine 1.03 (0.66-1.25) mg/dL Estimated GFR > 60 (>60) mL/min BUN/Creatinine Ratio 14.6 (6-22) Glucose 105 H (70-100) mg/dL Calcium 8.7 (8.4-10.2) mg/dL Total Bilirubin 0.2 (0.2-1.3) mg/dL AST 28 (17-59) IU/L ALT 35 (<50) IU/L Alkaline Phosphatase 85 (38-126) U/L Total Protein 7.7 (6.3-8.2) g/dL Albumin 4.6 (3.5-5.0) g/dL Globulin 3.1 (1.7-4.1) g/dL Albumin/Globulin Ratio 1.5 (1.0-2.8) Lipase 83 (23-300) U/L Imaging Data US - abdomen: Radiologist's Impression: Close Abdomen Ultrasound (Signed) Salvador Stanford - 09/21/21 Launch?[place] [address] Ultrasound Report Signed Patient: Juan Craig MR#: [id number] : 1980 Acct:[id number] Age/Sex: 41 / M Date of Service: 09/21/21 Loc: ED Accession Number: [id number] ?? Procedure: US abdomen limited Ordering Provider: Gamaliel Tsang D.O. PROCEDURE: US ABDOMEN LIMITED ? INDICATIONS:? RUQ pain, worse with eating ? TECHNIQUE:? Real-time focused scanning was performed of the abdomen, with image documentation.? ? COMPARISON:? None. ? FINDINGS:? ? The liver demonstrates increased echogenicity with coarse sonographic echotexture consistent with fatty infiltration. ? Gallbladder demonstrates no stones, wall thickening, or pericholecystic fluid. ? No intra or extrahepatic biliary ductal dilatation.? The visualized common bile duct measures up to 0.4 cm. ? Limited evaluation of the gallbladder demonstrates suggestion of increased echogenicity. ? IMPRESSION:? ? 1. No evidence of cholelithiasis or cholecystitis.? No biliary ductal dilatation. ? 2. Increased hepatic echogenicity likely representing steatosis. ? 3. Limited evaluation of the pancreas demonstrates suggestion of increased echogenicity.? The findings are nonspecific but correlation is recommended with laboratory values for possible pancreatitis.? ? Dictated by: Salvador Stanford M.D. on 09/21/2021 at 23:33 ? ? MDM Narrative Medical decision making narrative: Multiple etiologies for patient's symptoms considered include, but not limited to: [Gallbladder disease versus pancreatitis versus other Patient's symptoms improved over duration of stay with above-stated therapies. History, physical exam, labs, imaging, and response to therapies have been reassuring. Findings and discharge diagnosis discussed with patient/family followed by verbalization of understanding Return precautions discussed with patient/family whom verbalize understanding. Pain has been well controlled and patient is tolerating oral hydration. Discharge Plan Departure Patient Disposition: Home Clinical Impression: Right upper quadrant abdominal pain Instructions: DI for Abdominal Pain-Adult Activity Restrictions/Additional Instructions: *You have been diagnosed with [abdominal pain] * As we discussed your history and physical exam as well as labs and imaging are very reassuring. There is no evidence of any severe diagnoses that would require a specific or immediate intervention. *What to do: *Please continue to take your regular medications as directed. *Please follow up with Dr. Martell, call for an appointment. Let them know you were seen in the Emergency Department and that we ask that you be seen in follow up. We will electronically transmit a record of today's note *Please consider a clear liquid diet for the next 24-48 hours and then slowly advance to regular as tolerated. Also, try to avoid alcohol, nicotine, caffeine, spicy, acidic or fatty foods as this may worsen your symptoms *If you do not have a primary care provider please contact the [facility] Resource line at [phone]. They will ask some questions about your medical history and help get you set up with a doctor in the community. *Return to Emergency Department if you should have any new, worsening or concerning symptoms, such as [fever greater than 101 F, shaking chills, worsening pain, persistent vomiting or other bothersome symptoms] Prescriptions: No Action gabapentin 300 mg capsule 300 - 600 mg PO SEEINSTR Rx Instructions: 300 mg qam; 600 at 2100 Zyrtec 10 mg capsule 10 mg PO DAILY Label Comments: stopped for now. sertraline [Zoloft] 50 mg tablet 150 mg PO DAILY tramadol 50 mg tablet 50 mg PO Q6H PRN (Reason: pain) Qty: 30 0RF trazodone 50 mg Tablet 25 mg PO BEDTIME topiramate 100 mg tablet 100 mg PO DAILY rosuvastatin 5 mg tablet 5 mg PO QPM tamsulosin 0.4 mg capsule 0.8 mg PO DAILY PRN (Reason: Kidney Stone Pain) azelastine 137 mcg (0.1 %) aerosol,spray 1 spray intranasal BID Rx Instructions: administer into each nostril quetiapine [Seroquel] 25 mg tablet 75 mg PO BEDTIME omeprazole 20 mg capsule,delayed release(DR/EC) 20 mg PO BID cyanocobalamin-methylcobalamin 600-600 mcg tablet, sublingual 1 tab sublingual DAILY PRN (Reason: Muscle Relaxant) Label Comments: over a week methylated foate 2 tab PO DAILY potassium citrate 10 mEq (1,080 mg) tablet extended release 10 meq PO TID Qty: 270 3RF Referrals: David Martell MD [Physician] - Elisha Mello DO [Primary Care Provider] - Visit Report Forms: Patient Portal/API
[2021-09-22 00:17] VITALS: BP 118/78; PULSE 68; RESP 18; O2SAT 98
== END 2021-09-22 00:18 | disposition home or self-care (01) ==
PROVIDERS: Emergency Provider Emergency Medicine; PCP Family Medicine
DX: R10.11 Right upper quadrant pain (principal)
CPT/HCPCS: 76705; 80053; 83690; 85025; 99281; 99284

== ENCOUNTER → 2021-10-04 10:38 | Outpatient (CLI) | payer MEDICARE, OTHER, SELFPAY ==
[2021-10-04 12:43] LABS: COVID19 -Nasal RAPID Negative (Negative)
== END ==
PROVIDERS: Visit Provider Surgery
DX: Z20.822 Contact with and (suspected) exposure to COVID-19 (principal); Z01.812 Encounter for preprocedural laboratory examination
CPT/HCPCS: 87635; C9803

== ENCOUNTER 2021-10-05 08:26 | Day surgery (SDC) | payer MEDICARE, OTHER, SELFPAY ==
--- NOTE | 2021-10-05 | PATH_ITS ---
[facility] Accession Number: [id number] . 01 Material submitted: . gastrointestinal site - ANTRUM BIOPSIES . 01 Diagnosis: Antrum, Biopsies: Gastric antral mucosa with no diagnostic abnormality. No evidence of Helicobacter organisms on H/E stain. Negative for intestinal metaplasia. Negative for dysplasia or malignancy. [facility] 10/06/2021 1433 Local . 01 Electronically signed: . Navi Glez MD, PhD, Pathologist NPI- [id number] . 01 Gross description: . ANTRUM BIOPSIES: Received in formalin are 3 fragment(s) of shah, soft tissue measuring 0.2 x 0.2 x 0.2 cm to 0.3 x 0.3 x 0.3 cm submitted entirely in 1 cassette(s) /MARKOS 10/06/2021 0042 Local . 01 Pathologist provided ICD-10: R10.13 . 01 CPT . 665129 Specimen Comment: A courtesy copy of this report has been sent to [phone] Performed at: 01 [facility] [address] [place] [address] [id number] MD Salvador Tam MD Phone: [phone]
[2021-10-05 08:41] VITALS: BP 118/77; PULSE 82; RESP 16; TEMP 36.6; O2SAT 98; BMI 30.5
[2021-10-05] MEDS: LACTATED RINGERS 1,000 ML 150 ML IV (08:50)
--- NOTE | 2021-10-05 09:10 | PM.HP.1 ---
History of Present Illness History of Present Illness Date Patient Seen: 10/05/21 Time Patient Seen: 09:10 Chief complaint: EGD Narrative: Juan is a 41-year-old man with abdominal pain who has had a normal ultrasound of the gallbladder. He was consented for an esophagogastroduodenoscopy. Patient History Medical History Anxiety Autism BPH (benign prostatic hyperplasia) BPH w urinary obs/LUTS Colitis Colon polyps Depression GERD (gastroesophageal reflux disease) High blood pressure History of nephrolithiasis Lower urinary tract symptoms (LUTS) Lower urinary tract symptoms (LUTS) Migraine headache Right ureteral calculus Seizure disorder TBI (traumatic brain injury) (2013) Surgical History H/O cystoscopy H/O hernia repair H/O vasectomy History of orchiectomy (2016) Hx of adenoidectomy Hx of cystoscopy (01/16/21) Family & Social History Social History: household members spouse Tobacco & Substance use: Tobacco type cigarettes Smoking Status Former smoker alcohol intake current alcohol intake frequency a few times a month Substance Use Type does not use Meds Home Medications and Allergies Home Medications Medication Instructions Recorded Confirmed Type cetirizine 10 mg capsule (Zyrtec) 10 mg PO DAILY 11/20/19 10/05/21 History gabapentin 300 mg capsule 300 - 600 mg PO SEEINSTR 11/20/19 10/05/21 History azelastine 137 mcg (0.1 %) nasal 1 spray intranasal BID 04/04/20 10/05/21 History spray aerosol cyanocobalamin-methylcobalamin 600 1 tab sublingual DAILY PRN Muscle 04/04/20 10/05/21 History mcg-600 mcg sublingual tablet Relaxant methylated foate 2 tab PO DAILY 04/04/20 10/05/21 History omeprazole 20 mg capsule,delayed 20 mg PO DAILY 04/04/20 10/05/21 History release sertraline 50 mg tablet (Zoloft) 150 mg PO DAILY 04/04/20 10/05/21 History tamsulosin 0.4 mg capsule 0.8 mg PO DAILY PRN Kidney Stone 04/04/20 10/05/21 History Pain potassium citrate 10 mEq (1,080 10 meq PO TID #270 tabs 04/04/21 10/05/21 Rx mg) tablet,extended release rosuvastatin 5 mg tablet 5 mg PO QPM 06/13/21 10/05/21 History topiramate 100 mg tablet 100 mg PO DAILY 06/13/21 10/05/21 History trazodone 50 mg tablet 25 mg PO BEDTIME 06/13/21 10/05/21 History Allergies Allergy/AdvReac Type Severity Reaction Status Date / Time No Known Drug Allergies Allergy Verified 10/05/21 08:37 Exam Vital Signs (past 8 hours): - 10/05/21 08:41 Temperature 97.8 F Pulse Rate 82 Respiratory Rate 16 Blood Pressure 118/77 Pulse Oximetry 98 Oxygen Delivery Method Room Air Oxygen Flow Rate 0 Oxygen Delivery Method Room Air Oxygen Flow Rate 0 Const General: comfortable and No acute distress Assessment & Plan Assessment and plan (1) Right upper quadrant abdominal pain: Status: Acute Plan We reviewed the risks and benefits of EGD and he would like to proceed. Time Spent With Patient Critical Care time: I spent a total of [] minutes of critical care time on this patient's care today; this time is exclusive of procedural time.
[2021-10-05] MEDS: LIDOCAINE 4% SOLN 50 ML 20 ML TOP (09:18)
[2021-10-05] MEDS: fentaNYL 100 MCG/2 ML INJ IV (09:21)
[2021-10-05] MEDS: MIDAZOLAM 5 MG/5 ML VIAL IV (09:21)
--- NOTE | 2021-10-05 09:29 | PM.OP.EGD ---
Operative Date/Time/Diagnoses Date of procedure: 10/05/21 Time of procedure: 09:29 Pre-op diagnosis: Dyspepsia Post-op diagnosis: same Procedure & Clinicians Study performed: Esophagogastroduodenoscopy Same procedure as scheduled: Yes Surgeon: David Martell Procedure Notes Procedure in detail: Surgeon: David Martell MD A timeout was performed. Topical lidocaine was administered to the posterior oropharynx. A bite blocked was placed. The patient was positioned in the left lateral decubitus position. Sedation was administered with Versed and fentanyl. The endoscope was inserted through the bite block and passed through the esophagus and stomach and into the duodenum. The duodenal mucosa appeared normal. The scope was withdrawn into the duodenal bulb and no abnormalities were noted there. The scope was withdrawn into the stomach. There was very mild antritis and random biopsies were taken from the antrum. The rest of the stomach was normal. The scope was retroflexed and no hiatal hernia was noted. No other abnormalities were seen.. The scope was withdrawn into the esophagus and no esophagitis was noted. The remainder of the esophagus was normal. The scope was withdrawn. The patient was awakened and brought to recovery. Versed: 5 Fentanyl: 100 Findings: mild antritis Sedation minutes: 8 Post-procedure Follow up: weeks Disposition: PACU
[2021-10-05 09:32] VITALS: BP 110/76; PULSE 71; RESP 11; TEMP 36.2; O2SAT 94
[2021-10-05 09:37] VITALS: BP 113/75; PULSE 69; RESP 13; O2SAT 94
[2021-10-05 09:42] VITALS: BP 105/68; PULSE 67; RESP 11; O2SAT 96
[2021-10-05 09:47] VITALS: BP 109/73; PULSE 69; RESP 15; O2SAT 94
== END 2021-10-05 09:50 | disposition home or self-care (01) ==
PROVIDERS: Referring Provider Surgery; Visit Provider Surgery
PROC: 0DJ08ZZ Inspection of Upper Intestinal Tract, Via Natural or Artificial Opening Endoscopic (ICD-10-PCS; CPT 43235; principal; 2021-10-05 09:30)
DX: R10.13 Epigastric pain (principal); K29.60 Other gastritis without bleeding
CPT/HCPCS: 43235; 99152; J2250; J3010